=== PATIENT | female | born 1965 | race Caucasian/White ===

== ENCOUNTER 2024-10-27 08:50 | Emergency (ER) | payer MEDICARE, MEDICAID, SELFPAY ==
[2024-10-27 09:04] VITALS: BP 91/50; PULSE 67; RESP 20; TEMP 36.6; O2SAT 100
--- OUTSIDE RECORDS SUMMARY | 2024-10-27 09:05 | XMS_ITS | Clinical Summary ---
Author Organization [facility] Address [address] [place] [address] Phone Care Team Providers Care Plastic Molding Operator Name Role Phone Caryn Briseno APRN, INVERTER AND CLIPPER Unavailable [phone] Nery Burrell MD PhD Unavailable [phone] Roc Whitehead MD Unavailable Wagner Byrne MD Primary Care Provider Rafael Li MD Unavailable Ruben Rodriguez MD Unavailable Allergies Active Allergy Reactions Criticality Noted Date Comments Influenza Virus Vaccine Other (see Comments) PARALYZES ME Ipratropium [facility] Hallucinations High 08/05/19 24 COMBIVENT Pregabalin Swelling 05/15/2022 Medications aspirin EC 81 MG Tablet Delayed Response Take 1 Tablet by mouth daily. Active OXYGEN CONCENTRATOR 3 L/min by Nasal route as needed (shortness of breath). [facility] May use portable oxygen tanks when concentrator is not available. Active Vitamin D, Cholecalciferol, 25 MCG (1000 UT) Capsule Take 1 Capsule by mouth daily. Active acetaminophen (TYLENOL) 500 MG Tablet Take 2 Tablets by mouth every 6 hours as needed for Mild or more severe pain. Active albuterol (PROVENTIL, VENTOLIN) (2.5 MG/3ML) 0.083% Nebulizer Soln TAKE 3 ML (2.5 MG TOTAL) BY NEBULIZATION EVERY 6 (SIX) HOURS NEEDED FOR WHEEZING 360 mL 14 3 Active nitroGLYCERIN (NITROSTAT) 0.[address] 1 TABLET (0.4 MG TOTAL) UNDER THE TONGUE EVERY 5 (FIVE) MINUTES NEEDED FOR CHEST PAIN. IF CHEST PAIN IS NOT RELIEVED AFTER 2ND DOSE CALL 911 OR GO TO NEAREST EMERGENCY ROOM. 25 Tablet 3 3 Active Jardiance 10 MG Tablet TAKE 1 TABLET BY MOUTH DAILY. 90 Tablet 7 3 Active Eliquis 5 MG Tablet TAKE 1 TABLET BY MOUTH TWICE DAILY 180 Tablet 1 3 Active guaiFENesin (ROBITUSSIN) 100 MG/5ML Liquid Take 10 mL by mouth every 4 hours as needed for Cough or Congestion. 840 mL 3 Active spironolactone (ALDACTONE) 25 MG Tablet Take 0.5 Tablets by mouth daily. 90 Tablet 3 Active melatonin 3 MG Tablet Take 2 Tablets by mouth nightly as needed for Other (Sleep). 30 Tablet 3 Active Additional Information Patient not taking.Reported on 08/06/2024 ondansetron (ZOFRAN) 4 MG Tablet TAKE 1 TABLET (4 MG TOTAL) BY MOUTH EVERY 8 (EIGHT) HOURS NEEDED FOR NAUSEA OR VOMITING 20 Tablet 5 4 Active rOPINIRole (REQUIP) 0.5 MG Tablet TAKE 1 TABLET BY MOUTH AT BEDTIME FOR 30 DAYS 30 Tablet 9 4 Active Turmeric (QC TUMERIC COMPLEX PO) Take 1 Capsule by mouth daily. Active Ascorbic Acid (VITAMIN C PO) Take by mouth. Active traZODone (DESYREL) 100 MG TabletIndication s:Primary insomnia TAKE 1 TABLET BY MOUTH NIGHTLY. 90 Tablet 2 4 Active Additional Information Patient not taking.Reported on 08/06/2024 ipratropium-albu terol (Combivent Respimat) 20-100 MCG/ACT Aerosol SolutionIndicati ons:Other emphysema (HCC) take 2 Puffs by inhalation every 4 hours as needed for Wheezing or Shortness of Breath. 4 g 3 4 Active montelukast (SINGULAIR) 10 MG Tablet TAKE 1 TABLET BY MOUTH EVERY EVENING. 90 Tablet 2 4 Active ranolazine (RANEXA) 500 MG TABLET SR 12 HR TAKE 1 TABLET BY MOUTH TWICE DAILY 180 Tablet 1 4 Active pantoprazole (PROTONIX) 40 MG Tablet Delayed Response TAKE 1 TABLET BY MOUTH IN THE EVENING 90 Tablet 1 4 Active roflumilast (DALIRESP) 500 MCG Tablet TAKE 1 TABLET BY MOUTH EVERY DAY 90 Tablet 1 4 Active atorvastatin (LIPITOR) 40 MG Tablet TAKE ONE (1) TABLET BY MOUTH EVERY DAY 90 Tablet 1 4 Active lidocaine (LIDODERM) 5 % Patch APPLY 1 PATCH EXTERNALLY EVERY 12 HOURS, REMOVE FOR 12 HOURS. APPLY NEW PATCH IN 12 HOURS AND REPEAT. 60 Patch 4 Active fluticasone (FLONASE) 50 MCG/ACT Suspension USE 2 SPRAYS IN EACH NOSTRIL ONCE DAILY 16 mL 9 4 Active traMADol (ULTRAM) 50 MG TabletIndication s:Acute exacerbation of chronic low back pain Take 1 Tablet by mouth every 6 hours as needed for Moderate or more severe pain. 20 Tablet 4 Active Additional Information Patient not taking.Reported on 03/10/2024 sodium chloride 1 GM Tablet TAKE 1 TABLET BY MOUTH 2 TIMES DAILY. 180 Tablet 1 4 Active sacubitril-valsa rtan (Entresto) 24-26 MG Tablet Take 1 Tablet by mouth 2 times daily. 180 Tablet 1 4 Active PARoxetine (PAXIL) 40 MG Tablet TAKE 1 TABLET BY MOUTH DAILY. 90 Tablet 2 4 Active Trelegy Ellipta 100-62.5-25 MCG/ACT AEROSOL POWDER, BREATH ACTIVATED TAKE 1 PUFF BY INHALATION DAILY. 180 Each 1 4 Active oxyCODONE (ROXICODONE) 5 MG TabletIndication s:Back pain Take 1 Tablet by mouth every 4 hours as needed for Severe pain. 15 Tablet 4 Active azelastine (ASTELIN) 0.1 % Solution ADMINISTER 1 SPRAY INTO EACH NOSTRIL 2 (TWO) TIMES A DAY DIRECTED 30 mL 2 4 Active methocarbamol (ROBAXIN) 500 MG Tablet TAKE 1 TABLET BY MOUTH THREE TIMES A DAY 90 Tablet 4 Active Additional Information Patient not taking.Reported on 08/06/2024 albuterol (ProAir HFA) 108 (90 Base) MCG/ACT Aerosol Solution take 2 Puffs by inhalation every 4 hours as needed for Wheezing. 1 g 6 4 Active Additional Information Patient not taking.Reported on 08/06/2024 furosemide (LASIX) 40 MG Tablet TAKE 1 TABLET BY MOUTH DAILY. 90 Tablet 1 4 Active tiZANidine (ZANAFLEX) 4 MG Tablet Take 1 Tablet by mouth every 6 hours as needed for Muscle spasms. 30 Tablet 5 Active Additional Information Patient not taking.Reported on 08/06/2024 ketorolac (TORADOL) 10 MG Tablet Take 1 Tablet by mouth every 6 hours as needed for Moderate or more severe pain. 20 Tablet 5 Active albuterol (ProAir HFA) 108 (90 Base) MCG/ACT Aerosol SolutionIndicati ons:Simple chronic bronchitis (HCC) take 2 Puffs by inhalation every 4 hours as needed for Wheezing. 18 g 3 5 Active predniSONE (DELTASONE) 5 MG Tablet Take 1 Tablet by mouth daily. 30 Tablet 4 5 Active DULoxetine (Cymbalta) [address] Particles Take 60 mg by mouth daily. Active ALPRAZolam (Xanax) 0.5 MG Tablet Take 0.5 mg by mouth daily as needed. Active amiodarone (CORDARONE) 200 MG Tablet Take 1 Tablet by mouth 2 times daily. 60 Tablet 2 5 Active metoprolol Succinate (TOPROL-XL) 100 MG TABLET SR 24 HR Take (1) tab in am and (0.5) tab in pm 45 Tablet 3 5 Active Active Problems Problem Noted Date Diagnosed Date Bipolar depression 04/02/2024 Chronic hypoxemic respiratory failure 02/05/2024 Acute kidney injury 04/22/2023 Prolonged Q-T interval on ECG 04/22/2023 Leukocytosis 04/22/2023 Major depressive disorder, recurrent episode, mo derate 01/30/2023 Grief 01/30/2023 Tobacco abuse 01/23/2023 Acute chest pain 11/15/2022 Seizures 11/15/2022 VA (myocardial infarction) 11/15/2022 Depression 11/15/2022 Congestive heart failure (CHF) 11/15/2022 Bipolar 1 disorder 11/15/2022 Chronic atrial fibrillation 11/15/2022 Hyponatremia 06/05/2022 Hypochloremia 06/05/2022 Hypomagnesemia 04/01/2022 Thrombocytosis 04/01/2022 Paroxysmal atrial fibrillation 04/01/2022 Dilated cardiomyopathy 04/01/2022 Chronic back pain 04/01/2022 AICD discharge 02/27/2022 Acute on chronic systolic heart failure 02/28/20 Asthma, moderate persistent 02/09/2022 Coronary atherosclerosis 12/12/2021 Insomnia secondary to chronic pain 10/20/2021 Overview (02/09/2022): Last Assessment & Plan: Patient is unable to sleep, reports she cannot lie flat, or even sit for significant time due to miserable pain Causing insomnia; patient reports multiple stressors including medical implications for cardiac in spinal help; as well as planning for mother's Memorial Will start clonazepam 1 mg at bedtime to help with sleep initiation and reduce stress and anxiety Spinal stenosis of lumbar re gion with neurogenic claudication 04/11/2021 Overview (02/09/2022): Last Assessment & Plan: Not well controlled, continues to have significant pain and discomfort associated with low back pain Patient is following her surgery; scheduling for surgical interventions Patient follows with pain management for management of pain due to low back pain Currently Xtampza ER 13.5 mg b.i.d.; oxycodone 10 mg b.i.d. as needed for breakthrough pain Chronic bilateral low back pain with bilateral s ciatica 03/14/2021 Overview (02/09/2022): Last Assessment & Plan: Patient follows with pain management, planning for intervention; though minimally invasive intervention currently deferred due to other responsibilities Patient to continue on oxycodone 10 t.i.d., gabapentin Radiculopathy, lumbosacral region 03/14/2021 Anxiety 02/03/2020 Overview (02/09/2022): Last Assessment & Plan: Patient has multiple stressors at home, including caring for her mother; mother needs significant amounts of care and patient has no opportunity to have breaks in care Is not able to care for self Patient reports she only gets 1-2 hours per night before waking up again Discussed with patient ways to consolidate sleep as well as Ensure giving approximately 8-9 hours of sleep per night Encouraged patient to work with health social work professor as well as department of aging to get support from mother Continue Paxil 20 mg, propanolol 40 mg persistent since in management of generalized anxiety disorder Chest pain 02/03/2020 Overview (02/09/2022): Last Assessment & Plan: Chest pain more likely from anxiety but does have known cardiomyopathy with low EF and paroxysmal atrial fibrillation. Initial troponin and EKG with no acute changes. Will monitor overnight. Continue to trend troponin levels. ICD (implantable cardioverte r-defibrillator), biventricular, in situ 01/21/2019 Hyperlipidemia 10/10/2018 Hypertension 10/10/2018 Overview (02/09/2022): Last Assessment & Plan: Stable, blood pressure at target today Continue medications above list for heart failure Last Assessment & Plan: Stable, blood pressure at target today Continue medications above list for heart failure Neuropathy 10/10/2018 Osteoarthrosis 10/08/2018 Asthma 09/27/2018 Bipolar disorder 09/27/2018 Overview (02/09/2022): Last Assessment & Plan: Stable, Not well controlled, patient continues to have ups and Downs; multiple stressors including mother with possible diagnosis of dementia Encouraged patient continue with counseling; continue BuSpar 7.5 mg, Depakote 500 mg t.i.d., Paxil 20 mg daily Cardiomyopathy 09/27/2018 COPD (chronic obstructive pulmonary disease) Overview (02/09/2022): Last Assessment & Plan: Continues to use 2 L of oxygen by nasal cannula Continue Trelegy Ellipta, albuterol p.r.n. for exacerbation Coronary arteriosclerosis 09/27/2018 Resolved Problems Problem Noted Date Diagnosed Date Resolved Date Acute CHF (congestive heart failure) 08/03/2023 08/04/2023 Acute on chronic respiratory failure with hypoxia and hypercapnia 04/21/2023 06/19/2023 VA (myocardial infarction) 11/15/2022 0 02/05/2024 COPD with acute exacerbation 06/05/2022 06/19/2023 HCAP (healthcare-associated pneumonia) 05/15/2022 02/15/2023 Community acquired pneumonia 04/01/2022 02/15/2023 Atrial fibrillation with RVR 02/27/2022 03/01/2022 Pneumonia due to COVID-19 virus 01/26/2022 02/15/2023 Moderate tobacco use disorder 10/13/2020 02/05/2024 Overview (02/09/2022): Last Assessment & Plan: Not well controlled, continues to have tobacco use approximately 1 pack per day, patient is ready to quit Patient is working with self in mother to help quit; encouraged patient to continue working with her mother for long-term relief Tobacco dependence 01/20/2019 Atrial fibrillation 09/27/2018 02/05/20 Overview (02/09/2022): Last Assessment & Plan: Stable, well controlled; rate controlled No evidence of severe bleeding or bruising on Eliquis Continue propanolol and Eliquis 5 mg b.i.d. Encounters Date Type Department Care Team Description 10/10/2024 Refill [facility] [address] [place] [address] Enrique Smith MD Medication Refill 10/04/2024 5:27 AM CDT - 10/04/2024 6:34 AM CDT Emergency [facility] Emergency [address] [place] [address] Mayank Yi MD Contusion of dorsum of foot Discharge Disposition: Discharged to home or Selfcare 10/04/2024 Travel 08/19/2024 9:30 AM CDT - 08/19/2024 11:59 PM CDT Hospital Encounter [facility] Respiratory Therapy [address] [place] [address] Ruben Rodriguez MD Discharge Disposition: Discharged to home or Selfcare 08/19/2024 Telephone [facility] Cardiology [facility] [address] [place] [address] Ruben Rodriguez MD Information 08/19/2024 Travel 08/06/2024 9:00 AM CDT Office Visit [facility] Cardiology [facility] [address] [place] [address] Ruben Rodriguez MD VF (ventricular fibrillation) (HCC) (Primary Dx) Discharge Disposition: Discharged to home or Selfcare 08/06/2024 Travel 07/31/2024 Refill [facility] Pulmonology & Sleep Medicine [facility] [address] [place] [address] Roc Whitehead MD Medication Refill from Last 3 Months Immunizations Immunization Administration Dates Next Due TDAP Vaccine 10/08/2019 Family History Medical History Relation Name Comments No Known Problems Brother 1 Cancer Father PROSTATE Congestive Heart Failure Mother Heart Disease Mother Relation Name Status Comments Brother 1 Alive Brother 2 Father Mother Social History Tobacco Use Types Packs/Day Years Used Date Smoking Tobacco: Every Day Cigarettes 0.5 40 Smokeless Tobacco: Never Tobacco Cessation:Ready to Q uit: Not Asked; Counseling Given: Not Answered Alcohol Use Standard Drinks/Week Comments Not Currently 0 (1 standard drink = 0.6 oz pur e alcohol) [facility] Utilities Answer Date Recorded In the past 12 months has e electric, gas, oil, or water company threatened to shut off services in your home? Patient declined 08/03/2023 Social Connection and Isolation Panel Answer Date Recorded In a typical week, how many times do you talk on the phone with family, friends, or neighbors? Patient declined 08/03/2023 How often do you get togethe r with friends or relatives? Patient declined 08/03/2023 How often do you attend jain or scientology serv ices? Patient declined 08/03/2023 Do you belong to any clubs o r organizations such as jain groups, unions, fraternal or athletic groups, or school groups? Patient declined 08/03/2023 How often do you attend meet ings of the clubs or organizations you belong to? Patient declined 08/03/2023 Are you , , di vorced, , never , or living with a partner? Patient declined 08/03/2023 AUDIT-C Answer Date Recorded Q1: How often do you have a drink containing alc ohol? Patient declined 08/03/2023 Q2: How many drinks containi ng alcohol do you have on a typical day when you are drinking? Patient declined 08/03/2023 Q3: How often do you have si x or more drinks on one occasion? Patient declined 08/03/2023 Overall Financial Resource Strain (CARDIA) Answe r Date Recorded How hard is it for you to pa y for the very basics like food, housing, medical care, and heating? Patient declined 08/03/2023 PHQ-2 Answer Date Recorded Total Score - Questions 1-9 9 01/2024 [facility] - Occupational Stress Questionnaire Answer Date Recorded Do you feel stress - tense, restless, nervous, or anxious, or unable to sleep at night because your mind is troubled all the time - these days? Patient declined 08/03/2023 Exercise Vital Sign Answer Date Recorde d On average, how many days pe r week do you engage in moderate to strenuous exercise (like a brisk walk)? Patient declined On average, how many minutes do you engage in exercise at this level? Patient declined 08/03/2023 Hunger Vital Sign Answer Date Recorded Within the past 12 months, y ou worried that your food would run out before you got the money to buy more. Patient declined Within the past 12 months, t he food you bought just didn't last and you didn't have money to get more. Patient declined PRAPARE - Transportation Answer Date Re corded In the past 12 months, has l ack of transportation kept you from medical appointments or from getting medications? Patient declined 08/03/2023 In the past 12 months, has l ack of transportation kept you from meetings, work, or from getting things needed for daily living? Patient declined 08/03/2023 Housing Stability Vital Sign Answer Christophe e Recorded In the last 12 months, was t here a time when you were not able to pay the mortgage or rent on time? Patient declined 08/03/19 24 In the last 12 months, how many places have you lived? 1 08/03/2023 In the last 12 months, was t here a time when you did not have a steady place to sleep or slept in a jail (including now)? Patient declined 08/03/2023 Education Answer Date Recorded What is the highest level of school you have completed or the highest degree you have received? 9th grade 10/31/2022 Sexually Active Control Partners Comments Not Currently Comments No Sex and Gender Information Value Date Recorded Sex Assigned at Female 10/04/2024 5:46 AM CDT Legal Sex Female 3:19 PM CDT Gender Identity Female 10/04/2024 5:46 AM CDT Sexual Orientation Not on file Last Filed Vital Signs Vital Sign Reading Time Taken Comments Blood Pressure 93/76 10/04/2024 6:16 AM CDT Pulse 69 10/04/2024 6:16 AM CDT Temperature 36.8 C (98.2 F) 10/04/2024 5:30 AM CDT Respiratory Rate 19 10/04/2024 6:16 AM CDT Oxygen Saturation 100% 10/04/2024 6:16 AM CDT Inhaled Oxygen Concentration - - Weight 92.1 kg (203 lb) 10/04/2024 5:30 AM CDT Height 165.1 cm (5' 5) 10/04/2024 5:30 AM CDT Body Mass Index 33.78 10/04/2024 5:30 AM CDT Plan of Treatment Upcoming Encounters Date Type Department Care Team (Latest Contact Info) Description 10/29/2024 9:00 AM CDT Clinical Support [facility] [place] [address] [place] [address] Nurse, [facility] [place] 10/29/2024 9:30 AM CDT [facility] Visit [facility] [place] [address] [place] [address] Ruben Rodriguez MD [address] [facility] [address] [place] [address] 10/30/2024 1:00 PM CDT Appointment [facility] Services [address] [place] [address] Ruben Rodriguez MD [address] [address] Discharge Disposition: Discharged to home or Selfcare Health Maintenance Due Date Last Done Comments Hepatitis C Virus (HCV) Screening 1965 Mammogram 1964 Hepatitis B Immunization (1 of 3 - 19+ 3-dose series) 12/10/1983 Pneumococcal Immunization (50+ years) (1 of 2 - PCV) 12/10/1983 Pap Smear 1985 Cervical Cancer Screening (CCS) 1994 HPV/Cotest 1994 Cologuard 2009 Colonoscopy 2009 Colorectal Cancer Screening 2009 Immunochemical Fecal Occult Blood 2009 Zoster Immunization (1 of 2) 2014 Lung Cancer Screening 07/06/2023 07/06/2022 , 09/26/2015, 09/26/2015, Additional history exists SARS-COV-2 Immunization ( - season) 2024 Influenza Immunization (Season Ended) 2025 Td Immunization Every 10 Years (Adults With 1 Tdap) 10/07/2029 10/08/2019 Respiratory Syncytial Virus (RSV) Immunization (Adult) (1 - 1-dose 75+ series) 12/10/2039 DTaP/Tdap/Td Immunization Discontinued 10/08/2019 Human Papillomavirus (HPV) Immunization Aged Out No longer eligible based on patient's age to complete this topic Meningococcal Immunization (ACWY) Aged Out No longer eligible based on patient's age to complete this topic Rotavirus Immunization Aged Out No lo nger eligible based on patient's age to complete this topic Goals Goal Patient Goal Type Associated Problems Recent Progress Patient-Stated? Author I am tired of feeling guilty about my [grief.] Behavioral Health Improving(01/2024 2:42 PM APPAREL STOCK CHECKER) Yes Edda Vo, SCIENTIFIC SYSTEMS ANALYST Note: Goal/Objective: Decrease guilty thoughts about her care for her mother who is now . Anticipated Time Frame for Goal Completion: 6 months Goal Reviewed with: patient Readiness to change: Ready to change Department associated with goal: [facility] Steps to achieve goal: 1. will attend at least 6 counseling sessions either individual and/or group 1x/mo, engaging in each session by verbalizing and processing thoughts and feelings related to grief and loss. 2. will report reduced feelings of guilt and resentment. 3. will identify and implement at least two outlets for grief and or coping skills to aid in managing problematic responses to grief. Medical Devices Implanted Type Area Antenna Specialist Device Identifier Shelf Expiration Date Model / Serial / Lot Technis 1-Piece Iol With Simplicity Delivery System Implanted:Qty: 1 on 03/10/2024 by Romy Durbin MD PhD at [facility] Right: Eye 01/25/2026 [id number] / [id number] / [id number] Procedures Procedure Name Priority Date/Time Associated Diagnosis Comments XR FOOT 3 OR MORE VIEWS RIGHT STAT 10/04/2024 5:56 AM CDT ELECTROCARDIOGRAM, COMPLETE Today 08/06/2024 9:00 AM CDT VF (ventricular fibrillation) (HCC) MAGNESIUM (MG) Routine 08/06/2024 8:45 AM CDT VF (ventricular fibrillation) (HCC) BASIC METABOLIC PANEL W/ CALCIUM TOTAL Routine 08/06/2024 8:45 AM CDT Cardiomyopathy, unspecified type (HCC) Primary hypertension Acute on chronic systolic heart failure (HCC) CT CHEST W/O CONTRAST Routine 07/06/2022 3:13 PM APPAREL STOCK CHECKER Hyponatremia COPD (chronic obstructive pulmonary disease) (HCC) from Last 3 Months or Most Recently Relevant to Health Maintenance Results * XR FOOT 3 OR MORE VIEWS RIGHT (10/04/2024 5:56 AM CDT) Anatomical Region Laterality Modality LOWER EXTREMITY, foot Right Digital Ra diography 10/04/2024 6:06 AM CDT Impressions 10/04/2024 6:08 AM CDT IMPRESSION: No acute osseous abnormality. Narrative 10/04/2024 6:08 AM CDT EXAM DESCRIPTION: XR FOOT 3 OR MORE VIEWS RIGHT REASON FOR STUDY: Foot injury TECHNIQUE: Three radiographic views of the right foot . COMPARISON: None. FINDINGS: BONES: There is no cortical discontinuity or trabecular irregularity to suggest fracture. The bones are in normal alignment. SOFT TISSUES: There is diffuse soft tissue swelling over the dorsum of the foot, greatest over the distal metatarsals. THIS IS AN ELECTRONICALLY VERIFIED FINAL REPORT 10/04/2024 6:06 AM - Electronically signed by Yanet Garay M.D. SN: SN Report ID: [id number] Reading Location: [id number] Procedure Note Yanet Garay MD - 10/04/2024 EXAM DESCRIPTION: XR FOOT 3 OR MORE VIEWS RIGHT REASON FOR STUDY: Foot injury TECHNIQUE: Three radiographic views of the right foot . COMPARISON: None. FINDINGS: BONES: There is no cortical discontinuity or trabecular irregularity to suggest fracture. The bones are in normal alignment. SOFT TISSUES: There is diffuse soft tissue swelling over the dorsum of the foot, greatest over the distal metatarsals. THIS IS AN ELECTRONICALLY VERIFIED FINAL REPORT 10/04/2024 6:06 AM - Electronically signed by Yanet Garay M.D. SN: Report ID: [id number] Reading Location: [id number] IMPRESSION: No acute osseous abnormality. us Raj Nicholas MD IMG DIAGNOSTIC ORDERABLES Final Result * ELECTROCARDIOGRAM, COMPLETE (08/06/2024 9:00 AM CDT) Narrative Ruben Rodriguez MD - 08/06/2024 9:00 AM CDT Ruben Rodriguez MD 08/13/2024 10:20 PM [employer]. Ruben Rodriguez MD IMG ECG ORDERABLES Edited Result - Final * MAGNESIUM (MG) (08/06/2024 8:45 AM CDT) MAGNESIUM 1.7 1.6 - 2.6 mg/dL 08/06/2024 10:43 AM CDT [facility] Blood Venipuncture / Unknown 08/06/2024 8:45 AM CDT 08/06/2024 10:25 AM CDT Ruben Rodriguez MD CHEMISTRY ORDERABLES Final Resul t [facility] [address] [place] [address] * (ABNORMAL) BASIC METABOLIC PANEL W/ CALCIUM TOTAL (08/06/2024 8:45 AM CDT) SODIUM 132(L) 136 - 145 mmol/L 08/06/2024 10:14 AM CDT [facility] POTASSIUM 4.3 3.5 - 5.1 mmol/L 08/06/2024 10:14 AM CDT [facility] CHLORIDE 94(L) 98 - 107 mmol/L 08/06/2024 10:14 AM CDT [facility] CO2, VENOUS 31(H) 22 - 30 mmol/L 08/06/2024 10:14 AM CDT [facility] ANION GAP 11.3 <18.0 mmol/L 08/06/2024 10:14 AM CDT [facility] GLUCOSE 109(H) 70 - 99 mg/dL 08/06/2024 10:14 AM CDT [facility] BUN 9(L) 10 - 20 mg/dL 08/06/2024 10:14 AM CDT [facility] CREATININE, BLOOD 0.78 0.60 - 1.00 mg/dL 08/06/2024 10:14 AM CDT [facility] BUN/CREATININE RATIO 12 12 - 20 ratio 08/06/2024 10:14 AM CDT [facility] CALCIUM 8.9 8.7 - 10.5 mg/dL 08/06/2024 10:14 AM CDT [facility] IS THE PATIENT REQUIRED TO BE FASTING? No 08/06/2024 10:14 AM CDT [facility] GFR, ESTIMATED >60 >=60 08/06/2024 10:14 AM CDT [facility] Comment: Creatinine Clearance is the preferred criteria for selecting drug dose adjustments in renally impaired patients. The GFR is provided as additional pertinent clinical information. GFR is reported in mL/min/1.73 sq m. Calculation based on the Chronic Kidney Disease Epidemiology Collaboration (CKD- EPI) equation refit without adjustment for race. GFR, EST. >60 >=60 025 10:14 AM CDT [facility] GFR, EST. NONAFRICAN >60 >=60 08/06/2024 10:14 AM CDT [facility] Blood Venipuncture / Unknown 08/06/2024 8:45 AM CDT 08/06/2024 9:23 AM CDT us Caryn Briseno RETAIL KEY HOLDER, INVERTER AND CLIPPER CHEMISTRY ORDERABLES Final Result [facility] #[address] [place] [address] * CT CHEST W/O CONTRAST (07/06/2022 3:13 PM APPAREL STOCK CHECKER) Anatomical Region Laterality Modality Chest N/A Computed Tomogra phy 07/08/2022 10:4 1 PM APPAREL STOCK CHECKER Impressions 07/08/2022 10:43 PM APPAREL STOCK CHECKER IMPRESSION: 1. Redemonstration of mild upper lobe predominant emphysema with mild peripheral nonspecific fibrosis also more pronounced in the bilateral upper lobes. 2. Scattered mild nodular atelectasis or scarring in the bilateral lower lobes have significantly improved compared to prior study. 3. No suspicious pulmonary nodules, lung masses or pneumonia. 4. Interval resolution of moderate size pericardial effusion seen on prior study. Narrative 07/08/2022 10:43 PM APPAREL STOCK CHECKER EXAM DESCRIPTION: CT CHEST W/O CONTRAST REASON FOR STUDY: Hypo-osmolality and hyponatremia TECHNIQUE: CT scan of the chest performed without intravenous contrast using helical scanning technique. Reconstructed coronal and sagittal MPR images reviewed. All images stored on PACS. Automated exposure control was used as a dose optimization technique for this examination. COMPARISON: 04/01/2022 REFERENCE: Per ACR white paper recommendations, unless otherwise specified no follow-up imaging is recommended for incidental renal and adrenal lesions per consensus recommendations based on imaging criteria. Further lab evaluation could be pursued based on clinical findings. FINDINGS: The sensitivity for detection of solid visceral lesions is diminished without the use of intravenous contrast. LUNGS: Mild emphysema worst in the bilateral upper lobes with scattered mild peripheral fibrosis also more pronounced in the bilateral upper lobes, as well as mild scattered atelectasis/nodular scarring in the bilateral lower lobes and lingula. No suspicious nodules or pulmonary masses. No pneumonia. PLEURA: No effusion. No pneumothorax. MEDIASTINUM/ASHLEIGH: No identified masses or abnormal nodes. HEART: Heart size is normal with no pericardial effusion. Previous moderate pericardial effusion has resolved. CORONARY ARTERY CALCIFICATION: Mild atherosclerotic calcification in the left anterior descending and right coronary arteries. VASCULATURE: No thoracic aortic aneurysm. AXILLA: No adenopathy. CHEST WALL: No masses. No subcutaneous air. HARDWARE/LINES/TUBES: Left chest wall pacemaker/defibrillator with coronary sinus and atrial ventricular leads redemonstrated. UPPER ABDOMEN: No significant abnormality. MUSCULOSKELETAL: Multiple healed bilateral rib fractures and thoracotomy change of left lateral 10th rib redemonstrated. No acute fracture or suspicious osseous lesions. OTHER: No other significant abnormality. THIS IS AN ELECTRONICALLY VERIFIED FINAL REPORT 07/08/2022 10:41 PM - Electronically signed by Enrique Burrell M.D. ML: ML Report ID: [id number] Reading Location: [place] [address] Procedure Note Enrique Burrell MD - 07/08/2022 EXAM DESCRIPTION: CT CHEST W/O CONTRAST REASON FOR STUDY: Hypo-osmolality and hyponatremia TECHNIQUE: CT scan of the chest performed without intravenous contrast using helical scanning technique. Reconstructed coronal and sagittal MPR images reviewed. All images stored on PACS. Automated exposure control was used as a dose optimization technique for this examination. COMPARISON: 04/01/2022 REFERENCE: Per ACR white paper recommendations, unless otherwise specified no follow-up imaging is recommended for incidental renal and adrenal lesions per consensus recommendations based on imaging criteria. Further lab evaluation could be pursued based on clinical findings. FINDINGS: The sensitivity for detection of solid visceral lesions is diminished without the use of intravenous contrast. LUNGS: Mild emphysema worst in the bilateral upper lobes with scattered mild peripheral fibrosis also more pronounced in the bilateral upper lobes, as well as mild scattered atelectasis/nodular scarring in the bilateral lower lobes and lingula. No suspicious nodules or pulmonary masses. No pneumonia. PLEURA: No effusion. No pneumothorax. MEDIASTINUM/ASHLEIGH: No identified masses or abnormal nodes. HEART: Heart size is normal with no pericardial effusion. Previous moderate pericardial effusion has resolved. CORONARY ARTERY CALCIFICATION: Mild atherosclerotic calcification in the left anterior descending and right coronary arteries. VASCULATURE: No thoracic aortic aneurysm. AXILLA: No adenopathy. CHEST WALL: No masses. No subcutaneous air. HARDWARE/LINES/TUBES: Left chest wall pacemaker/defibrillator with coronary sinus and atrial ventricular leads redemonstrated. UPPER ABDOMEN: No significant abnormality. MUSCULOSKELETAL: Multiple healed bilateral rib fractures and thoracotomy change of left lateral 10th rib redemonstrated. No acute fracture or suspicious osseous lesions. OTHER: No other significant abnormality. THIS IS AN ELECTRONICALLY VERIFIED FINAL REPORT 07/08/2022 10:41 PM - Electronically signed by Enrique Burrell M.D. ML: ML Report ID: [id number] Reading Location: [id number] IMPRESSION: 1. Redemonstration of mild upper lobe predominant emphysema with mild peripheral nonspecific fibrosis also more pronounced in the bilateral upper lobes. 2. Scattered mild nodular atelectasis or scarring in the bilateral lower lobes have significantly improved compared to prior study. 3. No suspicious pulmonary nodules, lung masses or pneumonia. 4. Interval resolution of moderate size pericardial effusion seen on prior study. 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 PRE-ARREST: Use entire range of life support measures to stabilize the patient. * Full Code Date Activated Date Inactivated Comments 04/21/2023 5:31 PM 04/22/2023 4:32 PM CPR-Full Tr eatment: FULL ARREST: Attempt Resuscitation/CPR wit intubation and mechanical ventilation. PRE-ARREST: Use entire range of life support measures to stabilize the patient. * Full Code Date Activated Date Inactivated Comments 12/13/2022 9:03 AM 12/22/2022 9:31 AM * Full Code Date Activated Date Inactivated Comments 11/15/2022 12:00 PM 11/17/2022 5:31 PM CPR-Full Shannon tment: FULL ARREST: Attempt Resuscitation/CPR wit intubation and mechanical ventilation. PRE-ARREST: Use entire range of life support measures to stabilize the patient. Care Teams Plastic Molding Operator Relationship Specialty Start Date End Date Wagner Byrne MD [address] [place] [address] PCP - General Internal Medicine 11/25/23 Caryn Briseno, RETAIL KEY HOLDER, INVERTER AND CLIPPER #2 [facility], [facility] [address] [place] [address] Nurse Practitioner Cardiology 04/04/23 Nery Burrell MD PhD #1 [place] [address] Senior Hr Manager Interventional Cardiology 04/04/23 Roc Whitehead MD #2 [place] [address] Consulting Physician Pulmonary Disease 10/5/23 Rafael Li MD #2 [facility], [address] [address] Consulting Physician Clinical Cardiac Electrophysiology 02/19/24 Ruben Rodriguez MD 2 Jocelin [facility], [address] [address] Consulting Physician Cardiovascular Disease - Cardiology 08/06/24
--- OUTSIDE RECORDS SUMMARY | 2024-10-27 09:05 | XMS_ITS | Encounter Summary ---
Author Organization [facility] Address [address] [place] [address] Phone Care Team Providers Care Field Service Specialist Name Role Phone Enrique Simth MD Primary Care Provider [phone] Roshan Franco MD Unavailable Caryn Menezes SAUSAGE CANNER, SEAM CLOSER Unavailable + [phone] Nery Burrell MD PhD Unavailable [phone] Roc Whitehead MD Unavailable Wagner Byrne MD Primary Care Provider [phone] Rafael Li MD Unavailable Ruben Rodriguez MD Unavailable Reason for Visit * Reason Comments Medication Refill Encounter Details Date Type Department Care Team (Late st Contact Info) Description 10/10/2022 Refill [facility] - [facility] [address] [place] [id number] Enrique Smith MD [address] [address] Medication Refill Social History Tobacco Use Types Packs/Day Years Used Date Smoking Tobacco: Every Day Cigarettes 0.5 40 Smokeless Tobacco: Never Alcohol Use Standard Drinks/Week Comments Not Currently 0 (1 standard drink = 0.6 oz pur e alcohol) PHQ-2 Answer Date Recorded Total Score - Questions 1-9 0 01/13 Sexually Active Control Partners Comments Not Currently Comments No Sex and Gender Information Value Date Recorded Sex Assigned at Female 10/04/2024 5:46 AM CDT Legal Sex Female 3:19 PM CDT Gender Identity Female 10/04/2024 5:46 AM CDT Sexual Orientation Not on file documented as of this encounter Miscellaneous Notes * Telephone Encounter - Tanika Martin RN - 10/11/2022 12:05 PM CDT Medication failed the protocol, provider to review and approve the medication order if appropriate. Requested Prescriptions Pending Prescriptions Disp Refills ondansetron (ZOFRAN) 4 MG Tablet [Pharmacy Med Name: ONDANSETRON HYDROCHLORIDE 4MG TABLET] 20 Tablet 1 Sig: TAKE 1 TABLET (4 MG TOTAL) BY MOUTH EVERY 8 (EIGHT) HOURS NEEDED FOR NAUSEA OR VOMITING Not Delegated - 5-HT3 Antagonists Protocol Failed - 10/10/2022 3:44 PM Failed - This refill cannot be delegated Passed - Visit with relevant provider in past 12 months or upcoming 90 days Recent Visits Date Type Provider Dept 06/28/22 Office Visit Enrique Smith MD [facility] 06/20/22 Office Visit Luis Carlos Bull MD [facility] 05/31/22 Office Visit Enrique Smith MD [facility] 05/11/22 Office Visit Enrique Smith MD [facility] 04/11/22 Office Visit Bárbara Bergeron APRN, CNP [facility] 03/28/22 Office Visit Enrique Smith MD [facility] 02/09/22 Office Visit Bárbara Bergeron APRN, CNP [facility] Showing recent visits within past 365 days and meeting all other requirements Future Appointments Date Type Provider Dept 10/31/22 Appointment Enrique Smith MD [facility] Showing future appointments within next 90 days and meeting all other requirements predniSONE (DELTASONE) 5 MG Tablet [Pharmacy Med Name: PREDNISONE 5MG TABLET] 30 Tablet 0 Sig: TAKE 1 TABLET BY MOUTH DAILY. Not Delegated - Corticosteroids Protocol Failed - 10/10/2022 3:44 PM Failed - This refill cannot be delegated Passed - Visit with relevant provider in past 12 months or upcoming 90 days Recent Visits Date Type Provider Dept 06/28/22 Office Visit Enrique Smith MD [facility] 06/20/22 Office Visit Luis Carlos Bull [facility] 05/31/22 Office Visit Enrique Smith MD [facility] 05/11/22 Office Visit Enrique Smith MD [facility] 04/11/22 Office Visit Bárbara Bergeron APRN, JET [facility] 03/28/22 Office Visit Enrique Smith MD [facility] 02/09/22 Office Visit Bárbara Bergeron APRN, SEAM CLOSER [facility] Showing recent visits within past 365 days and meeting all other requirements Future Appointments Date Type Provider Dept 10/31/22 Appointment Enrique Smith MD [facility] Showing future appointments within next 90 days and meeting all other requirements documented in this encounter Plan of Treatment Upcoming Encounters Date Type Department Care Team (Latest Contact Info) Description 10/29/2024 9:00 AM CDT Clinical Support [facility] Cardiology [facility] #[address] [place] [address] Nurse, [place] [facility] [place] 10/29/2024 9:30 AM CDT Office Visit [facility] #2 [place] [address] Ruben Rodriguez MD [address] [address] 10/30/2024 1:00 PM CDT Appointment [facility] Cardiology Services [address] [place] [address] Ruben Rodriguez MD [address] [facility], [facility] [address] [place] [address] Discharge Disposition: Discharged to home or Selfcare documented as of this encounter Visit Diagnoses Not on filedocumented in this encounter Additional Health Concerns Infection Onset Date Last Indicated Resolved Time COVID - 19 01/23/2023 01/23/2023 02/02/2023 12:1 6 AM CDT COVID - 19 04/02/2023 04/02/2023 04/12/2023 12:1 6 AM REGULATORY SUBMISSIONS SPECIALIST COVID - 19 04/21/2023 04/21/2023 05/01/2023 12:1 6 AM REGULATORY SUBMISSIONS SPECIALIST Assessment Noted Time PHQ-9 Depression Total Score: 0 02/10/20 11:00 AM CDT documented as of this encounter Care Teams Field Service Specialist Relationship Specialty Start Date End Date Enrique Smith MD #[address] [facility] [address] [place] [address] PCP - General Family Medicine 03/28/22 11/24/23 Wagner Byrne MD [address] [place] [address] PCP - General Internal Medicine 11/25/23 Roshan Franco MD #[address] [facility] [address] [place] [address] Consulting Physician Cardiovascular Disease - Cardiology 12/06/22 04/20/24 Caryn Briseno APRN, SEAM CLOSER #2 [facility], [facility] [address] [place] [address] Nurse Practitioner Cardiology 04/04/23 Nery Burrell MD PhD #[address] [place] [address] Anodiser Interventional Cardiology 04/04/23 Roc Whitehead MD #[address] [place] [address] Consulting Physician Pulmonary Disease 02/15/23 Rafael Li MD [facility] [address] [address] Consulting Physician Clinical Cardiac Electrophysiology 02/19/24 Ruben Rodriguez MD 2 [facility] [address] [address] Consulting Physician Cardiovascular Disease - Cardiology 08/06/24 documented as of this encounter
--- OUTSIDE RECORDS SUMMARY | 2024-10-27 09:05 | XMS_ITS | Encounter Summary ---
Author Organization [facility] Address [address] [place] [address] Phone Care Team Providers Care Placing Judge Name Role Phone Enrique Smith MD Primary Care Provider [phone] Roshan Franco MD Unavailable Caryn Menezes SHIPPING SUPPORT, CURING OVEN ATTENDANT Unavailable + [phone] Nery Burrell MD PhD Unavailable [phone] Roc Whitehead MD Unavailable Wagner Byrne MD Primary Care Provider [phone] Rafael Li MD Unavailable Rbuen Rodriguez MD Unavailable Reason for Visit * Reason Comments Medication Refill Encounter Details Date Type Department Care Team (Late st Contact Info) Description 12/06/2022 Refill [facility] - Family Medicine [facility] [address] [place] [id number] Enrique Smith MD [address] [address] Medication Refill Social History Tobacco Use Types Packs/Day Years Used Date Smoking Tobacco: Every Day Cigarettes 0.5 40 Smokeless Tobacco: Never Alcohol Use Standard Drinks/Week Comments Never 0 (1 standard drink = 0.6 oz pur e alcohol) PHQ-2 Answer Date Recorded Total Score - Questions 1-9 0 01/13 Education Answer Date Recorded What is the [...] AM CDT Sexual Orientation Not on file COVID-19 Exposure Response Date Recorded In the last 10 days, have yo u been in contact with someone who was confirmed or suspected to have Coronavirus/COVID-19? No / Unsure 12/06/2022 2:03 PM CDT documented as of this encounter Miscellaneous Notes * Telephone Encounter - Eloisa Meza RN - 12/06/2022 4:16 PM CDT Medication failed the protocol, provider to review and approve the medication order if appropriate. Requested Prescriptions Pending Prescriptions Disp Refills predniSONE (DELTASONE) 5 MG Tablet [Pharmacy Med Name: PREDNISONE 5MG TABLET] 30 Tablet 0 Sig: TAKE 1 TABLET BY MOUTH DAILY. Not Delegated - Corticosteroids Protocol Failed - 12/06/2022 2:47 PM Failed - This refill cannot be delegated Passed - Visit with relevant provider in past 12 months or upcoming 90 days Recent Visits Date Type Provider Dept 12/05/22 Office Visit Danyel Akhtar APRN, J[facility] 10/31/22 Office Visit Enrique Smith MD [facility] 10/19/22 Office Visit Bárbara Bergeron APRN, JET [facility] 06/28/22 Office Visit Enrique Smith MD [facility] 06/20/22 Office Visit Luis Carlos Bull MD [facility] 05/31/22 Office Visit Enrique Smith MD [facility] 05/11/22 Office [facility] 04/11/22 Office Visit Bárbara Bergeron APRN, JET [facility] 03/28/22 Office Visit Enrique Smith MD [facility] 02/09/22 Office Visit Bárbara Bergeron APRN, JET [facility] Showing recent visits within past 365 days and meeting all other requirements Future Appointments Date Type Provider Dept 01/02/23 Appointment Enrique Smith MD [facility] Showing future appointments within next 90 days and meeting all other requirements documented in this encounter Plan of Treatment Upcoming Encounters Date Type Department Care Team (Latest Contact Info) Description 10/29/2024 9:00 AM CDT Clinical Support [facility] Cardiology [facility] #2 [place] [address] Nurse, [facility] [place] 10/29/2024 9:30 AM CDT Office Visit [facility] #2 [place] [address] Ruben Rodriguez MD [address] [address] 10/30/2024 1:00 PM CDT Appointment [facility] Cardiology Services [address] [place] [address] Ruben Rodriguez MD [address] [address] Discharge Disposition: Discharged to home or Selfcare documented as of this encounter Visit Diagnoses Not on filedocumented in this encounter Additional Health Concerns Infection Onset Date Last Indicated Resolved Time COVID - 19 01/23/2023 01/23/2023 02/02/2023 12:1 6 AM CDT COVID - 19 04/02/2023 04/02/2023 04/12/2023 12:1 6 AM COLOR BLENDER COVID - 19 04/21/2023 04/21/2023 05/01/2023 12:1 6 AM COLOR BLENDER Assessment Noted Time PHQ-9 Depression Total Score: 0 02/10/20 11:00 AM CDT documented as of this encounter Care Teams Placing Judge Relationship Specialty Start Date End Date Enrique Smith MD #[address] [address] PCP - General Family Medicine 03/28/22 11/24/23 Wagner Byrne MD [address] [place] [address] PCP - General Internal Medicine 11/25/23 Roshan Franco MD [address] [address] Consulting Physician Cardiovascular Disease - Cardiology 12/06/22 04/20/24 Caryn Briseno APRN, CURING OVEN ATTENDANT #2 [facility] [address] [address] Nurse Practitioner Cardiology 04/04/23 Nery Burrell MD PhD #1 [place] [address] Neuropsychology Director Interventional Cardiology 04/04/23 Roc Whitehead MD #2 [place] [address] Consulting Physician Pulmonary Disease 02/15/23 Rafael Li MD #[address] [address] Consulting Physician Clinical Cardiac Electrophysiology 02/19/24 Ruben Rodriguez MD 2 [facility], [address] [address] Consulting Physician Cardiovascular Disease - Cardiology 08/06/24 documented as of this encounter
--- OUTSIDE RECORDS SUMMARY | 2024-10-27 09:05 | XMS_ITS | Encounter Summary ---
Author Organization [facility] Address [address] [place] [address] Phone Care Team Providers Care Bail Bondsman Name Role Phone Enrique Smith MD Primary Care Provider [phone] Roshan Franco MD Unavailable Caryn Menezes SCREEN CUTTER AND TRIMMER, LAW SECRETARY Unavailable + [phone] Nery Burrell MD PhD Unavailable [phone] Roc Whitehead MD Unavailable Wagner Byrne MD Primary Care Provider [phone] Rafael Li MD Unavailable Ruben Rodriguez MD Unavailable Reason for Visit * Reason Onset Date Comments Appointment 11/09/2022 Patient calling to cancel her appointment for today 11/09/2022, she will call back to reschedule Encounter Details Date Type Department Care Team (Late st Contact Info) Description 11/09/2022 Telephone [facility] Central Call Center [address] [place] [address] Enrique Smith MD #[address] [address] Appointment (Patient calling to cancel her appointment for today 11/09/2022, she will call back to reschedule) Social History Tobacco Use Types Packs/Day Years [...] suspected to have Coronavirus/COVID-19? No / Unsure 10/31/2022 6:58 AM CDT documented as of this encounter Miscellaneous Notes * Telephone Encounter - Eduin Mohan - 11/09/2022 11:05 AM CDT Patient calling to cancel her appointment for today 11/09/2022, she does not want to get out in this heat today. She will call back to reschedule. Patient notified and verbalized understanding. Will route note to the motel front desk clerk for update. documented in this encounter Plan of Treatment Upcoming Encounters Date Type Department Care Team (Latest Contact Info) Description 10/29/2024 9:00 AM CDT Clinical Support [facility] Medical [facility] - Cardiology - [place] #[address] [place] [address] Nurse, Brain Cardiology [place] 10/29/2024 9:30 AM CDT Office Visit [facility] - Cardiology [facility] #2 [place] [address] Ruben Rodriguez MD [address] [address] 10/30/2024 1:00 PM CDT Appointment [facility] Cardiology Services [address] [place] [address] Ruben Rodriguez MD [address] [address] Discharge Disposition: Discharged to home or Selfcare documented as of this encounter Visit Diagnoses Not on filedocumented in this encounter Additional Health Concerns Infection Onset Date Last Indicated Resolved Time COVID - 19 01/23/2023 01/23/2023 02/02/2023 12:1 6 AM CDT COVID - 19 04/02/2023 04/02/2023 04/12/2023 12:1 6 AM BULK PLANT SUPERVISOR COVID - 19 04/21/2023 04/21/2023 05/01/2023 12:1 6 AM BULK PLANT SUPERVISOR Assessment Noted Time PHQ-9 Depression Total Score: 0 02/10/20 11:00 AM CDT documented as of this encounter Care Teams Bail Bondsman Relationship Specialty Start Date End Date Enrique Smith MD #[address] [address] PCP - General Family Medicine 03/28/22 11/24/23 Wagner Byrne MD [address] [place] [address] PCP - General Internal Medicine 11/25/23 Roshan Franco MD #[address] [address] Consulting Physician Cardiovascular Disease - Cardiology 12/06/22 04/20/24 Caryn Briseno, SCREEN CUTTER AND TRIMMER, LAW SECRETARY #2 [facility] [address] [place] [address] Nurse Practitioner Cardiology 04/04/23 Nery Burrell MD PhD #[address] [place] [address] Analysis Mgr Interventional Cardiology 04/04/23 Roc Whitehead MD #[address] [place] [phone] Consulting Physician Pulmonary Disease 02/15/23 Rafael Li MD [address] [address] Consulting Physician Clinical Cardiac Electrophysiology 02/19/24 Ruben Rodriguez MD [address] [address] Consulting Physician Cardiovascular Disease - Cardiology 08/06/24 documented as of this encounter
--- OUTSIDE RECORDS SUMMARY | 2024-10-27 09:05 | XMS_ITS | Encounter Summary ---
Author Organization [facility] Address [address] [place] [address] Phone Care Team Providers Care Mri Assistant Name Role Phone Enrique Smith MD Primary Care Provider [phone] Roshan Franco MD Unavailable Caryn Menezes READINESS PARAPROFESSIONAL, BASKETBALL COACH Unavailable +- [phone] Nery Burrell MD PhD Unavailable [phone] Roc Whitehead MD Unavailable Wagner Byrne MD Primary Care Provider [phone] Rafael Li MD Unavailable Ruben Rodriguez MD Unavailable Encounter Details Date Type Department Care Team (Late st Contact Info) Description 11/24/2022 Telephone [facility] Call [facility] [address] [place] [address] Enrique Smith MD #[address] [address] Social History Tobacco Use Types Packs/Day Years [...] suspected to have Coronavirus/COVID-19? No / Unsure 11/27/2022 8:45 AM CDT documented as of this encounter Plan of Treatment Upcoming Encounters Date Type Department Care Team (Latest Contact Info) Description 10/29/2024 9:00 AM CDT Clinical Support [facility] Cardiology [facility] #2 [place] [address] Nurse, [facility] 10/29/2024 9:30 AM CDT Office Visit [facility] Cardiology [facility] #[address] [place] [address] Ruben Rodriguez MD [address] [address] 10/30/2024 1:00 PM CDT [facility] 1 [place] [address] Ruben Rodriguez MD [address] [address] Discharge Disposition: Discharged to home or Selfcare documented as of this encounter Visit Diagnoses Not on filedocumented in this encounter Additional Health Concerns Infection Onset Date Last Indicated Resolved Time COVID - 19 01/23/2023 01/23/2023 02/02/2023 12:1 6 AM CDT COVID - 19 04/02/2023 04/02/2023 04/12/2023 12:1 6 AM YARN HANDLER COVID - 19 04/21/2023 04/21/2023 05/01/2023 12:1 6 AM YARN HANDLER Assessment Noted Time PHQ-9 Depression Total Score: 0 02/10/20 11:00 AM CDT documented as of this encounter Care Teams Mri Assistant Relationship Specialty Start Date End Date Enrique Smith MD #[address] [facility] [address] [place] [address] PCP - General Family Medicine 03/28/22 11/24/23 Wagner Byrne MD [address] [place] [address] PCP - General Internal Medicine 11/25/23 Roshan Franco MD [address] [address] Consulting Physician Cardiovascular Disease - Cardiology 12/06/22 04/20/24 Caryn Briseno APRN, BASKETBALL COACH #[address] [facility], [address] [address] Nurse Practitioner Cardiology 04/04/23 Nery Burrell MD PhD #[address] [place] [address] Learning Manager Interventional Cardiology 04/04/23 Roc Whitehead MD #2 [place] [address] Consulting Physician Pulmonary Disease 02/15/23 Rafael Li MD #[address] [facility], [address] [address] Consulting Physician Clinical Cardiac Electrophysiology 02/19/24 Ruben Rodriguez MD 2 [facility], [place] [address] Consulting Physician Cardiovascular Disease - Cardiology 08/06/24 documented as of this encounter
--- OUTSIDE RECORDS SUMMARY | 2024-10-27 09:05 | XMS_ITS | Encounter Summary ---
Author Organization [facility] Address [address] [place] [address] Phone Care Team Providers Care Cinder Pit Crane Operator Name Role Phone Enrique Smith MD Primary Care Provider [phone] Roshan Franco MD Unavailable Caryn Menezes AVIONICS REPAIR TECHNICIAN, CRATE TIER Unavailable + [phone] Nery Burrell MD PhD Unavailable [phone] Roc Whitehead MD Unavailable Wagner Byrne MD Primary Care Provider [phone] Rafael iL MD Unavailable Ruben Rodriguez MD Unavailable Reason for Visit * Reason Comments Medication Refill Encounter Details Date Type Department Care Team (Late st Contact Info) Description 10/12/2023 Refill [facility] - Family Medicine [facility] #[address] [place] [phone] Enrique Smith MD #[address] [address] Medication Refill Social History Tobacco Use Types Packs/Day Years Used Date Smoking Tobacco: Every Day Cigarettes 0.5 40 Smokeless Tobacco: Never Alcohol Use Standard Drinks/Week Comments Not Currently 0 (1 standard drink = 0.6 oz pur e alcohol) [facility] Utilities Answer Date Recorded In the past [...] declined 08/03/2023 How often do you attend restorationist or evangelical serv ices? Patient declined 08/03/2023 Do you belong to any clubs o r organizations such as restorationist groups, unions, fraternal or athletic groups, or [...] Date Recorded Total Score - Questions 1-9 01/12 [facility] of Occupat ional Health - Occupational Stress [...] place to sleep or slept in a chcf (including now)? Patient declined 08/03/2023 Education Answer [...] encounter Miscellaneous Notes * Telephone Encounter - Alexsandra Madsen RN - 10/12/2023 8:42 AM CDT Medication warning Per nursing clinical judgement, provider to review and approve the medication(s) order(s) if appropriate. Requested Prescriptions Pending Prescriptions Disp Refills Trelegy Ellipta 100-62.5-25 MCG/ACT AEROSOL POWDER, BREATH ACTIVATED [Pharmacy Med Name: TRELEGY ELLIPTA 100MCG AERO POW BR ACT] 180 Each 1 Sig: take 1 Puff by inhalation daily. Inhaled Combinations Protocol Passed - 10/12/2023 8:37 AM Passed - Visit with relevant provider in past 12 months or upcoming 90 days Recent Visits Date Type Provider Dept 08/16/23 Office Visit Enrique Smith MD [facility] 06/05/23 Office Visit Enrique Smith MD [facility] 05/02/23 Office Visit Enrique Smith MD [facility] 04/04/23 Office Visit Enrique Smith MD [facility] 01/23/23 Office Visit Luis Carlos Bull MD [facility] 01/16/23 Office Visit Danyel Akhtar AVIONICS REPAIR TECHNICIAN, CRATE TIER [facility] 01/02/23 Office Visit Enrique Smith MD [facility] 12/29/22 Office Visit Sulma Blevins APRN, CRATE TIER [facility] 12/05/22 Office Visit Danyel Akhtar APRN, CRATE TIER [facility] 10/31/22 Office [facility] Showing recent visits within past 365 days and meeting all other requirements Future Appointments No visits were found meeting these conditions. Showing future appointments within next 90 days and meeting all other requirements Passed - Active short-acting beta agonist prescription * Telephone Encounter - Alexsandra Madsen RN - 10/12/2023 8:42 AM CDT Images from the original note were not included. [id number]-[id number] Dispensed Days Supply Quantity Provider Pharmacy Trelegy Ellipta 100 mcg-62.5 mcg-25 mcg powder for inhalation 09/19/2023 30 60 Each Enrique Smith MD [id number] ... Trelegy Ellipta 100 mcg-62.5 mcg-25 mcg powder for inhalation 08/14/2023 30 60 Each Enrique Smith MD [id number] ... documented in this encounter Plan of Treatment Upcoming Encounters Date Type Department Care Team (Latest Contact Info) Description 10/29/2024 9:00 AM CDT Clinical Support [facility] Cardiology - [place] #[address] [place] [address] Nurse, [facility] [place] 10/29/2024 9:30 AM CDT Office Visit [facility] Cardiology - [place] #[address] [place] [address] Ruben Rodriguez MD 2 [facility] [address] [place] [address] 10/30/2024 1:00 PM CDT Appointment [facility] Cardiology Services 1 [facility] [place] [address] Ruben Rodriguez MD 2 [facility] [address] [address] Discharge Disposition: Discharged to home or Selfcare documented as of this encounter Goals Goal Patient Goal Type Associated Problems Recent Progress Patient-Stated? Author I am tired of feeling guilty about my [grief.] Behavioral Health Improving(01/2024 2:42 PM METER/RELAY TECHNICIAN) Yes Edda Vo, ACTIVE DIRECTORY SPECIALIST Note: Goal/Objective: Decrease guilty thoughts about her care for her mother who is now . Anticipated Time Frame for Goal Completion: 6 months Goal Reviewed with: patient Readiness to change: Ready to change Department associated with goal: [facility] Steps to achieve goal: [...] aid in managing problematic responses to grief. documented as of this encounter Visit Diagnoses Not on filedocumented in this encounter Additional Health Concerns Assessment Noted Time PHQ-9 Depression Total Score: 19 023 2:00 PM CDT documented as of this encounter Care Teams Cinder Pit Crane Operator Relationship Specialty Start Date End Date Enrique Smith MD #[address] [facility] [address] [place] [address] PCP - General Family Medicine 03/28/22 11/24/23 Wagner Byrne MD [address] [place] [address] PCP - General Internal Medicine 11/25/23 Roshan Franco MD #[address] [address] Consulting Physician Cardiovascular Disease - Cardiology 12/06/22 04/20/24 Caryn Briseno APRN, CRATE TIER #[address] [place] [address], [address] [address] Nurse Practitioner Cardiology 04/04/23 Nery Burrell MD PhD #[address] [place] [address] Esters And Emulsifiers Supervisor Interventional Cardiology 04/04/23 Roc Whitehead MD #[address] [place] [address] Consulting Physician Pulmonary Disease 02/15/23 Rafael Li MD #2 [facility], [address] [address] Consulting Physician Clinical Cardiac Electrophysiology 02/19/24 Ruben Rodriguez MD [address] [facility], [address] [address] Consulting Physician Cardiovascular Disease - Cardiology 08/06/24 documented as of this encounter
--- OUTSIDE RECORDS SUMMARY | 2024-10-27 09:05 | XMS_ITS | Encounter Summary ---
Author Organization [facility] Address [address] [place] [address] Phone Care Team Providers Care Company Driver Name Role Phone Enrique Smith MD Primary Care Provider [phone] Roshan Franco MD Unavailable Caryn Menezes CERTIFIED PHYSICIAN'S ASSISTANT, OUTSIDE FOOD SERVER Unavailable + [phone] Nery Burrell MD PhD Unavailable [phone] oRc Whitehead MD Unavailable Wagner Byrne MD Primary Care Provider [phone] Rafael Li MD Unavailable Ruben Rodriguez MD Unavailable Reason for Visit * Reason Comments Medication Refill Encounter Details Date Type Department Care Team (Late st Contact Info) Description 09/12/2023 Refill [facility] - Family Medicine [facility] #[address] [place] [address] Enrique Smith MD #[address] [address] Medication Refill Social History Tobacco Use Types Packs/Day Years Used Date Smoking Tobacco: Every Day Cigarettes 0.5 40 Smokeless Tobacco: Never Alcohol Use Standard Drinks/Week Comments Not Currently 0 (1 standard drink = 0.6 oz pur e alcohol) [facility] Utilities Answer Date Recorded In the [...] declined 08/03/2023 How often do you attend denominational or yazidism serv ices? Patient declined 08/03/2023 Do you belong to any clubs o r organizations such as denominational groups, unions, fraternal or athletic groups, or [...] Recorded Total Score - Questions 1-9 01/12 [facility] of Occupat ional Health - Occupational Stress [...] place to sleep or slept in a residential (including now)? Patient declined 08/03/2023 Education Answer [...] Telephone Encounter - Tanika Martin RN - 09/13/2023 8:42 AM CDT Quantity is a 10 days supply - NOT 14 as noted on SIG Medication failed the protocol, provider to review and approve the medication order if appropriate. Requested Prescriptions Pending Prescriptions Disp Refills cyclobenzaprine (FLEXERIL) 10 MG Tablet [Pharmacy Med Name: CYCLOBENZAPRINE HYDROCHLORIDE 10MG TABLET] 30 Tablet 0 Sig: Take 1 Tablet by mouth 3 times daily as needed for Muscle spasms for up to 14 days. Not Delegated - Muscle Relaxants Protocol Failed - 09/12/2023 2:38 PM Failed - This refill cannot be delegated Passed - Visit with relevant provider in past 12 months or upcoming 90 days Recent Visits Date Type Provider Dept 08/16/23 Office Visit Enrique Smith MD [facility] 06/05/23 Office Visit Enrique Smith MD [facility] 05/02/23 Office Visit Enrique Smith MD [facility] 04/04/23 Office Visit Enrique Smith MD [facility] 01/23/23 Office Visit [facility] [place] 01/16/23 Office Visit Danyel Akhtar APRN, OUTSIDE FOOD SERVER [facility] 01/02/23 Office Visit Enrique Smith MD [facility] 12/29/22 Office Visit Sulma Blevins APRN, OUTSIDE FOOD SERVER [facility] 12/05/22 Office Visit Danyel Akhtar APRN, OUTSIDE FOOD SERVER [facility] 10/31/22 [facility] visits within past 365 days and meeting all other requirements Future Appointments No visits were found meeting these conditions. Showing future appointments within next 90 days and meeting all other requirements documented in this encounter Plan of Treatment Upcoming Encounters Date Type Department Care Team (Latest Contact Info) Description 10/29/2024 9:00 AM CDT Clinical Support [facility] - Cardiology - [place] #2 [place] [address] Nurse, [place] [facility] [place] 10/29/2024 9:30 AM CDT Office Visit [facility] Cardiology [facility] #2 [place] [address] Ruben Rodriguez MD [address] [address] 10/30/2024 1:00 PM CDT Appointment [facility] Cardiology Services 1 [place] [address] Ruben Rodriguez MD [address] [address] Discharge Disposition: Discharged to home or Selfcare documented as of this encounter Goals Goal Patient Goal Type Associated Problems Recent Progress Patient-Stated? Author I am tired of feeling guilty about my [grief.] Behavioral Health Improving(01/2024 2:42 PM NITROGLYCERIN SUPERVISOR) Yes Edda Vo, EARLY CHILDHOOD COORDINATOR Note: Goal/Objective: Decrease guilty thoughts about her care for her mother who is now . Anticipated Time Frame for Goal Completion: 6 months Goal Reviewed with: patient Readiness to change: Ready to change Department associated with goal: [facility] Steps to achieve goal: [...] documented as of this encounter Care Teams Company Driver Relationship Specialty Start Date End Date Enrique Smith MD #[address] [address] PCP - General Family Medicine 03/28/22 11/24/23 Wagner Byrne MD [address] [place] [address] PCP - General Internal Medicine 11/25/23 Roshan Franco MD #[address] [place] [address] Consulting Physician Cardiovascular Disease - Cardiology 12/06/22 04/20/24 Caryn Briseno APRN, OUTSIDE FOOD SERVER #[address] [place], [address] [address] Nurse Practitioner Cardiology 04/04/23 Nery Burrell MD PhD #[address] [place] [address] Paste Thinner Interventional Cardiology 04/04/23 Roc Whitehead MD #[address] [place] [address] Consulting Physician Pulmonary Disease 02/15/23 Rafael Li MD #[address], [address] [address] Consulting Physician Clinical Cardiac Electrophysiology 02/19/24 Ruben Rodriguez MD [address] [address] Consulting Physician Cardiovascular Disease - Cardiology 08/06/24 documented as of this encounter
--- OUTSIDE RECORDS SUMMARY | 2024-10-27 09:05 | XMS_ITS | Encounter Summary ---
Author Organization [facility] Address [address] [place] [address] Phone Care Team Providers Care Scrum Master Name Role Phone Enrique Smith MD Primary Care Provider [phone] Roshan Franco MD Unavailable Caryn Menezes CONTROL OPERATOR, CIVIL ENGINEER'S AIDE Unavailable + [phone] Nery Burrell MD PhD Unavailable [phone] Roc Whitehead MD Unavailable Wagner Byrne MD Primary Care Provider [phone] Rafael Li MD Unavailable Ruben Rodriguez MD Unavailable Reason for Visit * Reason Comments Medication Refill Encounter Details Date Type Department Care Team (Late st Contact Info) Description 09/21/2023 Refill [facility] - [facility] Medicine [facility] [address] [place] [id number] Enrique Smith MD [address] [address] Medication Refill Social History Tobacco Use Types Packs/Day Years Used Date Smoking Tobacco: Every Day Cigarettes 0.5 40 Smokeless Tobacco: Never Alcohol Use Standard Drinks/Week Comments Not Currently 0 (1 standard drink = 0.6 oz pur e alcohol) [facility] Utilities Answer Date Recorded In the past [...] declined 08/03/2023 How often do you attend jehovah's witness or baptism serv ices? Patient declined 08/03/2023 Do you belong to any clubs o r organizations such as jehovah's witness groups, unions, fraternal or athletic groups, or [...] Recorded Total Score - Questions 1-9 01/12 [facility] - Occupational Stress [...] place to sleep or slept in a skilled nursing (including now)? Patient declined 08/03/2023 Education Answer [...] Telephone Encounter - Tanika Martin RN - 09/24/2023 7:47 AM CDT Medication failed the protocol, provider to review and approve the medication order if appropriate. Requested Prescriptions Pending Prescriptions Disp Refills cyclobenzaprine (FLEXERIL) 10 MG Tablet [Pharmacy Med Name: CYCLOBENZAPRINE HYDROCHLORIDE 10MG TABLET] 30 Tablet 0 Sig: TAKE 1 TABLET BY MOUTH 3 TIMES DAILY NEEDED FOR MUSCLE SPASMS FOR UP TO 14 DAYS. Not Delegated - Muscle Relaxants Protocol Failed - 09/21/2023 1:05 PM Failed - This refill cannot be delegated Passed - Visit with relevant provider in past 12 months or upcoming 90 days Recent Visits Date Type Provider Dept 08/16/23 Office Visit Enrique Smith MD [facility] 06/05/23 Office Visit Enrique Smith MD [facility] 05/02/23 Office Visit Enrique Smith MD [facility] 04/04/23 Office Visit Enrique Smith MD [facility] 01/23/23 Office Visit Luis Carlos Bull MD [facility] 01/16/23 Office Visit Danyel Akhtar APRN, J[facility] 01/02/23 Office Visit Enrique Smith MD [facility] 12/29/22 Office Visit Sulma Blevins APRN, CIVIL ENGINEER'S AIDE [facility] 12/05/22 Office Visit Danyel Akhtar APRN, JET [facility] 10/31/22 Office Visit Enrique Smith MD [facility] Showing recent visits within past 365 days and meeting all other requirements Future Appointments No visits were found meeting these conditions. Showing future appointments within next 90 days and meeting all other requirements * Telephone Encounter - Tanika Martin RN - 09/21/2023 3:03 PM CDT Images from the original note were not included. Cyclobenzaprine HCl Dispensed Days Supply Quantity Provider Pharmacy cyclobenzaprine 10 mg tablet 09/13/2023 10 30 Tablet Enrique Smith MD [id number] ... cyclobenzaprine 10 mg tablet 09/05/2023 10 30 Tablet Enrique Smith MD [id number] ... cyclobenzaprine 10 mg tablet 08/24/2023 10 30 Tablet Rowena Farley APRN, CIVIL ENGINEER'S AIDE [id number] ... Rx says 14 days documented in this encounter Plan of Treatment Upcoming Encounters Date Type Department Care Team (Latest Contact Info) Description 10/29/2024 9:00 AM CDT Clinical Support [facility] - [facility]iology - [place] [address] [place] [address] Nurse, [facility] [place] 10/29/2024 9:30 AM CDT Office Visit [facility] Cardiology - [place] [address] [place] [address] Ruben Rodriguez MD [address] [address] 10/30/2024 1:00 PM CDT Appointment [facility] Cardiology Services 1 [place] [address] Ruben Rodriguez MD [address] [address] Discharge Disposition: Discharged to home or Selfcare documented as of this encounter Goals Goal Patient Goal Type Associated Problems Recent Progress Patient-Stated? Author I am tired of feeling guilty about my [grief.] Behavioral Health Improving(01/2024 2:42 PM LINEN SUPERVISOR) Yes Edda Vo, PACKAGE DYEING MACHINE OPERATOR Note: Goal/Objective: Decrease guilty thoughts about her care for her mother who is now . Anticipated Time Frame for Goal Completion: 6 months Goal Reviewed with: patient Readiness to change: Ready to change Department associated with goal: [facility] Steps to achieve [...] documented as of this encounter Care Teams Scrum Master Relationship Specialty Start Date End Date Enrique Smith MD [address] [address] PCP - General Family Medicine 03/28/22 11/24/23 Wagner Byrne MD [address] [place] [address] PCP - General Internal Medicine 11/25/23 Roshan Franco MD #[address] [address] Consulting Physician Cardiovascular Disease - Cardiology 12/06/22 04/20/24 Caryn Briseno APRN, CIVIL ENGINEER'S AIDE #2 [facility] [address] [address] Nurse Practitioner Cardiology 04/04/23 Nery Burrell MD PhD #1 [place] [address] Scrape Gatherer Interventional Cardiology 04/04/23 Roc Whitehead MD #2 [place] [phone] Consulting Physician Pulmonary Disease 02/15/23 Rafael Li MD [address] [address] Consulting Physician Clinical Cardiac Electrophysiology 02/19/24 Ruben Rodriguez MD [address] [address] Consulting Physician Cardiovascular Disease - Cardiology 08/06/24 documented as of this encounter
--- OUTSIDE RECORDS SUMMARY | 2024-10-27 09:05 | XMS_ITS | Encounter Summary ---
Author Organization [facility] Address [address] [place] [address] Phone Care Team Providers Care Commercial Escrow Officer Name Role Phone Enrique Smith MD Primary Care Provider [phone] Roshan Franco MD Unavailable Caryn Menezes INFORMATION DELIVERY ANALYST, MIXING MACHINE TENDER Unavailable + [phone] Nery Burrell MD PhD Unavailable [phone] Roc Whitehead MD Unavailable Wagner Byrne MD Primary Care Provider [phone] Rafael Li MD Unavailable Ruben Rodriguez MD Unavailable Reason for Visit * Reason Comments Medication Refill Encounter Details Date Type Department Care Team (Late st Contact Info) Description 12/05/2022 Refill [facility] - [facility] [address] [place] [id number] Enrique Smith MD [address] [address] Medication Refill Social History Tobacco Use Types [...] Encounter - Eloisa Meza RN - 12/06/2022 11:34 AM CDT Amiodarone PDMP 11/08/22 30 day Jardiance PDMP 11/08/22 30 day Zofran PDMP 11/17/[address] Segovia 2 day supply Medication failed the protocol, provider to review and approve the medication order if appropriate. Requested Prescriptions Pending Prescriptions Disp Refills amiodarone (CORDARONE) 200 MG Tablet [Pharmacy Med Name: AMIODARONE HYDROCHLORIDE 200MG TABLET] 90 Tablet 7 Sig: TAKE ONE (1) TABLET BY MOUTH EVERY DAY Amiodarone Protocol Failed - 12/05/2022 7:48 AM Failed - This refill cannot be delegated Passed - Visit with relevant provider in past 12 months or upcoming 90 days Recent Visits Date Type Provider Dept 12/05/22 Office Visit Danyel Akhtar APRN, MIXING MACHINE TENDER [facility] 10/31/22 Office Visit Enrique Smith MD [facility] 10/19/22 Office Visit Bárbara Bergeron APRN, MIXING MACHINE TENDER [facility] 06/28/22 Office Visit Enrique Smith MD [facility] 06/20/22 Office Visit Luis Carlos Bull MD [facility] 05/31/22 Office Visit Enrique Smith MD [facility] 05/11/22 Office Visit Enrique Smith MD [facility] 04/11/22 Office Visit Bárbara Bergeron APRN, J[facility] 03/28/22 Office Visit Enrique Smith MD [facility] 02/09/22 Office Visit [facility] Showing recent visits within past 365 days and meeting all other requirements Future Appointments Date Type Provider Dept 01/02/23 Appointment Enrique Smith MD [facility] Showing future appointments within next 90 days and meeting all other requirements Passed - TSH and T4 or Free T4 on record in past 6 months TSH Date Value Ref Range Status 10/19/2022 0.520 0.270 - 4.200 mIU/L Final Passed - EKG or device check on record in past 12 months Recent Procedure Details EKG 12 LEAD Collected: 11/15/2022 10:31 AM (Final result) Impression: Atrial-sensed ventricular-paced rhythm with prolonged AV conduction Abnormal ECG When compared with ECG of 05-JUN-2022 14:23, Electronic ventricular pacemaker has replaced Wide QRS rhythm... Passed - Hepatic function panel on record in past 6 months T BILI Date Value Ref Range Status 12/05/2022 0.2 0.2 - 1.2 mg/dL Final ALKALINE PHOSPHATASE Date Value Ref Range Status 12/05/2022 77 35 - 105 U/L Final SGOT (AST) Date Value Ref Range Status 12/05/2022 18 <=32 U/L Final SGPT (ALT) Date Value Ref Range Status 12/05/2022 19 <=41 U/L Final TOTAL PROTEIN Date Value Ref Range Status 12/05/2022 8.0 6.0 - 8.3 g/dL Final ALBUMIN Date Value Ref Range Status 12/05/2022 4.5 3.5 - 5.2 g/dL Final Comment: The colormetric methods used for the determination of Albumin may lead to falsely elevated test results in patients suffering from renal failure or insufficiency due to interference with other proteins. Passed - Digoxin level on record in past 6 months if on digoxin DIGOXIN Date/Time Value Ref Range Status 12/05/2022 10:41 AM 0.8 0.8 - 2.0 ng/mL Final Passed - Chest X-ray in past 12 months XR CHEST SINGLE VIEW PORTABLE Result Date: 11/15/2022 Impression IMPRESSION: Mild patchy right basilar airspace opacities, which may be related to subsegmental atelectasis/scarring versus developing airspace disease. Cardiomegaly with mild prominence of pulmonary vasculature. Jardiance 10 MG Tablet [Pharmacy Med Name: JARDIANCE 10MG TABLET] 90 Tablet 7 Sig: TAKE 1 TABLET BY MOUTH DAILY. SGLT2 Inhibitors Protocol Failed - 12/05/2022 7:48 AM Failed - HgA1C on record in past 6 months HGB-A1C Date Value Ref Range Status 03/01/2022 6.6 (H) 4.0 - 6.0 % Final Passed - Visit with relevant provider in past 6 months or upcoming 90 days Recent Visits Date Type Provider Dept 12/05/22 Office Visit Danyel Akhtar APRN, MIXING MACHINE TENDER [facility] 10/31/22 Office Visit Enrique Smith MD [facility] 10/19/22 Office Visit Bárbara Bergeron APRN, MIXING MACHINE TENDER [facility] 06/28/22 Office Visit Enrique Smith MD [facility] 06/20/22 Office Visit Luis Carlos Bull MD [facility] Showing recent visits within past 182 days and meeting all other requirements Future Appointments Date Type Provider Dept 01/02/23 Appointment Enrique Smith MD [facility] Showing future appointments within next 90 days and meeting all other requirements Passed - GFR greater than or equal to 30 in past 6 months GFR, EST. NONAFRICAN Date Value Ref Range Status 12/05/2022 >60 >=60 Final ondansetron (ZOFRAN) 4 MG Tablet [Pharmacy Med Name: ONDANSETRON HYDROCHLORIDE 4MG TABLET] 20 Tablet Sig: TAKE 1 TABLET (4 MG TOTAL) BY MOUTH EVERY 8 (EIGHT) HOURS NEEDED FOR NAUSEA OR VOMITING Not Delegated - 5-HT3 Antagonists Protocol Failed - 12/05/2022 7:48 AM Failed - This refill cannot be delegated Failed - Active on medication list Passed - Visit with relevant provider in past 12 months or upcoming 90 days Recent Visits Date Type Provider Dept 12/05/22 Office Visit Danyel Akhtar APRN, [facility] 10/31/22 Office Visit Enrique Smith MD [facility] 10/19/22 Office Visit Bárbara Bergeron APRN, J[facility] 06/28/22 Office Visit Enrique Smith MD [facility] 06/20/22 Office Visit Luis Carlos Bull MD [facility] 05/31/22 Office Visit Enrique Smith MD [facility] 05/11/22 Office Visit Enrique Smith MD [facility] 04/11/22 Office Visit Bárbara Bergeron APRN, J[facility] 03/28/22 Office Visit Enrique Smith MD [facility] 02/09/22 Office Visit Bárbara Bergeron APRN, [facility] Showing recent visits within past 365 days and meeting all other requirements Future Appointments Date Type Provider Dept 01/02/23 Appointment Enrique Smith MD [facility] Showing future appointments within next 90 days and meeting all other requirements Refused Prescriptions Disp Refills clonazePAM (KlonoPIN) 0.5 MG Tablet [Pharmacy Med Name: CLONAZEPAM 0.5MG TABLET] 90 Tablet 2 Sig: TAKE ONE (1) TABLET BY MOUTH THREE (3) TIMES DAILY Not Delegated - Clonazepam Protocol Failed - 12/05/2022 7:48 AM Failed - This refill cannot be delegated Failed - Active on medication list Passed - Visit with relevant provider in past 12 months or upcoming 90 days Recent Visits Date Type Provider Dept 12/05/22 Office Visit Danyel Akhtar APRN, [facility] 10/31/22 Office Visit Enrique Smith MD [facility] 10/19/22 Office Visit Bárbara Bergeron APRN, J[facility] 06/28/22 Office Visit Enrique Smith MD [facility] 06/20/22 Office Visit Luis Carlos Bull MD [facility] 05/31/22 Office Visit Enrique Smith MD [facility] 05/11/22 Office Visit SmithEnrique MD [facility] 04/11/22 Office Visit Bárbara Bergeron APRN, [facility] 03/28/22 Office Visit Enrique Smith MD [facility] 02/09/22 Office Visit Bárbara Bergeron APRN, [facility] Showing recent visits within past 365 days and meeting all other requirements Future Appointments Date Type Provider Dept 01/02/23 Appointment Enrique Smith MD [facility] Showing future appointments within next 90 days and meeting all other requirements lisinopril (PRINIVIL, ZESTRIL) 20 MG Tablet [Pharmacy Med Name: LISINOPRIL 20MG TABLET] 90 Tablet 7 Sig: TAKE 1 TABLET BY MOUTH DAILY. DEBORA Inhibitors Protocol Passed - 12/05/2022 7:48 AM Passed - Serum potassium on record in past 12 months POTASSIUM Date Value Ref Range Status 12/05/2022 4.2 3.5 - 5.1 mmol/L Final Passed - Blood pressure on record in past 12 months Clinician-entered: BP Readings from Last 3 Encounters: 12/05/22 130/72 11/29/22 130/68 11/28/22 120/70 Patient-entered: No data recorded Passed - Visit with relevant provider in past 12 months or upcoming 90 days Recent Visits Date Type Provider Dept 12/05/22 Office Visit Danyel Akhtar APRN, CNP [facility] 10/31/22 Office Visit Enrique Smith MD [facility] 10/19/22 Office Visit Bárbara Bergeron APRN, CNP [facility] 06/28/22 Office Visit Enrique Smith MD [facility] 06/20/22 Office Visit Luis Carlos Bull MD [facility] 05/31/22 Office Visit Enrique Smtih MD [facility] 05/11/22 Office Visit Enrique Smiht MD [facility] 04/11/22 Office Visit Bárbara Bergeron APRN, [facility] 03/28/22 Office Visit Enrique Smith MD [facility] 02/09/22 Office Visit Bárbara Bergeron APRN, J[facility] Showing recent visits within past 365 days and meeting all other requirements Future Appointments Date Type Provider Dept 01/02/23 Appointment Enrique Smith MD [facility] Showing future appointments within next 90 days and meeting all other requirements Passed - GFR on record in past 12 months GFR, EST. NONAFRICAN Date Value Ref Range Status 12/05/2022 >60 >=60 Final spironolactone (ALDACTONE) 25 MG Tablet [Pharmacy Med Name: SPIRONOLACTONE 25MG TABLET] 90 Tablet 7 Sig: TAKE 1 TABLET BY MOUTH DAILY. Diuretics Protocol Passed - 12/05/2022 7:48 AM Passed - Serum potassium on record in past 12 months POTASSIUM Date Value Ref Range Status 12/05/2022 4.2 3.5 - 5.1 mmol/L Final Passed - Serum sodium on record in past 12 months SODIUM Date Value Ref Range Status 12/05/2022 131 (L) 136 - 144 mmol/L Final Passed - Blood pressure on record in past 12 months Clinician-entered: BP Readings from Last 3 Encounters: 12/05/22 130/72 11/29/22 130/68 11/28/22 120/70 Patient-entered: No data recorded Passed - Visit with relevant provider in past 12 months or upcoming 90 days Recent Visits Date Type Provider Dept 12/05/22 Office Visit Danyel Akhtar APRN, [facility] 10/31/22 Office Visit Enrique Smith MD [facility] 10/19/22 Office Visit Bárbara Bergeron APRN, JET [facility] 06/28/22 Office Visit Enrique Smith MD [facility] 06/20/22 Office Visit Luis Carlos Bull MD [facility] 05/31/22 Office Visit Enrique Smith MD [facility] 05/11/22 Office Visit Enrique Smith MD [facility] 04/11/22 Office Visit Bárbara Bergeron APRN, JET [facility] 03/28/22 Office Visit Enrique Smith MD [facility] 02/09/22 Office Visit Bárbara Bergeron APRN, MIXING MACHINE TENDER [facility] Showing recent visits within past 365 days and meeting all other requirements Future Appointments Date Type Provider Dept 01/02/23 Appointment Enrique Smith MD [facility] Showing future appointments within next 90 days and meeting all other requirements Passed - GFR on record in past 12 months GFR, EST. NONAFRICAN Date Value Ref Range Status 12/05/2022 >60 >=60 Final Trelegy Ellipta 100-62.5-25 MCG/ACT AEROSOL POWDER, BREATH ACTIVATED [Pharmacy Med Name: TRELEGY ELLIPTA 100MCG AERO POW BR ACT] 180 Each 3 Sig: INHALE 1 PUFF INTO LUNGS EVERY DAY Inhaled Combinations Protocol Passed - 12/05/2022 7:48 AM Passed - Visit with relevant provider in past 12 months or upcoming 90 days Recent Visits Date Type Provider Dept 12/05/22 Office Visit Danyel Akhtar APRN, J[facility] 10/31/22 Office Visit Enrique Smith MD [facility] 10/19/22 Office Visit Bárbara Bergeron APRN, JET [facility] 06/28/22 Office Visit Enrique Smith MD [facility] 06/20/22 Office Visit Luis Carlos Bull MD [facility] 05/31/22 Office Visit Enrique Smith MD [facility] 05/11/22 Office Visit Enrique Smith MD [facility] 04/11/22 Office Visit Bárbara Bergeron APRN, JET [facility] [place] 03/28/22 Office Visit Enrique Smith MD [facility] 02/09/22 Office Visit Bárbara Bergeron APRN, [facility] Showing recent visits within past 365 days and meeting all other requirements Future Appointments Date Type Provider Dept 01/02/23 Appointment Enrique Smith MD [facility] Showing future appointments within next 90 days and meeting all other requirements Passed - Active short-acting beta agonist prescription * Telephone Encounter - Eloisa Meza RN - 12/06/2022 11:33 AM CDT Images from the original note were not included. Refill request too soon. [facility] Dispensed Days Supply Quantity Provider Pharmacy TRELEGY 100 ELLIPTA INH 12/05/2022 30 60 Each Danyel Akhtar APRN, MIXING MACHINE TENDER [id number] ... Spironolactone Dispensed Days Supply Quantity Provider Pharmacy SPIRONOLACT 25MG TAB 12/05/2022 90 45 Tablet Jamison Segovia MD [id number] SPIRONOLACT 25MG TAB 12/05/2022 30 15 Tablet Jamison Segovia MD [id number] ... documented in this encounter Plan of Treatment Upcoming Encounters Date Type Department Care Team (Latest Contact Info) Description 10/29/2024 9:00 AM CDT Clinical Support [facility] Cardiology [facility] [address] [place] [address] Nurse, [facility] 10/29/2024 9:30 AM CDT Office Visit [facility] #2 [place] [address] Ruben Rodriguez MD [address] [address] 10/30/2024 1:00 PM CDT [facility]ointment [facility] 1 [place] [address] Ruben Rodriguez MD [address] [address] Discharge Disposition: Discharged to home or Selfcare documented as of this encounter Visit Diagnoses Not on filedocumented in this encounter Additional Health Concerns Infection Onset Date Last Indicated Resolved Time COVID - 19 01/23/2023 01/23/2023 02/02/2023 12:1 6 AM CDT COVID - 19 04/02/2023 04/02/2023 04/12/2023 12:1 6 AM INHALATION THERAPY TEACHER COVID - 19 04/21/2023 04/21/2023 05/01/2023 12:1 6 AM INHALATION THERAPY TEACHER Assessment Noted Time PHQ-9 Depression Total Score: 0 02/10/20 11:00 AM CDT documented as of this encounter Care Teams Commercial Escrow Officer Relationship Specialty Start Date End Date Enrique Smith MD [address] [address] PCP - General Family Medicine 03/28/22 11/24/23 Wagner Byrne MD [address] [place] [address] PCP - General Internal Medicine 11/25/23 Roshan Franco MD [address] [address] Consulting Physician Cardiovascular Disease - Cardiology 12/06/22 04/20/24 Caryn Briseno, INFORMATION DELIVERY ANALYST, MIXING MACHINE TENDER [address] [place], [address] [address] Nurse Practitioner Cardiology 04/04/23 Nery Burrell MD PhD [address] [place] [address] Traffic Engineering Director Interventional Cardiology 04/04/23 Roc Whitehead MD #[address] [place] [address] Consulting Physician Pulmonary Disease 02/15/23 Rafael Li MD #[address] [place], [facility] [address] [place] [address] Consulting Physician Clinical Cardiac Electrophysiology 02/19/24 Ruben Rodriguez MD [address], [address] [address] Consulting Physician Cardiovascular Disease - Cardiology 08/06/24 documented as of this encounter
--- OUTSIDE RECORDS SUMMARY | 2024-10-27 09:05 | XMS_ITS | Encounter Summary ---
Author Organization [facility] Address [address] [facility] [place] [address] Phone Care Team Providers Care Sporting Goods Sales Manager Name Role Phone Roshan Franco MD Unavailable Caryn Menezes APRN, BEACH EXPERT Unavailable +- [phone] Nery Burrell MD PhD Unavailable [phone] Roc Whitehead MD Unavailable Wagner Byrne MD Primary Care Provider [phone] Rafael Li MD Unavailable Ruben Rodriguez MD Unavailable Reason for Visit * Reason Comments Medication Refill Encounter Details Date Type Department Care Team (Late st Contact Info) Description 12/06/2023 Refill [facility] Medical Group - Family Medicine [facility] #2 [place] [phone] Enrique Smith MD #[address] [address] Medication Refill Social History Tobacco Use Types Packs/Day Years Used Date Smoking Tobacco: Every Day Cigarettes 0.5 40 Smokeless Tobacco: Never Alcohol Use Standard Drinks/Week Comments Not Currently 0 (1 standard drink = 0.6 oz pur e alcohol) [facility] Utilities Answer Date Recorded In the past [...] declined 08/03/2023 How often do you attend buddhist or advent serv ices? Patient declined 08/03/2023 Do you belong to any clubs o r organizations such as buddhist groups, unions, fraternal or athletic groups, or [...] Date Recorded Total Score - Questions 1-9 19 01/12 [facility] - Occupational Stress [...] place to sleep or slept in a senior living (including now)? Patient declined 08/03/2023 Education Answer [...] Telephone Encounter - Tanika Martin RN - 12/06/2023 10:[address] Byrne documented in this encounter Plan of Treatment Upcoming Encounters Date Type Department Care Team (Latest Contact Info) Description 10/29/2024 9:00 AM CDT Clinical Support [facility] - Cardiology - [place] #2 [place] [phone] Nurse, [facility] [place] 10/29/2024 9:30 AM CDT Office Visit [facility] Medical Group - Cardiology - [place] [address] [facility] [place] [address] Ruben Rodriguez MD [address] [address] 10/30/2024 1:00 PM CDT Appointment [facility] Cardiology Services [address] [place] [address] [address] [facility] [address] [place] [address] Discharge Disposition: Discharged to home or Selfcare documented as of this encounter Goals Goal Patient Goal Type Associated Problems Recent Progress Patient-Stated? Author I am tired of feeling guilty about my [grief.] Behavioral Health Improving(01/2024 2:42 PM AEROSOL SUPERVISOR) Yes Edda Vo, COMMISSIONED DEFENCE FORCE OFFICER Note: Goal/Objective: Decrease guilty thoughts about her care for her mother who is now . Anticipated Time Frame for Goal Completion: 6 months Goal Reviewed with: patient Readiness to change: Ready to change Department associated with goal: [facility] Steps to achieve [...] Assessment Noted Time PHQ-9 Depression Total Score: 023 2:00 PM CDT documented as of this encounter Care Teams Sporting Goods Sales Manager Relationship Specialty Start Date End Date Wagner Byrne MD [address] [place] [address] PCP - General Internal Medicine 11/25/23 Roshan Franco MD Consulting Physician Cardiovascular Disease - Cardiology 12/06/22 04/20/24 Caryn Briseno APRN, BEACH EXPERT #2 [facility], [address] [place] [address] Nurse Practitioner Cardiology 04/04/23 Nery Burrell MD PhD #1 [place] [address] Motorcycle Repairer Interventional Cardiology 04/04/23 Roc Whitehead MD #2 [place] [address] Consulting Physician Pulmonary Disease 02/15/23 Rafael Li MD #2 [facility] [address] [place] [address] Consulting Physician Clinical Cardiac Electrophysiology 02/19/24 Ruben Rodriguez MD 2 [facility], [address] [address] Consulting Physician Cardiovascular Disease - Cardiology 08/06/24 documented as of this encounter
--- OUTSIDE RECORDS SUMMARY | 2024-10-27 09:05 | XMS_ITS | Encounter Summary ---
Author Organization [facility] Address [address] [place] [address] Phone Care Team Providers Care Dermatology Teacher Name Role Phone Enrique Smith MD Primary Care Provider [phone] Roshan Franco MD Unavailable Caryn Menezes SLUNK SKINNER, GEOLOGICAL SPECIALIST Unavailable + [phone] Nery Burrell MD PhD Unavailable [phone] Roc Whitehead MD Unavailable Wagner Byrne MD Primary Care Provider [phone] Rafael Li MD Unavailable Ruben Rodriguez MD Unavailable Reason for Visit * Reason Comments Medication Refill Encounter Details Date Type Department Care Team (Late st Contact Info) Description 10/11/2023 Refill [facility] #[address] [place] [phone] Enrique Smith MD [address] [address] Medication Refill Social History Tobacco Use Types Packs/Day Years Used Date Smoking Tobacco: Every Day Cigarettes 0.5 40 Smokeless Tobacco: Never Alcohol Use Standard Drinks/Week Comments Not Currently 0 (1 standard drink = 0.6 oz pur e alcohol) [facility] Utilities Answer Date Recorded In the [...] declined 08/03/2023 How often do you attend oriental orthodox or uatsdin serv ices? Patient declined 08/03/2023 Do you belong to any clubs o r organizations such as oriental orthodox groups, unions, fraternal or athletic groups, or [...] place to sleep or slept in a mcc (including now)? Patient declined 08/03/2023 Education Answer [...] Telephone Encounter - Tanika Martin RN - 10/11/2023 11:51 AM CDT Medication failed the protocol, provider to review and approve the medication order if appropriate. Requested Prescriptions Pending Prescriptions Disp Refills cyclobenzaprine (FLEXERIL) 10 MG Tablet [Pharmacy Med Name: CYCLOBENZAPRINE HYDROCHLORIDE 10MG TABLET] 30 Tablet 0 Sig: TAKE 1 TABLET BY MOUTH 3 TIMES DAILY NEEDED FOR MUSCLE SPASMS FOR UP TO 14 DAYS. Not Delegated - Muscle Relaxants Protocol Failed - 10/11/2023 9:28 AM Failed - This refill cannot be [...] [place] 01/16/23 Office Visit Danyel Akhtar APRN, GEOLOGICAL SPECIALIST [facility] 01/02/23 Office Visit Enrique Smith MD [facility] 12/29/22 Office Visit Sulma Blevins APRN, GEOLOGICAL SPECIALIST [facility] [place] 12/05/22 Office Visit Danyel Akhtar APRN, GEOLOGICAL SPECIALIST [facility] 10/31/22 Office Visit Enrique Smith MD [facility] Showing recent visits within past 365 days and meeting all other requirements Future Appointments No visits were found meeting these conditions. Showing future appointments within next 90 days and meeting all other requirements PARoxetine (PAXIL) 40 MG Tablet [Pharmacy Med Name: PAROXETINE HCL 40MG TABLET] 90 Tablet 2 Sig: TAKE 1 TABLET BY MOUTH DAILY. SSRI (6 Month Refill Only) Protocol Failed - 10/11/2023 9:28 AM Failed - Has an encounter in the past 6 months with a depression, anxiety, adjustment disorder, OCD, or PTSD visit diagnosis Passed - Visit with relevant provider in past 6 months or upcoming 90 days Recent Visits Date Type Provider Dept 08/16/23 Office Visit Enrique Smith MD [facility] 06/05/23 Office Visit Enrique Smith MD [facility] 05/02/23 Office Visit Enrique Smith MD [facility] Showing recent visits within past 182 days and meeting all other requirements Future Appointments No visits were found meeting these conditions. Showing future appointments within next 90 days and meeting all other requirements Passed - Patient has established therapy with SSRI for at least 6 months documented in this encounter Plan of Treatment Upcoming Encounters Date Type Department Care Team (Latest Contact Info) Description 10/29/2024 9:00 AM CDT Clinical Support [facility] Medical [facility] - Cardiology - [place] #2 [place] [address] Nurse, Brain Cardiology [place] 10/29/2024 9:30 AM CDT Office Visit [facility] Cardiology - [place] #2 [place] [address] Ruben Rodriguez MD 2 [facility] [address] [place] [address] 10/30/2024 1:00 PM CDT Appointment [facility] Cardiology Services 1 [place] [address] Ruben Rodriguez MD 2 [facility] [address] [place] [address] Discharge Disposition: Discharged to home or Selfcare documented as of this encounter Goals Goal Patient Goal Type Associated Problems Recent Progress Patient-Stated? Author I am tired of feeling guilty about my [grief.] Behavioral Health Improving(01/2024 2:42 PM RUNSTITCHING MACHINE OPERATOR) Yes Edda Vo, METAL STORAGE WORKER Note: Goal/Objective: Decrease guilty thoughts about her care for her mother who is now . Anticipated Time Frame for Goal Completion: 6 months Goal Reviewed with: patient Readiness to change: Ready to change Department associated with goal: [facility] BEHAVIORAL HEALTH SERVICES Steps to [...] documented as of this encounter Care Teams Dermatology Teacher Relationship Specialty Start Date End Date Enrique Smith MD #[address] [facility] [facility] [address] [address] PCP - General Family Medicine 03/28/22 11/24/23 Wagner Byrne MD [address] [place] [address] PCP - General Internal Medicine 11/25/23 Roshan Franco MD #[address] [address] Consulting Physician Cardiovascular Disease - Cardiology 12/06/22 04/20/24 Caryn Briseno, SLUNK SKINNER, GEOLOGICAL SPECIALIST #[address] [facility], [address] [address] Nurse Practitioner Cardiology 04/04/23 Nery Burrell MD PhD #1 [place] [address] Flat Cutter Interventional Cardiology 04/04/23 Roc Whitehead MD #2 [place] [address] Consulting Physician Pulmonary Disease 02/15/23 Rafael Li MD #2 [facility], [address] [address] Consulting Physician Clinical Cardiac Electrophysiology 02/19/24 Ruben Rodriguez MD 2 [facility], [address] [address] Consulting Physician Cardiovascular Disease - Cardiology 08/06/24 documented as of this encounter
--- OUTSIDE RECORDS SUMMARY | 2024-10-27 09:05 | XMS_ITS | Encounter Summary ---
Author Organization [facility] Address [address] [place] [address] Phone Care Team Providers Care Insulation Packer Name Role Phone Enrique Smith MD Primary Care Provider [phone] Roshan Franco MD Unavailable Caryn Menezes HEAD OF DIGITAL, ETHYLBENZENE CONVERTER HELPER Unavailable + [phone] Nery Burrell MD PhD Unavailable [phone] Roc Whitehead MD Unavailable Wagner Byrne MD Primary Care Provider [phone] Rafael Li MD Unavailable Ruben Rodriguez MD Unavailable Reason for Visit * Reason Comments Medication Refill Encounter Details Date Type Department Care Team (Late st Contact Info) Description 10/26/2022 Refill [facility] - Family Medicine [facility] #[address] [place] [address] Enrique Smith MD #[address] [address] Medication Refill Social History Tobacco Use Types [...] suspected to have Coronavirus/COVID-19? No / Unsure 10/19/2022 10:19 AM CDT documented as of this encounter Miscellaneous Notes * Telephone Encounter - Tanika Martin RN - 10/26/2022 3:55 PM CDT Per nursing clinical judgement, provider to review and approve the medication(s) order(s) if appropriate. Requested Prescriptions Pending Prescriptions Disp Refills nitroGLYCERIN (NITROSTAT) 0.4 MG SL Tablet [Pharmacy Med Name: NITROGLYCERIN 0.4MG TAB SUBLINGUAL] 25 Tablet 3 Sig: PLACE 1 TABLET (0.4 MG TOTAL) UNDER THE TONGUE EVERY 5 (FIVE) MINUTES NEEDED FOR CHEST PAIN. IF CHEST PAIN IS NOT RELIEVED AFTER 2ND DOSE CALL 911 OR GO TO NEAREST EMERGENCY ROOM. Nitrates Protocol Passed - 10/26/2022 3:50 PM Passed - Visit with relevant provider in past year or upcoming 90 days Recent Visits Date Type Provider Dept 10/19/22 Office Visit Bárbara Bergeron APRN, ETHYLBENZENE CONVERTER HELPER [facility] 06/28/22 Office Visit Enrique Smith MD [facility] 06/20/22 Office Visit Luis Carlos Bull MD [facility] 05/31/22 Office Visit Enrique Smith MD [facility] 05/11/22 Office Visit Enrique Smith MD [facility] 04/11/22 Office Visit Bárbara Bergeron APRN, ETHYLBENZENE CONVERTER HELPER [facility] 03/28/22 Office Visit Enrique Smith MD [facility] 02/09/22 Office Visit Bárbara Bergeron APRN, [facility] Showing recent visits within past 365 days and meeting all other requirements Future Appointments Date Type Provider Dept 10/31/22 Appointment Bárbara Bergeron APRN, JET [facility] Showing future appointments within next 90 days and meeting all other requirements documented in this encounter Plan of Treatment Upcoming Encounters Date Type Department Care Team (Latest Contact Info) Description 10/29/2024 9:00 AM CDT Clinical Support [facility] Cardiology [facility] #2 [place] [address] Nurse, [place] [facility] [place] 10/29/2024 9:30 AM CDT Office Visit [facility] #2 [place] [address] Ruben Rodriguez MD [address] [address] 10/30/2024 1:00 PM CDT Appointment [facility] Cardiology Services 1 [place] [address] Ruben Rodriguez MD [address] [address] Discharge Disposition: Discharged to home or Selfcare documented as of this encounter Visit Diagnoses Not on filedocumented in this encounter Additional Health Concerns Infection Onset Date Last Indicated Resolved Time COVID - 19 01/23/2023 01/23/2023 02/02/2023 12:1 6 AM CDT COVID - 19 04/02/2023 04/02/2023 04/12/2023 12:1 6 AM TYPE SOLDERING MACHINE 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 COVID - 19 04/21/2023 04/21/2023 05/01/2023 12:1 6 AM TYPE SOLDERING MACHINE TENDER Assessment Noted Time PHQ-9 Depression Total Score: 0 02/10/20 11:00 AM CDT documented as of this encounter Care Teams Insulation Packer Relationship Specialty Start Date End Date Enrique Smith MD #[address] [address] [address] PCP - General Family Medicine 03/28/22 11/24/23 Wagner Byrne MD [address] [place] [address] PCP - General Internal Medicine 11/25/23 Roshan Franco MD #[address] [address] Consulting Physician Cardiovascular Disease - Cardiology 12/06/22 04/20/24 Caryn Briseno APRN, ETHYLBENZENE CONVERTER HELPER #[address] [facility], [address] [place] [address] [address] Nurse Practitioner Cardiology 04/04/23 Nery Burrell MD PhD #1 [place] [address] Soa Integration Developer Interventional Cardiology 04/04/23 Roc Whitehead MD #2 [place] [address] Consulting Physician Pulmonary Disease 02/15/23 Rafael Li MD #2 [facility], [address] [address] Consulting Physician Clinical Cardiac Electrophysiology 02/19/24 Ruben Rodriguez MD [address] [facility], [address] [address] Consulting Physician Cardiovascular Disease - Cardiology 08/06/24 documented as of this encounter
--- OUTSIDE RECORDS SUMMARY | 2024-10-27 09:05 | XMS_ITS | Encounter Summary ---
Author Organization [facility] Address [address] [place] [address] Phone Care Team Providers Care Oyster Planter Name Role Phone Enrique Smith MD Primary Care Provider Roshan Franco MD Unavailable Caryn Menezes APRN, LACQUER MAKER Unavailable [phone]- [phone] Nery Burrell MD PhD Unavailable [phone] Roc Whitehead MD Unavailable Wagner Byrne MD Primary Care Provider [phone] Rafael Li MD Unavailable Ruben Rodriguez MD Unavailable Reason for Visit * Reason Comments Medication Refill Encounter Details Date Type Department Care Team (Late st Contact Info) Description 10/26/2022 Refill [facility] - Family Medicine - [place] #2 [place] [address] Bárbara Bergeron APRN, LACQUER MAKER #[address] [address] Medication Refill Social History Tobacco Use Types [...] Telephone Encounter - Eloisa Meza RN - 10/26/2022 9:03 AM CDT PDMP 10/19/22 7 day supply Medication failed the protocol, provider to review and approve the medication order if appropriate. Requested Prescriptions Pending Prescriptions Disp Refills hydrOXYzine (ATARAX) 25 MG Tablet [Pharmacy Med Name: HYDROXYZINE HYDROCHLORIDE 25MG TABLET] 30 Tablet 0 Sig: TAKE 1 TABLET BY MOUTH EVERY 6 HOURS NEEDED FOR ANXIETY. Not Delegated - Off Protocol Failed - 10/26/2022 8:29 AM Failed - This refill cannot be delegated Passed - Visit with relevant provider in past 12 months or upcoming 90 days Recent Visits Date Type Provider Dept 10/19/22 Office Visit Bárbara Bergeron APRN, LACQUER MAKER [facility] 06/28/22 Office Visit Enrique Smith MD [facility] 06/20/22 Office Visit Luis Carlos Bull MD [facility] 05/31/22 Office Visit Enrique Smith MD [facility] 05/11/22 Office Visit Enrique Smith MD [facility] 04/11/22 Office Visit Bárbara Bergeron APRN, LACQUER MAKER [facility] 03/28/22 Office Visit Enrique Smith MD [facility] 02/09/22 Office Visit Bárbara Bergeron APRN, JET [facility] [place] Showing recent visits within past 365 days and meeting all other requirements Future Appointments Date Type Provider Dept 10/31/22 Appointment Bárbara Bergeron APRN, CNP [facility] Showing future appointments within next 90 days and meeting all other requirements documented in this encounter Plan of Treatment Upcoming Encounters Date Type Department Care Team (Latest Contact Info) Description 10/29/2024 9:00 AM CDT Clinical Support [facility] Cardiology [facility] #2 [place] [address] Nurse, [place] [facility] [place] 10/29/2024 9:30 AM CDT Office Visit [facility] #2 [place] [address] Ruben Rodriguez MD [address] [address] 10/30/2024 1:00 PM CDT Appointment [facility] Cardiology Services 1 [place] [address] Ruben Rodriguez MD [address] [address] Discharge Disposition: Discharged to home or Selfcare documented as of this encounter Visit Diagnoses Diagnosis Psychophysiological insomnia Persistent disorder of initiating or maintaining sleep documented in this encounter Additional Health Concerns Infection Onset Date Last Indicated Resolved Time COVID - 19 01/23/2023 01/23/2023 02/02/2023 12:1 6 AM CDT COVID - 19 04/02/2023 04/02/2023 04/12/2023 12:1 6 AM RUBBER ATTACHER COVID - 19 04/21/2023 04/21/2023 05/01/2023 12:1 6 AM RUBBER ATTACHER Assessment Noted Time PHQ-9 Depression Total Score: 0 02/10/20 11:00 AM CDT documented as of this encounter Care Teams Oyster Planter Relationship Specialty Start Date End Date Enrique Smith MD #[address] [facility] [address] [address] [place] [address] PCP - General Family Medicine 03/28/22 11/24/23 Wagner Byrne MD [address] [place] [address] PCP - General Internal Medicine 11/25/23 Roshan Franco MD #[address] [facility] [address] [place] [address] [address] Consulting Physician Cardiovascular Disease - Cardiology 12/06/22 04/20/24 Caryn Briseno APRN, LACQUER MAKER #2 [facility], [address] [address] Nurse Practitioner Cardiology 04/04/23 Nery Burrell MD PhD #[address] [place] [address] Logistics Manager Interventional Cardiology 04/04/23 Roc Whitehead MD #[address] [place] [address] Consulting Physician Pulmonary Disease 02/15/23 Rafael iL MD #2 [facility], [address] [address] Consulting Physician Clinical Cardiac Electrophysiology 02/19/24 Ruben Rodriguez MD [address] [facility], [address] [address] Consulting Physician Cardiovascular Disease - Cardiology 08/06/24 documented as of this encounter
--- OUTSIDE RECORDS SUMMARY | 2024-10-27 09:05 | XMS_ITS | Encounter Summary ---
Author Organization [facility] Address [address] [place] [address] Phone Care Team Providers Care Side Laster Tack Name Role Phone Enrique Smith MD Primary Care Provider [phone] Roshan Franco MD Unavailable Caryn Menezes TOWN JUSTICE, MOTION GRAPHICS ARTIST Unavailable + [phone] Nery Burrell MD PhD Unavailable [phone] Roc Whitehead MD Unavailable Wagner Byrne MD Primary Care Provider [phone] Rafael Li MD Unavailable Ruben Rodriguez MD Unavailable Reason for Visit * Reason Comments Medication Refill Encounter Details Date Type Department Care Team (Late st Contact Info) Description 09/19/2023 [facility]ill [facility] - Family Medicine [facility] [address] [place] [id number] Enrique Smith MD [address] [address] Medication Refill Social History Tobacco Use Types Packs/Day Years Used Date Smoking Tobacco: Every Day Cigarettes 0.5 40 Smokeless Tobacco: Never Alcohol Use Standard Drinks/Week Comments Not Currently 0 (1 standard drink = 0.6 oz pur e alcohol) [facility] Utilities Answer Date Recorded In the past [...] declined 08/03/2023 How often do you attend confucianism or druze serv ices? Patient declined 08/03/2023 Do you belong to any clubs o r organizations such as confucianism groups, unions, fraternal or athletic groups, or [...] Recorded Total Score - Questions 1-9 01/12 [facility] of Occupat ional Health - [...] place to sleep or slept in a fci (including now)? Patient declined 08/03/2023 Education Answer [...] Telephone Encounter - Tanika Martin RN - 09/20/2023 8:48 AM CDT Medication failed the protocol, provider to review and approve the medication order if appropriate. Requested Prescriptions Pending Prescriptions Disp Refills sodium chloride 1 GM Tablet [Pharmacy Med Name: SODIUM CHLORIDE 1GM TABLET] 180 Tablet 1 Sig: TAKE 1 TABLET BY MOUTH 2 TIMES DAILY. Not Delegated - Off Protocol Failed - 09/19/2023 3:53 PM Failed - This refill cannot be [...] 01/16/23 Office Visit Danyel Akhtar APRN, J[facility] [place] [place] [facility] 01/02/23 Office Visit Enrique Smith MD [facility] 12/29/22 Office Visit Sulma Blevins APRN, MOTION GRAPHICS ARTIST [facility] [place] [place] 12/05/22 Office Visit Danyel Akhtar APRN, MOTION GRAPHICS ARTIST [facility] [place] [place] [facility] 10/31/22 Office Visit Enrique Smith MD [facility] Showing recent visits within past 365 days and meeting all other requirements Future Appointments No visits were found meeting these conditions. Showing future appointments within next 90 days and meeting all other requirements sacubitril-valsartan (Entresto) 24-26 MG Tablet [Pharmacy Med Name: ENTRESTO 24- 26MG TABLET] 180 Tablet 1 Sig: Take 1 Tablet by mouth 2 times daily. ARB Protocol Passed - 09/19/2023 3:53 PM Passed - Serum potassium on record in past 12 months POTASSIUM Date Value Ref Range Status 08/04/2023 3.2 (L) 3.5 - 5.1 mmol/L Final Passed - BP on record in the past year Clinician-entered: BP Readings from Last 3 Encounters: 09/06/23 100/57 08/27/23 122/76 08/24/23 147/67 Patient-entered: No data recorded Passed - Visit with relevant provider in past year or upcoming 90 days Recent Visits Date Type Provider Dept 08/16/23 Office Visit Enrique Smith MD [facility] 06/05/23 Office Visit Enrique Smith MD [facility] 05/02/23 Office Visit Enrique Smith MD [facility] 04/04/23 Office Visit Enrique Smith MD [facility] 01/23/23 Office Visit Luis Carlos Bull MD [facility] 01/16/23 Office Visit Danyel Akhtar APRN, [facility] 01/02/23 [facility] 12/29/22 Office Visit Sulma Blevins APRN, MOTION GRAPHICS ARTIST [facility] 12/05/22 Office Visit Danyel Akhtar APRN, [facility] 10/31/22 Office Visit Enrique Smith MD [facility] Showing recent visits within past 365 days and meeting all other requirements Future Appointments No visits were found meeting these conditions. Showing future appointments within next 90 days and meeting all other requirements Passed - GFR on record in past 12 months GFR, EST. NONAFRICAN Date Value Ref Range Status 08/04/2023 60 >=60 Final documented in this encounter Plan of Treatment Upcoming Encounters Date Type Department Care Team (Latest Contact Info) Description 10/29/2024 9:00 AM CDT Clinical Support [facility] Cardiology [facility] [address] [place] [address] Nurse, [place] [facility] [place] 10/29/2024 9:30 AM CDT Office Visit [facility] Cardiology [facility] [address] [place] [address] Ruben Rodriguez MD [address] [address] 10/30/2024 1:00 PM CDT Appointment [facility] Cardiology Services 1 [place] [address] Ruben Rodriguez MD [address] [address] Discharge Disposition: Discharged to home or Selfcare documented as of this encounter Goals Goal Patient Goal Type Associated Problems Recent Progress Patient-Stated? Author I am tired of feeling guilty about my [grief.] Behavioral Health Improving(01/2024 2:42 PM SOCIAL MEDIA DESIGNER) Yes Edda Vo, KENNEL HELPER Note: Goal/Objective: Decrease guilty thoughts about her care for her mother who is now . Anticipated Time Frame for Goal Completion: 6 months Goal Reviewed with: patient Readiness to change: Ready to change Department associated with goal: [facility] Steps to [...] documented as of this encounter Care Teams Side Laster Tack Relationship Specialty Start Date End Date Enrique Smith MD #2 [facility] [address] [place] [address] PCP - General Family Medicine 03/28/22 11/24/23 Wagner Byrne MD [address] [place] [address] PCP - General Internal Medicine 11/25/23 Roshan Franco MD #2 [facility] [address] [place] [address] Consulting Physician Cardiovascular Disease - Cardiology 12/06/22 04/20/24 Caryn Briseno APRN, MOTION GRAPHICS ARTIST #2 [facility], [address] [place] [address] Nurse Practitioner Cardiology 04/04/23 Nery Burrell MD PhD [address] [place] [address] Payroll And Benefits Assistant Interventional Cardiology 04/04/23 Roc Whitehead MD #[address] [place] [address] Consulting Physician Pulmonary Disease 02/15/23 Rafael Li MD #[address] [address] Consulting Physician Clinical Cardiac Electrophysiology 02/19/24 Ruben Rodriguez MD [address] [address] Consulting Physician Cardiovascular Disease - Cardiology 08/06/24 documented as of this encounter
--- OUTSIDE RECORDS SUMMARY | 2024-10-27 09:06 | XMS_ITS | Encounter Summary ---
Author Organization [facility] Address [address] [place] [address] Phone Care Team Providers Care Research Home Economist Name Role Phone Enrique Smith MD Primary Care Provider [phone] Roshan Franco MD Unavailable Caryn Menezes MATH INSTRUCTOR, BATCH UNLOADER Unavailable + [phone] Nery Burrell MD PhD Unavailable [phone] Roc Whitehead MD Unavailable Wagner Byrne MD Primary Care Provider [phone] Rafael Li MD Unavailable Ruben Rodriguez MD Unavailable Reason for Visit * Reason Comments Medication Refill Encounter Details Date Type Department Care Team (Late st Contact Info) Description 02/05/2023 Refill [facility] - Family [facility] [address] [place] [id number] Enrique Smith MD [address] [address] Medication Refill Social History Tobacco Use Types Packs/Day Years Used Date Smoking Tobacco: Some Days Cigarettes 0.5 40 Smokeless Tobacco: Never Alcohol Use Standard Drinks/Week Comments Not Currently 0 (1 standard drink = 0.6 oz pur e alcohol) PHQ-2 Answer Date Recorded Total Score - Questions 1-9 19 01/12 Education Answer Date Recorded What is the [...] suspected to have Coronavirus/COVID-19? No / Unsure 01/23/2023 2:41 PM CDT documented as of this encounter Miscellaneous Notes * Telephone Encounter - Tanika Martin RN - 02/08/2023 7:33 AM CDT Why did you refuse her medications? * Telephone Encounter - Ant Le RN - 02/07/2023 5:14 PM CDT SITUATION: Medication refill BACKGROUND: Patient is calling to see if her medications can be refilled. She does not want to run out because she will end up in the ER. Upcoming appointments listed below 02/15/2023 1:15 PM Roc Whitehead [facility] - Pulmonology & Sleep Medicine - [place] [phone] 04/04/2023 2:15 PM Enrique Smith [facility] - Family Medicine - [place] [phone] ASSESSMENT: Patient is needing the prednisone, oxycodone and methocarbamol RECOMMENDATION: Please advise. Thank you. * Telephone Encounter - Tanika Martin RN - 02/06/2023 1:32 PM CDT PDMP 01/27/23 - 15 days Medication failed the protocol, provider to review and approve the medication order if appropriate. Requested Prescriptions Pending Prescriptions Disp Refills methocarbamol (ROBAXIN) 500 MG Tablet [Pharmacy Med Name: METHOCARBAMOL 500MG TABLET] 30 Tablet 0 Sig: TAKE 1 TABLET BY MOUTH 3 TIMES DAILY. Not Delegated - Muscle Relaxants Protocol Failed - 02/05/2023 3:31 PM Failed - This refill cannot be delegated Passed - Visit with relevant provider in past 12 months or upcoming 90 days Recent Visits Date Type Provider Dept 01/23/23 Office Visit Luis Carlos Bull MD [facility] 01/16/23 Office Visit Danyel Akhtar APRN, BATCH UNLOADER [facility] [place] 01/02/23 Office Visit Enrique Smith MD [facility] 12/29/22 Office Visit Sulma Blevins APRN, BATCH UNLOADER [facility] [place] 12/05/22 Office Visit Danyel Akhtar APRN, BATCH UNLOADER [facility] 10/31/22 Office Visit Enrique Smith MD [facility] 10/19/22 Office Visit Bárbara Bergeron APRN, BATCH UNLOADER [facility] 06/28/22 Office Visit Enrique Smith MD [facility] 06/20/22 Office Visit Luis Carlos Bull MD [facility] 05/31/22 Office Visit Enrique Smith MD [facility] Showing recent visits within past 365 days and meeting all other requirements Future Appointments Date Type Provider Dept 04/04/23 Appointment Enrique Smith MD [facility] Showing future appointments within next 90 days and meeting all other requirements predniSONE (DELTASONE) 5 MG Tablet [Pharmacy Med Name: PREDNISONE 5MG TABLET] 30 Tablet 0 Sig: TAKE 1 TABLET BY MOUTH DAILY. Not Delegated - Corticosteroids Protocol Failed - 02/05/2023 3:31 PM Failed - This refill cannot be delegated Passed - Visit with relevant provider in past 12 months or upcoming 90 days Recent Visits Date Type Provider Dept 01/23/23 Office Visit Luis Carlos Bull MD [facility] 01/16/23 Office Visit Danyel Akhtar, MATH INSTRUCTOR, [facility] 01/02/23 Office Visit Enrique Smith MD [facility] 12/29/22 Office Visit Sulma Blevins, MATH INSTRUCTOR, [facility] 12/05/22 Office Visit Danyel Akhtar MATH INSTRUCTOR, [facility] 10/31/22 Office Visit Enrique Smith MD [facility] 10/19/22 Office Visit Bárbara Bergeron MATH INSTRUCTOR, [facility] 06/28/22 Office Visit Enrique Smith MD [facility] 06/20/22 Office Visit [facility] 05/31/22 Office Visit En[facility] Showing recent visits within past 365 days and meeting all other requirements Future Appointments Date Type Provider Dept 04/04/23 Appointment Enrique [facility] MD [facility] Showing future appointments within next 90 days and meeting all other requirements oxyCODONE ER 9 MG Capsule Extended Release 12 hour Abuse-Deterrent 30 Each 0 Sig: Take 1 Tablet by mouth in the morning and at bedtime. There is no refill protocol information for this order documented in this encounter Plan of Treatment Upcoming Encounters Date Type Department Care Team (Latest Contact Info) Description 10/29/2024 9:00 AM CDT Clinical Support [facility] Cardiology - [place] #[address] [place] [address] Nurse, [facility] 10/29/2024 9:30 AM CDT Office Visit [facility] Cardiology [facility] [address] [place] [address] Ruben Rodriguez MD [address] [address] 10/30/2024 1:[address] [facility] Cardiology Services [address] [place] [address] Ruben Rodriguez MD [address] [facility] [address] [place] [address] Discharge Disposition: Discharged to home or Selfcare documented as of this encounter Goals Goal Patient Goal Type Associated Problems Recent Progress Patient-Stated? Author I am tired of feeling guilty about my [grief.] Behavioral Health Improving(01/2024 2:42 PM DIRECTOR STAFFING) Yes Edda Vo, FLATBED DRIVER Note: Goal/Objective: Decrease guilty thoughts about her care for her mother who is now . Anticipated Time Frame for Goal Completion: 6 months Goal Reviewed with: patient Readiness to change: Ready to change Department associated with goal: [facility] Steps to achieve goal: [...] as of this encounter Visit Diagnoses Diagnosis Radiculopathy, lumbosacral region Thoracic or lumbosacral neuritis or radiculitis, unspecified documented in this encounter Additional Health Concerns Infection Onset Date Last Indicated Resolved Time COVID - 19 04/02/2023 04/02/2023 04/12/2023 12:1 6 AM DIRECTOR STAFFING COVID - 19 04/21/2023 04/21/2023 05/01/2023 12:1 6 AM DIRECTOR STAFFING Assessment Noted Time PHQ-9 Depression Total Score: 023 2:00 PM CDT documented as of this encounter Care Teams Research Home Economist Relationship Specialty Start Date End Date Enrique Smith MD [address] [facility] [address] [place] [address] PCP - General Family Medicine 03/28/22 11/24/23 Wagner Byrne MD [address] [place] [address] PCP - General Internal Medicine 11/25/23 Roshan Franco MD [address] [place] [address] Consulting Physician Cardiovascular Disease - Cardiology 12/06/22 04/20/24 Caryn Briseno APRN, BATCH UNLOADER #[address] [facility] [facility], [address] [address] Nurse Practitioner Cardiology 04/04/23 Nery Burrell MD PhD [address] [place] [address] Dry Room Operator Interventional Cardiology 04/04/23 Roc Whitehead MD [address] [place] [address] Consulting Physician Pulmonary Disease 02/15/23 Rafael Li MD #[address] [address] Consulting Physician Clinical Cardiac Electrophysiology 02/19/24 Ruben Rodriguez MD [address] [address] Consulting Physician Cardiovascular Disease - Cardiology 08/06/24 documented as of this encounter
--- OUTSIDE RECORDS SUMMARY | 2024-10-27 09:06 | XMS_ITS | Encounter Summary ---
Author Organization [facility] Address [address] [facility] [place] [place] [address] Phone Care Team Providers Care Surgery Nurse Name Role Phone Roshan Franco MD Unavailable Caryn Menezes APRN, [employer] PRODUCT DEVELOPMENT MANAGER Unavailable [phone] Nery Burrell MD PhD Unavailable [phone] Roc Whitehead MD Unavailable Wagner Byrne MD Primary Care Provider [phone] Rafael Li MD Unavailable Ruben Rodriguez MD Unavailable Reason for Visit * Reason Comments Medication Refill Encounter Details Date Type Department Care Team (Late st Contact Info) Description 12/11/2023 Refill [facility] - Family Medicine [facility] #[address] [place] [phone] Enrique Smith MD #[address] [address] Medication Refill Social History Tobacco Use Types Packs/Day Years Used Date Smoking Tobacco: Every Day Cigarettes 0.5 40 Smokeless Tobacco: Never Alcohol Use Standard Drinks/Week Comments Not Currently 0 (1 standard drink = 0.6 oz pur e alcohol) [facility] Utilities Answer Date Recorded In [...] How often do you attend denominational or mosque serv ices? Patient declined 08/03/2023 Do you [...] Total Score - Questions 1-9 19 01/12 [facility] of Occupat ional Health - Occupational Stress [...] place to sleep or slept in a [place] health [place] facility (including now)? Patient declined 08/03/2023 Education Answer [...] Telephone Encounter - Tanika Martin RN - 12/11/2023 2:15 PM CDT PCP is Dr Byrne documented in this encounter Plan of Treatment Upcoming Encounters Date Type Department Care Team (Latest Contact Info) Description 10/29/2024 9:00 AM CDT Clinical Support [facility] - Cardiology - [facility] #2 [facility] [place] [phone] [facility] [place] 10/29/2024 9:30 AM CDT Office Visit [facility] - Cardiology - [place] [address] [place] [address] Ruben Rodriguez MD [address] [facility], [address] [address] 10/30/2024 1:00 PM CDT Appointment [facility] Cardiology Services [address] [place] [address] Ruben Rodriguez MD [address] [facility] [address] [place] [address] Discharge Disposition: Discharged to home or Selfcare documented as of this encounter Goals Goal Patient Goal Type Associated Problems Recent Progress Patient-Stated? Author I am tired of feeling guilty about my [grief.] Behavioral Health Improving(01/2024 2:42 PM EXCEPTIONAL CHILDREN'S TEACHER) Yes Edda Vo, HARPAL Note: Goal/Objective: Decrease guilty thoughts about her care for her mother who is now . Anticipated Time Frame for Goal Completion: 6 months Goal Reviewed with: patient Readiness to change: Ready to change Department associated with goal: [facility] Steps to achieve [...] documented as of this encounter Care Teams Surgery Nurse Relationship Specialty Start Date End Date Wagner Byrne MD [address] [place] [address] PCP - General Internal Medicine 11/25/23 Roshan Franco MD Consulting Physician Cardiovascular Disease - Cardiology 12/06/22 04/20/24 Caryn Briseno, CDL COMPANY DRIVER, [employer] PRODUCT DEVELOPMENT MANAGER #[address] [facility] [facility], [address] [place] [address] Nurse Practitioner Cardiology 04/04/23 Nery Burrell MD PhD #1 [place] [address] Auto Bumper Straightener Interventional Cardiology 04/04/23 Roc Whitehead MD #2 [place] [address] Consulting Physician Pulmonary Disease 02/15/23 Rafael Li MD [facility] [facility] [address] [place] [address] Consulting Physician Clinical Cardiac Electrophysiology 02/19/24 Ruben Rodriguez MD 2 [facility], [facility] [address] [place] [address] Consulting Physician Cardiovascular Disease - Cardiology 08/06/24 documented as of this encounter
--- OUTSIDE RECORDS SUMMARY | 2024-10-27 09:06 | XMS_ITS | Encounter Summary ---
Author Organization [facility] Address [address] [place] [address] Phone Care Team Providers Care Meat Cutting Teacher Name Role Phone Enrique Smith MD Primary Care Provider [phone] Roshan Franco MD Unavailable Caryn Menezes FIRE TRUCK DRIVER, INSTRUCTION DEAN Unavailable + [phone] Nery Burrell MD PhD Unavailable [phone] Roc Whitehead MD Unavailable Wagner Byrne MD Primary Care Provider [phone] Rafael Li MD Unavailable Ruben Rodriguez MD Unavailable Reason for Visit * Reason Comments Medication Refill Encounter Details Date Type Department Care Team (Late st Contact Info) Description 10/30/2023 [facility]ill [facility] [address] [place] [phone] Enrique Smith MD [address] [address] Medication Refill Social History Tobacco Use Types Packs/Day Years Used Date Smoking Tobacco: Every Day Cigarettes 0.5 40 Smokeless Tobacco: Never Alcohol Use Standard Drinks/Week Comments Not Currently 0 (1 standard drink = 0.6 oz pur e alcohol) [facility] Utilities Answer Date Recorded In the [...] declined 08/03/2023 How often do you attend anglican or jew serv ices? Patient declined 08/03/2023 Do you belong to any clubs o r organizations such as anglican groups, unions, fraternal or athletic groups, or [...] Recorded Total Score - Questions 1-9 01/12 [facility] - Occupational [...] to sleep or slept in a senior care (including now)? Patient declined 08/03/2023 Education Answer [...] Telephone Encounter - Tanika Martin RN - 10/30/2023 10:44 AM CDT Medication failed the protocol, provider to review and approve the medication order if appropriate. Requested Prescriptions Pending Prescriptions Disp Refills methocarbamol (ROBAXIN) 500 MG Tablet [Pharmacy Med Name: METHOCARBAMOL 500 MG TABLET] 90 Tablet 0 Sig: TAKE 1 TABLET BY MOUTH THREE TIMES A DAY Not Delegated - Muscle Relaxants Protocol Failed - 10/30/2023 8:57 AM Failed - This refill cannot be delegated Passed - Visit with relevant provider in past 12 months or upcoming 90 days Recent Visits Date Type Provider Dept 08/16/23 Office Visit [facility] 06/05/23 [facility] 05/02/23 Office Visit Enrique Smith MD [facility] 04/04/23 Office Visit Enrique Smith MD [facility] 01/23/23 Office Visit Luis Carlos Bull MD [facility] 01/16/23 Office Visit Danyel Akhtar FIRE TRUCK DRIVER, INSTRUCTION DEAN [facility] 01/02/23 Office Visit Enrique Smith MD [facility] 12/29/22 Office Visit Sulma Blevins FIRE TRUCK DRIVER, INSTRUCTION DEAN [facility] 12/05/22 Office Visit Danyel Akhtar APRN, INSTRUCTION DEAN [facility] 10/31/22 Office Visit Enrique Smith MD [facility] Showing recent visits within past 365 days and meeting all other requirements Future Appointments No visits were found meeting these conditions. Showing future appointments within next 90 days and meeting all other requirements documented in this encounter Plan of Treatment Upcoming Encounters Date Type Department Care Team (Latest Contact Info) Description 10/29/2024 9:00 AM CDT Clinical Support [facility] Cardiology [facility] [address] [place] [address] Nurse, [facility] [place] 10/29/2024 9:30 AM CDT Office Visit [facility] [address] [place] [address] Ruben Rodriguez MD [address] [address] 10/30/2024 1:00 PM CDT Appointment [facility] Cardiology Services 1 [place] [address] Ruben Rodriguez MD [address] [address] Discharge Disposition: Discharged to home or Selfcare documented as of this encounter Goals Goal Patient Goal Type Associated Problems Recent Progress Patient-Stated? Author I am tired of feeling guilty about my [grief.] Behavioral Health Improving(01/2024 2:42 PM ASSISTANT FEDERAL PUBLIC DEFENDER) Yes Edda Vo, HYPERBARIC NURSE Note: Goal/Objective: Decrease guilty thoughts about her care for her mother who is now . Anticipated Time Frame for Goal Completion: 6 months Goal Reviewed with: patient Readiness to change: Ready to change Department associated with goal: [facility] Steps to achieve [...] documented as of this encounter Care Teams Meat Cutting Teacher Relationship Specialty Start Date End Date Enrique Smith MD #[address] [address] PCP - General Family Medicine 03/28/22 11/24/23 Wagner Byrne MD [address] [place] [address] PCP - General Internal Medicine 11/25/23 Roshan Franco MD #[address] [address] Consulting Physician Cardiovascular Disease - Cardiology 12/06/22 04/20/24 Caryn Briseno APRN, INSTRUCTION DEAN [address] [facility], [facility] [address] [place] [address] Nurse Practitioner Cardiology 04/04/23 Nery Burrell MD PhD #1 [place] [address] Research Editor Interventional Cardiology 04/04/23 Roc Whitehead MD #[address] [place] [phone] Consulting Physician Pulmonary Disease 02/15/23 Rafael Li MD #2 [facility] [address] [place] [address] Consulting Physician Clinical Cardiac Electrophysiology 02/19/24 Ruben Rodriguez MD [address] [facility] [address] [place] [address] Consulting Physician Cardiovascular Disease - Cardiology 08/06/24 documented as of this encounter
--- OUTSIDE RECORDS SUMMARY | 2024-10-27 09:06 | XMS_ITS | Encounter Summary ---
Author Organization [facility] Address [address] [place] [address] Phone Care Team Providers Care Business Strategist Name Role Phone Caryn Briseno APRN, BIOMEDICAL TECHNICIAN Unavailable + [phone] Nery Burrell MD PhD Unavailable [phone] Roc Whitehead MD Unavailable Wagner Byrne MD Primary Care Provider [phone] Rafael Li MD Unavailable Ruben Rodriguez MD Unavailable Reason for Visit * Reason Comments Medication Refill Encounter Details Date Type Department Care Team (Late st Contact Info) Description 05/26/2024 Refill [facility] - Family Medicine [facility] [place] [address] [place] [address] Enrique Smith MD #[address] [address] Medication Refill Social History Tobacco Use Types Packs/Day Years Used Date Smoking Tobacco: Every Day Cigarettes 0.5 40 Smokeless Tobacco: Never Alcohol Use Standard Drinks/Week Comments Not Currently 0 (1 standard drink = 0.6 oz pur e alcohol) [facility] Utilities Answer Date Recorded In the past 12 months has e [employer], gas, oil, or water [employer] threatened to shut off services in your home? Patient declined 08/03/2023 Social Connection and Isolation Panel Answer Date Recorded In a typical week, how many times do you talk on the phone with family, friends, or neighbors? Patient declined 08/03/2023 How often do you get togethe r with friends or relatives? Patient declined 08/03/2023 How often do you attend temple or church serv ices? Patient declined 08/03/2023 Do you belong to any clubs o r organizations such as temple groups, unions, fraternal or athletic groups, or [...] Total Score - Questions 1-9 9 01/2024 [facility] of Occupat ional [...] place to sleep or slept in a retirement (including now)? Patient declined 08/03/2023 Education Answer [...] Telephone Encounter - Tanika Martin RN - 05/26/2024 11:12 AM CST PCP: Wagner Byrne MD L POURER HELPER documented in this encounter Plan of Treatment Upcoming Encounters Date Type Department Care Team (Latest Contact Info) Description 10/29/2024 9:00 AM CDT Clinical Support [facility] - Cardiology - Brain #2 [place] [address] Nurse, [facility] [place] 10/29/2024 9:30 AM CDT [facility] - [place] #[address] [place] [address] Ruben Rodriguez MD [address], [address] [address] 10/30/2024 1:00 PM CDT Appointment [facility] Cardiology Services [address] [place] [address] Ruben Rodriguez MD 2 [facility], [address] [address] Discharge Disposition: Discharged to home or Selfcare documented as of this encounter Goals Goal Patient Goal Type Associated Problems Recent Progress Patient-Stated? Author I am tired of feeling guilty about my [grief.] Behavioral Health Improving(01/2024 2:42 PM STEEL POURER HELPER) Yes Edda Vo, DIRECTOR PAID MEDIA Note: Goal/Objective: Decrease guilty thoughts about her care for her mother who is now . Anticipated Time Frame for Goal Completion: 6 months Goal Reviewed with: patient Readiness to change: Ready to change Department associated with goal: [facility] Steps to achieve [...] Assessment Noted Time PHQ-9 Depression Total Score: 9 04/21/20 24 2:00 PM STEEL POURER HELPER documented as of this encounter Care Teams Business Strategist Relationship Specialty Start Date End Date Wagner Byrne MD [address] [place] [address] PCP - General Internal Medicine 11/25/23 Caryn Briseno APRN, BIOMEDICAL TECHNICIAN #2 [facility] [address] [place], [place] [phone] Nurse Practitioner Cardiology 04/04/23 Nery Burrell MD PhD #1 [place] [address] Branch Library Clerk Interventional Cardiology 04/04/23 Roc Whitehead MD #2 [place] [phone] Consulting Physician Pulmonary Disease 02/15/23 Rafael Li MD #2 [facility], [address] [address] Consulting Physician Clinical Cardiac Electrophysiology 02/19/24 Ruben Rodriguez MD 2 [facility], [address] [address] Consulting Physician Cardiovascular Disease - Cardiology 08/06/24 documented as of this encounter
--- OUTSIDE RECORDS SUMMARY | 2024-10-27 09:06 | XMS_ITS | Encounter Summary ---
Author Organization [facility] Address [address] [place] [address] Care Team Providers Care Production Assembly Operator Name Role Phone Isreal Gonzalez MD Unavailable [phone] Wagner Byrne MD Primary Care Provider [phone] Carlyn GrayW Unavailable Reason for Visit * Reason Onset Date Comments Duplicate Call 07/18/2024 Encounter Details Date Type Department Care Team (Late st Contact Info) Description 07/18/2024 Nurse Triage [facility] [address] [address] Elvia Gar RN Social History Tobacco Use Types Packs/Day Years Used Date Smoking Tobacco: Every Day Cigarettes Smokeless Tobacco: Never Comments:ABOUT 10/15 CIGARET [place]LA Alcohol Use Standard Drinks/Week Comments Not Currently 0 (1 standard drink = 0.6 oz pur e alcohol) [facility] Utilities Answer Date Recorded In the past 12 months has th [employer] electric, gas, oil, or water company threatened to shut off services in your home? No 06/27/2024 Social Connection and Isolation Panel [NHANES] A nswer Date Recorded In a typical week, how many times do you talk on the phone with family, friends, or neighbors? Three times a week 06/27/2024 How often do you get togethe r with friends or relatives? Once a week 06/27/2024 How often do you attend [facility] or church services? Never 06/27/2024 Do you belong to any clubs o r organizations such as yarsani groups, unions, fraternal or athletic groups, or school groups? No 06/27/2024 How often do you attend meet ings of the clubs or organizations you belong to? Never 06/27/2024 Are you , , di vorced, , never , or living with a partner? 06/27/2024 AUDIT-C Answer Date Recorded Q1: How often do you have a drink containing alc ohol? Never 05/25/2021 Average Number of Drinks Not on file 022 Q3: How often do you have si x or more drinks on one occasion? Never 05/25/2021 Overall Financial Resource Strain (CARDIA) Answe r Date Recorded How hard is it for you to pa y for the very basics like food, housing, medical care, and heating? Hard 06/27/2024 PHQ-2 Answer Date Recorded PHQ-2 Total Score (If total score is 3 or more points, staff should administer the PHQ-9) 2 03/27/2024 Hunger Vital Sign Answer Date Recorded Within the past 12 months, y ou worried that your food would run out before you got the money to buy more. Never true 06/27/19 25 Within the past 12 months, t he food you bought just didn't last and you didn't have money to get more. Never true 06/27/2024 PHQ-9 Answer Date Recorded PHQ-9 Total Score 6 03/13/2024 Housing Stability Vital Sign Answer Christophe e Recorded In the last 12 months, was t here a time when you were not able to pay the mortgage or rent on time? No 06/27/2024 In the past 12 months, how m any times have you moved where you were living? 0 06/27/2024 At any time in the past 12 m [facility], were you homeless or living in a long term (including now)? No 06/27/2024 Comments No Sex and Gender Information Value Date Recorded Sex Assigned at Not on file Legal Sex Female 7:04 AM POLITICAL SCIENCE FACULTY MEMBER Gender Identity Not on file Sexual Orientation Not on file documented as of this encounter Miscellaneous Notes * Telephone Encounter - Geri Mark MA - 07/18/2024 4:48 PM CST DIAZ Byrne TICAL SCIENCE FACULTY MEMBER * Telephone Encounter - Elvia Gar RN - 07/18/2024 3:29 PM CST I spoke with patient who states she call 911 and is going to the ER. Reason for Disposition Patient already left for the hospital/clinic Protocols used: No Contact or Duplicate Contact [id number] TICAL SCIENCE FACULTY MEMBER * Telephone Encounter - Elvia Gar RN - 07/18/2024 3:21 PM CST Regarding: panic attacks, anxiety, difficulty dealing with the loss of parents ----- Message from Vandana Oliva sent at 07/18/2024 3:19 PM POLITICAL SCIENCE FACULTY MEMBER ----- Symptom Based Call Chief Complaint(s): panic attacks, anxiety, difficulty dealing with the loss of parents Duration: 2-3 weeks What type of symptom(s) is the patient experiencing? Red Flag. Is the patient concerned they are experiencing a medical emergency requiring an ambulance? No Additional Comments: Patient called to see if Dr. Byrne can see her sooner than next Sunday. There are no sooner appts with him and she is only comfortable with seeing him for this. She states she hasdealt with anxiety and panic attacks in the past, but the symptoms are worsening and becoming more frequent. She states her father in March, and she was so upset she wasn't able to enter the [facility] home. She states she has tried Klonopin in the past, but does not like it due to side effects. She reports her brother gave her Xanax to try and it helped a lot. She is wondering if Dr. Byrne would be agreeable to prescribing short-term low-dose Xanax to get her through this difficult time. Does message need to be routed? Yes-Action Needed TICAL SCIENCE FACULTY MEMBER documented in this encounter Plan of Treatment Not on file documented as of this encounter Goals Goal Patient Goal Type Associated Problems Recent Progress Patient-Stated? Author ACO SW Goal - Patient can identify and utilize mental health community resources ACO Care Management No Carlyn Gray, HARPAL Note: Problem: Mental Health Resources needed Interventions: - Assess for mental health resource needs. - Assess readiness for change. - Provide patient with MH Resource options. - Provide information regarding insurance coverage of specific resources and levels of care. - Follow-up to assess barriers to establishing connection with resources, if applicable. documented as of this encounter Visit Diagnoses Not on filedocumented in this encounter Additional Health Concerns Infection Onset Date Last Indicated Resolved Time COVID: Suspected 07/30/2024 07/30/2024 07/30/2024 9:52 AM CDT documented as of this encounter Care Teams Production Assembly Operator Relationship Specialty Start Date End Date Wagner Byrne MD [address] [place] [address] PCP - General Family Medicine 10/17/23 Isreal Gonzalez MD [address] [address] Referring Physician Internal Medicine 02/04/20 Carlyn Gray, HARPAL [address] [place] [address] [place] [address] Kindergarten Teacher Assistant 06/25/24 07/23/24 documented as of this encounter
--- OUTSIDE RECORDS SUMMARY | 2024-10-27 09:06 | XMS_ITS | Encounter Summary ---
Author Organization [facility] Address [address] [place] [address] Phone Care Team Providers Care Revolving Inventory Clerk Name Role Phone Caryn Briseno APRN, METALLURGICAL LAB TECHNICIAN Unavailable + [phone] Nery Burrell MD PhD Unavailable [phone] Roc Whitehead MD Unavailable Wagner Byrne MD Primary Care Provider [phone] Rafael Li MD Unavailable Ruben Rodriguez MD Unavailable Reason for Visit * Reason Comments Medication Refill Encounter Details Date Type Department Care Team (Late st Contact Info) Description 05/02/2024 Refill [facility] - Family Medicine [facility] [place] [address] [place] [address] Enrique Smith MD #[address] [address] Medication Refill Social History Tobacco Use Types Packs/Day Years Used Date Smoking Tobacco: Every Day Cigarettes 0.5 40 Smokeless Tobacco: Never Alcohol Use Standard Drinks/Week Comments Not Currently 0 (1 standard drink = 0.6 oz pur e alcohol) [facility] Utilities Answer Date Recorded In the past 12 months has e [employer], gas, oil, or water [employer] threatened to shut off services in your home? Patient declined 08/03/2023 Social Connection and Isolation Panel Answer Date Recorded In a typical week, how many times do you talk on the phone with family, friends, or neighbors? Patient declined 08/03/2023 How often do you get togethe r with friends or relatives? Patient declined 08/03/2023 How often do you attend mandaen or christianity serv ices? Patient declined 08/03/2023 Do you belong to any clubs o r organizations such as mandaen groups, unions, fraternal or athletic groups, or [...] Total Score - Questions 1-9 9 01/2024 [facility] of Occupat ional Health - Occupational [...] place to sleep or slept in a alf (including now)? Patient declined 08/03/2023 Education Answer [...] Telephone Encounter - Tanika Martin RN - 05/02/2024 1:38 PM CST PCP: Wagner Byrne MD H BUILDER documented in this encounter Plan of Treatment Upcoming Encounters Date Type Department Care Team (Latest Contact Info) Description 10/29/2024 9:00 AM CDT Clinical Support [facility] - Cardiology - Brain #2 [place] [address] Nurse, [facility] [place] 10/29/2024 9:30 AM CDT [facility]iology - [place] #[address] [place] [address] Ruben Rodriguez MD [address] [facility], [address] [address] 10/30/2024 1:00 PM CDT Appointment [facility] Cardiology Services [address] [place] [address] Ruben Rodriguez MD 2 [facility], [address] [address] Discharge Disposition: Discharged to home or Selfcare documented as of this encounter Goals Goal Patient Goal Type Associated Problems Recent Progress Patient-Stated? Author I am tired of feeling guilty about my [grief.] Behavioral Health Improving(01/2024 2:42 PM COACH BUILDER) Yes Edda Vo, SKID STRAPPER Note: Goal/Objective: Decrease guilty thoughts about her care for her mother who is now . Anticipated Time Frame for Goal Completion: 6 months Goal Reviewed with: patient Readiness to change: Ready to change Department associated with goal: [facility] Steps to [...] Total Score: 9 04/21/20 24 2:00 PM COACH BUILDER documented as of this encounter Care Teams Revolving Inventory Clerk Relationship Specialty Start Date End Date Wagner Byrne MD [address] [place] [address] PCP - General Internal Medicine 11/25/23 Caryn Briseno APRN, METALLURGICAL LAB TECHNICIAN #2 [facility] [address] [place], [place] [phone] Nurse Practitioner Cardiology 04/04/23 Nery Burrell MD PhD #1 [place] [address] Chain Puller Interventional Cardiology 04/04/23 Roc Whitehead MD #2 [place] [phone] Consulting Physician Pulmonary Disease 02/15/23 Rafael Li MD #2 [facility], [address] [address] Consulting Physician Clinical Cardiac Electrophysiology 02/19/24 Ruben Rodriguez MD 2 [facility], [address] [address] Consulting Physician Cardiovascular Disease - Cardiology 08/06/24 documented as of this encounter
--- OUTSIDE RECORDS SUMMARY | 2024-10-27 09:06 | XMS_ITS | Encounter Summary ---
Author Organization [facility] Address [address] [place] [address] Phone Care Team Providers Care Contracting Engineer Name Role Phone Enrique Smith MD Primary Care Provider [phone] Roshan Franco MD Unavailable Caryn Menezes HOUSING INSPECTORS, DATABASE ADMINISTRATION MANAGER Unavailable + [phone] Nery Burrell MD PhD Unavailable [phone] Roc Whitehead MD Unavailable Wagner Byrne MD Primary Care Provider [phone] Rafale Li MD Unavailable Ruben Rodriguez MD Unavailable Reason for Visit * Reason Comments Medication Refill Encounter Details Date Type Department Care Team (Late st Contact Info) Description 01/09/2023 [facility]ill [facility] #[address] [place] [phone] Enrique Smith MD #[address] [address] Medication Refill Social History Tobacco Use Types [...] suspected to have Coronavirus/COVID-19? No / Unsure 01/11/2023 3:34 PM CDT documented as of this encounter Miscellaneous Notes * Telephone Encounter - Bridget Cadet RN - 01/09/2023 4:58 PM CDT Medication failed the protocol, provider to review and approve the medication order if appropriate. Requested Prescriptions Pending Prescriptions Disp Refills predniSONE (DELTASONE) 5 MG Tablet [Pharmacy Med Name: PREDNISONE 5MG TABLET] 30 Tablet 0 Sig: TAKE 1 TABLET BY MOUTH DAILY. Not Delegated - Corticosteroids Protocol Failed - 01/09/2023 1:15 PM Failed - This refill cannot be delegated Passed - Visit with relevant provider in past 12 months or upcoming 90 days Recent Visits Date Type Provider Dept 01/02/23 Office Visit Enrique Smith MD [facility] 12/29/22 Office Visit Sulma Blevins APRN, [facility] 12/05/22 Office Visit Danyel Akhtar APRN, [facility] 10/31/22 Office Visit Enrique Smith MD [facility] 10/19/22 Office Visit Bárbara Bergeron APRN, [facility] 06/28/22 Office Visit Enrique Smith MD [facility] 06/20/22 Office Visit Luis Carlos Bull MD [facility] 05/31/22 Office Visit Enrique Smith MD [facility] 05/11/22 Office Visit Enrique Smith MD [facility] 04/11/22 Office Visit Bárbara Bergeron APRN, DATABASE ADMINISTRATION MANAGER [facility] Showing recent visits within past 365 days and meeting all other requirements Future Appointments Date Type Provider Dept 04/04/23 Appointment Enrique Smith MD [facility] Showing future appointments within next 90 days and meeting all other requirements documented in this encounter Plan of Treatment Upcoming Encounters Date Type Department Care Team (Latest Contact Info) Description 10/29/2024 9:00 AM CDT Clinical Support [facility] Cardiology [facility] #2 [place] [address] Nurse, [place] [facility] [place] 10/29/2024 9:30 AM CDT Office Visit [facility] #2 [place] [address] Ruben Rodriguez MD [address] [address] 10/30/2024 1:00 PM CDT Appointment [facility] Cardiology Services 1 [place] [address] Ruben Rodriguez MD [address] [address] Discharge Disposition: Discharged to home or Selfcare documented as of this encounter Visit Diagnoses Not on filedocumented in this encounter Additional Health Concerns Infection Onset Date Last Indicated Resolved Time COVID - 19 01/23/2023 01/23/2023 02/02/2023 12:1 6 AM CDT COVID - 19 04/02/2023 04/02/2023 04/12/2023 12:1 6 AM CHAIN MAKER COVID - 19 04/21/2023 04/21/2023 05/01/2023 12:1 6 AM CHAIN MAKER Assessment Noted Time PHQ-9 Depression Total Score: 0 02/10/20 11:00 AM CDT documented as of this encounter Care Teams Contracting Engineer Relationship Specialty Start Date End Date Enrique Smith MD #[address] [address] PCP - General Family Medicine 03/28/22 11/24/23 Wagner Byrne MD [address] [place] [address] PCP - General Internal Medicine 11/25/23 Roshan Franco MD [address] [address] Consulting Physician Cardiovascular Disease - Cardiology 12/06/22 04/20/24 Caryn Briseno APRN, DATABASE ADMINISTRATION MANAGER #2 [facility], [address] [address] Nurse Practitioner Cardiology 04/04/23 Nery Burrell MD PhD #1 [place] [address] Track Repair Worker Interventional Cardiology 04/04/23 Roc Whitehead MD #2 [place] [address] Consulting Physician Pulmonary Disease 02/15/23 Rafael Li MD #[address] [address] Consulting Physician Clinical Cardiac Electrophysiology 02/19/24 Ruben Rodriguez MD 2 [facility], [address] [address] Consulting Physician Cardiovascular Disease - Cardiology 08/06/24 documented as of this encounter
--- OUTSIDE RECORDS SUMMARY | 2024-10-27 09:06 | XMS_ITS | Encounter Summary ---
Author Organization [facility] Address [address] [place] [address] Phone Care Team Providers Care Cryptographic Technician Name Role Phone Caryn Briseno APRN, BAG BUNDLER Unavailable + [phone] Nery Burrell MD PhD Unavailable [phone] Roc Whitehead MD Unavailable Wagner Byrne MD Primary Care Provider [phone] Rafael Li MD Unavailable Ruben Rodriguez MD Unavailable Reason for Visit * Reason Comments Medication Refill Encounter Details Date Type Department Care Team (Late st Contact Info) Description 05/30/2024 Refill [facility] - Family Medicine [facility] #2 [place] [address] Enrique Smith MD #[address] [address] Medication Refill Social History Tobacco Use Types Packs/Day Years Used Date Smoking Tobacco: Every Day Cigarettes 0.5 40 Smokeless Tobacco: Never Alcohol Use Standard Drinks/Week Comments Not Currently 0 (1 standard drink = 0.6 oz pur e alcohol) [facility] Utilities Answer Date Recorded In the past 12 months has e [employer], gas, oil, or water [employer] threatened to shut off services in your home? Patient declined 08/03/2023 Social Connection and Isolation Panel Answer Date Recorded In a typical week, how many times do you talk on the phone with family, friends, or neighbors? Patient declined 08/03/2023 How often do you get togethe r with friends or relatives? Patient declined 08/03/2023 How often do you attend roman catholic or temple serv ices? Patient declined 08/03/2023 Do you belong to any clubs o r organizations such as roman catholic groups, unions, fraternal or athletic groups, or [...] Total Score - Questions 1-9 9 01/2024 [facility] - Occupational [...] place to sleep or slept in a care home (including now)? Patient declined 08/03/2023 Education Answer [...] Telephone Encounter - Tanika Martin RN - 05/30/2024 2:37 PM CST PCP: Wagner Byrne MD T FURNACE KEEPER documented in this encounter Plan of Treatment Upcoming Encounters Date Type Department Care Team (Latest Contact Info) Description 10/29/2024 9:00 AM CDT Clinical Support [facility] Medical Group - Cardiology - Brain #2 [place] [address] Nurse, [place] [facility] [place] 10/29/2024 9:30 AM CDT Office Visit [facility] - [place] #[address] [place] [address] Ruben Rodriguez MD [address], [address] [address] 10/30/2024 1:00 PM CDT Appointment [facility] Cardiology Services [address] [place] [address] Ruben Rodriguez MD 2 [facility], [address] [address] Discharge Disposition: Discharged to home or Selfcare documented as of this encounter Goals Goal Patient Goal Type Associated Problems Recent Progress Patient-Stated? Author I am tired of feeling guilty about my [grief.] Behavioral Health Improving(01/2024 2:42 PM BLAST FURNACE KEEPER) Yes Edda Vo, INSULATION WORKER FURNACE INSTALLER Note: Goal/Objective: Decrease guilty thoughts about her care for her mother who is now . Anticipated Time Frame for Goal Completion: 6 months Goal Reviewed with: patient Readiness to change: Ready to change Department associated with goal: [facility] Steps to achieve [...] Total Score: 9 04/21/20 24 2:00 PM BLAST FURNACE KEEPER documented as of this encounter Care Teams Cryptographic Technician Relationship Specialty Start Date End Date Wagner Byrne MD [address] [place] [address] PCP - General Internal Medicine 11/25/23 Caryn Briseno APRN, BAG BUNDLER #2 [facility], [facility] [address] [place], [place] [phone] Nurse Practitioner Cardiology 04/04/23 Nery Burrell MD PhD #1 [place] [address] Supervisor Prop Making Interventional Cardiology 04/04/23 Roc Whitehead MD #2 [place] [phone] Consulting Physician Pulmonary Disease 02/15/23 Rafael Li MD #2 [facility], [address] [address] Consulting Physician Clinical Cardiac Electrophysiology 02/19/24 Ruben Rodriguez MD 2 [facility], [address] [address] Consulting Physician Cardiovascular Disease - Cardiology 08/06/24 documented as of this encounter
--- OUTSIDE RECORDS SUMMARY | 2024-10-27 09:06 | XMS_ITS | Encounter Summary ---
Author Organization [facility] Address [address] [place] [address] Phone Care Team Providers Care Fisheries Biologist Name Role Phone Caryn Briseno APRN, INDUSTRIAL RELATIONS DIRECTOR Unavailable + [phone] Nery Burrell MD PhD Unavailable [phone] Roc Whitehead MD Unavailable Wagner Byrne MD Primary Care Provider [phone] Rafael Li MD Unavailable Ruben Rodriguez MD Unavailable Reason for Visit * Reason Comments Medication Refill Encounter Details Date Type Department Care Team (Late st Contact Info) Description 05/24/2024 [facility]ill [facility] Med Surg [address] [place] [phone] Enrique Smith MD #[address] [address] Medication Refill Social History Tobacco Use Types Packs/Day Years Used Date Smoking Tobacco: Every Day Cigarettes 0.5 40 Smokeless Tobacco: Never Alcohol Use Standard Drinks/Week Comments Not Currently 0 (1 standard drink = 0.6 oz pur e alcohol) [facility] Utilities Answer Date Recorded In the past 12 months has e [employer], gas, oil, or water [employer] threatened to shut off services in your home? Patient declined 08/03/2023 Social Connection and Isolation Panel Answer Date Recorded In a typical week, how many times do you talk on the phone with family, friends, or neighbors? Patient declined 08/03/2023 How often do you get togethe r with friends or relatives? Patient declined 08/03/2023 How often do you attend jew or moravian serv ices? Patient declined 08/03/2023 Do you belong to any clubs o r organizations such as jew groups, unions, fraternal or athletic groups, or [...] place to sleep or slept in a half-way (including now)? Patient declined 08/03/2023 Education Answer [...] Encounter - Tanika Martin RN - 05/26/2024 8:12 AM CST PCP: Wagner Byrne MD GEMENT INFORMATION SYSTEMS DIRECTOR documented in this encounter Plan of Treatment Upcoming Encounters Date Type Department Care Team (Latest Contact Info) Description 10/29/2024 9:00 AM CDT Clinical Support [facility] - Cardiology - Brain #2 [place] [address] Nurse, Brain Cardiology [place] 10/29/2024 9:30 AM CDT Office Visit [facility] - Cardiology - [place] #[address] [place] [address] Ruben Rodriguez MD [address], [address] [address] 10/30/2024 1:00 PM CDT Appointment [facility] Cardiology Services [address] [place] [address] Ruben Rodriguez MD [address], [address] [address] Discharge Disposition: Discharged to home or Selfcare documented as of this encounter Goals Goal Patient Goal Type Associated Problems Recent Progress Patient-Stated? Author I am tired of feeling guilty about my [grief.] Behavioral Health Improving(01/2024 2:42 PM MANAGEMENT INFORMATION SYSTEMS DIRECTOR) Yes Edda Vo, SUPERVISOR PURIFICATION Note: Goal/Objective: Decrease guilty thoughts about her [...] Total Score: 9 04/21/20 24 2:00 PM MANAGEMENT INFORMATION SYSTEMS DIRECTOR documented as of this encounter Care Teams Fisheries Biologist Relationship Specialty Start Date End Date Wagner Byrne MD [address] [place] [address] PCP - General Internal Medicine 7/14/24 Caryn Briseno APRN, INDUSTRIAL RELATIONS DIRECTOR #2 [facility], [facility] [address] [place] [address] Nurse Practitioner Cardiology 04/04/23 Nery Burrell MD PhD #1 [place] [address] Coroner'S Juror Interventional Cardiology 04/04/23 Roc Whitehead MD #2 [place] [address] Consulting Physician Pulmonary Disease 02/15/23 Rafael Li MD #2 [facility], [address] [address] Consulting Physician Clinical Cardiac Electrophysiology 02/19/24 Ruben Rodriguez MD 2 [facility], [address] [address] Consulting Physician Cardiovascular Disease - Cardiology 08/06/24 documented as of this encounter
--- OUTSIDE RECORDS SUMMARY | 2024-10-27 09:06 | XMS_ITS | Encounter Summary ---
Author Organization [facility] Address [address] [place] [address] Phone Care Team Providers Care Embossing Press Operator Molded Goods Name Role Phone Caryn Briseno APRN, DUCT LAYER Unavailable + [phone] Nery Burrell MD PhD Unavailable [phone] Roc Whitehead MD Unavailable Wagner Byrne MD Primary Care Provider [phone] Rafael Li MD Unavailable Ruben Rodriguez MD Unavailable Reason for Visit * Reason Comments Medication Refill Encounter Details Date Type Department Care Team (Late st Contact Info) Description 06/16/2024 Refill [facility] - Family Medicine [facility] #2 [place] [address] Enrique Smith MD #[address] [address] Medication Refill Social History Tobacco Use Types Packs/Day Years Used Date Smoking Tobacco: Every Day Cigarettes 0.5 40 Smokeless Tobacco: Never Alcohol Use Standard Drinks/Week Comments Not Currently 0 (1 standard drink = 0.6 oz pur e alcohol) [facility] Utilities Answer Date Recorded In the past 12 months has e [employer], gas, oil, or water [employer] threatened to shut off services in your home? Patient declined 08/03/2023 Social Connection and Isolation Panel Answer Date Recorded In a typical week, how many times do you talk on the phone with family, friends, or neighbors? Patient declined 08/03/2023 How often do you get togethe r with friends or relatives? Patient declined 08/03/2023 How often do you attend caodaism or mormon serv ices? Patient declined 08/03/2023 Do you belong to any clubs o r organizations such as caodaism groups, unions, fraternal or athletic groups, or [...] Total Score - Questions 1-9 9 01/2024 [facility] - Occupational [...] place to sleep or slept in a [facility]p (including now)? Patient declined 08/03/2023 Education Answer [...] Telephone Encounter - Tanika Martin RN - 06/17/2024 8:42 AM CST PCP: Wagner Byrne MD ATRIC DENTIST documented in this encounter Plan of Treatment Upcoming Encounters Date Type Department Care Team (Latest Contact Info) Description 10/29/2024 9:00 AM CDT Clinical Support [facility] - Cardiology - Brain #2 [place] [address] Nurse, Brain Cardiology [place] 10/29/2024 9:30 AM CDT Office Visit [facility] - Cardiology - [place] #2 [place] [address] Ruben Rodriguez MD [address], [address] [address] 10/30/2024 1:00 PM CDT Appointment [facility] Cardiology Services [address] [place] [address] Ruben Rodriguez MD 2 [facility], [address] [address] Discharge Disposition: Discharged to home or Selfcare documented as of this encounter Goals Goal Patient Goal Type Associated Problems Recent Progress Patient-Stated? Author I am tired of feeling guilty about my [grief.] Behavioral Health Improving(01/2024 2:42 PM PEDIATRIC DENTIST) Yes Edda Vo, COSTUME SHOP MANAGER Note: Goal/Objective: Decrease guilty thoughts about her care for her mother who is now . Anticipated Time Frame for Goal Completion: 6 months Goal Reviewed with: patient Readiness to change: Ready to change Department associated with goal: [facility] Steps to achieve [...] Total Score: 9 04/21/20 24 2:00 PM PEDIATRIC DENTIST documented as of this encounter Care Teams Embossing Press Operator Molded Goods Relationship Specialty Start Date End Date Wagner Byrne MD [address] [place] [address] PCP - General Internal Medicine 11/25/23 aCryn Briseno APRN, DUCT LAYER #2 [facility], [facility] [address] [place], [place] [phone] Nurse Practitioner Cardiology 04/04/23 Nery Burrell MD PhD #1 [place] [address] Boilermaker Loftsman Interventional Cardiology 04/04/23 Roc Whitehead MD #2 [place] [address] Consulting Physician Pulmonary Disease 02/15/23 Rafael Li MD #2 [facility], [address] [address] Consulting Physician Clinical Cardiac Electrophysiology 02/19/24 Ruben Rodriguez MD 2 [facility], [address] [address] Consulting Physician Cardiovascular Disease - Cardiology 08/06/24 documented as of this encounter
--- OUTSIDE RECORDS SUMMARY | 2024-10-27 09:06 | XMS_ITS | Encounter Summary ---
Author Organization [facility] Address [address] [place] [address] Phone Care Team Providers Care Shooter'S Helper Name Role Phone Enrique Smith MD Primary Care Provider [phone] Roshan Franco MD Unavailable Caryn Menezes EMERGENCY DEPARTMENT PHYSICIAN, FAMILY RESOURCE SPECIALIST Unavailable + [phone] Nery Burrell MD PhD Unavailable [phone] Roc Whitehead MD Unavailable Wagner Byrne MD Primary Care Provider [phone] Rafael Li MD Unavailable Ruben Rodriguez MD Unavailable Reason for Visit * Reason Comments Medication Refill Encounter Details Date Type Department Care Team (Late st Contact Info) Description 01/01/2023 Refill [facility] - [facility] [address] [place] [id number] Enrique Smith MD [address] [address] Medication Refill Social History Tobacco Use Types [...] suspected to have Coronavirus/COVID-19? No / Unsure 01/02/2023 9:17 AM CDT documented as of this encounter Miscellaneous Notes * Telephone Encounter - Tanika Martin RN - 01/02/2023 8:23 AM CDT Medication failed the protocol, provider to review and approve the medication order if appropriate. Requested Prescriptions Pending Prescriptions Disp Refills gabapentin (NEURONTIN) 100 MG Capsule [Pharmacy Med Name: GABAPENTIN 100MG CAPSULE] 270 Capsule 1 Sig: TAKE 1 CAPSULE BY MOUTH THREE (3) TIMES DAILY Not Delegated - Anticonvulsants Excluding Benzodiazepines Protocol Failed - 01/01/2023 1:27 PM Failed - This refill cannot be delegated Passed - Visit with relevant provider in past 12 months or upcoming 90 days Recent Visits Date Type Provider Dept 12/29/22 Office Visit Sulma Blevins APRN, FAMILY RESOURCE SPECIALIST [facility] 12/05/22 Office Visit Danyel Akhtar APRN, J[facility] 10/31/22 Office Visit Enrique Smith MD [facility] 10/19/22 Office Visit Bárbara Bergeron APRN, FAMILY RESOURCE SPECIALIST [facility] 06/28/22 Office Visit Enrique Smith MD [facility] 06/20/22 Office Visit Luis Carlos Bull MD [facility] 05/31/22 Office Visit Smith, MD [facility] 05/11/22 Office Visit Enrique Smith MD [facility] 04/11/22 Office Visit Bárbara Bergeron APRN, [facility] 03/28/22 Office Visit Enrique Smith MD [facility] Showing recent visits within past 365 days and meeting all other requirements Today's Visits Date Type Provider Dept 01/02/23 Appointment Enrique Smith MD [facility] Showing today's visits and meeting all other requirements Future Appointments No visits were found meeting these conditions. Showing future appointments within next 90 days and meeting all other requirements atorvastatin (LIPITOR) 40 MG Tablet [Pharmacy Med Name: ATORVASTATIN CALCIUM 40MG TABLET] 90 Tablet1 Sig: TAKE ONE (1) TABLET BY MOUTH EVERY DAY Hmg CoA Reductase Inhibitors Protocol Passed - 01/01/2023 1:27 PM Passed - Visit with relevant provider in past 12 months or upcoming 90 days Recent Visits Date Type Provider Dept 12/29/22 Office Visit Sulma Blevins APRN, FAMILY RESOURCE SPECIALIST [facility] 12/05/22 Office Visit Danyel Akhtar APRN, [facility] 10/31/22 Office Visit Enrique Smith MD [facility] 10/19/22 Office Visit Bárbara Bergeron APRN, [facility] 06/28/22 Office Visit Enrique Smith MD [facility] 06/20/22 Office Visit Luis Carlos Bull MD [facility] 05/31/22 Office Visit Enrique Smith MD [facility] 05/11/22 Office Visit Enrique Smith MD [facility] 04/11/22 Office Visit Bárbara Bergeron APRN, FAMILY RESOURCE SPECIALIST [facility] 03/28/22 Office Visit Enrique Smith MD [facility] Showing recent visits within past 365 days and meeting all other requirements Today's Visits Date Type Provider Dept 01/02/23 Appointment Enrique Smith MD [facility] Showing today's visits and meeting all other requirements Future Appointments No visits were found meeting these conditions. Showing future appointments within next 90 days and meeting all other requirements Passed - Lipid panel in past 12 months LDL Date Value Ref Range Status 10/19/2022 28 5 - 130 mg/dL Final HDL CHOLESTEROL Date Value Ref Range Status 10/19/2022 71.3 >40 mg/dL Final CHOLESTEROL Date Value Ref Range Status 10/19/2022 123 <=200 mg/dL Final TRIGLYCERIDES Date Value Ref Range Status 10/19/2022 118 <150 mg/dL Final VLDL Date Value Ref Range Status 10/19/2022 24 5 - 55 mg/dL Final CHOL/HDL RATIO Date Value Ref Range Status 10/19/2022 1.7 0.0 - 4.4 Final NON-HDL CHOLESTEROL Date Value Ref Range Status 10/19/2022 51.7 <130 mg/dL Final Passed - CMP in past 12 months SODIUM Date Value Ref Range Status 12/05/2022 131 (L) 136 - 144 mmol/L Final POTASSIUM Date Value Ref Range Status 12/05/2022 4.2 3.5 - 5.1 mmol/L Final CHLORIDE Date Value Ref Range Status 12/05/2022 94 (L) 100 - 110 mmol/L Final CO2, VENOUS Date Value Ref Range Status 12/05/2022 23 22 - 32 mmol/L Final ANION GAP Date Value Ref Range Status 12/05/2022 18.2 8.0 - 20.0 mmol/L Final GLUCOSE Date Value Ref Range Status 12/05/2022 98 70 - 99 mg/dL Final BUN Date Value Ref Range Status 12/05/2022 11 6 - 20 mg/dL Final CREATININE, BLOOD Date Value Ref Range Status 12/05/2022 0.92 0.60 - 1.10 mg/dL Final BUN/CREATININE RATIO Date Value Ref Range Status 12/05/2022 12 12 - 20 ratio Final TOTAL PROTEIN Date Value Ref Range Status 12/05/2022 8.0 6.0 - 8.3 g/dL Final ALBUMIN Date Value Ref Range Status 12/05/2022 4.5 3.5 - 5.2 g/dL Final Comment: The colormetric methods used for the determination of Albumin may lead to falsely elevated test results in patients suffering from renal failure or insufficiency due to interference with other proteins. A/G RATIO Date Value Ref Range Status 12/05/2022 1.3 1.0 - 2.0 Final CALCIUM Date Value Ref Range Status 12/05/2022 10.0 8.7 - 10.5 mg/dL Final T BILI Date Value Ref Range Status 12/05/2022 0.2 0.2 - 1.2 mg/dL Final SGOT (AST) Date Value Ref Range Status 12/05/2022 18 <=32 U/L Final SGPT (ALT) Date Value Ref Range Status 12/05/2022 19 <=41 U/L Final ALKALINE PHOSPHATASE Date Value Ref Range Status 12/05/2022 77 35 - 105 U/L Final GFR, EST. NONAFRICAN Date Value Ref Range Status 12/05/2022 >60 >=60 Final GFR, EST. Date Value Ref Range Status 12/05/2022 >60 >=60 Final GFR, ESTIMATED Date Value Ref Range Status 12/05/2022 >60 >=60 Final Comment: Creatinine Clearance is the preferred criteria for selecting drug dose adjustments in renally impaired patients. The GFR is provided as additional pertinent clinical information. GFR is reported in mL/min/1.73 sq m. Calculation based on the Chronic Kidney Disease Epidemiology Collaboration (CKD- EPI) equation refitwithout adjustment for race. IS THE PATIENT REQUIRED TO BE FASTING? Date Value Ref Range Status 12/05/2022 No Final pantoprazole (PROTONIX) 40 MG Tablet Delayed Response [Pharmacy Med Name: PANTOPRAZOLE SODIUM 40MG TABLET DR] 90 Tablet 1 Sig: TAKE 1 TABLET BY MOUTH IN THE EVENING Proton Pump Inhibitors Protocol Passed - 01/01/2023 1:27 PM Passed - Visit with relevant provider in past 12 months or upcoming 90 days Recent Visits Date Type Provider Dept 12/29/22 Office Visit Sulma Blevins APRN, FAMILY RESOURCE SPECIALIST [facility] 12/05/22 Office Visit Danyel Akhtar APRN, JET [facility] 10/31/22 Office Visit Enrique Smith MD [facility] 10/19/22 Office Visit Bárbara Bergeron APRN, CNP [facility] 06/28/22 Office Visit Enrique Smith MD [facility] 06/20/22 Office Visit Luis Carlos Bull MD [facility] 05/31/22 Office Visit Enrique Smith MD [facility] 05/11/22 Office Visit Enrique Smith MD [facility] 04/11/22 Office Visit Bárbara Bergeron APRN, JET [facility] 03/28/22 Office Visit Enrique Smith MD [facility] Showing recent visits within past 365 days and meeting all other requirements Today's Visits Date Type Provider Dept 01/02/23 Appointment Enrique Smith MD [facility] Showing today's visits and meeting all other requirements Future Appointments No visits were found meeting these conditions. Showing future appointments within next 90 days and meeting all other requirements Daliresp 500 MCG Tablet [Pharmacy Med Name: DALIRESP 500MCG TABLET] 90 Tablet 1 Sig: TAKE 1 TABLET BY MOUTH EVERY DAY There is no refill protocol information for this order azelastine (ASTELIN) 0.1 % Solution [Pharmacy Med Name: AZELASTINE HYDROCHLORIDE 0.1% SOLUTION] 30 mL 1 Sig: ADMINISTER 1 SPRAY INTO EACH NOSTRIL 2 (TWO) TIMES A DAY DIRECTED Nasal Preparations - Other Protocol Passed - 01/01/2023 1:27 PM Passed - Visit with authorizing provider in past 12 months or upcoming 90 days Recent Visits Date Type Provider Dept 12/29/22 Office Visit Sulma Blevins APRN, FAMILY RESOURCE SPECIALIST [facility] 12/05/22 Office Visit Danyel Akhtar APRN, JET [facility] 10/31/22 Office Visit Enrique Smith MD [facility] 10/19/22 Office Visit Bárbara Bergeron APRN, FAMILY RESOURCE SPECIALIST [facility] 06/28/22 Office Visit Enrique Smith MD [facility] 06/20/22 Office Visit Luis Carlos Bull MD [facility] 05/31/22 Office Visit Enrique Smith MD [facility] 05/11/22 Office Visit Enrique Smith MD [facility] 04/11/22 Office Visit Bárbara Bergeron APRN, FAMILY RESOURCE SPECIALIST [facility] 03/28/22 Office Visit Enrique Smith MD [facility] Showing recent visits within past 365 days and meeting all other requirements Today's Visits Date Type Provider Dept 01/02/23 Appointment Enrique Smith MD [facility] Showing today's visits and meeting all other requirements Future Appointments No visits were found meeting these conditions. Showing future appointments within next 90 days and meeting all other requirements Eliquis 5 MG Tablet [Pharmacy Med Name: ELIQUIS 5MG TABLET] 180 Tablet 1 Sig: TAKE 1 TABLET BY MOUTH TWICE DAILY Not Delegated - DOACs Protocol Failed - 01/01/2023 1:27 PM Failed - This refill cannot be delegated Passed - CBC on record in the past year WBC Date Value Ref Range Status 12/05/2022 17.01 (H) 4.00 - 12.00 10(3)/mcL Final WBC ESTERASE Date Value Ref Range Status 10/19/2022 25 /ul (A) Negative Final RBC Date Value Ref Range Status 12/05/2022 4.69 3.80 - 5.30 10(6)/mcL Final RBC MORPHOLOGY CONSISTENT WITH INDICES Date Value Ref Range Status 06/07/2022 Yes Final HEMATOCRIT (HCT) Date Value Ref Range Status 12/05/2022 40.9 36.0 - 47.0 % Final HEMOGLOBIN (HGB) Date Value Ref Range Status 12/05/2022 13.0 12.0 - 15.8 g/dL Final MCV Date Value Ref Range Status 12/05/2022 87.2 82.0 - 96.0 fL Final MCH Date Value Ref Range Status 12/05/2022 27.7 26.0 - 34.0 pg Final MCHC Date Value Ref Range Status 12/05/2022 31.8 31.0 - 36.0 g/dL Final Passed - Visit with relevant provider in past 12 months or upcoming 90 days Recent Visits Date Type Provider Dept 12/29/22 Office Visit Sulma Blevins APRN, FAMILY RESOURCE SPECIALIST [facility] [place] 12/05/22 Office Visit Danyel Akhtar APRN, JET [facility] 10/31/22 Office Visit Enrique Smith MD [facility] 10/19/22 Office Visit Bárbara Bergeron APRN, FAMILY RESOURCE SPECIALIST [facility] 06/28/22 Office Visit Enrique Smith MD [facility] 06/20/22 Office Visit Luis Carlos Bull MD [facility] 05/31/22 Office Visit Enrique Smith MD [facility] 05/11/22 Office Visit Enrique Smith MD [facility] 04/11/22 Office Visit Bárbara Bergeron APRN, FAMILY RESOURCE SPECIALIST [facility] 03/28/22 Office Visit Enrique Smith MD [facility] Showing recent visits within past 365 days and meeting all other requirements Today's Visits Date Type Provider Dept 01/02/23 Appointment Enrique Smith MD [facility] Showing today's visits and meeting all other requirements Future Appointments No visits were found meeting these conditions. Showing future appointments within next 90 days and meeting all other requirements Passed - CMP on record in the past year SODIUM Date Value Ref Range Status 12/05/2022 131 (L) 136 - 144 mmol/L Final POTASSIUM Date Value Ref Range Status 12/05/2022 4.2 3.5 - 5.1 mmol/L Final CHLORIDE Date Value Ref Range Status 12/05/2022 94 (L) 100 - 110 mmol/L Final CO2, VENOUS Date Value Ref Range Status 12/05/2022 23 22 - 32 mmol/L Final ANION GAP Date Value Ref Range Status 12/05/2022 18.2 8.0 - 20.0 mmol/L Final GLUCOSE Date Value Ref Range Status 12/05/2022 98 70 - 99 mg/dL Final BUN Date Value Ref Range Status 12/05/2022 11 6 - 20 mg/dL Final CREATININE, BLOOD Date Value Ref Range Status 12/05/2022 0.92 0.60 - 1.10 mg/dL Final BUN/CREATININE RATIO Date Value Ref Range Status 12/05/2022 12 12 - 20 ratio Final TOTAL PROTEIN Date Value Ref Range Status 12/05/2022 8.0 6.0 - 8.3 g/dL Final ALBUMIN Date Value Ref Range Status 12/05/2022 4.5 3.5 - 5.2 g/dL Final Comment: The colormetric methods used for the determination of Albumin may lead to falsely elevated test results in patients suffering from renal failure or insufficiency due to interference with other proteins. A/G RATIO Date Value Ref Range Status 12/05/2022 1.3 1.0 - 2.0 Final CALCIUM Date Value Ref Range Status 12/05/2022 10.0 8.7 - 10.5 mg/dL Final T BILI Date Value Ref Range Status 12/05/2022 0.2 0.2 - 1.2 mg/dL Final SGOT (AST) Date Value Ref Range Status 12/05/2022 18 <=32 U/L Final SGPT (ALT) Date Value Ref Range Status 12/05/2022 19 <=41 U/L Final ALKALINE PHOSPHATASE Date Value Ref Range Status 12/05/2022 77 35 - 105 U/L Final GFR, EST. NONAFRICAN Date Value Ref Range Status 12/05/2022 >60 >=60 Final GFR, EST. Date Value Ref Range Status 12/05/2022 >60 >=60 Final GFR, ESTIMATED Date Value Ref Range Status 12/05/2022 >60 >=60 Final Comment: Creatinine Clearance is the preferred criteria for selecting drug dose adjustments in renally impaired patients. The GFR is provided as additional pertinent clinical information. GFR is reported in mL/min/1.73 sq m. Calculation based on the Chronic Kidney Disease Epidemiology Collaboration (CKD- EPI) equation refitwithout adjustment for race. IS THE PATIENT REQUIRED TO BE FASTING? Date Value Ref Range Status 12/05/2022 No Final Passed - Creatinine and GFR on record in the past year CREATININE, BLOOD Date Value Ref Range Status 12/05/2022 0.92 0.60 - 1.10 mg/dL Final GFR, ESTIMATED Date Value Ref Range Status 12/05/2022 >60 >=60 Final Comment: Creatinine Clearance is the preferred criteria for selecting drug dose adjustments in renally impaired patients. The GFR is provided as additional pertinent clinical information. GFR is reported in mL/min/1.73 sq m. Calculation based on the Chronic Kidney Disease Epidemiology Collaboration (CKD- EPI) equation refitwithout adjustment for race. GFR, EST. NONAFRICAN Date Value Ref Range Status 12/05/2022 >60 >=60 Final furosemide (LASIX) 40 MG Tablet [Pharmacy Med Name: FUROSEMIDE 40MG TABLET] 45 Tablet 1 Sig: TAKE 1/2 TABLET BY MOUTH EVERY DAY Diuretics Protocol Passed - 01/01/2023 1:27 PM Passed - Serum potassium on record [...] Clinician-entered: BP Readings from Last 3 Encounters: 12/29/22 116/68 12/27/22 142/88 12/22/22 (!) 132/93 Patient-entered: No data recorded Passed - Visit with relevant provider in past 12 months or upcoming 90 days Recent Visits Date Type Provider Dept 12/29/22 Office Visit Sulma Blevins APRN, FAMILY RESOURCE SPECIALIST [facility] 12/05/22 Office Visit Danyel Akhtar APRN, FAMILY RESOURCE SPECIALIST [facility] [place] 10/31/22 Office Visit Enrique Smith MD [facility] 10/19/22 Office Visit Bárbara Bergeron APRN, FAMILY RESOURCE SPECIALIST [facility] [place] 06/28/22 Office Visit Enrique Smith MD [facility] 06/20/22 Office Visit Luis Carlos Bull MD [facility] 05/31/22 Office Visit Enrique Smith MD [facility] 05/11/22 Office Visit Enrique Smith MD [facility] 04/11/22 Office Visit Bárbara Bergeron APRN, [facility] 03/28/22 Office Visit Enrique Smith MD [facility] Showing recent visits within past 365 days and meeting all other requirements Today's Visits Date Type Provider Dept 01/02/23 Appointment Enrique Smith MD [facility] Showing today's visits and meeting all other requirements Future Appointments No visits were found meeting these conditions. Showing future appointments within next 90 days and meeting all other requirements Passed - GFR on record in past 12 months GFR, EST. NONAFRICAN Date Value Ref Range Status 12/05/2022 >60 >=60 Final potassium chloride SA (KLORCON M) 20 MEQ Tablet Controlled Release [Pharmacy Med Name: POTASSIUM CHLORIDE ER 20MEQ ER TABLET ER] 90 Tablet 1 Sig: TAKE 1 TABLET BY MOUTH EVERY DAY Potassium Supplement Protocol Failed - 01/01/2023 1:27 PM Failed - Active on medication list Passed - Normal serum potassium in past 12 months POTASSIUM Date Value Ref Range Status 12/05/2022 4.2 3.5 - 5.1 mmol/L Final Passed - Visit with relevant provider in past 12 months or upcoming 90 days Recent Visits Date Type Provider Dept 12/29/22 Office Visit Sulma Blevins APRN, JET [facility] [place] 12/05/22 Office Visit Danyel Akhtar APRN, J[facility] 10/31/22 Office Visit Enrique Smith MD [facility] 10/19/22 Office Visit Bárbara Bergeron APRN, JET [facility] 06/28/22 Office Visit Enrique Smith MD [facility] 06/20/22 Office Visit Luis Carlos Bull MD [facility] 05/31/22 Office Visit Enrique Smith MD [facility] 05/11/22 Office Visit Enrique Smith MD [facility] 04/11/22 Office Visit Bárbara Bergeron APRN, JET [facility] 03/28/22 Office Visit Enrique Smith MD [facility] Showing recent visits within past 365 days and meeting all other requirements Today's Visits Date Type Provider Dept 01/02/23 Appointment Enrique Smith MD [facility] Showing today's visits and meeting all other requirements Future Appointments No visits were found meeting these conditions. Showing future appointments within next 90 days and meeting all other requirements ranolazine (RANEXA) 500 MG TABLET SR 12 HR [Pharmacy Med Name: RANOLAZINE ER 500MG ER TABLET ER 12HR] 180 Tablet 1 Sig: TAKE 1 TABLET BY MOUTH TWICE DAILY There is no refill protocol information for this order Refused Prescriptions Disp Refills montelukast (SINGULAIR) 10 MG Tablet [Pharmacy Med Name: MONTELUKAST SODIUM 10MG TABLET] 90 Tablet 11 Sig: TAKE 1 TABLET BY MOUTH AT BEDTIME Leukotriene Inhibitors Protocol Passed - 01/01/2023 1:27 PM Passed - Visit with relevant provider in past 12 months or upcoming 90 days Recent Visits Date Type Provider Dept 12/29/22 Office Visit Sulma Blevins APRN, JET [facility] [place] 12/05/22 Office Visit Danyel Akhtar APRN, JET [facility] 10/31/22 Office Visit Enrique Smith MD [facility] 10/19/22 Office Visit Bárbara Bergeron APRN, JET [facility] 06/28/22 Office Visit Enrique Smith MD [facility] 06/20/22 Office Visit Luis Carlos Bull MD [facility] 05/31/22 Office Visit Enrique Smith MD [facility] 05/11/22 Office Visit Enrique Simth MD [facility] 04/11/22 Office Visit Bárbara Bergeron APRN, FAMILY RESOURCE SPECIALIST [facility] 03[facility] Show[facility] recent visits within past 365 days and meeting all other requirements Today's Visits Date Type Provider Dept 01/02/23 Appointment Enrique Smith MD [facility] Showing today's visits and meeting all other requirements Future Appointments No visits were found meeting these conditions. Showing future appointments within next 90 days and meeting all other requirements documented in this encounter Plan of Treatment Upcoming Encounters Date Type Department Care Team (Latest Contact Info) Description 10/29/2024 9:00 AM CDT Clinical Support [facility] [address] [place] [address] Nurse, [place] [facility] 10/29/2024 9:30 AM CDT Office Visit [facility] [address] [place] [address] Ruben Rodriguez MD [address] [address] 10/30/2024 1:00 PM CDT Appointment [facility] [address] [place] [address] Ruben Rodriguez MD [address] [address] Discharge Disposition: Discharged to home or Selfcare documented as of this encounter Visit Diagnoses Diagnosis Spinal stenosis of lumbar region with neurogenic claudication Spinal stenosis, lumbar region, with neurogenic claudication documented in this encounter Additional Health Concerns Infection Onset Date Last Indicated Resolved Time COVID - 19 01/23/2023 01/23/2023 02/02/2023 12:1 6 AM CDT COVID - 19 04/02/2023 04/02/2023 04/12/2023 12:1 6 AM BREWING TECHNICIAN COVID - 19 04/21/2023 04/21/2023 05/01/2023 12:1 6 AM BREWING TECHNICIAN Assessment Noted Time PHQ-9 Depression Total Score: 0 02/10/20 11:00 AM CDT documented as of this encounter Care Teams Shooter'S Helper Relationship Specialty Start Date End Date Enrique Smith [facility] [address] [place] [address] PCP - General Family Medicine 03/28/22 11/24/23 Wagner Byrne MD [address] [place] [id number] PCP - General Internal Medicine 11/25/23 Roshan Franco MD #2 [facility] [address] [place] [address] Consulting Physician Cardiovascular Disease - Cardiology 12/06/22 04/20/24 Caryn Briseno APRN, FAMILY RESOURCE SPECIALIST #2 [facility] [address] [place] [address] Nurse Practitioner Cardiology 04/04/23 Nery Burrell MD PhD #1 [place] [address] Educational Therapy Teacher Interventional Cardiology 04/04/23 Roc Whitehead MD #[address] [place] [id number] Consulting Physician Pulmonary Disease 02/15/23 Rafael Li MD #[address] [facility] [address] [place] [address] Consulting Physician Clinical Cardiac Electrophysiology 02/19/24 Ruben Rodriguez MD [address] [facility] [address] [place] [address] Consulting Physician Cardiovascular Disease - Cardiology 08/06/24 documented as of this encounter
--- OUTSIDE RECORDS SUMMARY | 2024-10-27 09:06 | XMS_ITS | Encounter Summary ---
Author Organization [facility] Address [address] [facility] [place] [address] Phone Care Team Providers Care Mechanical Drawing Teacher Name Role Phone Roshan Franco MD Unavailable Caryn Menezes APRN, GAS MAIN FITTER HELPER Unavailable [phone]- [phone] Nery Burrell MD PhD Unavailable [phone] Roc Whitehead MD Unavailable Wagner Byrne MD Primary Care Provider [phone] Rafael Li MD Unavailable Ruben Rodriguez MD Unavailable Reason for Visit * Reason Comments Medication Refill Encounter Details Date Type Department Care Team (Late st Contact Info) Description 12/17/2023 Refill [facility] - Family Medicine [facility] [address] [place] [id number] Enrique Smith MD #[address] [address] Medication Refill Social History Tobacco Use Types Packs/Day Years Used Date Smoking Tobacco: Every Day Cigarettes 0.5 40 Smokeless Tobacco: Never Alcohol Use Standard Drinks/Week Comments Not Currently 0 (1 standard drink = 0.6 oz pur e alcohol) [facility] Utilities Answer Date Recorded In the past [...] declined 08/03/2023 How often do you attend advent or cheondoism serv ices? Patient declined 08/03/2023 Do you belong to any clubs o r organizations such as advent groups, unions, fraternal or athletic groups, or [...] Total Score - Questions 1-9 19 01/12 [facility] of Occupat ional Health - Occupational Stress [...] Telephone Encounter - Tanika Martin RN - 12/17/2023 2:58 PM CDT PCP is Dr Byrne documented in this encounter Plan of Treatment Upcoming Encounters Date Type Department Care Team (Latest Contact Info) Description 10/29/2024 9:00 AM CDT Clinical Support [facility] - Cardiology - Brain #[address] [place] [phone] [facility] [place] 10/29/2024 9:30 AM CDT Office Visit [facility] - Cardiology - [place] [address] [place] [address] Ruben Rodriguez MD [address] [facility], [address] [address] 10/30/2024 1:00 PM CDT Appointment [facility] Cardiology Services [address] [place] [address] Ruben Rodriguez [facility] [address] [facility] [address] [place] [address] Discharge Disposition: Discharged to home or Selfcare documented as of this encounter Goals Goal Patient Goal Type Associated Problems Recent Progress Patient-Stated? Author I am tired of feeling guilty about my [grief.] Behavioral Health Improving(01/2024 2:42 PM CIRCULAR TANK COOPER) Yes Edda Vo, HARPAL Note: Goal/Objective: Decrease guilty thoughts about her care for her mother who is now . Anticipated Time Frame for Goal Completion: 6 months Goal Reviewed with: patient Readiness to change: Ready to change Department associated with goal: [facility] Steps to achieve [...] documented as of this encounter Care Teams Mechanical Drawing Teacher Relationship Specialty Start Date End Date Wagner Byrne MD [address] [place] [address] PCP - General Internal Medicine 11/25/23 Roshan Franco MD Consulting Physician Cardiovascular Disease - Cardiology 12/06/22 04/20/24 Caryn Briseno, SPRAY DRIER, GAS MAIN FITTER HELPER #2 [facility], [address] [place] [address] Nurse Practitioner Cardiology 04/04/23 Nery Burrell MD PhD #1 [place] [address] Grab Setter Interventional Cardiology 04/04/23 Roc Whitehead MD #2 [facility] [address] Consulting Physician Pulmonary Disease 02/15/23 Rafael Li MD #2 [facility], [facility] [address] [place] [address] Consulting Physician Clinical Cardiac Electrophysiology 02/19/24 Ruben Rodriguez MD 2 [facility] [address] [place] [address] Consulting Physician Cardiovascular Disease - Cardiology 08/06/24 documented as of this encounter
--- OUTSIDE RECORDS SUMMARY | 2024-10-27 09:06 | XMS_ITS | Encounter Summary ---
Author Organization [facility] Address [address] [place] [address] Phone Care Team Providers Care Forecast Analyst Name Role Phone Enrique Smith MD Primary Care Provider [phone] Roshan Franco MD Unavailable Caryn Menezes GLOBAL CMO, IMMIGRATION LAW SPECIALIST Unavailable + [phone] Nery Burrell MD PhD Unavailable [phone] Roc Whitehead MD Unavailable Wagner Byrne MD Primary Care Provider [phone] Rafael Li MD Unavailable Ruben Rodriguez MD Unavailable Reason for Visit * Reason Comments Medication Refill Encounter Details Date Type Department Care Team (Late st Contact Info) Description 02/06/2023 Refill [facility] - Family Medicine [facility] [place] [address] [place] [id number] Enrique Smith MD [address] [address] Medication Refill Social History Tobacco Use Types [...] Encounter - Tanika Martin RN - 02/06/2023 2:38 PM CDT Pt confirmed she is taking this BID as noted on medication list - SIG updated. Medication failed the protocol, provider to review and approve the medication order if appropriate. Requested Prescriptions Pending Prescriptions Disp Refills sodium chloride 1 GM Tablet [Pharmacy Med Name: SODIUM CHLORIDE 1GM TABLET] 180 Tablet 1 Sig: Take 1 Tablet by mouth 2 times daily. Not Delegated - Off Protocol Failed - 02/06/2023 2:25 PM Failed - This refill cannot be delegated Passed - Visit with relevant provider in past 12 months or upcoming 90 days Recent Visits Date Type Provider Dept 01/23/23 Office Visit [facility] 01/16/23 Office Visit Danyel Akhtar [facility] 01/02/23 Office Visit Enrique Smith MD [facility] 12/29/22 Office Visit Sulma Blevins [facility]N, [facility] 12/05/22 Office Visit Danyel Akhtar APRN, [facility] 10/31/22 Office Visit Enrique Smith [facility] 10/19/22 Office Visit Bárbara Bergeron APRN, CNP [facility] 06/28/22 Office Visit [facility] Office Visit Luis Carlos Bull MD [facility] 05/31/22 Office Visit Enrique [facility] MD [facility] Showing recent visits within past 365 days and meeting all other requirements Future Appointments Date Type Provider Dept 04/04/23 Appointment Enrique Smith MD [facility] Showing future appointments within next 90 days and meeting all other requirements documented in this encounter Plan of Treatment Upcoming Encounters Date Type Department Care Team (Latest Contact Info) Description 10/29/2024 9:00 AM CDT Clinical Support [facility] Cardiology [facility] [place] [address] [place] [address] Nurse, [facility] [place] 10/29/2024 9:30 AM CDT Office Visit [facility] #2 [place] [address] Ruben Rodriguez MD [address] [address] 10/30/2024 1:[address] [facility] Cardiology Services [address] [place] [address] Ruben Rodriguez MD [address] [address] Discharge Disposition: Discharged to home or Selfcare documented as of this encounter Goals Goal Patient Goal Type Associated Problems Recent Progress Patient-Stated? Author I am tired of feeling guilty about my [grief.] Behavioral Health Improving(01/2024 2:42 PM THEOLOGY TEACHER) Yes Edda Vo, EXCEL SPECIALIST Note: Goal/Objective: Decrease guilty thoughts about her care for her mother who is now . Anticipated Time Frame for Goal Completion: 6 months Goal Reviewed with: patient Readiness to change: Ready to change Department associated with goal: [facility] Steps to [...] Date Last Indicated Resolved Time COVID - 04/02/2023 04/02/2023 04/12/2023 12:1 6 AM THEOLOGY TEACHER COVID - 19 04/21/2023 04/21/2023 05/01/2023 12:1 6 AM THEOLOGY TEACHER Assessment Noted Time PHQ-9 Depression Total Score: 023 2:00 PM CDT documented as of this encounter Care Teams Forecast Analyst Relationship Specialty Start Date End Date Enrique Smith MD #2 [facility] [address] [place] [address] PCP - General Family Medicine 03/28/22 11/24/23 Wagner Byrne MD [address] [place] [address] PCP - General Internal Medicine 11/25/23 Roshan Franco MD #2 [facility] [address] [place] [address] Consulting Physician Cardiovascular Disease - Cardiology 12/06/22 04/20/24 Caryn Briseno APRN, IMMIGRATION LAW SPECIALIST #2 [facility], [address] [place] [address] Nurse Practitioner Cardiology 04/04/23 Nery Burrell MD PhD #[address] [place] [address] Signwriter Interventional Cardiology 04/04/23 Roc Whitehead MD #[address] [place] [address] Consulting Physician Pulmonary Disease 02/15/23 Rafael Li MD #[address] [address] Consulting Physician Clinical Cardiac Electrophysiology 02/19/24 Ruben Rodriguez MD [address] [address] Consulting Physician Cardiovascular Disease - Cardiology 08/06/24 documented as of this encounter
--- OUTSIDE RECORDS SUMMARY | 2024-10-27 09:06 | XMS_ITS | Clinical Summary ---
Author Organization [facility] [employer] Address [address] [place] [address] Care Team Providers Care Button Bradder Name Role Phone Unavailable Primary Care Provider Unavailabl e Source Comments [facility],non-owned Affiliates and Associated Physician Practices is amultiple site organization consisting of ambulatory clinics and hospital sitesin [place], [place], [place] and [place]. This disclosure is being madepursuant to the Care Everywhere program and may not contain all information available regarding this patient. Last updated 18.[facility] [employer] Allergies Active Allergy Reactions Criticality Noted Date Comments Flu Virus Vaccine Numbness 09/09/2024 Medications * Be aware that medications may not be up to date on this document. Alwaysverify current medications with the patient. Eliquis 5 MG tablet Take 1 (one) tablet by mouth 2 times daily Active aspirin EC (Ecotrin) 81 MG tablet Take 1 (one) tablet by mouth once Active Jardiance 10 MG tablet Take 1 (one) tablet by mouth once daily 4 02/05/20 25 Active acetaminophen (Tylenol) 500 MG tablet Take 2 (two) tablets by mouth every 6 hours as needed Active ALPRAZolam (Xanax) 0.5 MG tablet Take 1 (one) tablet by mouth at bedtime 5 Active amiodarone (Cordarone) 200 MG tablet Take 1 (one) tablet by mouth 2 times daily 4 Active Ascorbic Acid (Cyto C) POWD Take by mouth Ac tive atorvastatin (Lipitor) 40 MG tablet Take 1 (one) tablet by mouth once daily 4 Active azelastine (Astelin) 0.1 % nasal spray Mehoopany 1 (one) spray into the nose 2 times daily 4 Active Cholecalciferol 125 MCG (5000 UT) 1,000 Units once daily Active divalproex DR (Depakote) 500 MG tablet Take 1 tablet (500 mg total) by mouth 2 (two) times a day for 7 days, THEN 1 tablet (500 mg total) 3 (three) times a day. 5 11/09/19 25 Active fluticasone propionate (Flonase) 50 MCG/ACT nasal spray Mehoopany 2 (two) sprays into each nostril once daily 4 Active Trelegy Ellipta 100-62.5-25 MCG/ACT Inhale 1 (one) puff by mouth once daily 4 Active furosemide (Lasix) 40 MG tablet Take 1 (one) tablet by mouth once daily 4 Active metoprolol succinate XL 24hr (Toprol XL) 100 MG tablet Take (1) tab in am and (0.5) tab in pm 5 Active montelukast (Singulair) 10 MG tablet Take 1 (one) tablet by mouth every evening 4 Active OLANZapine (ZyPREXA) 5 MG tablet Take 1 (one) tablet by mouth at bedtime 5 Active ondansetron (Zofran) 8 MG tablet Take 1 (one) tablet by mouth every 8 hours as needed 5 11/02/19 25 Active oxyCODONE, immediate release, (Roxicodone) 10 MG tablet 1 (one) tablet Active pantoprazole EC (Protonix) 40 MG tablet Take 1 (one) tablet by mouth 4 Active predniSONE (Deltasone) 10 MG tablet Take 0.5 (one-half) tablet by mouth once daily 5 Active roflumilast (Daliresp) 500 MCG tablet Take 1 (one) tablet by mouth once daily 4 Active rOPINIRole (Requip) 0.5 MG tablet TAKE 1 TABLET BY MOUTH AT BEDTIME FOR 30 DAYS 4 Active Entresto 24-26 MG tablet Take 1 (one) tablet by mouth 2 times daily 4 Active sodium chloride 1 GM tablet Take 1 (one) tablet by mouth 2 times daily 4 Active spironolactone (Aldactone) 25 MG tablet Take 0.5 (one-half) tablet by mouth once daily 3 Active tiZANidine (Zanaflex) 4 MG tablet Take 1 (one) tablet by mouth every 6 hours as needed 5 Active topiramate (Topamax) 50 MG tablet Take 1 (one) tablet by mouth 2 times daily 5 Active zolpidem (Ambien) 5 MG tablet zolpidem 5 mg tablet 5 Active Turmeric 500 MG Acti ve potassium chloride ER (Klor-Con M) 20 MEQ tablet Take 1 (one) tablet by mouth once daily Active naproxen (Naprosyn) 500 MG tablet Take 1 (one) tablet by mouth 2 times daily 5 10/08/19 25 Active Problems Problem Noted Date Diagnosed Date Cardiomyopathy, unspecified type 09/09/2024 Cardiomyopathy 08/07/2024 Atherosclerosis of pilot point coronary artery 2024 Atrial fibrillation 08/07/2024 Encounters Date Type Department Care Team Description 09/17/2024 Telephone [facility] - Card[facility] [address] [place] [address] Oriana Dalton, RN Defibrillator Follow-up 09/09/2024 10:10 AM CDT - 09/09/2024 11:35 AM CDT Surgery [facility] - Cardiac Criminal Intelligence Specialist [address] [place] [address] Bernardo Ramsay MD Left Heart Cath 09/09/2024 7:58 AM CDT - 09/09/2024 3:17 PM CDT Hospital Encounter [facility] [address] [place] [address] Bernardo Ramsay MD Cardiac Catheterization Discharge Disposition: Home or Self Care 09/09/2024 Travel 08/07/2024 Orders Only [facility] - [facility], [place] [address] [place] [address] Dat Burgess RN Cardiomyopathy, unspecified type ; Atherosclerosis of pilot point coronary artery, unspecified whether angina present, unspecified whether pilot point or transplanted heart; Atrial fibrillation, unspecified type from Last 3 Months Social History Tobacco Use Types Packs/Day Years Used Date Smoking Tobacco: Every Day Cigarettes Smokeless Tobacco: Never Tobacco Cessation:Ready to Q uit: Not Asked; Counseling Given: Not Answered Alcohol Use Standard Drinks/Week Comments Never 0 (1 standard drink = 0.6 oz pur e alcohol) AUDIT-C Answer Date Recorded Q1: How often do you have a drink containing alcohol? Never 09/09/2024 Q2: How many drinks containi ng alcohol do you have on a typical day when you are drinking? Patient does not drink Q3: How often do you have si x or more drinks on one occasion? Never 09/09/2024 Comments No Sex and Gender Information Value Date Recorded Sex Assigned at Not on file Legal Sex Female 5:40 PM ORGANIC EXTRACTIONS TECHNICIAN Gender Identity Not on file Sexual Orientation Not on file Last Filed Vital Signs Vital Sign Reading Time Taken Comments Blood Pressure 104/66 09/09/2024 3:00 PM CDT Pulse 60 09/09/2024 3:00 PM CDT Temperature 36.6 C (97.8 F) 09/09/2024 12:37 PM CDT Respiratory Rate 15 09/09/2024 3:00 PM CDT Oxygen Saturation 96% 09/09/2024 3:00 PM CDT Inhaled Oxygen Concentration - - Weight 88.5 kg (195 lb) 09/09/2024 9:02 AM CDT Height 167.6 cm (5' 6) 09/09/2024 9:02 AM CDT Body Mass Index 31.47 09/09/2024 9:02 AM CDT Plan of Treatment Upcoming Encounters Date Type Department Care Team (Late st Contact Info) Description 10/30/2024 1:00 AM CDT Clinical Support [facility] - Cardiology [address] [facility], [facility] [address] [place] [address] 01/29/2025 1:00 AM CDT Clinical Support [facility] - Card[facility] [address] [facility], [facility] [address] [place] [address] 04/30/2025 1:00 AM ORGANIC EXTRACTIONS TECHNICIAN Clinical Support [facility] - Cardiology [address] [facility], [facility] [address] [place] [address] 07/30/2025 1:00 AM CDT Clinical Support [facility] - Cardiology [address] [facility], [address] [address] Health Maintenance Due Date Last Done Comments COLOGUARD (AGES 45-75) - COL ON CA SCREENING 1965 COLON MONITORING 1965 COLONOSCOPY - COLON CA SCREENING 1964 CT COLONOGRAPHY - COLON CA SCREENING 1965 Colorectal Cancer Screening 1965 FIT - COLON CA SCREENING 1964 FLEX SIG - COLON CA SCREENING 1965 MAMMOGRAM 1965 HIV SCREENING 12/10/1979 HEPATITIS C SCREENING 12/05/1982 DTAP/TDAP/TD VACCINES (1 - Tdap) 12/10/1983 HEPATITIS B VACCINE (1 of 3 - 19+ 3-dose series) 12/10/1983 PNEUMOCOCCAL VACCINE 50+ (1 of 2 - PCV) 12/10/1983 PAP SMEAR 1985 ZOSTER VACCINE (1 of 2) 2014 COVID-19 VACCINE (1 - 2023-2 5 season) 2024 DEPRESSION SCREENING 05/14/2024 MEDICARE AWV CALENDAR YEAR 2024 HIB VACCINE Aged Out No longer eligi ble based on patient's age to complete this topic HPV VACCINE Aged Out No longer eligi ble based on patient's age to complete this topic MENINGOCOCCAL (Group B) VACC INE SHARED DECISION-MAKING Aged Out No longer eligibl e based on patient's age to complete this topic MENINGOCOCCAL GROUPS A/C/Y/W VACCINE Aged Out No longer eligible b ased on patient's age to complete this topic Procedures Procedure Name Priority Date/Time Associated Diagnosis Comments CARDIAC PROCEDURE ORDER 09/18/2024 CCL LEFT HEART CATH Routine 09/09/2024 1 2:01 PM CDT Cardiomyopathy, unspecified type (HCC) Atherosclerosis of pilot [place] coronary artery, unspecified whether angina present, unspecified whether pilot point or transplanted heart Atrial fibrillation, unspecified type (HCC) BASIC METABOLIC PANEL (CALCIUM TOTAL) STAT 09/09/2024 8:55 AM CDT Cardiomyopathy, unspecified type (HCC) CBC W/O DIFFERENTIAL STAT 09/09/2024 8:55 AM CDT Cardiomyopathy, unspecified type (HCC) CARDIAC PROCEDURE ORDER 08/06/2024 from Last 3 Months Results * CARDIAC PROCEDURE ORDER (09/18/2024) Only the most recent of2 resultswithin the time period is included. Narrative 09/18/2024 Ordered by an unspecified provider. us Scanned Document CARDIAC SERVICES ORDERABLES Fin al Result * CCL LEFT HEART CATH (09/09/2024 12:01 PM CDT) Anatomical Region Laterality Modality X-Ray Angiograph y Narrative 09/09/2024 12:18 PM CDT Images from the original result were not included. - Angiographically normal coronary arteries -Nonischemic cardiomyopathy [facility] CARDIAC CATHETERIZATION PROCEDURE NOTE PATIENT:Zehra Ospina : 1965 DATE OF SERVICE: 09/09/24 Operators: Bernardo Ramsay MD Indication: - Non-ischemic cardiomyopathy and ICD shock Procedures: - Coronary angiography - Left heart cath - Moderate sedation I performed moderate sedation using at Versed 2 mg and fentanyl 50 mcg. I supervised and directed our R.N. who assisted in monitoring patient's level of consciousness and physiological status throughout the procedure. I performed the procedure with the fellow under direct supervision. Procedural overview: After obtaining informed consent and positioning the patient on the catheterization table, a timeout was performed to confirm the patient s name, date of , and procedure. Sedation was initiated and the patient was prepped and draped using standard sterile technique. Lidocaine was used for local anesthesia over the access site, after which the vessel was accessed and a sheath was placed using the modified Seldinger technique. Access was uncomplicated. Coronary angiography was performed using Audie catheter(s). Left heart catheterization was performed using Audie catheter. At the conclusion of the procedure, hemostasis was achieved using a radial compression device after removal of all catheters, wires, and sheaths. Findings: - LHC: Normal LVEDP - Coronary angiogram: *Left main: No angiographic evidence of disease *LAD: No angiographic evidence of disease *Left circumflex: No angiographic evidence of disease *RCA: Dominant vessel with no angiographic evidence of disease Impression: - Angiographically normal coronary arteries -Nonischemic cardiomyopathy Access site/size(s) and vascular closure method: - Right radial artery, 6 Liberian sheath, TR band Periprocedural Events: None Estimated blood loss: Minimal Recommendations: -Routine post cath care - Continue medical therapy - Follow up - Risk factor optimization Discharge: Same-day discharge, pending clinical course Bernardo Ramsay MD, [facility], [facility] Interventional and Structural Cardiology [facility] Head Of Marketinglineman service or work dispatcher [facility] Email: [email or web address] Office phone: [phone] [facility]) Office: [phone] Procedure Details Estimated Blood Loss: 5 mL Coronary Findings Diagnostic Dominance: Right Left Main: The vessel is angiographically normal. Left Anterior Descending: The vessel is angiographically normal. Left Circumflex: The vessel is angiographically normal. First Obtuse Marginal Branch: The vessel is angiographically normal. Right Coronary Artery: The vessel is angiographically normal. Intervention No interventions have been documented. Ruben Rodriguez MD CV CARDIAC CATH MCKINLEY aguirre Result * (ABNORMAL) CBC W/O DIFFERENTIAL (09/09/2024 8:55 AM CDT) [facility] WBC 16.0(H) 4.0 - 10.7 x10E9/L 09/09/2024 9:17 AM CDT [facility] RBC Count 3.67(L) 3.90 - 5.20 x10E12/L 09/09/2024 9:17 AM [facility] Hemoglobin 7.9(L) 11.9 - 15.8 g/dL 09/09/2024 9:17 AM [facility] Hematocrit 25.5(L) 34.8 - 46.1 % 09/09/2024 9:17 AM [facility] MCV 69.5(L) 80.0 - 98.0 fL 09/09/2024 9:17 AM [facility] MCH 21.5(L) 26.7 - 33.6 pg 09/09/2024 9:17 AM [facility] MCHC 31.0(L) 31.7 - 36.3 g/dL 09/09/2024 9:17 AM [facility] RDW-CV 19.6(H) 11.3 - 14.8 % 09/09/2024 9:17 AM [facility] Platelet Count 274 150 - 420 x10E9/L 09/09/2024 9:17 AM [facility] MPV 9.3 7.8 - 11.4 fL 09/09/2024 9:17 AM [facility] Blood BLOOD SPECIMEN / Unknown Venipuncture / Unknown 09/09/2024 8:55 AM CDT 09/09/2024 8:58 AM CDT [facility] - HEMATOLOGY ORDERABLES Fin al Result Performing Organization Address City/State/[facility] Co de Phone Number [facility] [address] [place] [address], [facility] [place] [phone] * (ABNORMAL) BASIC METABOLIC PANEL (CALCIUM TOTAL) (09/09/2024 8:55 AM CDT) BUN 9 7 - 26 mg/dL 09/09/2024 9:26 AM [facility] Creatinine 0.66 0.56 - 0.96 mg/dL 09/09/2024 9:26 AM [facility] Sodium 126(L) 136 - 145 mmol/L 09/09/2024 9:26 AM [facility] Potassium 4.0 3.5 - 4.5 mmol/L 09/09/2024 9:26 AM [facility] Chloride 94(L) 98 - 107 mmol/L 09/09/2024 9:26 AM [facility] CO2 23 22 - 29 mmol/L 09/09/2024 9:26 AM [facility] Glucose 104(H) 70 - 99 mg/dL 09/09/2024 9:26 AM [facility] Calcium 8.2(L) 8.4 - 10.2 mg/dL 09/09/2024 9:26 AM [facility] Anion Gap 9 6 - 16 09/09/2024 9:26 AM [facility] BUN/Creatinine Ratio 14 7 - 23 09/09/2024 9:26 AM [facility] Osmolality Calculated 261(L) 275 - 295 mOsm/kg 09/09/2024 9:26 AM [facility] eGFR by CKD-EPI >90 >=90 mL/min/1.7 3 m2 09/09/2024 9:26 AM [facility] Blood BLOOD SPECIMEN / Unknown Venipuncture / Unknown 09/09/2024 8:55 AM CDT 09/09/2024 8:58 AM [facility] Oriana [facility] - CHEMISTRY ORDERABLES Kari aguirre Result Performing Organization Address [facility]/State/ZIP Co de Phone Number [facility] [address] [place] [address], [facility] [place] [phone] from Last 3 Months Insurance [employer] MEDICARE ADV HMO & PPO [employer] MEDICARE ADV HMO & PPO Advance Directives * Full Code (Latest Code Status on File) Date Activated Date Inactivated Comments 09/09/2024 12:26 PM 09/09/2024 4:24 PM
--- OUTSIDE RECORDS SUMMARY | 2024-10-27 09:07 | XMS_ITS | Encounter Summary ---
Author Organization [facility] Address [address] [place] [address] Phone Care Team Providers Care Transportation Attendant Name Role Phone Roshan Franco MD Unavailable Caryn Meneezs APRN, CHANNEL EXECUTIVE Unavailable + [phone] Nery Burrell MD PhD Unavailable [phone] Roc Whitehead MD Unavailable Wagner Byrne MD Primary Care Provider [phone] Rafael Li MD Unavailable Ruben Rodriguez MD Unavailable Reason for Visit * Reason Comments Medication Refill Encounter Details Date Type Department Care Team (Late st Contact Info) Description 01/25/2024 Refill [facility] - Pulmonology & Sleep Medicine [facility] [address] [place] [address] Roc Whitehead MD [address] [place] [address] Medication Refill Social History Tobacco Use Types Packs/Day Years Used Date Smoking Tobacco: Every Day Cigarettes 0.5 40 Smokeless Tobacco: Never Alcohol Use Standard Drinks/Week Comments Not Currently 0 (1 standard drink = 0.6 oz pur e alcohol) [facility] Utilities Answer Date Recorded In the [...] declined 08/03/2023 How often do you attend restorationism or catholic serv ices? Patient declined 08/03/2023 Do you belong to any clubs o r organizations such as restorationism groups, unions, fraternal or athletic groups, or [...] Total Score - Questions 1-9 19 01/12 [facility] of Occupat ional Health - Occupational [...] encounter Miscellaneous Notes * Telephone Encounter - Lashae Cruz RN - 01/25/2024 10:15 AM CDT Refill not appropriate. Medication was discontinued documented in this encounter Plan of Treatment Upcoming Encounters Date Type Department Care Team (Latest Contact Info) Description 10/29/2024 9:00 AM CDT Clinical Support [facility] - Cardiology - [place] [address] [place] [address] Nurse, Brain Cardiology [place] 10/29/2024 9:30 AM CDT Office Visit [facility] - Cardiology - Brain [address] [place] [address] Ruben Rodriguez MD [facility], [address] [address] 10/30/2024 1:00 PM CDT Appointment [facility] Cardiology Services [address] [facility] [place] [address] Ruben Rodriguez MD [address] [address] Discharge Disposition: Discharged to home or Selfcare documented as of this encounter Goals Goal Patient Goal Type Associated Problems Recent Progress Patient-Stated? Author I am tired of feeling guilty about my [grief.] Behavioral Health Improving(01/2024 2:42 PM DRAWER IN) Yes Edda Vo, ARMORING MACHINE OPERATOR Note: Goal/Objective: Decrease guilty thoughts about her care for her mother who is now . Anticipated Time Frame for Goal Completion: 6 months Goal Reviewed with: patient Readiness to change: Ready to change Department associated with goal: [facility] Steps to achieve goal: [...] documented as of this encounter Care Teams Transportation Attendant Relationship Specialty Start Date End Date Wagner Byrne MD [address] [place] [address] PCP - General Internal Medicine 11/25/23 Roshan Franco MD Consulting Physician Cardiovascular Disease - Cardiology 12/06/22 04/20/24 Caryn Briseno APRN, CHANNEL EXECUTIVE #2 [facility], [facility] [address] [place] [address] Nurse Practitioner Cardiology 04/04/23 Nery Burrell MD PhD [address] [place] [address] Railroad Construction Director Interventional Cardiology 04/04/23 Roc Whitehead MD [address] [place] [address] Consulting Physician Pulmonary Disease 02/15/23 Rafael Li MD #2 [facility], [address] [address] Consulting Physician Clinical Cardiac Electrophysiology 02/19/24 Ruben Rodriguez MD 2 [facility], [address] [address] Consulting Physician Cardiovascular Disease - Cardiology 08/06/24 documented as of this encounter
--- OUTSIDE RECORDS SUMMARY | 2024-10-27 09:07 | XMS_ITS | Encounter Summary ---
Author Organization [facility] Address [address] [facility] [place] [address] Phone Care Team Providers Care Deputy Chief Sheriff Name Role Phone Roshan Franco MD Unavailable Caryn Menezes APRN, SENIOR MARKETING ENGINEER Unavailable [phone]- [phone] Nery Burrell MD PhD Unavailable [phone] Roc Whitehead MD Unavailable Wagner Byrne MD Primary Care Provider [phone] Rafael Li MD Unavailable Ruben Rodriguez MD Unavailable Reason for Visit * Reason Comments Medication Refill Encounter Details Date Type Department Care Team (Late st Contact Info) Description 02/28/2024 Refill [facility] - Cardiology [facility] [address] [place] [address] Enrique Smith MD [address] [address] Medication Refill Social History Tobacco Use Types Packs/Day Years Used Date Smoking Tobacco: Every Day Cigarettes 0.5 40 Smokeless Tobacco: Never Alcohol Use Standard Drinks/Week Comments Not Currently 0 (1 standard drink = 0.6 oz pur e alcohol) [facility] Utilities Answer Date Recorded In the past [...] declined 08/03/2023 How often do you attend yazidism or methodist serv ices? Patient declined 08/03/2023 Do you belong to any clubs o r organizations such as yazidism groups, unions, fraternal or athletic groups, or [...] Total Score - Questions 1-9 19 01/12 [facility] of Occupat ional Health - Occupational [...] Telephone Encounter - Tanika Martin RN - 02/29/2024 9:13 AM CDT PCP: Wagner Byrne MD documented in this encounter Plan of Treatment Upcoming Encounters Date Type Department Care Team (Latest Contact Info) Description 10/29/2024 9:00 AM CDT Clinical Support [facility] - Cardiology - Brain [address] [place] [address] Nurse, Brain Cardiology [place] 10/29/2024 9:30 AM CDT Office Visit [facility] - Cardiology - [place] [address] [place] [address] Ruben Rodriguez MD 2 [facility], [address] [address] 10/30/2024 1:00 PM CDT Appointment [facility] Cardiology Services [address] [place] [address] Ruben Rodriguez MD [address] [address] Discharge Disposition: Discharged to home or Selfcare documented as of this encounter Goals Goal Patient Goal Type Associated Problems Recent Progress Patient-Stated? Author I am tired of feeling guilty about my [grief.] Behavioral Health Improving(01/2024 2:42 PM BACK HAND) Yes Edda Vo, CLAIMS SUPPORT SPECIALIST Note: Goal/Objective: Decrease guilty thoughts about her care for her mother who is now . Anticipated Time Frame for Goal Completion: 6 months Goal Reviewed with: patient Readiness to change: Ready to change Department associated with goal: [facility] Steps to achieve goal: [...] documented as of this encounter Care Teams Deputy Chief Sheriff Relationship Specialty Start Date End Date Wagner Byrne MD [address] [place] [address] PCP - General Internal Medicine 11/25/23 Roshan Franco MD Consulting Physician Cardiovascular Disease - Cardiology 12/06/22 04/20/24 Caryn Briseno APRN, SENIOR MARKETING ENGINEER #2 [facility], [address] [place] [address] Nurse Practitioner Cardiology 04/04/23 Nery Burrell MD PhD [address]1 [place] [address] Career Development Engineer Interventional Cardiology 04/04/23 Roc Whitehead MD [address] [place] [address] Consulting Physician Pulmonary Disease 02/15/23 Rafael Li MD #2 [facility], [address] [address] Consulting Physician Clinical Cardiac Electrophysiology 02/19/24 Ruben Rodriguez MD 2 [facility], [address] [address] Consulting Physician Cardiovascular Disease - Cardiology 08/06/24 documented as of this encounter
--- OUTSIDE RECORDS SUMMARY | 2024-10-27 09:07 | XMS_ITS | Encounter Summary ---
Author Organization [facility] Address [address] [place] [address] Phone Care Team Providers Care Still Cleaner Tube Name Role Phone Enrique Smith MD Primary Care Provider Roshan Franco MD Unavailable Caryn Menezes RECEIPT AND REPORT CLERK, PIPE WRAPPING MACHINE OPERATOR Unavailable + [phone] Nery Burrell MD PhD Unavailable [phone] Roc Whitehead MD Unavailable Wagner Byrne MD Primary Care Provider [phone] Rafael Li MD Unavailable Ruben Rodriguez MD Unavailable Reason for Visit * Reason Comments Medication Refill Encounter Details Date Type Department Care Team (Late st Contact Info) Description 04/06/2023 Refill [facility] #[address] [place] [id number] Enrique Smith MD #[address] [address] Medication Refill Social History Tobacco Use Types Packs/Day Years Used Date Smoking Tobacco: Some Days Cigarettes 0.5 40 Smokeless Tobacco: Never Alcohol Use Standard Drinks/Week Comments Not Currently 0 (1 standard drink = 0.6 oz pur e alcohol) PHQ-2 Answer Date Recorded Total Score - Questions 1-9 01/12 Education Answer Date Recorded What is [...] encounter Miscellaneous Notes * Telephone Encounter - Roxanna Vogt RN - 04/06/2023 1:26 PM MANAGER BANKING PDMP 03/08 for 30 days. Fill date adjusted. Medication failed the protocol, provider to review and approve the medication order if appropriate. Requested Prescriptions Pending Prescriptions Disp Refills methocarbamol (ROBAXIN) 500 MG Tablet [Pharmacy Med Name: METHOCARBAMOL 500 MG TABLET] 90 Tablet 0 Sig: Take 1 Tablet by mouth 3 times daily. Not Delegated - Muscle Relaxants Protocol Failed - 04/06/2023 10:38 AM Failed - This refill cannot be delegated Passed - Visit with relevant provider in past 12 months or upcoming 90 days Recent Visits Date Type Provider Dept 04/04/23 Office Visit Enrique Smith MD [facility] 01/23/23 Office Visit Luis Carlos Bull MD [facility] 01/16/23 Office Visit Danyel Akhtar APRN, [facility] 01/02/23 Office Visit Enrique Smith MD [facility] 12/29/22 Office Visit Sulma Blevins APRN, JET [facility] 12/05/22 Office Visit Danyel Akhtar APRN, JET [facility] 10/31/22 Office Visit Enrique Smith MD [facility] 10/19/22 Office Visit Bárbara Bergeron APRN, PIPE WRAPPING MACHINE OPERATOR [facility] 06/28/22 Office Visit Enrique Smith MD [facility] 06/20/22 Office Visit Luis Carlos Bull MD [facility] Showing recent visits within past 365 days and meeting all other requirements Future Appointments No visits were found meeting these conditions. Showing future appointments within next 90 days and meeting all other requirements GER BANKING documented in this encounter Plan of Treatment Upcoming Encounters Date Type Department Care Team (Latest Contact Info) Description 10/29/2024 9:00 AM CDT Clinical Support [facility] Cardiology [facility] #2 [place] [address] Nurse, [place] [facility] MD 10/29/2024 9:30 AM CDT Office Visit [facility] #2 [place] [address] Ruben Rodriguez MD [address] [address] 10/30/2024 1:00 PM CDT Appointment [facility] 1 [place] [address] Ruben Rodriguez MD [address] [address] Discharge Disposition: Discharged to home or Selfcare documented as of this encounter Goals Goal Patient Goal Type Associated Problems Recent Progress Patient-Stated? Author I am tired of feeling guilty about my [grief.] Behavioral Health Improving(01/2024 2:42 PM MANAGER BANKING) Yes Edda Vo, NUTRITION TECHNICIAN Note: Goal/Objective: Decrease guilty thoughts about her care for her mother who is now . Anticipated Time Frame for Goal Completion: 6 months Goal Reviewed with: patient Readiness to change: Ready to change Department associated with goal: [facility] Steps to [...] 19 04/02/2023 04/02/2023 04/12/2023 12:1 6 AM MANAGER BANKING COVID - 19 04/21/2023 04/21/2023 05/01/2023 12:1 6 AM MANAGER BANKING Assessment Noted Time PHQ-9 Depression Total Score: 023 2:00 PM CDT documented as of this encounter Care Teams Still Cleaner Tube Relationship Specialty Start Date End Date Enrique Smith MD [facility] [address] [place] [address] PCP - General Family Medicine 03/28/22 11/24/23 Wagner Byrne MD [address] [place] [address] PCP - General Internal Medicine 11/25/23 Roshan Franco MD [facility]2 [facility] [address] [place] [address] Consulting Physician Cardiovascular Disease - Cardiology 12/06/22 04/20/24 Caryn Briseno, RECEIPT AND REPORT CLERK, PIPE WRAPPING MACHINE OPERATOR #2 [facility] [address] [facility], [address] [place] [address] Nurse Practitioner Cardiology 04/04/23 Nery Burrell MD PhD #1 [place] [address] Block Tester Interventional Cardiology 04/04/23 Roc Whitehead MD #2 [place] [address] Consulting Physician Pulmonary Disease 02/15/23 Rafael Li MD #[address] [address] Consulting Physician Clinical Cardiac Electrophysiology 02/19/24 Ruben Rodriguez MD [address] [address] Consulting Physician Cardiovascular Disease - Cardiology 08/06/24 documented as of this encounter
--- OUTSIDE RECORDS SUMMARY | 2024-10-27 09:07 | XMS_ITS | Encounter Summary ---
Author Organization [facility] Address [address] [facility] [place] [place] [address] Phone Care Team Providers Care Supervisor Cutting And Sewing Room Name Role Phone Roshan Franco MD Unavailable Caryn Menezes APRN, PHLEBOTOMY SPECIALIST Unavailable [phone] Nery Burrell MD PhD Unavailable [phone] Roc Whitehead MD Unavailable Wagner Byrne MD Primary Care Provider [phone] Rafael Li MD Unavailable Ruben Rodriguez MD Unavailable Reason for Visit * Reason Comments Medication Refill Encounter Details Date Type Department Care Team (Late st Contact Info) Description 01/25/2024 Refill [facility] - Family Medicine [facility] #2 [place] [id number] Enrique Smith MD #[address] [address] Medication Refill Social History Tobacco Use Types Packs/Day Years Used Date Smoking Tobacco: Every Day Cigarettes 0.5 40 Smokeless Tobacco: Never Alcohol Use Standard Drinks/Week Comments Not Currently 0 (1 standard drink = 0.6 oz pur e alcohol) [facility] Utilities Answer Date Recorded In [...] declined 08/03/2023 How often do you attend muslim or congregational serv ices? Patient declined 08/03/2023 Do you belong to any clubs o r organizations such as muslim groups, unions, fraternal or athletic groups, or [...] Total Score - Questions 1-9 19 01/12 [facility] of Occupat ional Health - Occupational Stress [...] Telephone Encounter - Tanika Martin RN - 01/25/2024 12:[address] Byrne documented in this encounter Plan of Treatment Upcoming Encounters Date Type Department Care Team (Latest Contact Info) Description 10/29/2024 9:00 AM CDT Clinical Support [facility] - Cardiology - Brain #2 [place] [phone] Nurse, [place] Cardiology [place] 10/29/2024 9:30 AM CDT Office Visit [facility] Medical Group - Cardiology - [place] [address] [facility] [place] [address] Ruben Rodriguez MD [address] [address] 10/30/2024 1:00 PM CDT Appointment [facility] Cardiology Services [address] [place] [address] [address] [facility] [address] [facility] [address] [place] [address] Discharge Disposition: Discharged to home or Selfcare documented as of this encounter Goals Goal Patient Goal Type Associated Problems Recent Progress Patient-Stated? Author I am tired of feeling guilty about my [grief.] Behavioral Health Improving(01/2024 2:42 PM ENTERPRISE SYSTEMS ADMINISTRATOR) Yes Edda Vo, NARROW FABRIC CALENDERER Note: Goal/Objective: Decrease guilty thoughts about her care for her mother who is now . Anticipated Time Frame for Goal Completion: 6 months Goal Reviewed with: patient Readiness to change: Ready to change Department associated with goal: [facility] BE[facility] Steps to achieve [...] documented as of this encounter Care Teams Supervisor Cutting And Sewing Room Relationship Specialty Start Date End Date Wagner Byrne MD [address] [place] [address] PCP - General Internal Medicine 11/25/23 Roshan Franco MD Consulting Physician Cardiovascular Disease - Cardiology 12/06/22 04/20/24 Caryn Briseno APRN, PHLEBOTOMY SPECIALIST #2 [facility], [address] [place] [address] Nurse Practitioner Cardiology 04/04/23 Nery Burrell MD PhD #1 [place] [address] Digital Technician Interventional Cardiology 04/04/23 Roc Whitehead MD #2 [place] [address] Consulting Physician Pulmonary Disease 02/15/23 Rafael Li MD #2 [facility], [facility] [address] [place] [address] Consulting Physician Clinical Cardiac Electrophysiology 02/19/24 Ruben Rodriguez MD 2 [facility], [address] [address] Consulting Physician Cardiovascular Disease - Cardiology 08/06/24 documented as of this encounter
--- OUTSIDE RECORDS SUMMARY | 2024-10-27 09:07 | XMS_ITS | Encounter Summary ---
Author Organization [facility] Address [address] [place] [address] Care Team Providers Care Cardiopulmonary Physical Therapist Name Role Phone Isreal Gonzalez MD Unavailable Wagner Byrne MD Primary Care Provider [phone] Reason for Visit * Reason Onset Date Comments Medical Question/Miscellaneous 10/09/2024 Encounter Details Date Type Department Care Team (Late st Contact Info) Description 10/09/2024 Telephone Family Physicians [facility] [address] [facility] [place] [address] Wagner Byrne MD [address] [place] [address] Medical Question/Miscellaneous Social History Tobacco Use Types Packs/Day Years Used Date Smoking Tobacco: Every Day Cigarettes Smokeless Tobacco: Never Comments:ABOUT 10/15 CIGARET [place] Alcohol Use Standard Drinks/Week Comments Not Currently 0 (1 standard drink = 0.6 oz pur e alcohol) [facility] Utilities Answer Date Recorded In the past 12 months has [employer], gas, oil, or water company threatened to [...] week 06/27/2024 How often do you attend chur ch or oriental orthodox services? Never 06/27/2024 Do you belong to any clubs o r organizations such as synagogue groups, unions, fraternal or athletic groups, or [...] any time in the past 12 m [facility], were you homeless or living in a alf (including now)? No 06/27/2024 Comments No Sex and Gender Information Value Date Recorded Sex Assigned at Not on file Legal Sex Female 7:04 AM TRANSACTION COORDINATOR Gender Identity Not on file Sexual Orientation Not on file documented as of this encounter Miscellaneous Notes * Telephone Encounter - Lori Jordan - 10/09/2024 12:53 PM CDT No recent A1c on file for patient from our office. Tried to reach out to pharmacy, I waited on holdfor a long time, no one picked up. If they return the call, please pass on the message. * Telephone Encounter - Myrna Long - 10/09/2024 11:54 AM CDT Medical Question/Miscellaneous Caller???s Concern: Dina with [facility] calling would like to know if pt has had any A1c testing and if so would like results to further educate pt on. Please return call to advise. Does message need to be routed? Yes-Action Needed documented in this encounter Plan of Treatment Not on file documented as of this encounter Goals Goal Patient Goal Type Associated Problems Recent Progress Patient-Stated? Author ACO SW Goal - Patient can identify and utilize mental health community resources ACO Care Management No Carlyn Gray, PROGRAM THERAPIST Note: Problem: Mental Health Resources needed Interventions: [...] Diagnoses Not on filedocumented in this encounter Care Teams Cardiopulmonary Physical Therapist Relationship Specialty Start Date End Date Wagner Byrne MD [address] [place] [address] PCP - General Family Medicine 10/17/23 Isreal Gonzalez MD [address] [address] Referring Physician Internal Medicine 02/04/20 documented as of this encounter
--- OUTSIDE RECORDS SUMMARY | 2024-10-27 09:07 | XMS_ITS | Encounter Summary ---
Author Organization [facility] Address [address] [place] [address] Phone Care Team Providers Care Flash Drier Operator Name Role Phone Caryn Briseno APRN, SAFETY SCIENTIST Unavailable + [phone] Nery Burrell MD PhD Unavailable [phone] Roc Whitehead MD Unavailable Wagner Byrne MD Primary Care Provider [phone] Rafael Li MD Unavailable Ruben Rodriguez MD Unavailable Reason for Visit * Reason Comments Medication Refill Encounter Details Date Type Department Care Team (Late st Contact Info) Description 04/21/2024 Refill [facility] - Family Medicine [facility] #2 [place] [address] Enrique Smith MD #[address] [address] Medication Refill Social History Tobacco Use Types Packs/Day Years Used Date Smoking Tobacco: Every Day Cigarettes 0.5 40 Smokeless Tobacco: Never Alcohol Use Standard Drinks/Week Comments Not Currently 0 (1 standard drink = 0.6 oz pur e alcohol) [facility] Utilities Answer Date Recorded In the past 12 months has e [employer], gas, oil, or water [employer] threatened to shut off services in your home? Patient declined 08/03/2023 Social Connection and Isolation Panel Answer Date Recorded In a typical week, how many times do you talk on the phone with family, friends, or neighbors? Patient declined 08/03/2023 How often do you get togethe r with friends or relatives? Patient declined 08/03/2023 How often do you attend sikh or mu-ism serv ices? Patient declined 08/03/2023 Do you belong to any clubs o r organizations such as sikh groups, unions, fraternal or athletic groups, or [...] Total Score - Questions 1-9 9 01/2024 [facility] of Occupat ional Health - Occupational [...] on file documented as of this encounter Functional Status * Question Answer Date of Assessment Author Little interest or pleasure in doing things Not at all 04/21/2024 2:00 PM Edda Arce LC SW Feeling down, depressed, or hopeless Several days 04/21/2024 2:00 PM Edda Arce LC SW * Over the past 2 weeks, how often have you been bothered by any of the following problems? Question Answer Date of Assessment Author Patient Health Questionnaire -2 Score 1 04/21/2024 2:00 PM Edda Arce LC SW documented as of this encounter Miscellaneous Notes * Telephone Encounter - Tanika Martin RN - 04/22/2024 8:44 AM CST PCP: Wagner Byrne MD ARCH/PROGRAM DIRECTOR documented in this encounter Plan of Treatment Upcoming Encounters Date Type Department Care Team (Latest Contact Info) Description 10/29/2024 9:00 AM CDT Clinical Support [facility] Cardiology [facility] #2 [place] [address] Nurse, [place] Card[facility] [place] 10/29/2024 9:30 AM CDT Office Visit [facility] #2 [place] [address] Ruben Rodriguez MD [address] [address] 10/30/2024 1:00 PM CDT Appointment [facility] Cardiology Services 1 [place] [address] Ruben Rodriguez MD 2 [facility] [address] [place] [address] Discharge Disposition: Discharged to home or Selfcare documented as of this encounter Goals Goal Patient Goal Type Associated Problems Recent Progress Patient-Stated? Author I am tired of feeling guilty about my [grief.] Behavioral Health Improving(01/2024 2:42 PM RESEARCH/PROGRAM DIRECTOR) Yes Edda Vo, PHYSICAL DIRECTOR Note: Goal/Objective: Decrease guilty thoughts about her care for her mother who is now . Anticipated Time Frame for Goal Completion: 6 months Goal Reviewed with: patient Readiness to change: Ready to change Department associated with goal: [facility] BEHAVIORAL HE[facility] SERVICES Steps to [...] Total Score: 9 04/21/20 24 2:00 PM RESEARCH/PROGRAM DIRECTOR documented as of this encounter Care Teams Flash Drier Operator Relationship Specialty Start Date End Date Wagner Byrne MD [address] [place] [address] PCP - General Internal Medicine 11/25/23 Caryn Briseno, GARDEN LABOURER, SAFETY SCIENTIST #2 [facility] [place] [address] [place] [address] Nurse Practitioner Cardiology 04/04/23 Nery Burrell MD PhD #1 [place] [address] Drop Pit Worker Interventional Cardiology 04/04/23 Roc Whitehead MD #2 [place] [address] Consulting Physician Pulmonary Disease 02/15/23 Rafael Li MD #2 [facility] [facility], [address] [address] Consulting Physician Clinical Cardiac Electrophysiology 02/19/24 Ruben Rodriguez MD 2 [facility] [address] [place] [address] Consulting Physician Cardiovascular Disease - Cardiology 08/06/24 documented as of this encounter
--- OUTSIDE RECORDS SUMMARY | 2024-10-27 09:07 | XMS_ITS | Encounter Summary ---
Author Organization [facility] Address [address] [place] [address] Phone Care Team Providers Care Rental Sales Associate Name Role Phone Enrique Smith MD Primary Care Provider [phone] Roshan Franco MD Unavailable Caryn Menezes SUPERVISOR FABRICATION, SAP GATHERER Unavailable + [phone] Nery Burrell MD PhD Unavailable [phone] Roc Whitehead MD Unavailable Wagner Byrne MD Primary Care Provider [phone] Rafael Li MD Unavailable Ruben Rodriguez MD Unavailable Reason for Visit * Reason Comments Medication Refill Encounter Details Date Type Department Care Team (Late st Contact Info) Description 04/11/2023 Refill [facility] Group - Pulmonology & Sleep Medicine [facility] #2 [place] [address] Roc Whitehead MD #2 [place] [address] Medication Refill Social History Tobacco [...] Telephone Encounter - Lashae Cruz RN - 04/11/2023 3:43 PM CST Medication failed the protocol, provider to review and approve the medication order if appropriate. Requested Prescriptions Pending Prescriptions Disp Refills predniSONE (DELTASONE) 10 MG Tablet [Pharmacy Med Name: PREDNISONE 10MG TABLET] 10 Tablet 0 Sig: TAKE 1 TABLET BY MOUTH DAILY FOR 10 DAYS. Not Delegated - Corticosteroids Protocol Failed - 04/11/2023 3:40 PM Failed - This refill cannot be delegated Passed - Visit with relevant provider in past 12 months or upcoming 90 days Recent Visits Date Type Provider Dept 04/04/23 Office Visit Enrique Smith MD [facility] 02/15/23 Office Visit Roc Whitehead MD [facility] Pul & Sleep [facility] 01/23/23 Office Visit Luis Carlos Bull MD [facility] 01/16/23 Office Visit Danyel Akhtar APRN, JET [facility] Brain 01/02/23 Office Visit Enrique Smith MD [facility] 12/29/22 Office Visit Sulma Blevins APRN, JET [facility] [place] 12/05/22 Office Visit Danyel Akhtar APRN, JET [facility] 10/31/22 Office Visit Enrique Smith MD [facility] 10/19/22 Office Visit Bárbara Bergeron APRN, SAP GATHERER [facility] 06/28/22 Office Visit Enrique Smith MD [facility] Showing recent visits within past 365 days and meeting all other requirements Future Appointments Date Type Provider Dept 05/22/23 Appointment Roc Whitehead MD [facility] Pulm & Sleep [facility] Showing future appointments within next 90 days and meeting all other requirements ORKING ADMINISTRATOR documented in this encounter Plan of Treatment Upcoming Encounters Date Type Department Care Team (Latest Contact Info) Description 10/29/2024 9:00 AM CDT Clinical Support [facility] Cardiology [facility] #2 [place] [address] Nurse, [place] [facility] [place] 10/29/2024 9:30 AM CDT Office Visit [facility] #2 [place] [address] Ruben Rodriguez MD [address] [address] 10/30/2024 1:00 PM CDT Appointment [facility] Cardiology Services 1 [place] [address] Ruben Rodriguez MD [address] [address] Discharge Disposition: Discharged to home or Selfcare documented as of this encounter Goals Goal Patient Goal Type Associated Problems Recent Progress Patient-Stated? Author I am tired of feeling guilty about my [grief.] Behavioral Health Improving(01/2024 2:42 PM NETWORKING ADMINISTRATOR) Yes Edda Vo, PROBE OPERATOR Note: Goal/Objective: Decrease guilty thoughts about her care for her mother who is now . Anticipated Time Frame for Goal Completion: 6 months Goal Reviewed with: patient Readiness to change: Ready to change Department associated with goal: [facility] BE[facility] Steps to [...] 19 04/02/2023 04/02/2023 04/12/2023 12:1 6 AM NETWORKING ADMINISTRATOR COVID - 19 04/21/2023 04/21/2023 05/01/2023 12:1 6 AM NETWORKING ADMINISTRATOR Assessment Noted Time PHQ-9 Depression Total Score: 023 2:00 PM CDT documented as of this encounter Care Teams Rental Sales Associate Relationship Specialty Start Date End Date Enrique Smith MD #2 [facility] [address] [place] [address] PCP - General Family Medicine 03/28/22 11/24/23 Wagner Byrne MD [address] [place] [address] PCP - General Internal Medicine 11/25/23 Roshan Franco MD #2 [facility] [address] [place] [address] Consulting Physician Cardiovascular Disease - Cardiology 12/06/22 04/20/24 Caryn Briseno, SUPERVISOR FABRICATION, SAP GATHERER #2 [facility] [address] [place] [address] Nurse Practitioner Cardiology 04/04/23 Nery Burrell MD PhD #1 [place] [address] Surgical Attendant Interventional Cardiology 04/04/23 Roc Whitehead MD #2 [place] [address] Consulting Physician Pulmonary Disease 02/15/23 Rafael Li MD #[address] [address] Consulting Physician Clinical Cardiac Electrophysiology 02/19/24 Ruben Rodriguez MD [address] [address] [address] Consulting Physician Cardiovascular Disease - Cardiology 08/06/24 documented as of this encounter
--- OUTSIDE RECORDS SUMMARY | 2024-10-27 09:07 | XMS_ITS | Encounter Summary ---
Author Organization [facility] Address [address] [place] [address] Care Team Providers Care Hand Fabric Cutter Name Role Phone Isreal Gonzalez MD Unavailable [phone] Wagner Byrne MD Primary Care Provider [phone] Reason for Visit * Reason Onset Date Comments Appointment Request 09/29/2024 Encounter Details Date Type Department Care Team (Late st Contact Info) Description 09/29/2024 Telephone Family Physicians [facility] [address] [place] [address] Wagner Byrne MD [address] [place] [address] Appointment Request Social History Tobacco Use Types Packs/Day Years Used Date Smoking Tobacco: Every Day Cigarettes Smokeless Tobacco: Never Comments:ABOUT 10 CIGARET CHELA Alcohol Use Standard Drinks/Week Comments Not Currently 0 (1 standard drink = 0.6 oz pur e alcohol) [facility] Utilities Answer Date Recorded In the past 12 months has Webs, gas, oil, or water company threatened to [...] often do you attend chur ch or restorationist services? Never 06/27/2024 Do you belong to [...] any time in the past 12 m [facility], were you homeless or living in a fdc (including now)? No 06/27/2024 Comments No Sex and Gender Information Value Date Recorded Sex Assigned at Not on file Legal Sex Female 7:04 AM CLINICAL NUTRITION MANAGER Gender Identity Not on file Sexual Orientation Not on file documented as of this encounter Miscellaneous Notes * Telephone Encounter - Lori Jordan - 09/29/2024 9:56 AM CDT Called and scheduled with patient... 4 week follow up * Telephone Encounter - MarjanLeticia ramirez - 09/29/2024 9:28 AM CDT Appointment Request What visit type does the patient need? Visit Type: Established Patient What is the reason for the visit? Follow up on medications What is the reason we were unable to schedule the appointment? Current appointment availability didnot meet patient's need. If applicable, were all members of the patient's PCP care team offered (e.g., nurse practioner(s), physician instruction assistant principal(s)) ? Yes Additional Comments: patient cancelled her 09/30 appointment and wanted to reschedule patient only wants to see Dr Byrne. The next one was February and I didn't schedule as it was too farout for patient . Does message need to be routed? Yes-Action Needed documented in this encounter Plan of Treatment Not on file documented as of this encounter Goals Goal Patient Goal Type Associated Problems Recent Progress Patient-Stated? Author ACO SW Goal - Patient can identify and utilize mental health community resources ACO Care Management Carlyn Levy, SENIOR COST ESTIMATOR Note: Problem: Mental Health Resources needed Interventions: [...] on filedocumented in this encounter Care Teams Hand Fabric Cutter Relationship Specialty Start Date End Date [place] [address] PCP - General Family Medicine 10/17/23 Isreal Gonzalez MD [address] [address] Referring Physician Internal Medicine 02/04/20 documented as of this encounter
--- OUTSIDE RECORDS SUMMARY | 2024-10-27 09:07 | XMS_ITS | Encounter Summary ---
Author Organization [facility] Address [address] [facility] [place] [address] Phone Care Team Providers Care Blogs Manager Name Role Phone Roshan Franco MD Unavailable Caryn Menezes APRN, DERRICK HAND Unavailable [phone] Nery Burrell MD PhD Unavailable [phone] Roc Whitehead MD Unavailable Wagner Byrne MD Primary Care Provider Rafael Li MD Unavailable Ruben Rodriguez MD Unavailable Reason for Visit * Reason Comments Medication Refill Encounter Details Date Type Department Care Team (Late st Contact Info) Description 04/19/2024 [facility]ill [facility] - Family Medicine [facility] [address] [place] [id number] Enrique Smith MD #[address] [address] Medication Refill Social History Tobacco Use Types Packs/Day Years Used Date Smoking Tobacco: Every Day Cigarettes 0.5 40 Smokeless Tobacco: Never Alcohol Use Standard Drinks/Week Comments Not Currently 0 (1 standard drink = 0.6 oz pur e alcohol) [facility] Utilities Answer Date Recorded In [...] declined 08/03/2023 How often do you attend taoism or yarsanism serv ices? Patient declined 08/03/2023 Do you belong to any clubs o r organizations such as taoism groups, unions, fraternal or athletic groups, or [...] Total Score - Questions 1-9 9 01/2024 [facility] - [...] place to sleep or slept in a assisted (including now)? Patient declined 08/03/2023 Education Answer [...] Telephone Encounter - Tanika Martin RN - 04/21/2024 9:34 AM CST PCP: Wagner Byrne MD CAL REVIEW SPECIALIST documented in this encounter Plan of Treatment Upcoming Encounters Date Type Department Care Team (Latest Contact Info) Description 10/29/2024 9:00 AM CDT Clinical Support [facility] Cardiology [facility] [address] [place] [address] Nurse, [facility] [place] 10/29/2024 9:30 AM CDT Office Visit [facility] [place] [address] [place] [address] Ruben Rodriguez MD [address] [address] 10/30/2024 1:00 PM CDT Appointment [facility]iology Services [address] [place] [address] Ruben Rodriguez MD [address] [address] Discharge Disposition: Discharged to home or Selfcare documented as of this encounter Goals Goal Patient Goal Type Associated Problems Recent Progress Patient-Stated? Author I am tired of feeling guilty about my [grief.] Behavioral Health Improving(01/2024 2:42 PM MEDICAL REVIEW SPECIALIST) Yes Edda Vo, MARBLE INSTALLER SUPERVISOR Note: Goal/Objective: Decrease guilty thoughts about her care for her mother who is now . Anticipated Time Frame for Goal Completion: 6 months Goal Reviewed with: patient Readiness to change: Ready to change Department associated with goal: [facility] Steps to achieve goal: [...] Assessment Noted Time PHQ-9 Depression Total Score: 15 024 2:00 PM MEDICAL REVIEW SPECIALIST documented as of this encounter Care Teams Blogs Manager Relationship Specialty Start Date End Date Wagner Byrne MD [address] [place] [address] PCP - General Internal Medicine 11/25/23 Roshan Franco MD Consulting Physician Cardiovascular Disease - Cardiology 12/06/22 04/20/24 Caryn Briseno APRN, DERRICK HAND #2 [facility], [facility] [address] [place] [address] Nurse Practitioner Cardiology 04/04/23 Nery Burrell MD PhD #1 [place] [address] Mach[employer]ist [employer]otive Interventional Cardiology 04/04/23 Roc Whitehead MD #[address] [place] [address] Consulting Physician Pulmonary Disease 02/15/23 Rafael Li MD #2 [facility], [facility] [address] [place] [address] Consulting Physician Clinical Cardiac Electrophysiology 02/19/24 Ruben Rodriguez MD 2 [facility], [facility] [address] [place] [address] Consulting Physician Cardiovascular Disease - Cardiology 08/06/24 documented as of this encounter
--- OUTSIDE RECORDS SUMMARY | 2024-10-27 09:07 | XMS_ITS | Encounter Summary ---
Author Organization [facility] Address [address] [facility] [place] [address] Phone Care Team Providers Care Master Yacht Name Role Phone Roshan Franco MD Unavailable Caryn Menezes APRN, WHISKEY REGAUGER Unavailable [phone] Nery Burrell MD PhD Unavailable [phone] Roc Whitehead MD Unavailable Wagner Byrne MD Primary Care Provider [phone] Rafael Li MD Unavailable Ruben Rodriguez MD Unavailable Reason for Visit * Reason Comments Medication Refill Encounter Details Date Type Department Care Team (Late st Contact Info) Description 12/25/2023 Refill [facility] - Family Medicine [facility] #[address] [place] [id number] Enrique Smith MD #[address] [address] Medication Refill Social History Tobacco Use Types Packs/Day Years Used Date Smoking Tobacco: Every Day Cigarettes 0.5 40 Smokeless Tobacco: Never Alcohol Use Standard Drinks/Week Comments Not Currently 0 (1 standard drink = 0.6 oz pur e alcohol) [facility] Utilities Answer Date Recorded In [...] declined 08/03/2023 How often do you attend quaker or roman catholic serv ices? Patient declined 08/03/2023 Do you belong to any clubs o r organizations such as quaker groups, unions, fraternal or athletic groups, or [...] Total Score - Questions 1-9 19 01/12 [facility] Occupat ional [facility] - [...] place to sleep or slept in a custodial (including now)? Patient declined 08/03/2023 Education Answer [...] Telephone Encounter - Tanika Martin RN - 12/26/2023 9:06 AM CDT PCP is Wagner Byrne MD documented in this encounter Plan of Treatment Upcoming Encounters Date Type Department Care Team (Latest Contact Info) Description 10/29/2024 9:00 AM CDT Clinical Support [facility] - [facility] - [place] [facility] [place] [address] Nurse, [facility] [place] 10/29/2024 9:30 AM CDT Office Visit [facility] - Cardiology - [place] [address] [place] [address] Ruben Rodriguez MD 2 [facility], [address] [address] 10/30/2024 1:00 PM CDT Appointment [facility] Cardiology Services [address] [place] [address] Ruben Rodriguez MD [address] [address] Discharge Disposition: Discharged to home or Selfcare documented as of this encounter Goals Goal Patient Goal Type Associated Problems Recent Progress Patient-Stated? Author I am tired of feeling guilty about my [grief.] Behavioral Health Improving(01/2024 2:42 PM FINISHER PLATE) Yes Edda Vo, VISUAL DISPLAY ASSOCIATE Note: Goal/Objective: Decrease guilty thoughts about her care for her mother who is now . Anticipated Time Frame for Goal Completion: 6 months Goal Reviewed with: patient Readiness to change: Ready to change Department associated with goal: [facility] Steps to [...] documented as of this encounter Care Teams Master Yacht Relationship Specialty Start Date End Date Wagner Byrne MD [address] [place] [address] PCP - General Internal Medicine 11/25/23 Roshan Franco MD Consulting Physician Cardiovascular Disease - Cardiology 12/06/22 04/20/24 Caryn Briseno APRN, WHISKEY REGAUGER #2 [facility], [address] [place] [address] Nurse Practitioner Cardiology 04/04/23 Nery Burrell MD PhD #[address] [place] [address] Pleater Interventional Cardiology 04/04/23 Roc Whitehead MD #[address] [place] [address] Consulting Physician Pulmonary Disease 02/15/23 Rafael Li MD #2 [facility], [facility] [address] [place] [address] Consulting Physician Clinical Cardiac Electrophysiology 02/19/24 Ruben Rodriguez MD 2 [facility], [facility] [address] [place] [address] Consulting Physician Cardiovascular Disease - Cardiology 08/06/24 documented as of this encounter
--- OUTSIDE RECORDS SUMMARY | 2024-10-27 09:07 | XMS_ITS | CONTINUITY OF CARE DOCUMENT ---
Author Name indira jacobson Address Unknown Organization [facility] Address [address] [place] [address] Phone [phone] Care Team Providers Care Consulting Practice Manager Name Role Phone Vale ACEVEDO, Olvin Unavailable [phone] Olvin Collazo MD Unavailable [phone] CHRISTOS CORTEZ MD Unavailable [phone] PROBLEMS Condition Status Date Provider Notes Cardiology examination completed 2 - Olvin Collazo MD Cerebral atherosclerosis active Olvin conner MD no cva Insomnia active Olvin Collazo MD PERICARDIAL EFFUSION; active Olvin Collazo MD covid 19;2020 active Olvin Collazo MD Thrombocytosis active Olvin Collazo MD neg iron b12 and foalte Bipolar disorder active Olvin Collazo MD Screening active Olvin Collazo MD FAMILY HISTORY OF HEART DISEASE active Olvin Collazo MD both parensx an d soin VENTRICULAR FIBRILLATION; active Olvin hoff MD S/P Gen change BIV/AICD Hurd 01/09/22 ( NOT MRI SAFE/old Hurd & [employer] Leads) active Olvin Collazo MD for cardiac arrexst per pt Tobacco dependence, continuous active Olvin Collazo MD Hyperlipidemia completed - Olvin Collazo MD Atrial fib paroxysmal active Olvin Collazo MD COPD active Olvin morales md Hypertension benign essential active Carlyn Ventimiglia HOSPITALITY ASSOCIATE Cardiomyopathy active Olvin Collazo MD lowe st 25 n onichemi per cath in 14 n eg iron ENCOUNTERS Date Type Provider Location Encounter Diag nosis - In-person encounter Office Visit Olvin Collazo MD [facility] Cardiology examinationCardiomyopathyCOPDAtrial fib paroxysmalHyperlipidemiaTobacco dependence, continuousS/P Gen change BIV/AICD Hurd 01/09/22 ( NOT MRI SAFE/old Hurd & [employer]tr[employer] Leads)VENTRICULAR FIBRILLATION;FAMILY HISTORY OF HEART DISEASEScreeningBipolar disorderThrombocytosiscovid ;ERICARDIAL EFFUSION;Cerebral atherosclerosisInsomnia - In-person encounter Office Visit Olvin Collazo MD [place] [facility] CardiomyopathyHypertension benign essentialCOPDAtrial fib paroxysmalTobacco dependence, continuous VITAL SIGNS Date Observation Value Provider blood pressure, diastolic 75 mm[Hg] Li nkLog blood pressure, systolic 134 mm[Hg] [facility] blood pressure, diastolic 75 mm[Hg] Ky jason [place] blood pressure, systolic 134 mm[Hg] Kyl ia [place] pulse rate 79 /min Gaudenciolia [place] oxygen saturation, oximetry 91 % [facility] [place] respiratory rate E&M 12 /min Rosario lopez blood pressure, cuff size regular Ky jason [place] height E&M 66 [in_i] Kylia Isma blood pressure, diastolic 90 mm[Hg] Li nkLogic blood pressure, systolic 156 mm[Hg] Ashanti kLogic blood pressure, cuff size regular Ke rri Gruenenfelder blood pressure, diastolic 90 mm[Hg] Ke rri Gruenenfelder blood pressure, systolic 156 mm[Hg] Ker ri Grueneeld oxygen saturation, oximetry 97 % Trish Walteramylorriarpita respiratory rate E&M 12 /min Trish Morales prachibellaarpita pulse rate 74 /min Trish Calle barer height E&M 66 [in_i] Trish Calle lder ALLERGIES Allergy Name Onset Date Reaction Criticality Status ABILIFY Low Criticality active FLU SHOT High Criticality active HISTORY OF MEDICATION USE Medication Status Instructions Dates Provider Indications Com ments Cymbalta 60 mg capsule,delayed release(DR/EC) active Olvin Collazo MD Entresto 24-26 mg tablet active Olvin Collazo MD oxycodone 10 mg tablet active Olvin Collazo MD ranolazine 500 mg tablet extended release 12 hr active Olvin Collazo MD sodium chloride 1,000 mg tablet,soluble active TAKE 1 TABLET BY MOUTH EVERY DAY Olvin Collazo MD aripiprazole 5 mg tablet active Olvin Collazo MD alprazolam 0.5 mg tablet active Olvin Collazo MD paroxetine HCl 40 mg tablet completed - Olvin Collazo MD zolpidem 5 mg tablet active Olvin Collazo MD Trelegy Ellipta 100-62.5-25 mcg blister with device active Carlyn Ventimiglia HOSPITALITY ASSOCIATE Xtampza ER 9 mg cap,sprinkl,ER12h r(DONT CRUSH) completed - Olvin Collazo MD Jardiance 10 mg tablet active Carlyn Ventimiglia HOSPITALITY ASSOCIATE Daliresp 500 mcg tablet active Carlyn Ventimiglia HOSPITALITY ASSOCIATE Eliquis 5 mg tablet active Carlyn Ventimiglia HOSPITALITY ASSOCIATE roflumilast 500 mcg tablet completed - Olvin Collazo MD ranolazine 500 mg tablet extended release 12 hr completed - Olvin Collazo MD pantoprazole 40 mg tablet,delayed release (DR/EC) active Carlyn Ventimiglia HOSPITALITY ASSOCIATE spironolactone 25 mg tablet active /2 Olvin Collazo MD metoprolol succinate 100 mg tablet extended release 24 hr active Carlyn Ventimiglia HOSPITALITY ASSOCIATE amiodarone 200 mg tablet active Carlyn Ventimiglia HOSPITALITY ASSOCIATE albuterol sulfate 2.5 mg/3 mL (0.083 %) solution for nebulization active Carlyn Ventimiglia HOSPITALITY ASSOCIATE furosemide 40 mg tablet active Carlyn Ventimiglia HOSPITALITY ASSOCIATE fluticasone propionate 50 mcg/actuation spray,suspension active Carlyn Ventimiglia HOSPITALITY ASSOCIATE lisinopril 40 mg tablet completed - Olvin Collazo MD paroxetine HCl 40 mg tablet completed - Olvin Collazo MD azelastine 137 mcg (0.1 %) aerosol,spray active Carlyn Ventimiglia HOSPITALITY ASSOCIATE albuterol sulfate 90 mcg/actuation HFA aerosol inhaler active Carlyn Ventimiglia HOSPITALITY ASSOCIATE gabapentin 100 mg capsule completed - Olvin Collazo MD digoxin 125 mcg (0.125 mg) tablet completed - Olvin Collazo MD montelukast 10 mg tablet active Carlyn Ventimiglia HOSPITALITY ASSOCIATE ropinirole 0.5 mg tablet completed - Olvni Collazo MD atorvastatin 40 mg tablet active Carlyn Ventimiglia HOSPITALITY ASSOCIATE divalproex 500 mg tablet,delayed release (DR/EC) completed - Olvin Platt unspecified unspecified completed Take 1 tablet by mouth twice a day - Carlyn Ventimiglia HOSPITALITY ASSOCIATE SOCIAL HISTORY Date Observation Value Provider smoking/tobacco cess ation, patient education and counseling yes Olvin Collazo MD drug use, illicit, d rug of choice marijuana Olvin Collazo MD drug use yes Olvin Rousseau alcohol use no Olvin Rousseau number of years as a smoker 50 a Olvin Collazo MD smoking history, tot al pack/day 1/2 ppd Olvin Collazo MD cigarette use yes Olvin Collazo MD smoking status Current every day smoker H chloé Collazo MD drug use, illicit, d rug of choice marijuana Carlyn Ventimiglia HOSPITALITY ASSOCIATE drug use yes Carlyn Ventimig jason HOSPITALITY ASSOCIATE alcohol use no Carlyn gomez [facility] number of years as a smoker 50 a Trish Harkins smoking history, tot al pack/day 1/2 ppd Trish Harkins cigarette use yes Trish palm smoking status Current every day smoker K erri Shahana INSURANCE PROVIDERS Payer name Policy type / Coverage type Young red alliance party ID [employer] GOLD PLUS O HMO [id number] ADVANCE DIRECTIVES Name Date DISCUSSED - NO DECISION MADE TREATMENT PLAN Date Name Performer [id number],C,cessation enc ouraged Carlyndharmesh Matthew [facility] [id number],C, H er updated medication list for this problem includes: Trelegy Ellipta 100-62.5-25 Mcg Blister With Device ([id number]) Daliresp 500 Mcg Tablet (Roflumilast) Roflumilast 500 Mcg Tablet (Roflumilast) Albuterol Sulfate 2.5 Mg/3 Ml (0.083 %) Solution For Nebulization (Albuterol sulfate) Albuterol Sulfate 90 Mcg/actuation Hfa Aerosol Inhaler (Albuterol sulfate) Montelukast 10 Mg Tablet (Montelukast) Beaver Vipul [facility] [id number],C,B P 150/90 today not at goal. Will monitor at home and re-evaluate at next visit. If elevated consider med adjustment. Would consider Entresto in setting of CMP H er updated medication list for this problem includes: Spironolactone 25 Mg Tablet (Spironolactone) Metoprolol Succinate 100 Mg Tablet Extended Release 24 Hr (Metoprolol succinate) Furosemide 40 Mg Tablet (Furosemide) Lisinopril 40 Mg Tablet (Lisinopril) Carlyn Matthew [facility] [id number],C,F rom available outside chart review appears to be NICMP. EF of 25% per last noted echo last 01/2022. We will obtain records from her previous paramedic rn. Meds pulled from outside pharmacy have asked patient to bring all meds to next appt so we can verify and adjust as needed. BIVICD in place will transfer H er updated medication list for this problem includes: Ranolazine 500 Mg Tablet Extended Release 12 Hr (Ranolazine) Spironolactone 25 Mg Tablet (Spironolactone) Metoprolol Succinate 100 Mg Tablet Extended Release 24 Hr (Metoprolol succinate) Amiodarone 200 Mg Tablet (Amiodarone) Furosemide 40 Mg Tablet (Furosemide) Lisinopril 40 Mg Tablet (Lisinopril) Digoxin 125 Mcg (0.125 Mg) Tablet (Digoxin) Carlyn HYMANP Cardiology Olvin Collazo MD Cardiology Olvin Collazo MD Cardiology:respvled Olvin childers MD Cardiology Olvin Collazo MD Cardiology Olvin Collazo MD Cardiology Olvin Collazo MD Cardiology:2023 highpro Mariah Collazo MD Cardiology:neg egr a n dd and dhep panel neg crp and chol n eg ct pe neg cta neck Olvin Collazo MD Cardiology:was shocked by aicd, pt baims on abilty Olvin Collazo MD Cardiology Olvin Collazo MD Cardiology:cessation encouraged Carlyn Matthew [facility] Cardiology: H er updated medication list for this problem includes: Trelegy Ellipta 100-62.5-25 Mcg Blister With Device ([id number]) Daliresp 500 Mcg Tablet (Roflumilast) Roflumilast 500 Mcg Tablet (Roflumilast) Albuterol Sulfate 2.5 Mg/3 Ml (0.083 %) Solution For Nebulization (Albuterol sulfate) Albuterol Sulfate 90 Mcg/actuation Hfa Aerosol Inhaler (Albuterol sulfate) Montelukast 10 Mg Tablet (Montelukast) Carlyn Matthew [facility] Cardiology:BP 150/90 today not at goal. Will monitor at home and re-evaluate at next visit. If elevated consider med adjustment. Would consider Entresto in setting of CMP H er updated medication list for this problem includes: Spironolactone 25 Mg Tablet (Spironolactone) Metoprolol Succinate 100 Mg Tablet Extended Release 24 Hr (Metoprolol succinate) Furosemide 40 Mg Tablet (Furosemide) Lisinopril 40 Mg Tablet (Lisinopril) Carlyn Matthew [facility] Cardiology:From [facility] outside chart review appears to be NICMP. EF of 25% per last noted echo last 01/2022. We will obtain records from her previous paramedic rn. Meds pulled from outside pharmacy have asked patient to bring all meds to next appt so we can verify and adjust as needed. BIVICD in place will transfer H er updated medication list for this problem includes: Ranolazine 500 Mg Tablet Extended Release 12 Hr (Ranolazine) Spironolactone 25 Mg Tablet (Spironolactone) Metoprolol Succinate 100 Mg Tablet Extended Release 24 Hr (Metoprolol succinate) Amiodarone 200 Mg Tablet (Amiodarone) Furosemide 40 Mg Tablet (Furosemide) Lisinopril 40 Mg Tablet (Lisinopril) Digoxin 125 Mcg (0.125 Mg) Tablet (Digoxin) Carlyn Matthew [facility] Date Name Complete Echo RPM (remote patient monitoring) myocardial blood darron w (PET) Stress Cardiac PET-C T Lipoprotein (a) PROBNP, N TERMINAL CT, Coronary Calcium Score CBC (INCLUDES DIFF/P LT) CXR- PA/Lat TSH, 3RD GENERATION HEMOGLOBIN A1c Microalb/Creatinine Urine, Random COMPREHENSIVE METABO LIC PANEL, W/EGFR LIPID PANEL Complete Echo VITAMIN B12 Vitamin D, 25-Hydrox y IRON AND TOTAL IRON BINDING CAPACITY FERRITIN CBC (INCLUDES DIFF/P LT) HEMOGLOBIN A1c Microalb/Creatinine Urine, Random CRP, high sensitivit y COMPREHENSIVE METABO LIC PANEL, W/EGFR LIPID PANEL Lipoprotein (a) TSH, free T4, total T3 HISTORY OF PROCEDURES Procedure Date Procedure Name Provider Procedure Notes S tatus Complex e/m visit ad d on Olvin Collazo MD [07/21/2024 - kymberly] APPROVED completed TIESHA Collazo MD [07/21/2024 - kymberly] APPROVED completed TIESHA Collazo MD complete d
--- OUTSIDE RECORDS SUMMARY | 2024-10-27 09:07 | XMS_ITS | Encounter Summary ---
Author Organization [facility] Address [address] [place] [address] Phone Care Team Providers Care District Sales Manager Name Role Phone Enrique Smith MD Primary Care Provider [phone] Roshan Franco MD Unavailable Caryn Menezes DROPPER TANK STORAGE, OIL AND GAS FIELD TECHNICIAN Unavailable +- [phone] Nery Burrell MD PhD Unavailable [phone] Roc Whitehead MD Unavailable Wagner Byrne MD Primary Care Provider [phone] Rafael Li MD Unavailable Ruben Rodriguez MD Unavailable Encounter Details Date Type Department Care Team (Late st Contact Info) Description 04/04/2022 Home Health Resumpti on of Care Planning [facility] [address] [place] [address] Social History Tobacco Use Types Packs/Day Years Used Date Smoking Tobacco: Every Day Cigarettes Smokeless Tobacco: Never Alcohol Use Standard Drinks/Week Comments Not Currently 0 (1 standard drink = 0.6 oz pur e alcohol) PHQ-2 Answer Date Recorded Total Score - Questions 1-9 0 01/13 Comments No Sex and Gender Information Value [...] suspected to have Coronavirus/COVID-19? No / Unsure 04/07/2022 9:25 AM CUSTODIAN BLOOD BANK documented as of this encounter Plan of Treatment Upcoming Encounters Date Type Department Care Team (Latest Contact Info) Description 10/29/2024 9:00 AM CDT Clinical Support [facility] Cardiology [facility] #[address] [place] [address] Nurse, [place] [facility] [place] 10/29/2024 9:30 AM CDT Office Visit [facility] #2 [place] [address] Ruben Rodrgiuez MD [address] [address] 10/30/2024 1:00 PM CDT [facility]ointment [facility] 1 [place] [address] Ruben Rodriguez MD [address] [address] Discharge Disposition: Discharged to home or Selfcare documented as of this encounter Visit Diagnoses Not on filedocumented in this encounter Additional Health Concerns Infection Onset Date Last Indicated Resolved Time Respiratory Rule Out - RPA 05/15/2022 05/15/2022 0 05/16/2022 3:14 PM CUSTODIAN BLOOD BANK COVID - 19 06/05/2022 06/05/2022 06/06/2022 8:01 AM CUSTODIAN BLOOD BANK Respiratory Rule Out - RPA 06/05/2022 06/06/2022 0 06/07/2022 2:53 PM CUSTODIAN BLOOD BANK COVID - 19 01/23/2023 01/23/2023 02/02/2023 12:1 6 AM CDT COVID - 19 04/02/2023 04/02/2023 04/12/2023 12:1 6 AM CUSTODIAN BLOOD BANK COVID - 19 04/21/2023 04/21/2023 05/01/2023 12:1 6 AM CUSTODIAN BLOOD BANK Assessment Noted Time PHQ-9 Depression Total Score: 0 02/10/20 11:00 AM CDT documented as of this encounter Care Teams District Sales Manager Relationship Specialty Start Date End Date Enrique Smith MD [address] [facility] [address] [place] [address] PCP - General Family Medicine 03/28/22 11/24/23 Wagner Byrne MD [address] [place] [address] PCP - General Internal Medicine 11/25/23 Roshan Franco MD #[address] [address] Consulting Physician Cardiovascular Disease - Cardiology 12/06/22 04/20/24 Caryn Briseno APRN, OIL AND GAS FIELD TECHNICIAN #2 [facility] [address] [place] [address] Nurse Practitioner Cardiology 04/04/23 Nery Burrell MD PhD #1 [place] [address] Power System Dispatcher Interventional Cardiology 04/04/23 Rco Whitehead MD #2 [place] [address] Consulting Physician Pulmonary Disease 02/15/23 Rafael Li MD #2 [facility] [address] [place] [address] Consulting Physician Clinical Cardiac Electrophysiology 02/19/24 Ruben Rodriguez MD 2 [facility] [place] [place] [address] Consulting Physician Cardiovascular Disease - Cardiology 08/06/24 documented as of this encounter
--- OUTSIDE RECORDS SUMMARY | 2024-10-27 09:07 | XMS_ITS | Encounter Summary ---
Author Organization [facility] Address [address] [facility] [place] [address] Phone Care Team Providers Care Trader Fixed Income Name Role Phone Roshan Franco MD Unavailable Caryn Menezes APRN, FRUIT FARMER Unavailable [phone]- [phone] Nery Burrell MD PhD Unavailable [phone] Roc Whitehead MD Unavailable Wagner Byrne MD Primary Care Provider [phone] Rafael Li MD Unavailable Ruben Rodriguez MD Unavailable Reason for Visit * Reason Comments Medication Refill Encounter Details Date Type Department Care Team (Late st Contact Info) Description 03/24/2024 Refill [facility] - Family Medicine [facility] #2 [place] [phone] Enrique Smith MD #[address] [address] Medication Refill Social History Tobacco Use Types Packs/Day Years Used Date Smoking Tobacco: Every Day Cigarettes 0.5 40 Smokeless Tobacco: Never Alcohol Use Standard Drinks/Week Comments Not Currently 0 (1 standard drink = 0.6 oz pur e alcohol) [facility] Utilities Answer Date Recorded In the [...] often do you attend jehovah's witness or shinto serv ices? Patient declined 08/03/2023 Do you [...] Total Score - Questions 1-9 19 01/12 [facility] - [...] Telephone Encounter - Tanika Martin RN - 03/24/2024 3:42 PM CST PCP: Wagner Byrne MD R DELIVERY SPECIALIST documented in this encounter Plan of Treatment Upcoming Encounters Date Type Department Care Team (Latest Contact Info) Description 10/29/2024 9:00 AM CDT Clinical Support [facility] - Cardiology - Brain #2 [place] [phone] Nurse, [facility] [place] 10/29/2024 9:30 AM CDT Office Visit [facility] - Cardiology - Brain #[address] [place] [address] Ruben Rodriguez MD [address] [facility], [address] [address] 10/30/2024 1:00 PM CDT Appointment [facility] Cardiology Services [address] [place] [address] Ruben Rodriguez MD [address] [address] Discharge Disposition: Discharged to home or Selfcare documented as of this encounter Goals Goal Patient Goal Type Associated Problems Recent Progress Patient-Stated? Author I am tired of feeling guilty about my [grief.] Behavioral Health Improving(01/2024 2:42 PM LABOR DELIVERY SPECIALIST) Yes Edda Vo, HUMAN FACTORS SCIENTIST Note: Goal/Objective: Decrease guilty thoughts about her care for her mother who is now . Anticipated Time Frame for Goal Completion: 6 months Goal Reviewed with: patient Readiness to change: Ready to change Department associated with goal: [facility] Steps [...] documented as of this encounter Care Teams Trader Fixed Income Relationship Specialty Start Date End Date Wagner Byrne MD [address] [place] [address] PCP - General Internal Medicine 11/25/23 Roshan Franco MD Consulting Physician Cardiovascular Disease - Cardiology 12/06/22 04/20/24 Caryn Briseno APRN, FRUIT FARMER #2 [facility], [address] [place] [address] Nurse Practitioner Cardiology 04/04/23 Nery Burrell MD PhD #1 [place] [address] Part Time Flexible Clerk Interventional Cardiology 04/04/23 Roc Whitehead MD #2 [place] [address] Consulting Physician Pulmonary Disease 02/15/23 Rafael Li MD #2 [facility], [address] [address] Consulting Physician Clinical Cardiac Electrophysiology 02/19/24 Ruben Rodriguez MD 2 [facility], [address] [address] Consulting Physician Cardiovascular Disease - Cardiology 08/06/24 documented as of this encounter
--- OUTSIDE RECORDS SUMMARY | 2024-10-27 09:07 | XMS_ITS | Encounter Summary ---
Author Organization [facility] Address [address] [place] [address] Phone Care Team Providers Care Superintendent Stevedoring Name Role Phone Enrique Smith MD Primary Care Provider [phone] Roshan Franco MD Unavailable Caryn Menezes TOBACCO BALER, JOURNEYMAN POWERHOUSE OPERATOR Unavailable + [phone] Nery Burrell MD PhD Unavailable [phone] Roc Whitehead MD Unavailable Wagner Byrne MD Primary Care Provider [phone] Rafael Li MD Unavailable Ruben Rodriguez MD Unavailable Reason for Visit * Reason Comments Medication Refill Encounter Details Date Type Department Care Team (Late st Contact Info) Description 03/28/2022 Refill [facility] #[address] [place] [phone] Enrique Smith MD #[address] [address] Medication Refill Social History Tobacco Use Types [...] suspected to have Coronavirus/COVID-19? No / Unsure 03/31/2022 12:59 PM BEHAVIORAL ASSISTANT documented as of this encounter Miscellaneous Notes * Telephone Encounter - Tanika Martin RN - 03/29/2022 8:10 AM CST NPT 03/28/22 - PDMP 02/27/22 - 14 days - last Rx by Dr Byrne (previous PCP) Medication failed the protocol, provider to review and approve the medication order if appropriate. Requested Prescriptions Pending Prescriptions Disp Refills clonazePAM (KlonoPIN) 1 MG Tablet [Pharmacy Med Name: CLONAZEPAM 1MG TABLET] 14 Tablet 0 Sig: TAKE 1 TABLET (1 MG TOTAL) BY MOUTH NIGHTLY Not Delegated - Clonazepam Protocol Failed - 03/28/2022 4:29 PM Failed - This refill cannot be delegated Failed - Active on medication list Passed - Visit with relevant provider in past 12 months or upcoming 90 days Recent Visits Date Type Provider Dept 03/28/22 Office Visit Enrique Smith MD [facility] Brain 02/09/22 Office Visit Bárbara Bergeron APRN, J[facility] Showing recent visits within past 365 days and meeting all other requirements Future Appointments No visits were found meeting these conditions. Showing future appointments within next 90 days and meeting all other requirements VIORAL ASSISTANT documented in this encounter Plan of Treatment Upcoming Encounters Date Type Department Care Team (Latest Contact Info) Description 10/29/2024 9:00 AM CDT Clinical Support [facility] - [facility] - Brain #2 [place] [address] Nurse, Brain Cardiology [place] 10/29/2024 9:30 AM CDT Office Visit [facility] - Brain #2 [place] [address] Ruben Rodriguez MD [address] [address] 10/30/2024 1:00 PM CDT Appointment [facility] Cardiology Services 1 [place] [address] Ruben Rodriguez MD [address] [address] Discharge Disposition: Discharged to home or Selfcare documented as of this encounter Visit Diagnoses Not on filedocumented in this encounter Additional Health Concerns Infection Onset Date Last Indicated Resolved Time COVID - 19 03/31/2022 03/31/2022 04/03/2022 8:08 AM BEHAVIORAL ASSISTANT Respiratory Rule Out - RPA 05/15/2022 05/15/2022 0 05/16/2022 3:14 PM BEHAVIORAL ASSISTANT COVID - 19 06/05/2022 06/05/2022 06/06/2022 8:01 AM BEHAVIORAL ASSISTANT Respiratory Rule Out - RPA 06/05/2022 06/06/2022 0 06/07/2022 2:53 PM BEHAVIORAL ASSISTANT COVID - 19 01/23/2023 01/23/2023 02/02/2023 12:1 6 AM CDT COVID - 19 04/02/2023 04/02/2023 04/12/2023 12:1 6 AM BEHAVIORAL ASSISTANT COVID - 19 04/21/2023 04/21/2023 05/01/2023 12:1 6 AM BEHAVIORAL ASSISTANT Assessment Noted Time PHQ-9 Depression Total Score: 0 02/10/20 11:00 AM CDT documented as of this encounter Care Teams Superintendent Stevedoring Relationship Specialty Start Date End Date Ernique Smith MD #2 [facility] [address] [place] [address] PCP - General Family Medicine 03/28/22 11/24/23 Wagner Byrne MD [address] [place] [address] PCP - General Internal Medicine 11/25/23 Roshan Franco MD #[address] [address] Consulting Physician Cardiovascular Disease - Cardiology 12/06/22 04/20/24 Caryn Briseno APRN, JOURNEYMAN POWERHOUSE OPERATOR #2 [facility], [address] [address] Nurse Practitioner Cardiology 04/04/23 Nery Burrell MD PhD #1 [place] [address] Learning Technologist Interventional Cardiology 04/04/23 Roc Whitehead MD #[address] [place] [address] Consulting Physician Pulmonary Disease 02/15/23 Rafael Li MD #[address] [address] Consulting Physician Clinical Cardiac Electrophysiology 02/19/24 Ruben Rodriguez MD [address] [facility], [address] [address] Consulting Physician Cardiovascular Disease - Cardiology 08/06/24 documented as of this encounter
--- OUTSIDE RECORDS SUMMARY | 2024-10-27 09:07 | XMS_ITS | Encounter Summary ---
Author Organization [facility] Address [address] [place] [address] Phone Care Team Providers Care Housing Court Judge Name Role Phone Enrique Smith MD Primary Care Provider [phone] Roshan Franco MD Unavailable Caryn Menezes CLIENT SERVICES ASSOCIATE, WINTER SPORTS MANAGER Unavailable + [phone] Nery Burrell MD PhD Unavailable [phone] Roc Whitehead MD Unavailable Wagner Byrne MD Primary Care Provider [phone] Rafael Li MD Unavailable Ruben Rodriguez MD Unavailable Reason for Visit * Reason Comments Medication Refill Encounter Details Date Type Department Care Team (Late st Contact Info) Description 05/22/2022 Refill [facility] #[address] [place] [address] Enrique Smith MD #[address] [address] Medication Refill Social History Tobacco Use Types [...] suspected to have Coronavirus/COVID-19? No / Unsure 05/15/2022 7:36 PM SERVICENOW ADMINISTRATOR DEVELOPER documented as of this encounter Miscellaneous Notes * Telephone Encounter - Tanika Martin RN - 05/22/2022 4:26 PM CST PRN medication requires review from provider Per nursing clinical judgement, provider to review and approve the medication(s) order(s) if appropriate. Requested Prescriptions Pending Prescriptions Disp Refills fluticasone (FLONASE) 50 MCG/ACT Suspension [Pharmacy Med Name: FLUTICASONE PROPIONATE 50MCG SUSPENSION] 16 mL 2 Sig: USE 2 SPRAYS IN EACH NOSTRIL ONCE DAILY Nasal Steroids Protocol Passed - 05/22/2022 11:00 AM Passed - Visit with relevant provider in past 12 months or upcoming 90 days Recent Visits Date Type Provider Dept 05/11/22 Office Visit Enrique Smith MD [facility] 04/11/22 Office Visit Bárbara Bergeron APRN, CNP [facility] 03/28/22 Office Visit Enrique Smith MD [facility] 02/09/22 Office Visit Bárbara Bergeron APRN, CNP [facility] Showing recent visits within past 365 days and meeting all other requirements Future Appointments Date Type Provider Dept 05/31/22 Appointment Enrique Smith MD [facility] 06/14/22 Appointment Enrique Smith MD [facility] Showing future appointments within next 90 days and meeting all other requirements rOPINIRole (REQUIP) 0.5 MG Tablet [Pharmacy Med Name: ROPINIROLE HCL 0.5MG TABLET] 30 Tablet 2 Sig: TAKE 1 TABLET BY MOUTH AT BEDTIME FOR 30 DAYS Antiparkinson Dopaminergics and COMT Protocol Passed - 05/22/2022 11:00 AM Passed - Visit with relevant provider in the past 9 months or upcoming 90 days Recent Visits Date Type Provider Dept 05/11/22 Office Visit Enrique Smith MD [facility] 04/11/22 Office Visit Bárbara Bergeron APRN, CNP [facility] 03/28/22 Office Visit Enrique Smith MD [facility] 02/09/22 Office Visit Bárbara Bergeron APRN, [facility] Showing recent visits within past 270 days and meeting all other requirements Future Appointments Date Type Provider Dept 05/31/22 Appointment Enrique Smith MD [facility] 06/14/22 Appointment Enrique Smith MD [facility] Showing future appointments within next 90 days and meeting all other requirements Passed - Blood pressure on record in past 12 months Clinician-entered: BP Readings from Last 3 Encounters: 05/18/22 150/86 05/11/22 120/72 04/24/22 130/80 Patient-entered: No data recorded Ventolin HFA 108 (90 Base) MCG/ACT Aerosol Solution [Pharmacy Med Name: VENTOLIN HFA AEROSOL SOLN] 18 g 2 Sig: INHALE 2 PUFFS INTO LUNGS EVERY 4 HOURS NEEDED FOR 30 DAYS. Short Acting Inhaled Beta-Agonists Protocol Passed - 05/22/2022 11:00 AM Passed - Visit with relevant provider in past 12 months or upcoming 90 days Recent Visits Date Type Provider Dept 05/11/22 Office Visit Enrique Smith MD [facility] 04/11/22 Office Visit Bárbara Bergeron APRN, CNP [facility] 03/28/22 Office Visit Enrique Smith MD [facility] 02/09/22 Office Visit Bárbara Bergeron APRN, [facility] Showing recent visits within past 365 days and meeting all other requirements Future Appointments Date Type Provider Dept 05/31/22 Appointment Enrique Smith MD [facility] 06/14/22 Appointment Enrique Smith MD [facility] Showing future appointments within next 90 days and meeting all other requirements albuterol (PROVENTIL, VENTOLIN) (2.5 MG/3ML) 0.083% Nebulizer Soln [Pharmacy Med Name: ALBUTEROL SULFATE 0.083% NEBULIZED SOLN] 360 mL 1 Sig: TAKE 3 ML (2.5 MG TOTAL) BY NEBULIZATION EVERY 6 (SIX) HOURS NEEDED FOR WHEEZING Short Acting Inhaled Beta-Agonists Protocol Passed - 05/22/2022 11:00 AM Passed - Visit with relevant provider in past 12 months or upcoming 90 days Recent Visits Date Type Provider Dept 05/11/22 Office Visit Enrique Smith MD [facility] Brain 04/11/22 Office Visit Bárbara Bergeron APRN, JET [facility] 03/28/22 Office Visit Enrique Smith MD [facility] 02/09/22 Office Visit áBrbara Bergeron APRN, WINTER SPORTS MANAGER [facility] Brain Showing recent visits within past 365 days and meeting all other requirements Future Appointments Date Type Provider Dept 05/31/22 Appointment Enrique Smith MD [facility] Brain 06/14/22 Appointment Enrique Smith MD [facility] Brain Showing future appointments within next 90 days and meeting all other requirements ICENOW ADMINISTRATOR DEVELOPER documented in this encounter Plan of Treatment Upcoming Encounters Date Type Department Care Team (Latest Contact Info) Description 10/29/2024 9:00 AM CDT Clinical Support [facility] - Cardiology - [place] #2 [place] [address] Nurse, [place] [facility] [place] 10/29/2024 9:30 AM CDT Office Visit [facility] Cardiology [facility] #2 [place] [address] Ruben Rodriguez MD [address] [address] 10/30/2024 1:[address] [facility]iology Services 1 [facility] [place] [address] Ruben Rodriguez MD 2 [facility] [address] [place] [address] Discharge Disposition: Discharged to home or Selfcare documented as of this encounter Visit Diagnoses Not on filedocumented in this encounter Additional Health Concerns Infection Onset Date Last Indicated Resolved Time COVID - 19 06/05/2022 06/05/2022 06/06/2022 8:01 AM SERVICENOW ADMINISTRATOR DEVELOPER Respiratory Rule Out - RPA 06/05/2022 06/06/2022 0 06/07/2022 2:53 PM SERVICENOW ADMINISTRATOR DEVELOPER COVID - 19 01/23/2023 01/23/2023 02/02/2023 12:1 6 AM CDT COVID - 19 04/02/2023 04/02/2023 04/12/2023 12:1 6 AM SERVICENOW ADMINISTRATOR DEVELOPER COVID - 19 04/21/2023 04/21/2023 05/01/2023 12:1 6 AM SERVICENOW ADMINISTRATOR DEVELOPER Assessment Noted Time PHQ-9 Depression Total Score: 0 02/10/20 11:00 AM CDT documented as of this encounter Care Teams Housing Court Judge Relationship Specialty Start Date End Date Enrique Smith MD #[address] [address] PCP - General Family Medicine 03/28/22 11/24/23 Wagner Byrne MD [address] [place] [address] PCP - General Internal Medicine 11/25/23 Roshan Franco MD [address] [address] Consulting Physician Cardiovascular Disease - Cardiology 12/06/22 04/20/24 Caryn Briseno APRN, WINTER SPORTS MANAGER #2 [facility] [place] [address] [place] [address] Nurse Practitioner Cardiology 04/04/23 Nery Burrell MD PhD #[address] [place] [address] Retirement Officer Interventional Cardiology 04/04/23 Roc Whitehead MD #2 [place] [address] Consulting Physician Pulmonary Disease 02/15/23 Rafael Li MD #[address] [address] Consulting Physician Clinical Cardiac Electrophysiology 02/19/24 Ruben Rodriguez MD [address] [address] Consulting Physician Cardiovascular Disease - Cardiology 08/06/24 documented as of this encounter
--- OUTSIDE RECORDS SUMMARY | 2024-10-27 09:07 | XMS_ITS | Clinical Summary ---
Author Organization [facility] Address [address] [place] [address] Care Team Providers Care Valve Inserter Name Role Phone Isreal Gonzalez MD Unavailable [phone] Wagner Byrne MD Primary Care Provider [phone] Allergies Active Allergy Reactions Criticality Noted Date Comments Aripiprazole Unknown Low 07/21/2024 Benztropine Unknown 12/21/2015 Divalproex Hallucinations Medium 10/01/2024 Doxycycline Vomiting Low 09/24/2020 Flu Vaccine 2010 (36 Mos+)(Pf) Dizziness High 09/12/2022 Fluconazole Unknown 09/24/2020 Haemophilus Influenzae Type B Other (See comments) Low 07/18/2017 Pt states i get paralysis from the flu shot Influenza Virus Vaccines Other (See comments) Medium 01/28/2022 Flu shot, caused arm paralysis, couldn't use arm for a year Ipratropium [place] Hallucinations High 08/05/2023 COMBIVENT Other Other (See comments) Low 09/18/2015 Flu shot, caused arm paralysis, couldn't use arm for a year Pregabalin Swelling Medium 05/15/2022 Venlafaxine Hallucinations Medium 10/01/2024 Medications aspirin 81 mg enteric coated tablet Take 1 tablet (81 mg total) by mouth daily Active furosemide (LASIX) 20 mg tablet Take 2 tablets (40 mg total) by mouth daily Active guaiFENesin ER (MUCINEX) 600 mg 12 hr tablet every 12 hours Ac tive cholecalciferol (VITAMIN D-3) 5,000 unit tablet 0.2 tablets (1,000 Units total) daily Active rOPINIRole (REQUIP) 0.5 mg tablet TAKE 1 TABLET BY MOUTH AT BEDTIME FOR 30 DAYS 30 tablet 14 Active naloxone (NARCAN) 4 mg/actuation spray,non-aeroso l Administer 1 spray into affected nostril(s) as needed for opioid reversal or respiratory depression Call 911. Administer a single spray in one nostril. Repeat every 3 minutes as needed if no or minimal response. 2 each Active metoprolol XL (TOPROL-XL) 100 mg 24 hr tablet Take 1 tablet (100 mg total) by mouth daily 30 tablet Active acetaminophen (TYLENOL) 500 mg tablet Take 1 tablet (500 mg total) by mouth every 6 (six) hours as needed for pain Active ranolazine ER (RANEXA) 500 mg 12 hr tablet Take 1 tablet (500 mg total) by mouth 2 (two) times a day Active ascorbic acid, vitamin C, 550 mg/1.1 gram (scoop) powder Take by mouth A ctive lidocaine (LIDODERM) 5 % Active nitroglycerin (NITROSTAT) 0.4 mg SL tabletIndication s:Chronic coronary microvascular dysfunction Place 1 tablet (0.4 mg total) under the tongue every 5 (five) minutes as needed for chest pain 24 tablet 3 Active apixaban (Eliquis) 5 mg tablet Take 1 tablet (5 mg total) by mouth 2 (two) times a day 180 tablet 14 Active amiodarone (PACERONE) 200 mg tablet Take 1 tablet (200 mg total) by mouth daily 90 tablet 3 Active azelastine (ASTELIN) 137 mcg (0.1 %) nasal spray Administer 1 spray into each nostril 2 (two) times a day Use in each nostril as directed 30 mL 14 Active albuterol 2.5 mg /3 mL (0.083 %) nebulizer solution USE 1 VIAL IN NEBULIZER 3 TIMES DAILY 90 mL 11 Active albuterol HFA (PROVENTIL HFA,VENTOLIN HFA,PROAIR HFA) 90 mcg/actuation inhaler INHALE 2 PUFFS INTO LUNGS EVERY 6 (SIX) HOURS NEEDED FOR WHEEZING 8.5 each Active Jardiance 10 mg tablet Take 1 tablet (10 mg total) by mouth daily 90 tablet 3 024 2024 Active diclofenac sodium (VOLTAREN) 1 % gelIndications:P ain Apply 4 g topically 4 (four) times a day 200 g 3 Active atorvastatin (LIPITOR) 40 mg tablet Take 1 tablet (40 mg total) by mouth daily 90 tablet 3 Active albuterol 2.5 mg /3 mL (0.083 %) nebulizer solution Take 3 mL (2.5 mg total) by nebulization every 6 (six) hours as needed for wheezing 75 mL 3 024 2024 Active spironolactone (ALDACTONE) 25 mg tablet TAKE 0.5 TABLETS BY MOUTH DAILY. 90 tablet 9 Active Entresto 24-26 mg tablet Take 1 tablet by mouth 2 (two) times a day 180 tablet 3 Active roflumilast (DALIRESP) 500 mcg tablet TAKE 1 TABLET (500 MCG TOTAL) BY MOUTH DAILY 30 tablet 3 Active fluticasone-umec lidin-vilanter (Trelegy Ellipta) 100-62.5-25 mcg inhaler Inhale 1 puff daily 180 each Active sodium chloride 1 gram tablet Take 1 tablet (1 g total) by mouth daily 180 tablet 4 Active azelastine (ASTELIN) 137 mcg (0.1 %) nasal spray Administer 1 spray into each nostril 2 (two) times a day Use in each nostril as directed 30 mL Active montelukast (SINGULAIR) 10 mg tablet Take 1 tablet (10 mg total) by mouth daily 90 tablet 3 025 2025 Active cyclobenzaprine (FLEXERIL) 10 mg tablet Take 1 tablet (10 mg total) by mouth 3 (three) times a day as needed for muscle spasms 90 tablet 3 Active predniSONE (DELTASONE) 10 mg tablet Take 0.5 tablets (5 mg) by mouth daily Active ondansetron (ZOFRAN) 8 mg tablet Take 1 tablet (8 mg total) by mouth every 8 (eight) hours as needed for nausea or vomiting 60 tablet 025 2024 Active ALPRAZolam (XANAX) 0.5 mg tablet TAKE 1 TABLET(0.5 MG) BY MOUTH EVERY NIGHT NEEDED FOR ANXIETY 30 tablet Active zolpidem (AMBIEN) 5 mg tablet TAKE 1 TABLET(5 MG) BY MOUTH EVERY NIGHT 30 tablet 2 Active prazosin (MINIPRESS) 2 mg capsule TAKE 1 CAPSULE BY MOUTH AT BEDTIME 100 capsule 1 Active turmeric root extract 500 mg tablet Take by mouth daily Active topiramate (TOPAMAX) 50 mg tablet TAKE 1 TABLET(50 MG) BY MOUTH TWICE DAILY 180 tablet Active fluticasone propionate (FLONASE) 50 mcg/actuation nasal spray USE 2 SPRAYS IN EACH NOSTRIL EVERY DAY 32 g Active naproxen (NAPROSYN) 500 mg tablet TAKE 1 TABLET(500 MG) BY MOUTH TWICE DAILY WITH MEALS 60 tablet [address] (PROTONIX) 40 mg EC tablet Take 1 tablet (40 mg total) by mouth daily 90 tablet 3 025 2025 Active ALPRAZolam (XANAX) 0.5 mg tablet Take 1 tablet (0.5 mg total) by mouth nightly as needed for anxiety 30 tablet 025 2024 Active oxyCODONE (ROXICODONE) 10 mg tabletIndication s:Pain Take 1 tablet (10 mg total) by mouth 3 (three) times a day as needed for pain 90 tablet 025 2024 Active fluticasone propionate (FLONASE) 50 mcg/actuation nasal spray USE 2 SPRAYS IN EACH NOSTRIL ONCE DAILY 16 g 14 021 2024 Discontinued methocarbamoL (ROBAXIN) 500 mg tablet Take 1 tablet (500 mg total) by mouth 3 (three) times a day 2024 Discontinued(D uplicate order) pantoprazole DR (PROTONIX) 40 mg EC tablet Take 1 tablet (40 mg total) by mouth daily 024 2024 Discontinued(R eorder) hydrOXYzine (ATARAX) 25 mg tabletIndication s:Bipolar affective disorder, currently depressed, moderate (HCC) Take 1 tablet (25 mg total) by mouth 2 (two) times a day as needed for itching 90 tablet 4 024 2024 Discontinued(D uplicate order) OLANZapine (ZyPREXA) 5 mg tablet Take 1 tablet (5 mg total) by mouth nightly 60 tablet 025 2024 Discontinued(D uplicate order) topiramate (TOPAMAX) 50 mg tablet Take 1 tablet (50 mg total) by mouth 2 (two) times a day 120 tablet 025 2024 Discontinued naproxen (NAPROSYN) 500 mg tablet Take 1 tablet (500 mg total) by mouth 2 (two) times a day with meals 60 tablet 1 [address] (DEPAKOTE) 500 mg EC tablet Take 1 tablet (500 mg total) by mouth 2 (two) times a day for 7 days, THEN 1 tablet (500 mg total) 3 (three) times a day. 194 tablet 025 2024 Discontinued(D uplicate order) venlafaxine XR (EFFEXOR-XR) 150 mg 24 hr capsule Take 1 capsule (150 mg total) by mouth daily Take with food. 90 capsule 4 025 2024 Discontinued(D uplicate order) oxyCODONE (ROXICODONE) 10 mg tabletIndication s:Pain Take 1 tablet (10 mg total) by mouth 3 (three) times a day as needed for pain 90 tablet 025 2024 Discontinued(R eorder) ALPRAZolam (XANAX) 0.5 mg tablet Take 1 tablet (0.5 mg total) by mouth nightly as needed for anxiety 30 tablet 025 2024 Discontinued Active Problems Problem Noted Date Diagnosed Date Essential tremor 08/07/2024 Assessment & Plan (08/07/2024 3:13 PM CDT): Not well controlled; has been having worsening symptoms, difficulty with holding utensils Unable to perform any activities Allergic reaction to gabapentin in the past Will start topiramate to help with management of tremors Encounter for Medicare annual wellness exam 05/2023 Assessment & Plan (04/13/2024 4:00 PM DIRECTOR STUDENT UNION): - Declines cologuard or colonoscopy, mammogram - Declines all vaccines due to previous vaccine injury - Current smoker- 0.5 PPD, started at age 7 yrs- 3 PPD at most- declines lung cancer screener Class 1 obesity due to exces s calories with serious comorbidity and body mass index (BMI) of 33.0 to 33.9 in adult 04/13/2024 Assessment & Plan (04/13/2024 4:38 PM DIRECTOR STUDENT UNION): - heart healthy, low-fat/high-fiber diet Chronic pain in right shoulder 04/13/2024 Assessment & Plan (04/13/2024 4:46 PM DIRECTOR STUDENT UNION): - Pt reports symptoms started as potential vaccine injury - declines PT d/t transportation difficulties - discussed referral to Plastics for evaluation of nerve injury vs orthopedics; pt would like to see ortho for now Chronic hypoxemic respiratory failure 02/05/2024 Hyperlipidemia 09/12/2022 Benign essential hypertension 09/12/2022 Assessment & Plan (10/17/2024 5:40 PM CDT): Stable, well controlled, blood pressure at goal; no chest pain pressure orthostatics ; spironolactone 12.5 mg daily Assessment & Plan (04/13/2024 4:40 PM DIRECTOR STUDENT UNION): - chronic, stable at goal of < 140/90 - Continue medications as above Hyponatremia 01/27/2022 Pneumonia due to COVID-19 virus 01/26/2022 CAD (coronary artery disease) 12/12/2021 Assessment & Plan (04/13/2024 4:34 PM DIRECTOR STUDENT UNION): - stable, no acute concerns - Continue medications as above, ASA 81 mg daily, atorvastatin 40 mg daily, Ranexa 500 mg b.i.d., nitro p.r.n. - Continue close follow-up cardiology Assessment & Plan (10/23/2023 2:17 PM CDT): Stable, well controlled, no chest pain, some improvement in cardiac function Continue ASA 81 mg daily, atorvastatin 40 mg daily, metoprolol 100 mg daily, Ranexa 500 mg b.i.d., spironolactone 12.5 mg daily Insomnia secondary to chronic pain 10/20/2021 Assessment & Plan (10/20/2021 3:50 PM CDT): Patient is unable to sleep, reports she cannot lie flat, or even sit for significant time due to miserable pain Causing insomnia; patient reports multiple stressors including medical implications for cardiac in spinal help; as well as planning for mother's [facility] Will start clonazepam 1 mg at bedtime to help with sleep initiation and reduce stress and anxiety Chronic nausea 05/26/2021 Assessment & Plan (05/26/2021 2:07 PM DIRECTOR STUDENT UNION): Patient reports episodes of nausea; unclear if due to acid reflux, mechanical obstruction score elevated levels of anxiety Continue ondansetron p.r.n. for severe episodes of nausea Spinal stenosis of lumbar re gion with neurogenic claudication 04/11/2021 Assessment & Plan (10/17/2024 5:40 PM CDT): Continues to have stiffness with movement, worse on side of neck Prior injury Continue oxycodone 10 mg t.i.d. p.r.n. for severe pain Assessment & Plan (10/23/2023 2:17 PM CDT): Not well controlled; continues to have significant pain, difficulty with walking Referral to pain management; continue oxycodone 10 mg p.r.n. Assessment & Plan (10/20/2021 3:49 PM CDT): Not well controlled, continues to have significant pain and discomfort associated with low back pain Patient is following her surgery; scheduling for surgical interventions Patient follows with pain management for management of pain due to low back pain Currently Xtampza ER 13.5 mg b.i.d.; oxycodone 10 mg b.i.d. as needed for breakthrough pain Spondylosis of lumbar region without myelopathy or radiculopathy 04/11/2021 Assessment & Plan (10/23/2023 2:17 PM CDT): See management as above Myalgia 04/11/2021 Physical deconditioning 04/11/2021 Chronic bilateral low back pain with bilateral s ciatica 03/14/2021 Assessment & Plan (08/07/2024 3:13 PM CDT): Continues to have chronic pain, limited in some activities Relief with medications Continue oxycodone 10 mg t.i.d. Assessment & Plan (04/29/2021 4:04 PM DIRECTOR STUDENT UNION): Patient follows with pain management, planning for intervention; though minimally invasive intervention currently deferred due to other responsibilities Patient to continue on oxycodone 10 t.i.d., gabapentin Radiculopathy, lumbosacral region 03/14/2021 Assessment & Plan (04/13/2024 4:14 PM DIRECTOR STUDENT UNION): - Chronic, poorly controlled - Start duloxetine 60 mg daily - Continues on 0 2 on 10 mg t.i.d. - Referral to pain management for evaluation of treatment options Assessment & Plan (10/23/2023 2:16 PM CDT): Not well controlled, continues to have significant pain, not a candidate for surgery due to current cardiac health Patient reports no significant relief with Xtampza ER; continues to have pain that radiates down both legs No neuropathy and pain Significant spasms and back; some relief with using motorized wheelchair; no significant quality of life Continue oxycodone 10 mg t.i.d.; refer to pain management for evaluation of treatment options, methocarbamol 500 mg t.i.d. Moderate tobacco use disorder 10/13/2020 Assessment & Plan (09/02/2024 3:25 PM CDT): Not well controlled; continues to smoke about 10 cigarettes per day; encouraged patient and caregiver to work on strategies to help continue to work on reducing and stopping smoking Assessment & Plan (04/13/2024 4:02 PM DIRECTOR STUDENT UNION): - Current smoker averaging 0.5 PPD, started at age 7 yrs- usage of 3 PPD in the past at heavies usage - declines assistance with smoking cessation, discussed risks - Continue to evaluate readiness to quit - declines lung cancer screener Assessment & Plan (01/26/2021 3:53 PM CDT): Not well controlled, continues to have tobacco use approximately 1 pack per day, patient is ready to quit Patient is working with self in mother to help quit; encouraged patient to continue working with her mother for long-term relief Leukocytosis 02/04/2020 Chest pain 02/03/2020 Assessment & Plan (02/03/2020 6:35 PM CDT): Chest pain more likely from anxiety but does have known cardiomyopathy with low EF and paroxysmal atrial fibrillation. Initial troponin and EKG with no acute changes. Will monitor overnight. Continue to trend troponin levels. Anxiety 02/03/2020 Assessment & Plan (09/02/2024 3:25 PM CDT): Stable, controlled; constant anxiety; especially chronic medical conditions, psychiatric and recent hospital father Encouraged patient to follow-up with counts side to assessment Continue prazosin 2 mg nightly Assessment & Plan (08/07/2024 3:12 PM CDT): Not well controlled, acutely worsened; patient reports father recently ; causing significant tremors Will continue Xanax 0.5 mg p.r.n. to assist with acute anxiety; continue duloxetine 60 mg daily; start Zyprexa Assessment & Plan (04/13/2024 4:08 PM DIRECTOR STUDENT UNION): - Chronic, poorly controlled - Start paroxetine and switch to duloxetine 60 mg daily (chronic pain) - Referral to Psychiatry - Notify office if concerns with mood behavior Assessment & Plan (05/26/2021 2:06 PM DIRECTOR STUDENT UNION): Patient has multiple stressors at home, including [...] per night Encouraged patient to work with social studies department chair as well as department of aging to get support from mother Continue Paxil 20 mg, propanolol 40 mg persistent since in management of generalized anxiety disorder Assessment & Plan (02/03/2020 6:36 PM CDT): Patient reports known bipolar disorder and schizophrenia. Has had increased stress recently. Stop taking her psychiatric medicines 2 weeks ago. Does have stressors aside from current pandemic. Will allow alprazolam as needed while here. Will not restart psychiatric medications at the present time. Will need to follow-up with psychiatry as an outpatient. 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 Assessment & Plan (09/02/2024 3:24 PM CDT): Not well controlled; patient reports significant depression; per caregiver patient also has been decreased motivation to even get out of bed Patient reports prior relief with previous medications Will transition from duloxetine to venlafaxine 150 mg daily; start Depakote 500 mg b.i.d., increase to t.i.d. dose Assessment & Plan (08/07/2024 3:12 PM CDT): Not well controlled; has severe anxiety attacks, some worsening depression, start Zyprexa 5 mg daily, duloxetine 60 mg daily, Assessment & Plan (04/13/2024 4:12 PM DIRECTOR STUDENT UNION): - Chronic, poorly controlled - Start paroxetine and switch to duloxetine 60 mg daily (chronic pain) - she stopped taking latuda d/t adverse effects, not currently on mood stabilizer- discussed symptoms of sharlene/report concerns with mood/behavior - Requests referral to new psychiatrist Assessment & Plan (10/23/2023 2:15 PM CDT): Follows with psychiatry; had acute worsening of anxiety and depression after mother Continues to have significant stressors related to her nerves Continue lurasidone 60 mg daily, paroxetine 40 mg daily Assessment & Plan (04/29/2021 4:03 PM DIRECTOR STUDENT UNION): Stable, Not well controlled, patient continues to have ups and Downs; multiple stressors including mother with possible diagnosis of dementia Encouraged patient continue with counseling; continue BuSpar 7.5 mg, Depakote 500 mg t.i.d., Paxil 20 mg daily Assessment & Plan (01/26/2021 3:52 PM CDT): Stable, well controlled Patient continues to follow with therapist for discussing symptoms Continue on paroxetine 10 mg and Depakote 250 mg Assessment & Plan (11/05/2020 12:58 PM CDT): Currently in depressed mood; having difficulty with mother -will have talk to counselor today for acute interventions -continue to follow with psychiatry to manage medications Assessment & Plan (02/03/2020 6:38 PM CDT): Reports was having side effects from medications and also lost her psychiatrist as he moved his practice [place]. Has not been on medication and will not plan on restarting tonight. Will monitor. Alprazolam as needed for now. Atrial fibrillation Assessment & Plan (10/17/2024 5:40 PM CDT): Stable, rate controlled; continue Eliquis 5 mg b.i.d., Entresto, metoprolol 100 mg daily Assessment & Plan (08/07/2024 3:12 PM CDT): Stable, well controlled, rate controlled Continue metoprolol 100 mg daily, Eliquis 5 mg b.i.d. Assessment & Plan (04/13/2024 4:32 PM DIRECTOR STUDENT UNION): - Chronic, rate controlled, irregular rhythm - Continue amiodarone 200 mg daily, Eliquis 5 mg b.i.d. - Routine TSH monitoring, yearly chest x-ray to assess for amiodarone toxicity - Cardiology has referred to EP for further eval Assessment & Plan (10/23/2023 2:18 PM CDT): Rate controlled, irregular rhythm Continue amiodarone 200 mg daily, Eliquis 5 mg b.i.d. Assessment & Plan (05/26/2021 2:08 PM DIRECTOR STUDENT UNION): Stable, well controlled; rate controlled No evidence of severe bleeding or bruising on Eliquis Continue propanolol and Eliquis 5 mg b.i.d. Assessment & Plan (04/29/2021 4:01 PM DIRECTOR STUDENT UNION): Stable, well controlled; rate controlled though patient reports significant fatigue Follows with Cardiology Continue digoxin 125 mcg, Eliquis 5 mg, propranolol 40 mg b.i.d. Assessment & Plan (01/26/2021 3:51 PM CDT): Stable, rate controlled On Eliquis 5 mg daily Assessment & Plan (11/05/2020 12:56 PM CDT): Stable, rate controlled; no bleeding or bruising on Apixaban -continue with anticoagulation Assessment & Plan (02/03/2020 6:38 PM CDT): Known paroxysmal atrial fibrillation. Did recently have a telemedicine visit with her cashiers supervisor. Presently stable. Per recent cardiology note, patient on Eliquis at home and will continue. Continue ASA, atorvastatin and digoxin. CHF (congestive heart failure) Assessment & Plan (04/13/2024 4:31 PM DIRECTOR STUDENT UNION): - Chronic, symptoms overall stable - TTE (08/04/2023): LVEF 25-30%, severe LV dysfunction, global hypokinesis, grade 2 diastolic dysfunction (decreased from prior) - Continue Entresto 24-26 mg b.i.d., metoprolol XL 100 mg daily, Lasix 40 mg daily, Jardiance 10 mg daily, spironolactone 25 mg daily - Follow-up with cardiology scheduled in 06/2024, consider sooner appt if worsening symptoms - Monitor weight daily, fluid status Assessment & Plan (05/26/2021 2:08 PM DIRECTOR STUDENT UNION): Stable, well controlled; no Evidence of exacerbation or fluid overload Continue atorvastatin 40 mg, digoxin 125 mcg, Eliquis 5 mg b.i.d., furosemide 20 mg daily Assessment & Plan (04/29/2021 4:02 PM DIRECTOR STUDENT UNION): Stable well controlled, no evidence of peripheral edema or pulmonary edema No orthopnea Follows with Cardiology Continue propranolol 40 mg b.i.d., lisinopril 40 mg daily, furosemide 20 mg daily for edema, continue ASA 81 mg and isosorbide mononitrate for angina Assessment & Plan (01/26/2021 3:51 PM CDT): Stable, no evidence of volume overload; no peripheral edema, no fluid in the lungs orthopnea Continue to monitor Continue atorvastatin 40 mg, ASA 81 mg, digoxin 125 mcg, furosemide 20 mg, lisinopril 40 mg, propranolol 40 mg Assessment & Plan (11/05/2020 12:54 PM CDT): Stable, well controlled, no evidence of volume overload; -Continue Propranolol 40 mg, Lisinopril 30 mg, Lasix 20 mg daily -Digoxin for symptom control Assessment & Plan (02/03/2020 6:39 PM CDT): Has pacemaker. Known EF of 20-25% in 2016. Stable at present time with no exacerbation. Will continue cardiac medications and monitor. Hypertension Assessment & Plan (01/26/2021 3:52 PM CDT): Stable, blood pressure at target today Continue medications above list for heart failure Assessment & Plan (11/05/2020 12:55 PM CDT): Stable, well controlled at target today -continue medications as noted for HF Assessment & Plan (02/03/2020 6:39 PM CDT): Blood pressure presently stable. Will continue home medications and monitor. COPD (chronic obstructive pulmonary disease) Assessment & Plan (10/17/2024 5:39 PM CDT): Stable, well controlled, patient continues to use some oxygen; continue albuterol PRN; Trelegy Ellipta 1 puff daily; w roflumilast 500 mcg day Assessment & Plan (09/02/2024 3:25 PM CDT): Stable, continues on 3-4 L oxygen as needed Encouraged patient to continue with daily breathing treatments not missed doses Continue Trelegy Ellipta 1 puff daily, roflumilast 500 mg daily Assessment & Plan (04/13/2024 4:37 PM DIRECTOR STUDENT UNION): - Chronic, symptoms stable - most PFTs showed severe airway obstruction, severe decrease in diffusion capacity, minimal decrease in total lung capacity - Continue supplemental O2 p.r.n., 3 L/min nightly - Continue Trelegy, albuterol p.r.n. - Discussed smoking cessation - Follow-up with pulmonology Assessment & Plan (10/23/2023 2:18 PM CDT): Stable, well controlled, breathing has been good for patient's; continues to use oxygen as needed, 3 L at night Continue Trelegy Ellipta daily Assessment & Plan (05/26/2021 2:09 PM DIRECTOR STUDENT UNION): Continues to use 2 L of oxygen by nasal cannula Continue Trelegy Ellipta, albuterol p.r.n. for exacerbation Assessment & Plan (04/29/2021 4:04 PM DIRECTOR STUDENT UNION): Stable, well controlled; continue Trelegy q.d., been told in p.r.n.,daliresp 500 mcg daily Assessment & Plan (01/26/2021 3:53 PM CDT): Stable well controlled, continues to use oxygen at night but has no daytime need for oxygen Continue Daliresp 500 mcg, Trelegy Ellipta, once daily; Proventil in as needed Assessment & Plan (11/05/2020 12:59 PM CDT): Stable, well controlled on current medications -continue Trelegy Ellipta, Albuterol PRN for exacerbation -Prednisone and rolflumilast for treatment of advanced COPD Assessment & Plan (02/03/2020 6:39 PM CDT): Associated with chronic respiratory failure on 2 L. Remains on her home 2 L at this time. Will continue inhalers and monitor. Resolved Problems Problem Noted Date Diagnosed Date Resolved Date Anxiety and depression 04/13/202404/13 Assessment & Plan (04/13/2024 4:07 PM DIRECTOR STUDENT UNION): - Chronic, poorly controlled - Start paroxetine and switch to duloxetine 60 mg daily (chronic pain) - Referral to Psychiatry - Notify office if concerns with mood behavior Encounters Date Type Department Care Team Description 10/14/2024 [facility]phone [facility] [address] [place] [address] Shira Garnett Chart Review ([employer] med adherence) 10/10/2024 Nurse Triage [facility] [address] [address] Wagner Byrne MD 10/09/2024 Telephone [facility] [place] [phone] Wagner Byrne MD Medical Question/Miscellaneou s 10/01/2024 9:45 AM CDT Office Visit [facility] [address] [address] Wagner Byrne MD Bipolar affective disorder, currently depressed, moderate (HCC) (Primary Dx); Other emphysema (HCC); Benign essential hypertension; Spinal stenosis of lumbar region with neurogenic claudication; Longstanding persistent atrial fibrillation (HCC) 09/29/2024 Telephone [facility] [address] [address] Wagner Byrne MD Appointment Request 09/02/2024 9:00 AM CDT Office Visit [facility] [address] [address] Wagner Byrne MD Bipolar affective disorder, currently depressed, moderate (HCC) (Primary Dx); Other emphysema (HCC); Moderate tobacco use disorder; Anxiety 08/21/2024 Telephone [facility] [address] [address] Wagner Byrne MD 08/07/2024 ACO Outreach [facility] Accountable Care Organization [address] [place] [address] Carlyn Gray LCSW 07/30/2024 9:15 AM CDT Office Visit [facility] at [address] [place] [phone] Emily Frye, BUSINESS SUPERVISOR Suspected COVID-19 virus infection (Primary Dx); Acute non-recurrent pansinusitis; Dyspnea, unspecified type 07/29/2024 Telephone [facility] [address] [place] [address] Wagner Byrne MD Symptom Based Call from Last 3 Months Immunizations Immunization Administration Dates Next Due Influenza, Unspecified 03/02/2023(Deferr ed: Patient Refused),11/30/2021(Deferred: Patient Refused),10/20/2021(Deferred: Patient Refused),02/11/2021(Deferred: Patient Refused),05/14/2020(Deferred: Patient Refused),05/14/2020(Deferred: Patient Refused),02/12/2020(Deferred: Patient Refused),05/14/2019(Deferred: Patient Refused) Tdap 10/08/2019 Surgical History Surgery Date Site/Laterality Comments COLON SURGERY Right hemicolectomy INSERT / REPLACE / REMOVE PACEMAKER 05/14/2013 - 05/13/2014 insert pacemaker Medical History Medical History Date Comments Bipolar disorder (HCC) Hypertension COPD (chronic obstructive pulmonary disease) (HC C) CHF (congestive heart failure) (HCC) Hemothorax MS (myocardial infarction) (HCC) Atrial fibrillation (HCC) History of COPD Pacemaker PONV (postoperative nausea and vomiting) Motion sickness Family History Medical History Relation Name Comments Cancer Brother COPD Maternal Grandmother COPD Mother Heart attack Mother Heart disease Mother COPD Mother's Sister Cancer Paternal Grandmother Relation Name Status Comments Brother Alive Father Alive Maternal Grandmother Mother Alive Mother's Sister Paternal Grandmother Son Alive Social History Tobacco Use Types Packs/Day Years Used Date Smoking Tobacco: Every Day Cigarettes Smokeless Tobacco: Never Tobacco Cessation:Ready to Q uit: Yes; Counseling Given: Yes Comments:ABOUT 10/15 CIGARETTES Alcohol Use Standard Drinks/Week Comments Not Currently 0 (1 standard drink = 0.6 oz pur e alcohol) [facility] Utilities Answer Date Recorded In the past 12 months has [employer], gas, oil, or water [employer] threatened to shut off services in your [...] often do you attend chur ch or roman catholic services? Never 06/27/2024 Do you belong to any clubs o r organizations such as druze groups, unions, fraternal or athletic groups, or [...] any time in the past 12 m [facility], were you homeless or living in a care home (including now)? No 06/27/2024 Comments No Sex and Gender Information Value Date Recorded Sex Assigned at Not on file Legal Sex Female 7:04 AM DIRECTOR STUDENT UNION Gender Identity Not on file Sexual Orientation Not on file Obstetrics History Last Filed Vital Signs Vital Sign Reading Time Taken Comments Blood Pressure 90/40 10/01/2024 9:43 AM CDT Pulse 62 10/01/2024 9:43 AM CDT Temperature 36.4 C (97.5 F) 10/01/2024 9:43 AM CDT Respiratory Rate 20 10/01/2024 9:43 AM CDT Oxygen Saturation 87% 10/01/2024 9:43 AM CDT Inhaled Oxygen Concentration - - Weight 92.1 kg (203 lb) 10/01/2024 9:43 AM CDT Height 167.6 cm (5' 6) 10/01/2024 9:43 AM CDT Body Mass Index 32.77 10/01/2024 9:43 AM CDT Plan of Treatment Health Maintenance Due Date Last Done Comments Breast Cancer Screening-Mammogram 1965 Cervical Cancer Screening 1965 Colon Cancer Screening-Colonoscopy 1965 Depression Screening 03/27/2025 03/27/2024, 03/13/2024, 03/13/2024, Additional history exists Regular Well Visit/Exam 18-64 03/27/2025 03/27/2024 Pneumococcal vaccine <65 (1 of 2 - PCV) 04/08/2025 Postponed from 12/10/1983 (Patient declined, but will receive in the future) Zoster Vaccine (1 of 2) 04/22/2025 Post poned from 2014 (Patient declined, but will receive in the future) DTaP/Tdap/Td Vaccine (2 - Td or Tdap) 10/07/2029 10/08/2019 Colon Cancer Screening-FIT Discontinued 09/25/2015 Hepatitis C Screening Completed 09/28/2015 Hepatitis B Screening Completed 12/11/2023 Influenza Vaccine Discontinued Goals Goal Patient Goal Type Associated Problems Recent Progress Patient-Stated? Author ACO SW Goal - Patient can identify and utilize mental health community resources ACO Care Management Carlyn Levy, EFFERVESCENT SALTS COMPOUNDER Note: Problem: Mental Health Resources needed Interventions: - Assess for mental health resource needs. - Assess readiness for change. - Provide patient with MH Resource options. - Provide information regarding insurance coverage of specific resources and levels of care. - Follow-up to assess barriers to establishing connection with resources, if applicable. Medical Devices Implanted Type Area Ornamental Metal Erector Apprentice Device Identifier Shelf Expiration Date Model / Serial / Lot Pacemaker Pacemaker Left: Chest Procedures Procedure Name Priority Date/Time Associated Diagnosis Comments POC INFLUENZA A/B, COVID-19 ANTIGEN Routine 07/30/2024 9:51 AM CDT Suspected COVID-19 virus infection HEPATITIS PANEL, ACUTE Routine 09/28/2015 10:51 AM CDT OCCULT BLOOD, FECAL (FIT) Routine 09/25/2015 9:20 PM CDT from Last 3 Months or Most Recently Relevant to Health Maintenance Results * POC Influenza A/B, COVID-19 antigen (07/30/2024 9:51 AM CDT) Pathologist [facility] Influenza A Ag, POC Negative Negative [facility] Influenza B Ag, POC Negative Negative [facility] COVID-19 Ag POC Presumptive Negative Presumptive Negative, Invalid [facility] Nasal 07/30/2024 9:51 AM CDT Emily Frye NP POINT OF CARE TEST ORDERAB LES Final Result [facility] [address] [place] [address], [facility] * Hepatitis panel, acute (09/28/2015 10:51 AM CDT) Pathologist [facility] HepBsAg NONREACT NONREACTIVE Comment: Siemens CentaurXP using MAYNOR (chemiluminescent immunoassay) technology. NONREACTIVE: IgM antibodies to Hepatitis B Surface antigen not detected. REACTIVE: IgM antibodies to Hepatitis B Surface antigen detected. Reactive results will be confirmed by neutralization testing. HBsAb qn 15.49 mIU/mL Comment: Siemens CentaurXP using MAYNOR (chemiluminescent immunoassay) technology. 9.99 IU/L or less.....NONREACTIVE: IgM antibodies to Hepatitis B Surface antibody are not detected. 10.00 IU/L or greater..REACTIVE: IgM antibodies to Hepatitis B Surface antibody are detected. Hep B core IgM NONREACT NONREACTIVE 6 12:24 PM CDT [facility] HISTORICAL RESULTS Comment: Siemens CentaurXP using MAYNOR (chemiluminescent immunoassay) technology. NONREACTIVE: IgM antibodies to Hepatitis B Core antigen not detected. EQUIVOCAL: IgM antibodies to Hepatitis B Core antigen may or may not be present. Obtain a new specimen and retest. REACTIVE: IgM antibodies to Hepatitis B Core antigen detected. Hep A IgM NONREACT NONREACTIVE Comment: Siemens CentaurXP using MAYNOR (chemiluminescent immunoassay) technology. NONREACTIVE: IgM antibodies to Hepatitis A not detected. This does not exclude possibility of exposure to Hepatitis A or early acute infection. EQUIVOCAL:IgM antibodies to Hepatitis A may or may not be present. Suggest recollection and retest. REACTIVE: Antibodies to Hepatitis A detected. Hep C Ab NONREACT NONREACTIVE Comment: Siemens CentaurXP using MAYNOR (chemiluminescent immunoassay) technology. NONREACTIVE: Antibodies to Hepatitis C not detected. This does not exclude early acute Hepatitis C infection, possibility of exposure to Hepatitis C, antibodies below detection limit, or to lack of antibody reactivity to the antigen used in this assay. EQUIVOCAL: Antibodies to Hepatitis C may or may not be present. Sample to be confirmed by real-time PCR method. REACTIVE: Antibodies to Hepatitis C detected. 09/28/2015 10:5 1 AM CDT 09/28/2015 10:56 AM CDT Allen Blankenship MD LAB MICROBIOLOGY - GENERAL OR DERABLES Final Result [facility] HISTORICAL RESULTS * Occult blood, fecal non neoplasm screening (09/25/2015 9:20 PM CDT) Stool Occult Blood NEGATIVE NEGATIVE 09/25/2015 9:20 PM CDT 09/25/2015 9:41 PM CDT Narrative [facility] HISTORICAL RESULTS - 09/25/2015 10:06 PM CDT Collected By NL Jennifer Parrish MD LAB BODY FLUIDS AND STOOLS OR DERABLES Final Result [facility] HISTORICAL RESULTS from Last 3 Months or Most Recently Relevant to Health Maintenance Insurance MEDICARE [facility] MEDICARE AETNA [facility] [employer] MEDICARE HMO ID[place] Advance Directives For more information, please contact: [phone] Documents on File Type Date Recorded Patient Nephrology Social Worker Expl anation Power of Bag Machine Tender 01/26/2021 5:19 PM ADVANCE DIRECTIVE 09/22/2015 12:00 AM DNR * Comfort Care Only - DO NOT Resuscitate (Latest Code Status on File) Date Activated Date Inactivated Comments 01/27/2022 12:50 AM 01/30/2022 6:05 PM * Full Code Date Activated Date Inactivated Comments 01/26/2022 8:21 AM 01/27/2022 12:50 AM * Full Code Date Activated Date Inactivated Comments 02/03/2020 8:00 PM 02/04/2020 6:19 PM * LIMITED - No CPR Date Activated Date Inactivated Comments 02/03/2020 7:05 PM 02/03/2020 8:00 PM Question Answer Comments Provide aggressive medical m anagement before a full cardiopulmonary arrest occurs. Use antibiotics, IV Fluids, and medical treatment unless specifically selected below: No intubationNo non-invasive ventilationNo cardioversionNo vasopressors Care Teams Valve Inserter Relationship Specialty Start Date End Date Wagner Byrne MD [address] [place] [address] PCP - General Family Medicine 10/17/23 Isreal Gonzalez MD [address] [facility] [address] [place] [address] Referring Physician Internal Medicine 02/04/20
--- OUTSIDE RECORDS SUMMARY | 2024-10-27 09:07 | XMS_ITS | Encounter Summary ---
Author Organization [facility] Facility Care Team Providers Care Duty Manager Name Role Phone Rocky Harvey MD Primary Care Provider Whit Horn NP Primary Care Provider [phone] Isreal Gonzalez MD Unavailable [phone] Wagner Byrne MD Primary Care Provider [phone] Enrique Smith MD Primary Care Provider [phone] Wagner Byrne MD Primary Care Provider [phone] Carlyn Gray [facility] Unavailable [phone] Encounter Details Date Type Department Care Team (Latest Contact Info) Description 10/04/2015 Orders Only [facility] CLINCONV Provider, MD Navya [address] [place] [address] Social History Tobacco Use Types Packs/Day Years Used Date Smoking Tobacco: Never Assessed Comments Unknown Sex and Gender Information Value Date Recorded Sex Assigned at Not on file Legal Sex Female 7:04 AM PUBLIC SPEAKING INSTRUCTOR Gender Identity Not on file Sexual Orientation Not on file documented as of this encounter Plan of Treatment Not on file documented as of this encounter Procedures Procedure Name Priority Date/Time Associated Diagnosis Comments CARDIOLOGY REPORT 10/04/2015 12: 00 AM CDT CARDIOLOGY REPORT 10/04/2015 12: 00 AM CDT documented in this encounter Results * CARDIOLOGY REPORT (10/04/2015 12:00 AM CDT) Anatomical Region Laterality Modality Other Narrative 10/04/2015 12:00 AM CDT Ordered by an unspecified provider. us Historical Provider [facility] CARDIAC SERVICES PROCE DURES Final Result * CARDIOLOGY REPORT (10/04/2015 12:00 AM CDT) Anatomical Region Laterality Modality Other Narrative 10/04/2015 12:00 AM CDT Ordered by an unspecified provider. 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 Specimen: STOOL Site: 10/01/2015 10/01/2015 12/29/2020 5:00 AM CDT COVID: Suspected 02/23/2021 02/23/2021 02/23/2021 7:01 PM CDT COVID: Suspected 01/26/2022 01/26/2022 01/26/2022 5:49 AM CDT COVID19 Comment:Patient has no documented SpO2 consistently < 94%, is not immunocompromised and does not require supplemental oxygen above her home baseline. Based on a S&S onset date of 01/25/22 plus no need for supplemental oxygen this patient is first eligible for COVID: Recovered evaluation on 02/05/22. If the SpO2 consistently drops below 94% and supplemental oxygen is initiated the COVID: Recovered evaluation date changes to 02/10/22. THOM Avina 01/26/2022 01/26/2022 02/07/2022 3:05 AM C DT COVID: Recovered Comment:Added based on recent COVID infection. 02/07/2022 03/03/2022 06/07/2022 3:[address] COVID: Suspected 07/30/2024 07/30/2024 07/30/2024 9:52 AM CDT documented as of this encounter Care Teams Duty Manager Relationship Specialty Start Date End Date Rocky Harvey MD PCP - General 04/24/18 01/23/19 Whit Macias NP PCP - General 01/24/19 09/22/20 Wagner Byrne MD [address] [place] [address] PCP - General Family Medicine 09/23/20 04/27/22 Enrique Smith MD [address] [address] PCP - General Family Medicine 04/28/22 10/16/23 Wagner Byrne MD [address] [place] [address] PCP - General Family Medicine 10/17/23 Isreal Gonzalez MD [address] [address] Referring Physician Internal Medicine 02/04/20 Carlyn Gray, [address] [place] [address] Stenotype Machine Operator 06/25/24 07/23/24 documented as of this encounter
--- OUTSIDE RECORDS SUMMARY | 2024-10-27 09:07 | XMS_ITS | Encounter Summary ---
Author Organization [facility] Address [address] [facility] [place] [address] Phone Care Team Providers Care Adapted Physical Education Aide Name Role Phone Roshan Franco MD Unavailable Caryn Menezes APRN, STUDENT AFFAIRS DEAN Unavailable [phone] Nery Burrell MD PhD Unavailable [phone] Roc Whitehead MD Unavailable Wagner Byrne MD Primary Care Provider [phone] Rafael Li MD Unavailable Ruben Rodriguez MD Unavailable Reason for Visit * Reason Comments Medication Refill Encounter Details Date Type Department Care Team (Late st Contact Info) Description 02/05/2024 Refill [facility] Medical Group - Family Medicine [facility] [address] [place] [address] Enrique Smith MD #[address] [address] Medication Refill Social History Tobacco Use Types [...] declined 08/03/2023 How often do you attend episcopalian or baptism serv ices? Patient declined 08/03/2023 Do you belong to any clubs o r organizations such as episcopalian groups, unions, fraternal or athletic groups, or [...] Total Score - Questions 1-9 19 01/12 [facility] - Occupational [...] Telephone Encounter - Tanika Martin RN - 02/05/2024 10:23 AM CDT PCP is Dr Byrne documented in this encounter Plan of Treatment Upcoming Encounters Date Type Department Care Team (Latest Contact Info) Description 10/29/2024 9:00 AM CDT Clinical Support [facility] - [facility]iology - [place] #[address] [facility] [place] [phone] NurseBrain Cardiology [place] 10/29/2024 9:30 AM CDT Office Visit [facility] Medical Group - Cardiology - [place] [address] [place] [address] Ruben Rodriguez MD [address] [facility], [address] [address] 10/30/2024 1:00 PM CDT Appointment [facility] Cardiology Services [address] [place] [address] Ruben Rodriguez [facility] [address] [place] [address] Discharge Disposition: Discharged to home or Selfcare documented as of this encounter Goals Goal Patient Goal Type Associated Problems Recent Progress Patient-Stated? Author I am tired of feeling guilty about my [grief.] Behavioral Health Improving(01/2024 2:42 PM TELEHEALTH CASE MANAGER) Yes Edda Vo, RESEARCH FELLOW Note: Goal/Objective: Decrease guilty thoughts about her care for her mother who is now . Anticipated Time Frame for Goal Completion: 6 months Goal Reviewed with: patient Readiness to change: Ready to change Department associated with goal: [facility] BEHAVIORAL HE[facility] SERVICES Steps to [...] documented as of this encounter Care Teams Adapted Physical Education Aide Relationship Specialty Start Date End Date Wagner Byrne MD [address] [place] [address] PCP - General Internal Medicine 11/25/23 Roshan Franco MD Consulting Physician Cardiovascular Disease - Cardiology 12/06/22 04/20/24 Caryn Briseno, LINING CLOSER, STUDENT AFFAIRS DEAN #2 [facility], [address] [place] [address] Nurse Practitioner Cardiology 04/04/23 Nery Burrell MD PhD #1 [place] [address] Infection Prevention Specialist Interventional Cardiology 04/04/23 Roc Whitehead MD #2 [facility] [address] Consulting Physician Pulmonary Disease 02/15/23 Rafael Li MD [facility]2 [facility], [facility] [address] [place] [address] Consulting Physician Clinical Cardiac Electrophysiology 02/19/24 Ruben Rodriguez MD 2 [facility], [facility] [address] [place] [address] Consulting Physician Cardiovascular Disease - Cardiology 08/06/24 documented as of this encounter
--- OUTSIDE RECORDS SUMMARY | 2024-10-27 09:07 | XMS_ITS | Encounter Summary ---
Author Organization [facility] Address [address] [facility] [place] [address] Phone Care Team Providers Care Pipeliner Name Role Phone Roshan Franco MD Unavailable Caryn Menezes APRN, FLUOROSCOPE OPERATOR Unavailable [phone]- [phone] Nrey Burrell MD PhD Unavailable [phone] Roc Whitehead MD Unavailable Wagner Byrne MD Primary Care Provider [phone] Rafael Li MD Unavailable Ruben Rodriguez MD Unavailable Reason for Visit * Reason Comments Medication Refill Encounter Details Date Type Department Care Team (Late st Contact Info) Description 03/18/2024 Refill [facility] - Family Medicine [facility] [address] [place] [phone] Enrique Smith MD #[address] [address] Medication Refill Social History Tobacco Use Types Packs/Day Years Used Date Smoking Tobacco: Every Day Cigarettes 0.5 40 Smokeless Tobacco: Never Alcohol Use Standard Drinks/Week Comments Not Currently 0 (1 standard drink = 0.6 oz pur e alcohol) [facility] Utilities Answer Date Recorded In the [...] often do you attend jehovah's witness or jainism serv ices? Patient declined 08/03/2023 Do you [...] Total Score - Questions 1-9 19 01/12 [facility] - Occupational [...] Description 10/29/2024 9:00 AM CDT Clinical Support [facility] - Cardiology - [place] [address] [place] [address] Nurse, [facility] [place] 10/29/2024 9:30 AM CDT Office Visit [facility] - Cardiology - [place] [address] [place] [address] Ruebn Rodriguez MD [address] [facility] [address] [place] [address] 10/30/2024 1:00 PM CDT Appointment [facility] Cardiology Services [address] [place] [address] Ruben Rodriguez MD [address], [address] [address] Discharge Disposition: Discharged to home or Selfcare documented as of this encounter Goals Goal Patient Goal Type Associated Problems Recent Progress Patient-Stated? Author I am tired of feeling guilty about my [grief.] Behavioral Health Improving(01/2024 2:42 PM ANIMAL BEHAVIORIST) Yes Edda Vo, COTTON GRADER Note: Goal/Objective: Decrease guilty thoughts about her care for her mother who is now . Anticipated Time Frame for Goal Completion: 6 months Goal Reviewed with: patient Readiness to change: Ready to change Department associated with goal: [facility]AV[facility] HE[facility] SERVICES Steps to achieve [...] documented as of this encounter Care Teams Pipeliner Relationship Specialty Start Date End Date Wagner Byrne MD [address] [place] [address] PCP - General Internal Medicine 11/25/23 Roshan Franco MD Consulting Physician Cardiovascular Disease - Cardiology 12/06/22 04/20/24 Caryn Briseno, INSPECTOR WIRE ROPE, FLUOROSCOPE OPERATOR [address] [place], [address] [address] Nurse Practitioner Cardiology 04/04/23 Nery Burrell MD PhD [address] [place] [address] Chief Mechanical Engineer Interventional Cardiology 04/04/23 Roc Whitehead MD [address] [place] [address] Consulting Physician Pulmonary Disease 02/15/23 Rafael Li MD #[address] [facility], [address] [address] Consulting Physician Clinical Cardiac Electrophysiology 02/19/24 Ruben Rodriguez MD [address] [facility], [address] [address] Consulting Physician Cardiovascular Disease - Cardiology 08/06/24 documented as of this encounter
--- OUTSIDE RECORDS SUMMARY | 2024-10-27 09:07 | XMS_ITS | Encounter Summary ---
Author Organization [facility] Address [address] [place] [address] Care Team Providers Care Correctional Maintenance Technician Name Role Phone Isreal Gonzalez MD Unavailable Wagner Byrne MD Primary Care Provider [phone] Reason for Visit * Reason Onset Date Comments Sinus Problem 10/10/2024 Encounter Details Date Type Department Care Team (Late st Contact Info) Description 10/10/2024 Nurse Triage Family Phys[facility] [address] [facility] [place] [address] Wagner Byrne MD [address] [place] [address] Social History Tobacco Use Types Packs/Day Years Used Date Smoking Tobacco: Every Day Cigarettes Smokeless Tobacco: Never Comments:ABOUT 10 CIGARET CHELA Alcohol Use Standard Drinks/Week Comments Not Currently 0 (1 standard drink = 0.6 oz pur e alcohol) [facility] Utilities Answer Date Recorded In the past 12 months has [employer] electric, gas, oil, or water company threatened [...] week 06/27/2024 How often do you attend [facility] or orthodox services? Never 06/27/2024 Do you belong to any clubs o r organizations such as evangelical groups, unions, fraternal or athletic groups, or [...] any time in the past 12 m [facility], were you homeless or living in a senior care (including now)? No 06/27/2024 Comments No Sex and Gender Information Value Date Recorded Sex Assigned at Not on file Legal Sex Female 7:04 AM BODY MAKER Gender Identity Not on file Sexual Orientation Not on file documented as of this encounter Miscellaneous Notes * Telephone Encounter - Ash Mota - 10/16/2024 2:36 PM CDT Call Back Caller???s Concern: returning missed call from office. HAND PACKER relayed note from Dr Byrne. Pt said she will reach out to her oxygen company and verbalized understanding. Does message need to be routed? No * Telephone Encounter - Yadi Virgen MA - 10/16/2024 2:24 PM CDT Called pt and got no answer, unable to leave VM as box is full, please relay Dr. Cowan message if pt calls back, Thanks * Telephone Encounter - Yadi Virgen MA - 10/16/2024 9:31 AM CDT Is this something you are going to order so she can get it from the supply company? Thanks * Telephone Encounter - Yadi Virgen MA - 10/14/2024 3:29 PM CDT Pt states her Concentrator does not have a spot to add water, pt states her nose is really dry, do you recommend using flonase and a humidifier in the room since its not part of her oxygen? Thanks * Telephone Encounter - Cheo August - 10/14/2024 2:45 PM CDT Call Back Caller???s Concern: pt called and asked if she she should have water in her O2 tank please call andfollow up with the patient// please call Does message need to be routed? Yes-Action Needed * Telephone Encounter - Geri Mark MA - 10/14/2024 9:05 AM CDT Followed up with patient and she stated that her nose is dried out and states that she has been using drops that were prescribed by Dr Byrne. She stated that she is also going to buy saline solution as well today. Pt denies any sinus pain, pressure, ear congestion or green mucus . Pt will give us a call if there are any changes. FYI * Telephone Encounter - Geri Mark MA - 10/10/2024 3:30 PM CDT Would you be willing to send in rx for pt given wheelchair bound or do you recommend that pt be seen in the [facility] over the weekend for her symptoms? * Telephone Encounter - Tianna Menard RN - 10/10/2024 3:17 PM CDT Reason for Conversation Sinus Problem Pt reports sinus pain and pressure with green mucus, right ear congestion, eyes are puffy for a month and getting worse. Pt has scabs on the inside of her nose She denies dyspnea, chest pain, known fever. She is on home oxygen and is wheelchair bound. She is taking mucinex with no relief Disposition per guideline: Care advice/education/call back instruction given: pt is requesting medication for sinus , dry lips, nasal scabs be sent to [facility] on file. Please advise pt Call back # [phone] (mobile) Encounter routed to PCP Disposition Go to Office Now Reason for Disposition Redness or swelling on the cheek, forehead, or around the eye No Initial Assessment on file. No Additional Information on file. Protocols Used Sinus Pain or [id number] * Telephone Encounter - Tianna Menard RN - 10/10/2024 3:01 PM CDT Regarding: scabs in nose, mucus is yellow/green ----- Message from August sent at 10/10/2024 3:01 PM CDT ----- Symptom Based Call Chief Complaint(s): scabs in nose, mucus is yellow/green, ear ache right side. Duration: about 1 month What type of symptom(s) is the patient experiencing? Non-Emergent. Is this a new or reoccurring symptom(s)? new What have you tried to help your symptom(s)? Heating pad, water. sinus medication Why was appointment not scheduled? Patient seeking care without an appointment; appointment was offered by [facility]. Additional Comments: states she has never had scabs in nose before, not sure what she can do to make her nose not have this problem. She would like to see what her options are to help her with this. Also scare she may get an ear infection because she is starting to get an ear ache as well. Pt was just seen at the dr office and did not mention to the dr about these symptoms. She would prefer not to have to go be seen any where. Does message need to be routed? Yes-Action Needed documented in this encounter Plan of Treatment Not on file documented as of this encounter Goals Goal Patient Goal Type Associated Problems Recent Progress Patient-Stated? Author ACO SW Goal - Patient can identify and utilize mental health community resources ACO Care Management Carlyn Levy, WATER HAULER Note: Problem: Mental Health Resources needed Interventions: [...] on filedocumented in this encounter Care Teams Correctional Maintenance Technician Relationship Specialty Start Date End Date Wagner Byrne MD [address] [place] [address] PCP - General Family Medicine 10/17/23 Isreal Gonzalez MD [address] [address] Referring Physician Internal Medicine 02/04/20 documented as of this encounter
--- OUTSIDE RECORDS SUMMARY | 2024-10-27 09:07 | XMS_ITS | Encounter Summary ---
Author Organization [facility] Address [address] [place] [address] Phone Care Team Providers Care Chemistry Quality Control Technician Name Role Phone Enrique Smith MD Primary Care Provider [phone] Roshan Franco MD Unavailable Caryn Menezes PLOW MECHANIC, BENEFITS ADVISOR Unavailable + [phone] Nery Burrell MD PhD Unavailable [phone] Roc Whitehead MD Unavailable Wagner Byrne MD Primary Care Provider [phone] Rafael Li MD Unavailable Ruben Rodriguez MD Unavailable Reason for Visit * Reason Comments Medication Refill Encounter Details Date Type Department Care Team (Late st Contact Info) Description 03/28/2022 Refill [facility] - Family Medicine [facility] [address] [place] [id number] Enrique Smith MD [address] [address] Medication Refill Social History Tobacco Use Types [...] Coronavirus/COVID-19? No / Unsure 03/31/2022 12:59 PM CHIP WASHER documented as of this encounter Miscellaneous Notes * Telephone Encounter - Bárbara Bergeron APRN, CNP - 03/28/2022 12:57 PM CHIP WASHER Patient established with you today. I am not sure if you wanted to continue this. WASHER * Telephone Encounter - Shantell Carrera RN - 03/28/2022 12:19 PM CHIP WASHER Medication failed the protocol, provider to review and approve the medication order if appropriate. Requested Prescriptions Pending Prescriptions Disp Refills divalproex (DEPAKOTE) 500 MG Tablet Delayed Response [Pharmacy Med Name: DIVALPROEX SODIUM DR 500MGDR TABLET DR] 90 Tablet 2 Sig: TAKE 1 TABLET (500 MG TOTAL) BY MOUTH 3 (THREE) TIMES A DAY Not Delegated - Anticonvulsants Excluding Benzodiazepines Protocol Failed - 03/28/2022 12:17 PM Failed - This refill cannot be delegated Passed - Visit with relevant provider in past 12 months or upcoming 90 days Recent Visits Date Type Provider Dept 02/09/22 Office Visit Bárbara Bergeron APRN, CNP [facility] Showing recent visits within past 365 days and meeting all other requirements Today's Visits Date Type Provider Dept 03/28/22 Office Visit Enrique Smith MD [facility] Showing today's visits and meeting all other requirements Future Appointments No visits were found meeting these conditions. Showing future appointments within next 90 days and meeting all other requirements PARoxetine (PAXIL) 20 MG Tablet [Pharmacy Med Name: PAROXETINE HYDROCHLORIDE 20MG TABLET] 90 Tablet2 Sig: TAKE 1 TABLET (20 MG TOTAL) BY MOUTH EVERY MORNING SSRI (6 Month Refill Only) Protocol Failed - 03/28/2022 12:17 PM Failed - Patient has established therapy with SSRI for at least 6 months Failed - Has an encounter in the past 6 months with a depression, anxiety, adjustment disorder, OCD, or PTSD visit diagnosis Passed - Visit with relevant provider in past 6 months or upcoming 90 days Recent Visits Date Type Provider Dept 02/09/22 Office Visit Bárbara Bergeron APRN, BENEFITS ADVISOR [facility] Showing recent visits within past 182 days and meeting all other requirements Today's Visits Date Type Provider Dept 03/28/22 Office Visit Enrique Smith MD [facility] Showing today's visits and meeting all other requirements Future Appointments No visits were found meeting these conditions. Showing future appointments within next 90 days and meeting all other requirements WASHER documented in this encounter Plan of Treatment Upcoming Encounters Date Type Department Care Team (Latest Contact Info) Description 10/29/2024 9:00 AM CDT Clinical Support [facility] Cardiology [facility] [address] [place] [address] Nurse, [facility] [place] 10/29/2024 9:30 AM CDT Office Visit [facility] Cardiology [facility] [address] [place] [address] Ruben Rodriguez MD [address] [address] 10/30/2024 1:00 PM CDT Appointment [facility] Cardiology Services [address] [place] [address] Ruben Rodriguez MD [address] [address] Discharge Disposition: Discharged to home or Selfcare documented as of this encounter Visit Diagnoses Not on filedocumented in this encounter Additional Health Concerns Infection Onset Date Last Indicated Resolved Time COVID - 19 03/31/2022 03/31/2022 04/03/2022 8:08 AM CHIP WASHER Respiratory Rule Out - RPA 05/15/2022 05/15/2022 0 05/16/2022 3:14 PM CHIP WASHER COVID - 19 06/05/2022 06/05/2022 06/06/2022 8:01 AM CHIP WASHER Respiratory Rule Out - RPA 06/05/2022 06/06/2022 0 06/07/2022 2:53 PM CHIP WASHER COVID - 19 01/23/2023 01/23/2023 02/02/2023 12:1 6 AM CDT COVID - 19 04/02/2023 04/02/2023 04/12/2023 12:1 6 AM CHIP WASHER COVID - 19 04/21/2023 04/21/2023 05/01/2023 12:1 6 AM CHIP WASHER Assessment Noted Time PHQ-9 Depression Total Score: 0 02/10/20 11:00 AM CDT documented as of this encounter Care Teams Chemistry Quality Control Technician Relationship Specialty Start Date End Date Enrique Smith MD #2 [facility] [address] [place] [address] PCP - General Family Medicine 03/28/22 11/24/23 Wagner Byrne MD [address] [place] [address] PCP - General Internal Medicine 11/25/23 Roshan Franco MD #2 [facility] [address] [place] [address] Consulting Physician Cardiovascular Disease - Cardiology 12/06/22 04/20/24 Caryn Briseno, PLOW MECHANIC, BENEFITS ADVISOR #2 [facility] [address] [place] [address] Nurse Practitioner Cardiology 04/04/23 Nery Burrell MD PhD [address] [place] [address] Administration Dean Interventional Cardiology 04/04/23 Roc Whitehead MD [address] [place] [phone] Consulting Physician Pulmonary Disease 02/15/23 Rafael Li MD [address] [address] Consulting Physician Clinical Cardiac Electrophysiology 02/19/24 Ruben Rodriguez MD 2 [facility] [address] [address] Consulting Physician Cardiovascular Disease - Cardiology 08/06/24 documented as of this encounter
--- OUTSIDE RECORDS SUMMARY | 2024-10-27 09:07 | XMS_ITS | Encounter Summary ---
Author Organization [facility] Address [address] [facility] [address] Phone Care Team Providers Care Rug Layer Name Role Phone Roshan Franco MD Unavailable Caryn Menezes APRN, COIL WRAPPER Unavailable [phone] Nery Burrell MD PhD Unavailable [phone] Roc Whitehead MD Unavailable Wagner Byrne MD Primary Care Provider [phone] Rafael Li MD Unavailable Ruben Rodriguez MD Unavailable Reason for Visit * Reason Comments Medication Refill Encounter Details Date Type Department Care Team (Late st Contact Info) Description 01/21/2024 Refill [facility] - Family Medicine [facility] [address] [place] [phone] Enrique Smith MD #[address] [address] Medication Refill Social History Tobacco Use Types Packs/Day Years Used Date Smoking Tobacco: Every Day Cigarettes 0.5 40 Smokeless Tobacco: Never Alcohol Use Standard Drinks/Week Comments Not Currently 0 (1 standard drink = 0.6 oz pur e alcohol) [facility] Utilities Answer Date Recorded In [...] declined 08/03/2023 How often do you attend baptist or catholic serv ices? Patient declined 08/03/2023 Do you belong to any clubs o r organizations such as baptist groups, unions, fraternal or athletic groups, or [...] Total Score - Questions 1-9 19 01/12 [facility] [...] Description 10/29/2024 9:00 AM CDT Clinical Support [facility] Medical [facility] - Cardiology - [place] [address] [place] [address] Nurse, [facility] [place] 10/29/2024 9:30 AM CDT Office Visit [facility] Medical [facility] - Cardiology - [place] [address] [place] [address] Ruben Rodriguez MD [address] [facility] [address] [place] [address] 10/30/2024 1:00 PM CDT Appointment [facility] Cardiology Services [address] [place] [address] Ruben Rodriguez MD [address] [facility], [address] [address] Discharge Disposition: Discharged to home or Selfcare documented as of this encounter Goals Goal Patient Goal Type Associated Problems Recent Progress Patient-Stated? Author I am tired of feeling guilty about my [grief.] Behavioral Health Improving(01/2024 2:42 PM FOOD AND NUTRITION PROFESSOR) Yes Edda Vo, [employer] SALES REPRESENTATIVE Note: Goal/Objective: Decrease guilty thoughts about her care for her mother who is now . Anticipated Time Frame for Goal Completion: 6 months Goal Reviewed with: patient Readiness to change: Ready to change Department associated with goal: [facility] Steps to achieve [...] documented as of this encounter Care Teams Rug Layer Relationship Specialty Start Date End Date Wagner Byrne MD [address] [place] [address] PCP - General Internal Medicine 11/25/23 Roshan Franco MD Consulting Physician Cardiovascular Disease - Cardiology 12/06/22 04/20/24 Caryn Briseno, BLEACHING SUPERVISOR, COIL WRAPPER [address] [place], [address] [address] Nurse Practitioner Cardiology 04/04/23 Nery Burrell MD PhD [address] [place] [address] Weigh Machine Operator Interventional Cardiology 04/04/23 Roc Whitehead MD [address] [place] [address] Consulting Physician Pulmonary Disease 02/15/23 Rafael Li MD #[address] [facility], [address] [address] Consulting Physician Clinical Cardiac Electrophysiology 02/19/24 Ruben Rodriguez MD [address] [facility], [address] [address] Consulting Physician Cardiovascular Disease - Cardiology 08/06/24 documented as of this encounter
--- OUTSIDE RECORDS SUMMARY | 2024-10-27 09:07 | XMS_ITS | Referral Summary ---
Author Organization [facility] [place] Address [address] [place] [address] Care Team Providers Care Hatchery Laborer Name Role Phone Isreal Gonzalez MD Unavailable [phone] Wagner Byrne MD Primary Care Provider [phone] Encounters Date Type Department Care Team Description 10/14/2024 Telephone [facility] [address] [address] Shira Garnett Chart Review ([employer] med adherence) 10/10/2024 Nurse Triage [facility] [address] [address] Wagner Byrne MD 10/09/2024 Telephone [facility] [address] [address] Wagner Byrne MD Medical Question/Miscellaneou s 10/01/2024 9:45 AM CDT Office Visit [facility] [address] [address] Wagner Byrne MD Bipolar affective disorder, currently depressed, moderate (HCC) (Primary Dx); Other emphysema (HCC); Benign essential hypertension; Spinal stenosis of lumbar region with neurogenic claudication; Longstanding persistent atrial fibrillation (HCC) 09/29/2024 Telephone [facility] [address] [address] Wagner Byrne MD Appointment Request 09/02/2024 9:00 AM CDT Office Visit [facility] [address] [address] Wagner Byrne MD Bipolar affective disorder, currently depressed, moderate (HCC) (Primary Dx); Other emphysema (HCC); Moderate tobacco use disorder; Anxiety 08/21/2024 Telephone [facility] [address] [address] Wagner Byrne MD 08/07/2024 ACO Outreach [facility] Accountable Care Organization [address] [place] [address] Carlyn Gray, [facility] 07/30/2024 9:15 AM CDT Office Visit [facility] Medical Group [facility] Care at [address] [place] [address] Emily Frye, TONJA Suspected COVID-19 virus infection (Primary Dx); Acute non-recurrent pansinusitis; Dyspnea, unspecified type 07/29/2024 Telephone [facility] [address] [address] Wagner Byrne MD Symptom Based Call from Last 3 Months Allergies Active Allergy Reactions Criticality Noted Date [...] couldn't use arm for a year Ipratropium Bigelow Hallucinations High 08/05/2023 COMBIVENT Other Other (See [...] each nostril as directed 30 mL 14 024 Active albuterol 2.5 mg /3 mL (0.083 %) nebulizer solution USE 1 VIAL IN NEBULIZER 3 TIMES DAILY 90 mL 11 024 Active albuterol HFA (PROVENTIL HFA,VENTOLIN HFA,PROAIR HFA) 90 mcg/actuation inhaler INHALE 2 PUFFS INTO LUNGS EVERY 6 (SIX) HOURS NEEDED FOR WHEEZING 8.5 each 024 Active Jardiance 10 mg tablet Take 1 tablet (10 mg total) by mouth daily 90 tablet 3 024 2024 Active diclofenac sodium (VOLTAREN) 1 % gelIndications:P ain Apply 4 g topically 4 (four) times a day 200 g 3 024 Active atorvastatin (LIPITOR) 40 mg tablet Take 1 tablet (40 mg total) by mouth daily 90 tablet 3 024 Active albuterol 2.5 mg /3 mL (0.083 %) nebulizer solution Take 3 mL (2.5 mg total) by nebulization every 6 (six) hours as needed for wheezing 75 mL 3 024 2024 Active spironolactone (ALDACTONE) 25 mg tablet TAKE 0.5 TABLETS BY MOUTH DAILY. 90 tablet 9 025 Active Entresto 24-26 mg tablet Take 1 tablet by mouth 2 (two) times a day 180 tablet 3 025 Active roflumilast (DALIRESP) 500 mcg tablet TAKE 1 TABLET (500 MCG TOTAL) BY MOUTH DAILY 30 tablet 3 025 Active fluticasone-umec lidin-vilanter (Trelegy Ellipta) 100-62.5-25 mcg inhaler Inhale 1 puff daily 180 each 025 Active sodium chloride 1 gram tablet Take 1 tablet (1 g total) by mouth daily 180 tablet 4 025 Active azelastine (ASTELIN) 137 mcg (0.1 %) nasal spray Administer 1 spray into each nostril 2 (two) times a day Use in each nostril as directed 30 mL 11 Active montelukast (SINGULAIR) 10 mg tablet Take [...] 05/2023 Assessment & Plan (04/13/2024 4:00 PM HEEL SANDER RUBBER): - Declines cologuard or colonoscopy, mammogram - Declines all vaccines due to previous vaccine injury - Current smoker- 0.5 PPD, started at age 7 yrs- 3 PPD at most- declines lung cancer screener Class 1 obesity due to exces s calories with serious comorbidity and body mass index (BMI) of 33.0 to 33.9 in adult 04/13/2024 Assessment & Plan (04/13/2024 4:38 PM HEEL SANDER RUBBER): - heart healthy, low-fat/high-fiber diet Chronic pain in right shoulder 04/13/2024 Assessment & Plan (04/13/2024 4:46 PM HEEL SANDER RUBBER): - Pt reports symptoms started as potential [...] daily Assessment & Plan (04/13/2024 4:40 PM HEEL SANDER RUBBER): - chronic, stable at goal of < 140/90 - Continue medications as above Hyponatremia 01/27/2022 Pneumonia due to COVID-19 virus 01/26/2022 CAD (coronary artery disease) 12/12/2021 Assessment & Plan (04/13/2024 4:34 PM HEEL SANDER RUBBER): - stable, no acute concerns - Continue [...] 05/26/2021 Assessment & Plan (05/26/2021 2:07 PM HEEL SANDER RUBBER): Patient reports episodes of nausea; unclear if [...] t.i.d. Assessment & Plan (04/29/2021 4:04 PM HEEL SANDER RUBBER): Patient follows with pain management, planning for intervention; though minimally invasive intervention currently deferred due to other responsibilities Patient to continue on oxycodone 10 t.i.d., gabapentin Radiculopathy, lumbosacral region 03/14/2021 Assessment & Plan (04/13/2024 4:14 PM HEEL SANDER RUBBER): - Chronic, poorly controlled - Start duloxetine [...] smoking Assessment & Plan (04/13/2024 4:02 PM HEEL SANDER RUBBER): - Current smoker averaging 0.5 PPD, started [...] Zyprexa Assessment & Plan (04/13/2024 4:08 PM HEEL SANDER RUBBER): - Chronic, poorly controlled - Start paroxetine and switch to duloxetine 60 mg daily (chronic pain) - Referral to Psychiatry - Notify office if concerns with mood behavior Assessment & Plan (05/26/2021 2:06 PM HEEL SANDER RUBBER): Patient has multiple stressors at home, including [...] per night Encouraged patient to 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 Has not been on medication and will [...] b.i.d. Assessment & Plan (04/13/2024 4:32 PM HEEL SANDER RUBBER): - Chronic, rate controlled, irregular rhythm - Continue amiodarone 200 mg daily, Eliquis 5 mg b.i.d. - Routine TSH monitoring, yearly chest x-ray to assess for amiodarone toxicity - Cardiology has referred to EP for further eval Assessment & Plan (10/23/2023 2:18 PM CDT): Rate controlled, irregular rhythm Continue amiodarone 200 mg daily, Eliquis 5 mg b.i.d. Assessment & Plan (05/26/2021 2:08 PM HEEL SANDER RUBBER): Stable, well controlled; rate controlled No evidence of severe bleeding or bruising on Eliquis Continue propanolol and Eliquis 5 mg b.i.d. Assessment & Plan (04/29/2021 4:01 PM HEEL SANDER RUBBER): Stable, well controlled; rate controlled though patient [...] recently have a telemedicine visit with her fur comber. Presently stable. Per recent cardiology note, patient on Eliquis at home and will continue. Continue ASA, atorvastatin and digoxin. CHF (congestive heart failure) Assessment & Plan (04/13/2024 4:31 PM HEEL SANDER RUBBER): - Chronic, symptoms overall stable - TTE [...] status Assessment & Plan (05/26/2021 2:08 PM HEEL SANDER RUBBER): Stable, well controlled; no Evidence of exacerbation or fluid overload Continue atorvastatin 40 mg, digoxin 125 mcg, Eliquis 5 mg b.i.d., furosemide 20 mg daily Assessment & Plan (04/29/2021 4:02 PM HEEL SANDER RUBBER): Stable well controlled, no evidence of peripheral [...] daily Assessment & Plan (04/13/2024 4:37 PM HEEL SANDER RUBBER): - Chronic, symptoms stable - most PFTs [...] daily Assessment & Plan (05/26/2021 2:09 PM HEEL SANDER RUBBER): Continues to use 2 L of oxygen by nasal cannula Continue Trelegy Ellipta, albuterol p.r.n. for exacerbation Assessment & Plan (04/29/2021 4:04 PM HEEL SANDER RUBBER): Stable, well controlled; continue Trelegy q.d., been [...] 04/13/202404/13 Assessment & Plan (04/13/2024 4:07 PM HEEL SANDER RUBBER): - Chronic, poorly controlled - Start paroxetine and switch to duloxetine 60 mg daily (chronic pain) - Referral to Psychiatry - Notify office if concerns with mood behavior Immunizations Immunization Administration Dates Next Due Influenza, Unspecified 03/02/2023(Deferr ed: Patient Refused),11/30/2021(Deferred: Patient Refused),10/20/2021(Deferred: Patient Refused),02/11/2021(Deferred: Patient Refused),05/14/2020(Deferred: Patient Refused),05/14/2020(Deferred: Patient Refused),02/12/2020(Deferred: Patient Refused),05/14/2019(Deferred: Patient Refused) Tdap 10/08/2019 Social History Tobacco Use Types Packs/Day Years Used Date Smoking Tobacco: Every Day Cigarettes Smokeless Tobacco: Never Tobacco Cessation:Ready to Q uit: Yes; Counseling Given: Yes Comments:ABOUT 10/15 CIGARETTES Alcohol Use Standard Drinks/Week Comments Not Currently 0 (1 standard drink = 0.6 oz pur e alcohol) [employer] Answer Date Recorded In the past 12 months has [employer], [employer], oil, or water [email or web address] threatened to shut off services in your [...] often do you attend chur ch or anabaptist services? Never 06/27/2024 Do you belong to [...] any time in the [facility] were you homeless or living in a [place] facility (including now)? No 06/27/2024 Comments No Sex and Gender Information Value Date Recorded Sex Assigned at Not on file Legal Sex Female 7:04 AM HEEL SANDER RUBBER Gender Identity Not on file Sexual Orientation [...] 10/01/2024 9:43 AM CDT Plan of Treatment Not on file Goals Goal Patient Goal Type Associated Problems Recent Progress Patient-Stated? Author ACO SW Goal - Patient can identify and utilize mental health community resources ACO Care Management Carlyn Levy, CIRCUITRY NEGATIVE INSPECTOR Note: Problem: Mental Health Resources needed Interventions: - Assess for mental health resource needs. - Assess readiness for change. - Provide patient with MH Resource options. - Provide information regarding insurance coverage of specific resources and levels of care. - Follow-up to assess barriers to establishing connection with resources, if applicable. Medical Devices Implanted Type Area Dumpman Device Identifier Shelf Expiration Date Model / [...] A/B, COVID-19 antigen (07/30/2024 9:51 AM CDT) [facility] Influenza A Ag, POC Negative Negative [facility] Influenza B Ag, POC Negative Negative [facility] COVID-19 Ag POC Presumptive Negative Presumptive Negative, Invalid [facility] Nasal 07/30/2024 9:51 AM CDT us Emily Frye NP POINT OF CARE TEST ORDERAB LES Final Result [facility] [address] [place] [address], [facility] * Hepatitis panel, acute (09/28/2015 10:51 AM CDT) Pathologist [facility] HepBsAg NONREACT NONREACTIVE Comment: Siemens Zebra ImagingaurXP using MAYNOR (chemiluminescent immunoassay) technology. NONREACTIVE: IgM [...] core IgM NONREACT NONREACTIVE 6 12:24 PM [facility] HISTORICAL RESULTS Comment: Siemens CentaurXP using MAYNOR [...] 1 AM CDT 09/28/2015 10:56 AM CDT us Allen Blankenship MD LAB MICROBIOLOGY - GENERAL OR DERABLES Final Result [facility] HISTORICAL RESULTS * Occult blood, fecal non neoplasm screening (09/25/2015 9:20 PM CDT) Stool Occult Blood NEGATIVE NEGATIVE 09/25/2015 9:20 PM CDT 09/25/2015 9:41 PM CDT Narrative [facility] HISTORICAL RESULTS - 09/25/2015 10:06 PM CDT Collected By NL Jennifer Parrish MD LAB BODY FLUIDS AND STOOLS OR DERABLES Final Result [facility] HISTORICAL RESULTS from Last 3 Months or Most Recently Relevant to Health Maintenance Insurance MEDICARE [facility]ARE [facility]IC[facility] HMO IDPA Advance Directives For more information, please contact: [phone] Documents on File Type Date Recorded Patient Tight Cooper Expl anation Power of Certified Medication Technician 01/26/2021 5:19 PM ADVANCE DIRECTIVE 09/22/2015 12:00 [...] intubationNo non-invasive ventilationNo cardioversionNo vasopressors Care Teams Hatchery Laborer Relationship Specialty Start Date End Date Wagner Byrne MD [address] [place] [address] PCP - General Family Medicine 10/17/23 Isreal Gonzalez MD 3 [facility] [address] [place] [address] Referring Physician Internal Medicine 02/04/20
--- OUTSIDE RECORDS SUMMARY | 2024-10-27 09:07 | XMS_ITS | Encounter Summary ---
Author Organization [facility] Address [address] [place] [address] Phone Care Team Providers Care Supervisor Airplane Flight Attendant Name Role Phone Enrique Smith MD Primary Care Provider [phone] Roshan Franco MD Unavailable Caryn Menezes ASSEMBLER TESTER, BOILERMAKER Unavailable + [phone] Nery Burrell MD PhD Unavailable [phone] Roc Whitehead MD Unavailable Wagner Byrne MD Primary Care Provider [phone] Rafael Li MD Unavailable Ruben Rodriguez MD Unavailable Reason for Visit * Reason Comments Medication Refill Encounter Details Date Type Department Care Team (Late st Contact Info) Description 03/20/2023 Refill [facility] - Family Medicine [facility] [address] [place] [id number] Enrique Smith MD [address] [address] Medication Refill Social History Tobacco Use Types [...] suspected to have Coronavirus/COVID-19? No / Unsure 02/19/2023 4:14 PM CDT documented as of this encounter Miscellaneous Notes * Telephone Encounter - Tanika Martin RN - 03/20/2023 3:00 PM CST Medication failed the protocol, provider to review and approve the medication order if appropriate. Requested Prescriptions Pending Prescriptions Disp Refills traZODone (DESYREL) 50 MG Tablet [Pharmacy Med Name: TRAZODONE HYDROCHLORIDE 50MG TABLET] 90 Tablet0 Sig: Take 1 Tablet by mouth nightly. Serotonin Modulators (6 Month Refill Only) Protocol Failed - 03/20/2023 12:27 PM Failed - Has an encounter in the past 6 months with a depression or anxiety visit diagnosis Failed - Patient has established therapy with Serotonin Modulators for at least 6 months Passed - Visit with relevant provider in past 6 months or upcoming 90 days Recent Visits Date Type Provider Dept 01/23/23 Office Visit Luis Carlos Bull MD [facility] 01/16/23 Office Visit Danyel Akhtar APRN, JET [facility] 01/02/23 Office Visit Enrique Smith MD [facility] 12/29/22 Office Visit Sulma Blevins APRN, JET [facility] 12/05/22 Office Visit Danyel Akhtar APRN, BOILERMAKER [facility] 10/31/22 Office Visit Enrique Smith MD [facility] 10/19/22 Office Visit Bárbara Bergeron APRN, BOILERMAKER [facility] Showing recent visits within past 182 days and meeting all other requirements Future Appointments Date Type Provider Dept 04/04/23 Appointment Enrique Smith MD [facility] Showing future appointments within next 90 days and meeting all other requirements Passed - No PRN Use for Trazodone MS EXAMINER documented in this encounter Plan of Treatment Upcoming Encounters Date Type Department Care Team (Latest Contact Info) Description 10/29/2024 9:00 AM CDT Clinical Support [facility] Cardiology [facility] [address] [place] [address] Nurse, [facility] 10/29/2024 9:30 AM CDT Office Visit [facility] [address] [place] [address] Ruben Rodriguez MD [address] [address] 10/30/2024 1:00 PM CDT Appointment [facility] Cardiology Services 1 [place] [address] Ruben Rodriguez MD [address] [address] Discharge Disposition: Discharged to home or Selfcare documented as of this encounter Goals Goal Patient Goal Type Associated Problems Recent Progress Patient-Stated? Author I am tired of feeling guilty about my [grief.] Behavioral Health Improving(01/2024 2:42 PM CLAIMS EXAMINER) Yes Edda Vo, MANAGER PROJECT Note: Goal/Objective: Decrease guilty thoughts about her care for her mother who is now . Anticipated Time Frame for Goal Completion: 6 months Goal Reviewed with: patient Readiness to change: Ready to change Department associated with goal: [facility] Steps to [...] - 04/02/2023 04/02/2023 04/12/2023 12:1 6 AM CLAIMS EXAMINER COVID - 19 04/21/2023 04/21/2023 05/01/2023 12:1 6 AM CLAIMS EXAMINER Assessment Noted Time PHQ-9 Depression Total Score: 023 2:00 PM CDT documented as of this encounter Care Teams Supervisor Airplane Flight Attendant Relationship Specialty Start Date End Date Enrique Smith MD #[address] [address] PCP - General Family Medicine 03/28/22 11/24/23 Wagner Byrne MD [address] [place] [address] PCP - General Internal Medicine 11/25/23 Roshan Franco MD #[address] [address] Consulting Physician Cardiovascular Disease - Cardiology 12/06/22 04/20/24 Caryn Briseno APRN, BOILERMAKER #2 [facility] [address] [place] [address] Nurse Practitioner Cardiology 04/04/23 Nery Burrell MD PhD #[address] [place] [address] Student Admissions Clerk Interventional Cardiology 04/04/23 Roc Whitehead MD #[address] [place] [address] Consulting Physician Pulmonary Disease 02/15/23 Rafael Li MD [address] [address] Consulting Physician Clinical Cardiac Electrophysiology 02/19/24 Ruben Rodriguez MD 2 [address] [address] Consulting Physician Cardiovascular Disease - Cardiology 08/06/24 documented as of this encounter
--- OUTSIDE RECORDS SUMMARY | 2024-10-27 09:08 | XMS_ITS | Encounter Summary ---
Author Organization [facility] Facility Care Team Providers Care Catalog Specialist Name Role Phone Rocky Harvey MD Primary Care Provider Whit Horn NP Primary Care Provider [phone] Isreal Gonzalez MD Unavailable [phone] Wagner Byrne MD Primary Care Provider [phone] Enrique Smith MD Primary Care Provider [phone] Wagner Byrne MD Primary Care Provider [phone] Carlyn Gray [facility] Unavailable [phone] Encounter Details Date Type Department Care Team (Latest Contact Info) Description 12/15/2016 Orders Only [facility]IN[facility]V Provider, MD Navya [address] [place] [address] Social History Tobacco Use Types Packs/Day Years Used Date Smoking Tobacco: Former Comments Unknown Sex and Gender Information Value Date Recorded Sex Assigned at Not on file Legal Sex Female 7:04 AM BIODIESEL DIVISION MANAGER Gender Identity Not on file Sexual Orientation Not on file documented as of this encounter Plan of Treatment Not on file documented as of this encounter Procedures Procedure Name Priority Date/Time Associated Diagnosis Comments SCAN - LABS 12/15/2016 12:00 AM CDT documented in this encounter Results * SCAN - LABS (12/15/2016 12:00 AM CDT) Narrative 12/15/2016 12:00 AM CDT Ordered by an unspecified provider. us Historical Provider Final Res ult documented in this encounter Visit Diagnoses Not [...] documented as of this encounter Care Teams Catalog Specialist Relationship Specialty Start Date End Date Rocky Harvey MD PCP - General 04/24/18 01/23/19 Whit Macias NP PCP - General 01/24/19 09/22/20 Wagner Byrne MD [address] [place] [address] PCP - General Family Medicine 09/23/20 04/27/22 Enrique Smith MD 2 [facility] [address] [place] [address] PCP - General Family Medicine 04/28/22 10/16/23 Wagner Byrne MD [address] [place] [address] PCP - General Family Medicine 10/17/23 Isreal Gonzalez MD 3 [facility] [address] [place] [address] Referring Physician Internal Medicine 02/04/20 Carlyn Gray, [address] [place] [address] Leadership Coach 06/25/24 07/23/24 documented as of this encounter
--- OUTSIDE RECORDS SUMMARY | 2024-10-27 09:08 | XMS_ITS | Encounter Summary ---
Author Organization [facility] Care Team Providers Care Network Associate Name Role Phone Rocky Harvey MD Primary Care Provider Whit Horn NP Primary Care Provider [phone]- [phone] Isreal Gonzalez MD Unavailable [phone] Wagner Byrne MD Primary Care Provider [phone] Enrique Smith MD Primary Care Provider [phone] Wagner Byrne MD Primary Care Provider [phone] Carlyn Gray [facility] Unavailable [phone] Encounter Details Date Type Department Care Team (Latest Contact Info) Description 05/04/2017 Orders Only [facility] CLINCONV Provider, MD Navya [address] [place] [address] Social History Tobacco Use Types Packs/Day Years Used Date Smoking Tobacco: Former Comments Unknown Sex and Gender Information Value Date Recorded Sex Assigned at Not on file Legal Sex Female 7:04 AM CYBER SECURITY ANALYST Gender Identity Not on file Sexual Orientation Not on file documented as of this encounter Plan of Treatment Not on file documented as of this encounter Procedures Procedure Name Priority Date/Time Associated Diagnosis Comments SCAN - LABS 05/04/2017 12:00 AM CYBER SECURITY ANALYST documented in this encounter Results * SCAN - LABS (05/04/2017 12:00 AM CYBER SECURITY ANALYST) Narrative 05/04/2017 12:00 AM CYBER SECURITY ANALYST Ordered by an unspecified provider. us Historical [...] documented as of this encounter Care Teams Network Associate Relationship Specialty Start Date End Date Rocky Harvey MD PCP - General 04/24/18 01/23/19 Whit Macias NP PCP - General 01/24/19 09/22/20 Wagner Byrne MD [address] [place] [address] PCP - General Family Medicine 09/23/20 04/27/22 Enrique Smith MD 2 [facility] [address] [place] [address] PCP - General Family Medicine 04/28/22 10/16/23 Wagner Byrne MD [address] [place] [address] PCP - General Family Medicine 10/17/23 Isreal Gonzalez MD 3 [facility] [address] [place] [address] Referring Physician Internal Medicine 02/04/20 Carlyn Gray, [address] [place] [id number] Replenishment Merchandising Associate 06/25/24 07/23/24 documented as of this encounter
--- OUTSIDE RECORDS SUMMARY | 2024-10-27 09:08 | XMS_ITS | Encounter Summary ---
Author Organization [facility] Facility Care Team Providers Care Audience Development Manager Name Role Phone Rocky Harvey MD Primary Care Provider Whit Horn NP Primary Care Provider +- [phone] Isreal Gonzalez MD Unavailable [phone] Wagner Byrne MD Primary Care Provider + [phone] Enrique Smith MD Primary Care Provider [phone] Wagner Byrne MD Primary Care Provider [phone] Carlyn Gray [facility] Unavailable [phone] Encounter Details Date Type Department Care Team (Latest Contact Info) Description 09/20/2015 Orders Only [facility] CLINCONV Provider, MD Navya [address] [place] [address] Social History Tobacco Use Types Packs/Day Years Used Date Smoking Tobacco: Never Assessed Comments Unknown Sex and Gender Information Value Date Recorded Sex Assigned at Not on file Legal Sex Female 7:04 AM SET UP MECHANIC CROWN ASSEMBLY MACHINE Gender Identity Not on file Sexual Orientation Not on file documented as of this encounter Plan of Treatment Not on file documented as of this encounter Procedures Procedure Name Priority Date/Time Associated Diagnosis Comments SCAN - LABS 09/20/2015 12:00 AM CDT documented in this encounter Results * SCAN - LABS (09/20/2015 12:00 AM CDT) Narrative 09/20/2015 12:00 AM CDT Ordered by an unspecified [...] documented as of this encounter Care Teams Audience Development Manager Relationship Specialty Start Date End Date Rocky Harvey MD PCP - General 04/24/18 01/23/19 Whit Macias NP PCP - General 01/24/19 09/22/20 Wagner Byrne MD [address] [place] [address] PCP - General Family Medicine 09/23/20 04/27/22 Enrique Smith MD 2 [facility] [address] [place] [address] PCP - General Family Medicine 04/28/22 10/16/23 Wagner Byrne MD [address] [place] [address] PCP - General Family Medicine 10/17/23 Isreal Gonzalez MD 3 [facility] [address] [place] [address] Referring Physician Internal Medicine 02/04/20 Carlyn Gray, [address] [place] [address] Labor Relations Analyst 06/25/24 07/23/24 documented as of this encounter
--- OUTSIDE RECORDS SUMMARY | 2024-10-27 09:08 | XMS_ITS | Encounter Summary ---
Author Organization [facility] Address [address] [place] [address] Phone Care Team Providers Care Pre Fabricator Name Role Phone Enrique Smith MD Primary Care Provider [phone] Roshan Franco MD Unavailable Caryn Menezes TIRE WORKER, LEAD CASHIER Unavailable + [phone] Nery Burrell MD PhD Unavailable [phone] Roc Whitehead MD Unavailable Wagner Byrne MD Primary Care Provider [phone] Rafael Li MD Unavailable Ruben Rodriguez MD Unavailable Reason for Visit * Reason Comments Medication Refill Encounter Details Date Type Department Care Team (Late st Contact Info) Description 07/10/2023 Refill [facility] [address] [place] [id number] Enrique Smith MD [address] [address] Medication Refill Social History Tobacco Use Types Packs/Day Years Used Date Smoking Tobacco: Former Cigarettes 0.5 40 Smokeless Tobacco: Never Alcohol Use Standard Drinks/Week Comments Not Currently 0 (1 standard drink = 0.6 oz pur e alcohol) [facility] Utilities Answer Date Recorded In the past 12 months has th e electric, gas, oil, or water company threatened to shut off services in your home? Yes 06/05/2023 Social Connection and Isolation Panel Answer Date Recorded In a typical week, how many times do you talk on the phone with family, friends, or neighbors? More than three times a week 06/05/2023 How often do you get togethe r with friends or relatives? Once a week 06/05/2023 Attends Church Services Not on file 06/05 Active Member of Clubs or Organizations Not on f ile 06/05/2023 Attends Club or Organization Meetings Not on stefany e 06/05/2023 Marital Status Not on file 06/05/2023 AUDIT-C Answer Date Recorded Q1: How often do you have a drink containing alcohol? Never 06/05/2023 Q2: How many drinks containi ng alcohol do you have on a typical day when you are drinking? Patient does not drink Q3: How often do you have si x or more drinks on one occasion? Never 06/05/2023 Overall Financial Resource Strain (CARDIA) Answe r Date Recorded How hard is it for you to pa y for the very basics like food, housing, medical care, and heating? Somewhat hard 06/05/2023 PHQ-2 Answer Date Recorded Total Score - Questions 1-9 19 01/12 [facility] - Occupational Stress Questionnaire Answer Date Recorded Do you feel stress - tense, restless, nervous, or anxious, or unable to sleep at night because your mind is troubled all the time - these days? Rather much 06/05/2023 Exercise Vital Sign Answer Date Recorde d On average, how many days pe r week do you engage in moderate to strenuous exercise (like a brisk walk)? 3 days Minutes of Exercise per Session Not on file 06/05/2023 Hunger Vital Sign Answer Date Recorded Within the past 12 months, y ou worried that your food would run out before you got the money to buy more. Often true Within the past 12 months, t he food you bought just didn't last and you didn't have money to get more. Sometimes true PRAPARE - Transportation Answer Date Re corded In the past 12 months, has l ack of transportation kept you from medical appointments or from getting medications? Yes 05/15 In the past 12 months, has l ack of transportation kept you from meetings, work, or from getting things needed for daily living? Yes 06/05/2023 Housing Stability Vital Sign Answer Christophe e Recorded In the last 12 months, was t here a time when you were not able to pay the mortgage or rent on time? No 06/05/2023 Number of Places Lived in the Last Year Not on f ile 06/05/2023 In the last 12 months, was t here a time when you did not have a steady place to sleep or slept in a mcfp (including now)? No 06/05/2023 Education Answer Date Recorded What is the [...] Telephone Encounter - Tanika Martin RN - 07/10/2023 3:50 PM CST Medication(s) [facility] Medication Refill Standing Order for Pediatricand Adult Patients. Requested Prescriptions Pending Prescriptions Disp Refills montelukast (SINGULAIR) 10 MG Tablet [Pharmacy Med Name: MONTELUKAST SODIUM 10MG TABLET] 90 Tablet 2 Sig: TAKE 1 TABLET BY MOUTH EVERY EVENING. Leukotriene Inhibitors Protocol Passed - 07/10/2023 9:13 AM Passed - Visit with relevant provider in past 12 months or upcoming 90 days Recent Visits Date Type Provider Dept 06/05/23 Office Visit Enrique Smith MD [facility] 05/02/23 Office Visit Enrique Smith MD [facility] 04/04/23 Office Visit En[facility] 01/23/23 Office Visit [facility] 01/16/23 Office Visit Danyel Akhtar APRN, [facility] 01/02/23 Office Visit Enrique Smith MD [facility] 12/29/22 Office Visit Sulma Blevins APRN, LEAD CASHIER [facility] 12/05/22 Office Visit Danyel Akhtar APRN, [facility] 10/31/22 [facility] Office Visit Bárbara Bergeron APRN, [facility] Showing recent visits within past 365 days and meeting all other requirements Future Appointments No visits were found meeting these conditions. Showing future appointments within next 90 days and meeting all other requirements ER VACUUM documented in this encounter Plan of Treatment Upcoming Encounters Date Type Department Care Team (Latest Contact Info) Description 10/29/2024 9:00 AM CDT Clinical Support [facility] Cardiology [facility] [address] [place] [address] Nurse, [facility] [place] 10/29/2024 9:30 AM CDT Office Visit [facility] #2 [place] [address] Ruben Rodriguez MD [address] [address] 10/30/2024 1:00 PM CDT Appointment [facility] Cardiology Services 1 [place] [address] Ruben Rodriguez MD [address] [address] Discharge Disposition: Discharged to home or Selfcare documented as of this encounter Goals Goal Patient Goal Type Associated Problems Recent Progress Patient-Stated? Author I am tired of feeling guilty about my [grief.] Behavioral Health Improving(01/2024 2:42 PM MOLDER VACUUM) Yes Edda Vo, GRIP ASSEMBLER Note: Goal/Objective: Decrease guilty thoughts about her care for her mother who is now . Anticipated Time Frame for Goal Completion: 6 months Goal Reviewed with: patient Readiness to change: Ready to change Department associated with goal[facility] Steps to achieve [...] documented as of this encounter Care Teams Pre Fabricator Relationship Specialty Start Date End Date Enrique Smith MD #2 [facility] [address] [place] [address] PCP - General Family Medicine 03/28/22 11/24/23 Wagner Byrne MD [address] [place] [address] PCP - General Internal Medicine 11/25/23 Roshan Franco MD #2 [facility] [address] [place] [address] Consulting Physician Cardiovascular Disease - Cardiology 12/06/22 04/20/24 Caryn Briseno APRN, LEAD CASHIER #2 [facility], [address] [place] [address] Nurse Practitioner Cardiology 04/04/23 Nery Burrell MD PhD #[address] [place] [address] Cut Off Saw Operator Pipe Blanks Interventional Cardiology 04/04/23 Roc Whitehead MD #[address] [place] [address] Consulting Physician Pulmonary Disease 02/15/23 Rafael Li MD #[address] [address] [address] Consulting Physician Clinical Cardiac Electrophysiology 02/19/24 Ruben Rodriguez MD [address] [facility] [address] [address] Consulting Physician Cardiovascular Disease - Cardiology 08/06/24 documented as of this encounter
--- OUTSIDE RECORDS SUMMARY | 2024-10-27 09:08 | XMS_ITS | Encounter Summary ---
Author Organization [facility] Facility Care Team Providers Care Machine Puller Over Name Role Phone Rocky Harevy MD Primary Care Provider Whit Horn NP Primary Care Provider [phone] Isreal Gonzalez MD Unavailable [phone] Wagner Byrne MD Primary Care Provider [phone] Enrique Smith MD Primary Care Provider [phone] Wagner Byrne MD Primary Care Provider [phone] Carlyn Gray [facility] Unavailable [phone] Encounter Details Date Type Department Care Team (Latest Contact Info) Description 06/22/2016 Orders Only [facility] CLINCONV Provider, MD Navya [address] [place] [address] Social History Tobacco Use Types Packs/Day Years Used Date Smoking Tobacco: Former Comments Unknown Sex and Gender Information Value Date Recorded Sex Assigned at Not on file Legal Sex Female 7:04 AM VALVE GRINDER Gender Identity Not on file Sexual Orientation Not on file documented as of this encounter Plan of Treatment Not on file documented as of this encounter Procedures Procedure Name Priority Date/Time Associated Diagnosis Comments SCAN - LABS 06/26/2016 12:00 AM VALVE GRINDER SCAN - LABS 06/22/2016 12:00 AM VALVE GRINDER documented in this encounter Results * SCAN - LABS (06/26/2016 12:00 AM VALVE GRINDER) Narrative 06/26/2016 12:00 AM VALVE GRINDER Ordered by an unspecified provider. us Historical Provider MD Final Res ult * SCAN - LABS (06/22/2016 12:00 AM VALVE GRINDER) Narrative 06/22/2016 12:00 AM VALVE GRINDER Ordered by an unspecified provider. us Historical [...] documented as of this encounter Care Teams Machine Puller Over Relationship Specialty Start Date End Date Rocky Harvey MD PCP - General 04/24/18 01/23/19 Whit Macias NP PCP - General 01/24/19 09/22/20 Wagner Byrne MD [address] [place] [address] PCP - General Family Medicine 09/23/20 04/27/22 Enrique Smith MD [address] [address] PCP - General Family Medicine 04/28/22 10/16/23 Wagner Byrne MD [address] [place] [address] PCP - General Family Medicine 10/17/23 Isreal Gonzalez MD [address] [address] Referring Physician Internal Medicine 02/04/20 Carlyn Gray, [address] [place] [address] Wellness Program Manager 06/25/24 07/23/24 documented as of this encounter
--- OUTSIDE RECORDS SUMMARY | 2024-10-27 09:08 | XMS_ITS | Encounter Summary ---
Author Organization [facility] Address [address] [place] [address] Phone Care Team Providers Care International Flight Attendant Name Role Phone Enrique Smith MD Primary Care Provider Roshan Franco MD Unavailable Caryn Menezes BUSINESS OBJECTS ANALYST, FOOD SERVICE DIRECTOR Unavailable + [phone] Nery Burrell MD PhD Unavailable [phone] Roc Whitehead MD Unavailable Wagner Byrne MD Primary Care Provider [phone] Rafael Li MD Unavailable Ruben Rodriguez MD Unavailable Reason for Visit * Reason Comments Medication Refill Encounter Details Date Type Department Care Team (Late st Contact Info) Description 07/17/2022 Refill [facility] [address] [place] [id number] Enrique Smith MD [address] [address] Medication Refill Social History Tobacco Use Types [...] suspected to have Coronavirus/COVID-19? No / Unsure 07/06/2022 2:18 PM PR MANAGER documented as of this encounter Miscellaneous Notes * Telephone Encounter - Tanika Martin RN - 07/18/2022 7:17 AM CST Medication failed the protocol, provider to review and approve the medication order if appropriate. Requested Prescriptions Pending Prescriptions Disp Refills albuterol (PROVENTIL, VENTOLIN) (2.5 MG/3ML) 0.083% Nebulizer Soln [Pharmacy Med Name: ALBUTEROL SULFATE 0.083% NEBULIZED SOLN] 360 mL 14 Sig: TAKE 3 ML (2.5 MG TOTAL) BY NEBULIZATION EVERY 6 (SIX) HOURS NEEDED FOR WHEEZING Short Acting Inhaled Beta-Agonists Protocol Passed - 07/17/2022 11:29 AM Passed - Visit with relevant provider [...] 02/09/22 Office Visit Bárbara Bergeron APRN, [facility] Showing recent visits within past 365 days and meeting all other requirements Future Appointments Date Type Provider Dept 07/26/22 Appointment Enrique Smith MD [facility] Showing future appointments within next 90 days and meeting all other requirements nystatin (MYCOSTATIN) [id number] UNIT/GM Cream [Pharmacy Med Name: NYSTATIN [id number] CREAM] 30 g 9 Sig: APPLY 3 TIMES DAILY FOR 14 DAYS. APPLICATION SITE: APPLY THREE TIMES A DAY TO AFFECTED AREAS FOR 14 DAYS. (DESCRIPTION AND LOCATION) Topical Antifungal Agents Protocol Passed - 07/17/2022 11:29 AM Passed - Visit with relevant provider [...] 02/09/22 Office Visit Bárbara Bergeron APRN, [facility] Showing recent visits within past 365 days and meeting all other requirements Future Appointments Date Type Provider Dept 07/26/22 Appointment Enrique Smith MD [facility] Showing future appointments within next 90 days and meeting all other requirements Nyamyc [id number] UNIT/GM Powder [Pharmacy Med Name: NYAMYC [id number] POWDER] 60 g 9 Sig: APPLY 3 TIMES DAILY FOR 14 DAYS. APPLY TO AFFECTED AREA DIRECTED. Topical Antifungal Agents Protocol Passed - 07/17/2022 11:29 AM Passed - Visit with relevant provider in past 12 months or upcoming 90 days Recent Visits Date Type Provider Dept 06/28/22 Office Visit Enrique Smith MD [facility] 06/20/22 Office Visit Luis Carlos Bull MD [facility] 05/31/22 Office Visit Enrique Smith MD [facility] 05/11/22 Office Visit Enrique Smith MD [facility] 04/11/22 Office Visit StrohbBárbara nicholas APRN, CNP [facility] 03/28/22 Office Visit Enrique Smith MD [facility] 02/09/22 Office Visit Bárbara Bergeron APRN, [facility] Showing recent visits within past 365 days and meeting all other requirements Future Appointments Date Type Provider Dept 07/26/22 Appointment Enrique Smith MD [facility] Showing future appointments within next 90 days and meeting all other requirements predniSONE (DELTASONE) 5 MG Tablet [Pharmacy Med Name: PREDNISONE 5MG TABLET] 30 Tablet 0 Sig: Take 1 Tablet by mouth daily. Not Delegated - Corticosteroids Protocol Failed - 07/17/2022 11:29 AM Failed - This refill cannot be [...] 04/11/22 Office Visit Bárbara Bergeron APRN, CNP [facility] 03/28/22 Office Visit Enrique Smith MD [facility] 02/09/22 Office Visit Bárbara Bergeron APRN, [facility] Showing recent visits within past 365 days and meeting all other requirements Future Appointments Date Type Provider Dept 07/26/22 Appointment Enrique Smith MD [facility] Showing future appointments within next 90 days and meeting all other requirements Jardiance 10 MG Tablet [Pharmacy Med Name: JARDIANCE 10MG TABLET] 30 Tablet 0 Sig: TAKE 1 TABLET BY MOUTH DAILY. SGLT2 Inhibitors Protocol Passed - 07/17/2022 11:29 AM Passed - Visit with relevant provider [...] 02/09/22 Office Visit Bárbara Bergeron APRN, [facility] Showing recent visits within past 182 days and meeting all other requirements Future Appointments Date Type Provider Dept 07/26/22 Appointment Enrique Smith MD [facility] Showing future appointments within next 90 days and meeting all other requirements Passed - HgA1C on record in past 6 months HGB-A1C Date Value Ref Range Status 03/01/2022 6.6 (H) 4.0 - 6.0 % Final Passed - GFR greater than or equal to 30 in past 6 months GFR, EST. NONAFRICAN Date Value Ref Range Status 06/28/2022 >60 >=60 Final PARoxetine (PAXIL) 40 MG Tablet [Pharmacy Med Name: PAROXETINE HCL 40MG TABLET] 90 Tablet 9 Sig: TAKE 1 TABLET BY MOUTH DAILY. SSRI (6 Month Refill Only) Protocol Failed - 07/17/2022 11:29 AM Failed - Patient has established therapy with SSRI for at least 6 months Passed - [...] requirements Future Appointments Date Type Provider Dept 07/26/22 Appointment Enrique mSith MD [facility] Showing future appointments within next 90 days and meeting all other requirements Passed - Has an encounter in the past 6 months with a depression, anxiety, adjustment disorder, OCD, or PTSD visit diagnosis albuterol 108 (90 Base) MCG/ACT Aerosol Solution [Pharmacy Med Name: ALBUTEROL SULFATE HFA HFA AEROSOL SOLN] 18 g 9 Sig: INHALE 2 PUFFS INTO LUNGS EVERY 4 HOURS NEEDED FOR 30 DAYS. Short Acting Inhaled Beta-Agonists Protocol Passed - 07/17/2022 11:29 AM Passed - Visit with relevant provider in past 12 months or upcoming 90 days Recent Visits Date Type Provider Dept 06/28/22 Office Visit Enrique Smith MD [facility] 06/20/22 Office Visit Luis Carlos Bull MD [facility] 05/31/22 Office Visit Enrique Smith MD [facility] 05/11/22 Office Visit Enrique Smith MD [facility] 04/11/22 Office Visit Bárbara Bergeron APRN, [facility] 03/28/22 Office Visit Enrique Smith MD [facility] 02/09/22 Office Visit Bárbara Bergeron APRN, [facility] Showing recent visits within past 365 days and meeting all other requirements Future Appointments Date Type Provider Dept 07/26/22 Appointment Enrique Smith MD [facility] Show[facility] future appointments within next 90 days and meeting all other requirements rOPINIRole (REQUIP) 0.5 MG Tablet [Pharmacy Med Name: ROPINIROLE HCL 0.5MG TABLET] 30 Tablet 9 Sig: TAKE 1 TABLET BY MOUTH AT BEDTIME FOR 30 DAYS Antiparkinson Dopaminergics and COMT Protocol Passed - 07/17/2022 11:29 AM Passed - Visit with relevant provider [...] 04/11/22 Office Visit Bárbara Bergeron APRN, [facility] 03/28/22 Office Visit Enrique Smith MD [facility] 02/09/22 Office Visit Bárbara Bergeron APRN, [facility] Showing recent visits within past 270 days and meeting all other requirements Future Appointments Date Type Provider Dept 07/26/22 Appointment Enrique Smith MD [facility] Showing future appointments within next 90 days and meeting all other requirements Passed - Blood pressure on record in past 12 months Clinician-entered: BP Readings from Last 3 Encounters: 06/28/22 120/78 06/20/22 130/84 06/08/22 125/69 Patient-entered: No data recorded fluticasone (FLONASE) 50 MCG/ACT Suspension [Pharmacy Med Name: FLUTICASONE PROPIONATE 50MCG SUSPENSION] 16 mL 9 Sig: USE 2 SPRAYS IN EACH NOSTRIL ONCE DAILY Nasal Steroids Protocol Passed - 07/17/2022 11:29 AM Passed - Visit with relevant provider [...] 02/09/22 Office Visit Bárbara Bergeron APRN, [facility] Showing recent visits within past 365 days and meeting all other requirements Future Appointments Date Type Provider Dept 07/26/22 Appointment Enrique Smith MD [facility] Showing future appointments within next 90 days and meeting all other requirements MANAGER documented in this encounter Plan of Treatment Upcoming Encounters Date Type Department Care Team (Latest Contact Info) Description 10/29/2024 9:00 AM CDT Clinical Support [facility] - Cardiology - Brain #2 [place] [address] Nurse, Brain Cardiology [place] 10/29/2024 9:30 AM CDT Office Visit [facility] - [place] #2 [place] [address] Ruben Rodriguez MD 2 [facility] [address] [address] 10/30/2024 1:00 PM CDT [facility] 1 [place] [address] Ruben Rodriguez MD [address] [address] Discharge Disposition: Discharged to home or Selfcare documented as of this encounter Visit Diagnoses Not on filedocumented in this encounter Additional Health Concerns Infection Onset Date Last Indicated Resolved Time COVID - 19 01/23/2023 01/23/2023 02/02/2023 12:1 6 AM CDT COVID - 19 04/02/2023 04/02/2023 04/12/2023 12:1 6 AM PR MANAGER COVID - 19 04/21/2023 04/21/2023 05/01/2023 12:1 6 AM PR MANAGER Assessment Noted Time PHQ-9 Depression Total Score: 0 02/10/20 11:00 AM CDT documented as of this encounter Care Teams International Flight Attendant Relationship Specialty Start Date End Date Enrique Smith MD #[address] [address] PCP - General Family Medicine 03/28/22 11/24/23 Wagner Byrne MD [address] [place] [address] PCP - General Internal Medicine 11/25/23 Roshan Franco MD #[address] [address] Consulting Physician Cardiovascular Disease - Cardiology 12/06/22 04/20/24 Caryn Briseno APRN, FOOD SERVICE DIRECTOR #2 [place], [address] [address] Nurse Practitioner Cardiology 04/04/23 Nery Burrell MD PhD #[address] [place] [address] Electrical Technician Instructor Interventional Cardiology 04/04/23 Roc Whitehead MD #2 [place] [id number] Consulting Physician Pulmonary Disease 02/15/23 Rafael Li MD #2 [facility], [address] [address] Consulting Physician Clinical Cardiac Electrophysiology 02/19/24 Ruben Rodriguez MD 2 [address] [facility], [address] [address] Consulting Physician Cardiovascular Disease - Cardiology 08/06/24 documented as of this encounter
--- OUTSIDE RECORDS SUMMARY | 2024-10-27 09:08 | XMS_ITS | Encounter Summary ---
Author Organization [facility] Address [address] [place] [address] Phone Care Team Providers Care Court Operations Clerk Name Role Phone Enrique Smith MD Primary Care Provider [phone] Roshan Franco MD Unavailable Caryn Menezes FURNITURE RENTAL CONSULTANT, LEARNING DEVELOPMENT SPECIALIST Unavailable + [phone] Nery Burrell MD PhD Unavailable [phone] Roc Whitehead MD Unavailable Wagner Byrne MD Primary Care Provider [phone] Rafael Li MD Unavailable Ruben Rodriguez MD Unavailable Reason for Visit * Reason Comments Medication Refill Encounter Details Date Type Department Care Team (Late st Contact Info) Description 07/30/2023 Refill [facility] [address] [place] [id number] Enrique Smith MD #[address] [address] Medication Refill Social History Tobacco Use Types Packs/Day Years Used Date Smoking Tobacco: Former Cigarettes 0.5 40 Smokeless Tobacco: Never Alcohol Use Standard Drinks/Week Comments Not Currently 0 (1 standard drink = 0.6 oz pur e alcohol) [facility] Utilities Answer Date Recorded In [...] How often do you attend temple or quaker serv ices? Patient declined 08/03/2023 Do you [...] Recorded Total Score - Questions 1-9 01/12 [facility] of Occupat ional Health - Occupational Stress [...] Telephone Encounter - Tanika Martin RN - 07/30/2023 1:32 PM CDT Medication remains on current medication list. Looks like they tried to remove the duplicate. Per nursing clinical judgement, provider to review and approve the medication(s) order(s) if appropriate. Requested Prescriptions Pending Prescriptions Disp Refills fluticasone (FLONASE) 50 MCG/ACT Suspension [Pharmacy Med Name: FLUTICASONE PROPIONATE 50MCG SUSPENSION] 16 mL 9 Sig: USE 2 SPRAYS IN EACH NOSTRIL ONCE DAILY Nasal Steroids Protocol Passed - 07/30/2023 10:27 AM Passed - Visit with relevant provider in past 12 months or upcoming 90 days Recent Visits Date Type Provider Dept 06/05/23 Office Visit Enrique Smith MD [facility] 05/02/23 Office Visit Enrique Smith MD [facility] 04/04/23 Office Visit Enrique Smith MD [facility] 01/23/23 Office Visit [facility] 01/16/23 Office Visit Danyel Akhtar FURNITURE RENTAL CONSULTANT, LEARNING DEVELOPMENT SPECIALIST [facility] 01/02/23 Office Visit Enrique Smith MD [facility] 12/29/22 Office Visit Sulma Blevins APRN, LEARNING DEVELOPMENT SPECIALIST [facility] 12/05/22 Office Visit Danyel Akhtar APRN, LEARNING DEVELOPMENT SPECIALIST [facility] 10/31/22 [facility] 10[facility]22 Office Visit Bárbara Bergeron FURNITURE RENTAL CONSULTANT, [facility] Showing recent visits within past 365 days and meeting all other requirements Future Appointments No visits were found meeting these conditions. Showing future appointments within next 90 days and meeting all other requirements documented in this encounter Plan of Treatment Upcoming Encounters Date Type Department Care Team (Latest Contact Info) Description 10/29/2024 9:00 AM CDT Clinical Support [facility] - Cardiology - [place] #[address] [place] [address] Nurse, [facility] [place] 10/29/2024 9:30 AM CDT Office Visit [facility] [place] [address] Ruben Rodriguez MD [address] [address] 10/30/2024 1:00 PM CDT Appointment [facility] Cardiology Services 1 [place] [address] Ruben Rodriguez MD 2 [facility] [address] [address] Discharge Disposition: Discharged to home or Selfcare documented as of this encounter Goals Goal Patient Goal Type Associated Problems Recent Progress Patient-Stated? Author I am tired of feeling guilty about my [grief.] Behavioral Health Improving(01/2024 2:42 PM TRANSIT POLICE OFFICER) Yes Edda Vo, LANGUAGES AND LITERATURE INSTRUCTOR Note: Goal/Objective: Decrease guilty thoughts about her care for her mother who is now . Anticipated Time Frame for Goal Completion: 6 months Goal Reviewed with: patient Readiness to change: Ready to change Department associated with goal: [facility] Steps [...] documented as of this encounter Care Teams Court Operations Clerk Relationship Specialty Start Date End Date Enrique Smith MD #[address] [address] PCP - General Family Medicine 03/28/22 11/24/23 Wagner Byrne MD [address] [place] [address] PCP - General Internal Medicine 11/25/23 Roshan Franco MD #[address] [address] Consulting Physician Cardiovascular Disease - Cardiology 12/06/22 04/20/24 Caryn Briseno APRN, LEARNING DEVELOPMENT SPECIALIST #2 [facility] [address] [place] [address] Nurse Practitioner Cardiology 04/04/23 Nery Burrell MD PhD [address] [place] [address] Carbide Powder Processor Interventional Cardiology 04/04/23 Roc Whitehead MD #[address] [place] [address] Consulting Physician Pulmonary Disease 02/15/23 Rafael Li MD #2 [facility], [address] [address] Consulting Physician Clinical Cardiac Electrophysiology 02/19/24 uRben Rodriguez MD 2 [facility], [address] [address] Consulting Physician Cardiovascular Disease - Cardiology 08/06/24 documented as of this encounter
--- OUTSIDE RECORDS SUMMARY | 2024-10-27 09:08 | XMS_ITS | Encounter Summary ---
Author Organization [facility] Address [address] [place] [address] Phone Care Team Providers Care Landfill Gas Collection System Operator Name Role Phone Enrique Smith MD Primary Care Provider [phone] Roshan Franco MD Unavailable Caryn Menezes BEHAVIORAL HEALTH TECHNICIAN, TIE MILL OPERATOR Unavailable + [phone] Nery Burrell MD PhD Unavailable [phone] Roc Whitehead MD Unavailable Wagner Byrne MD Primary Care Provider [phone] Rafael Li MD Unavailable Ruben Rodriguez MD Unavailable Reason for Visit * Reason Comments Medication Refill Encounter Details Date Type Department Care Team (Late st Contact Info) Description 07/11/2022 Refill [facility] 1 [place] [address] Enrique Smith MD #[address] [address] Medication Refill Social History Tobacco Use Types [...] Coronavirus/COVID-19? No / Unsure 07/06/2022 2:18 PM TEXTILE COATING MACHINE OPERATOR documented as of this encounter Miscellaneous Notes * Telephone Encounter - Shantell Carrera RN - 07/12/2022 12:13 PM TEXTILE COATING MACHINE OPERATOR Medication failed the protocol, provider to review and approve the medication order if appropriate. Requested Prescriptions Pending Prescriptions Disp Refills Jardiance 10 MG Tablet [Pharmacy Med Name: JARDIANCE 10MG TABLET] 30 Tablet 0 Sig: TAKE 1 TABLET BY MOUTH DAILY. There is no refill protocol information for this order ILE COATING MACHINE OPERATOR documented in this encounter Plan of Treatment Upcoming Encounters Date Type Department Care Team (Latest Contact Info) Description 10/29/2024 9:00 AM CDT Clinical Support [facility] Cardiology [facility] #2 [place] [address] Nurse, [facility] [place] 10/29/2024 9:30 AM CDT Office Visit [facility] Cardiology [facility] #2 [place] [address] Ruben Rodriguez MD [address] [address] 10/30/2024 1:00 PM CDT [facility] 1 [facility] [place] [address] Ruben Rodriguez MD [address] [address] Discharge Disposition: Discharged to home or Selfcare documented as of this encounter Visit Diagnoses Not on filedocumented in this encounter Additional Health Concerns Infection Onset Date Last Indicated Resolved Time COVID - 19 01/23/2023 01/23/2023 02/02/2023 12:1 6 AM CDT COVID - 19 04/02/2023 04/02/2023 04/12/2023 12:1 6 AM TEXTILE COATING MACHINE OPERATOR COVID - 04/21/2023 04/21/2023 05/01/2023 12:1 6 AM TEXTILE COATING MACHINE OPERATOR Assessment Noted Time PHQ-9 Depression Total Score: 0 02/10/20 11:00 AM CDT documented as of this encounter Care Teams Landfill Gas Collection System Operator Relationship Specialty Start Date End Date Enrique Smith MD #[address] [facility] [address] [address] PCP - General Family Medicine 03/28/22 11/24/23 Wagner Byrne MD [address] [place] [address] PCP - General Internal Medicine 11/25/23 Roshan Franco MD #[address] [address] [address] Consulting Physician Cardiovascular Disease - Cardiology 12/06/22 04/20/24 Caryn Briseno APRN, TIE MILL OPERATOR #[address] [address] Nurse Practitioner Cardiology 04/04/23 Nery Burrell MD PhD #[address] [place] [address] Coverage Specialist Interventional Cardiology 04/04/23 Roc Whitehead MD #[address] [place] [address] Consulting Physician Pulmonary Disease 02/15/23 Rafael Li MD #[address] [address] Consulting Physician Clinical Cardiac Electrophysiology 02/19/24 Ruben Rodriguez MD [address] [facility] [address] [address] Consulting Physician Cardiovascular Disease - Cardiology 08/06/24 documented as of this encounter
--- OUTSIDE RECORDS SUMMARY | 2024-10-27 09:08 | XMS_ITS | Encounter Summary ---
Author Organization [facility] Facility Care Team Providers Care Instrument Assembly Supervisor Name Role Phone Rocky Harvey MD Primary Care Provider Whit Horn NP Primary Care Provider [phone] Isreal Gonzalez MD Unavailable [phone] Wagner Byrne MD Primary Care Provider [phone] Enrique Smith MD Primary Care Provider [phone] Wagner Byrne MD Primary Care Provider [phone] Carlyn Gray [facility] Unavailable [phone] Encounter Details Date Type Department Care Team (Latest Contact Info) Description 09/05/2017 Orders Only [facility]INCONV Provider, MD Navya [address] [place] [address] Social History Tobacco Use Types Packs/Day Years Used Date Smoking Tobacco: Former Comments Unknown Sex and Gender Information Value Date Recorded Sex Assigned at Not on file 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 Gender Identity Not on file Sexual Orientation Not on file documented as of this encounter Plan of Treatment Not on file documented as of this encounter Procedures Procedure Name Priority Date/Time Associated Diagnosis Comments SCAN - LABS 09/05/2017 12:00 AM CDT documented in this encounter Results * SCAN - LABS (09/05/2017 12:00 AM CDT) Narrative 09/05/2017 12:00 AM CDT Ordered by an unspecified [...] documented as of this encounter Care Teams Instrument Assembly Supervisor Relationship Specialty Start Date End Date Rocky Harvey MD PCP - General 04/24/18 01/23/19 Whit Macias NP PCP - General 01/24/19 09/22/20 Wagner Byrne MD [address] [place] [address] PCP - General Family Medicine 09/23/20 04/27/22 Enrique Smith MD 2 [facility] [address] [place] [address] PCP - General Family Medicine 04/28/22 10/16/23 Wagner Byrne MD [address] [place] [address] PCP - General Family Medicine 10/17/23 Isreal Gonzalez MD 3 [facility] [address] [place] [address] Referring Physician Internal Medicine 02/04/20 Carlyn Gray, [address] [place] [address] Loss Prevention Investigator 06/25/24 07/23/24 documented as of this encounter
--- OUTSIDE RECORDS SUMMARY | 2024-10-27 09:08 | XMS_ITS | Encounter Summary ---
Author Organization [facility] Address [address] [place] [address] Phone Care Team Providers Care Vest Presser Name Role Phone Enrique Smith MD Primary Care Provider [phone] Roshan Franco MD Unavailable Caryn Menezes DRY ROLLER, COMMUNITY HEALTH CONSULTANT Unavailable + [phone] Nery Burrell MD PhD Unavailable [phone] Roc Whitehead MD Unavailable Wagner Byrne MD Primary Care Provider [phone] Rafael Li MD Unavailable Ruben Rodriguez MD Unavailable Reason for Visit * Reason Comments Medication Refill Encounter Details Date Type Department Care Team (Late st Contact Info) Description 07/26/2022 Refill [facility] Family [facility] #[address] [place] [address] Enrique Smith MD [address] [address] Medication Refill Social History Tobacco Use Types [...] Coronavirus/COVID-19? No / Unsure 07/06/2022 2:18 PM TEXTURING MACHINE FIXER documented as of this encounter Miscellaneous Notes * Telephone Encounter - Shantell Carrera RN - 07/26/2022 12:30 PM CDT Medication failed the protocol, provider to review and approve the medication order if appropriate. Requested Prescriptions Pending Prescriptions Disp Refills ondansetron (ZOFRAN) 4 MG Tablet [Pharmacy Med Name: ONDANSETRON HYDROCHLORIDE 4MG TABLET] 20 Tablet 1 Sig: TAKE 1 TABLET (4 MG TOTAL) BY MOUTH EVERY 8 (EIGHT) HOURS NEEDED FOR NAUSEA OR VOMITING Not Delegated - 5-HT3 Antagonists Protocol Failed - 07/26/2022 11:38 AM Failed - This refill cannot be delegated Passed - Visit with relevant provider in past 12 months or upcoming 90 days Recent Visits Date Type Provider Dept 06/28/22 Office Visit Enrique Smith MD [facility] 06/20/22 Office Visit Lius Carlos Bull MD [facility] 05/31/22 Office Visit Enrique Smith MD [facility] 05/11/22 Office Visit Enrique Smith MD [facility] 04/11/22 Office Visit Bárbara Bergeron APRN, [facility] 03/28/22 Office Visit Enrique Smith MD [facility] 02/09/22 [facility] Showing recent visits within past 365 days and meeting all other requirements Future Appointments No visits were found meeting these conditions. Showing future appointments within next 90 days and meeting all other requirements documented in this encounter Plan of Treatment Upcoming Encounters Date Type Department Care Team (Latest Contact Info) Description 10/29/2024 9:00 AM CDT Clinical Support [facility] Cardiology - [place] #2 [place] [address] Nurse, [place] [facility] [place] 10/29/2024 9:30 AM CDT Office Visit [facility] #2 [place] [address] Ruben Rodriguez MD [address] [address] 10/30/2024 1:00 PM CDT Appointment [facility] Cardiology Services 1 [place] [address] Ruben Rodriguez MD [address] [address] Discharge Disposition: Discharged to home or Selfcare documented as of this encounter Visit Diagnoses Not on filedocumented in this encounter Additional Health Concerns Infection Onset Date Last Indicated Resolved Time COVID - 19 01/23/2023 01/23/2023 02/02/2023 12:1 6 AM CDT COVID - 19 04/02/2023 04/02/2023 04/12/2023 12:1 6 AM TEXTURING MACHINE FIXER COVID - 19 04/21/2023 04/21/2023 05/01/2023 12:1 6 AM TEXTURING MACHINE FIXER Assessment Noted Time PHQ-9 Depression Total Score: 0 02/10/20 11:00 AM CDT documented as of this encounter Care Teams Vest Presser Relationship Specialty Start Date End Date Enrique Smith MD #2 [facility] [address] [place] [address] PCP - General Family Medicine 03/28/22 11/24/23 Wagner Byrne MD [address] [place] [address] PCP - General Internal Medicine 11/25/23 Roshan Franco MD #[address] [address] Consulting Physician Cardiovascular Disease - Cardiology 12/06/22 04/20/24 Caryn Briseno, DRY ROLLER, COMMUNITY HEALTH CONSULTANT #2 [facility], [address] [address] Nurse Practitioner Cardiology 04/04/23 Nery Burrell MD PhD #[address] [place] [address] Relief Pharmacist Interventional Cardiology 04/04/23 Roc Whitehead MD #[address] [place] [address] Consulting Physician Pulmonary Disease 02/15/23 Rafael Li MD #[address] [facility], [address] [address] Consulting Physician Clinical Cardiac Electrophysiology 02/19/24 Ruben Rodriguez MD [address] [facility], [address] [address] Consulting Physician Cardiovascular Disease - Cardiology 08/06/24 documented as of this encounter
--- OUTSIDE RECORDS SUMMARY | 2024-10-27 09:08 | XMS_ITS | Encounter Summary ---
Author Organization [facility] Address [address] [place] [address] Phone Care Team Providers Care Arts Administrator Name Role Phone Enrique Smith MD Primary Care Provider [phone] Roshan Franco MD Unavailable Caryn Menezes INSTRUCTOR CREELER, PHOTOGRAPHIC EQUIPMENT MECHANIC Unavailable + [phone] Nery Burrell MD PhD Unavailable [phone] Roc Whitehead MD Unavailable Wagner Byrne MD Primary Care Provider [phone] Raafel Li MD Unavailable Ruben Rodriguez MD Unavailable Reason for Visit * Reason Comments Medication Refill Encounter Details Date Type Department Care Team (Late st Contact Info) Description 08/06/2023 Refill [facility] Family Medicine [facility] #[address] [place] [address] Enrique Smith MD #[address] [address] Medication Refill Social History Tobacco Use Types Packs/Day Years Used Date Smoking Tobacco: Every Day Cigarettes 0.5 40 Smokeless Tobacco: Never Alcohol Use Standard Drinks/Week Comments Not Currently 0 (1 standard drink = 0.6 oz pur e alcohol) [facility] Utilities Answer Date Recorded In the past [...] declined 08/03/2023 How often do you attend presybeterian or spiritism serv ices? Patient declined 08/03/2023 Do you belong to any clubs o r organizations such as presybeterian groups, unions, fraternal or athletic groups, or [...] Recorded Total Score - Questions 1-9 01/12 [facility] of Occupat ional Health - Occupational [...] place to sleep or slept in a fdc (including now)? Patient declined 08/03/2023 Education Answer [...] encounter Miscellaneous Notes * Telephone Encounter - Elvia Odell, RN - 08/06/2023 2:14 PM CDT Medication filled by Caryn Briseno APRN, PHOTOGRAPHIC EQUIPMENT MECHANIC documented in this encounter Plan of Treatment Upcoming Encounters Date Type Department Care Team (Latest Contact Info) Description 10/29/2024 9:00 AM CDT Clinical Support [facility] - Cardiology - [place] #2 [facility] [place] [address] Nurse, [facility] [place] 10/29/2024 9:30 AM CDT Office Visit [facility] - Cardiology - [place] #[address] [place] [address] Ruben Rodriguez MD 2 [facility] [address] [address] 10/30/2024 1:00 PM CDT Appointment [facility] Cardiology Services 1 [facility] [place] [address] Ruben Rodriguez MD 2 [facility], [address] [address] Discharge Disposition: Discharged to home or Selfcare documented as of this encounter Goals Goal Patient Goal Type Associated Problems Recent Progress Patient-Stated? Author I am tired of feeling guilty about my [grief.] Behavioral Health Improving(01/2024 2:42 PM SENIOR GRANT WRITER) Yes Edda Vo, SOFTWARE ENGINEER Note: Goal/Objective: Decrease guilty thoughts about her care for her mother who is now . Anticipated Time Frame for Goal Completion: 6 months Goal Reviewed with: patient Readiness to change: Ready to change Department associated with goal: [facility] BEHAVIOR[facility] HEALTH SERVICES Steps to [...] documented as of this encounter Care Teams Arts Administrator Relationship Specialty Start Date End Date Enrique Smith MD #[address] [facility] [address] [place] [address] PCP - General Family Medicine 03/28/22 11/24/23 Wagner Byrne MD [address] [place] [address] PCP - General Internal Medicine 11/25/23 Roshan Franco MD #[address] [facility] [address] [place] [address] Consulting Physician Cardiovascular Disease - Cardiology 12/06/22 04/20/24 Caryn Briseno APRN, PHOTOGRAPHIC EQUIPMENT MECHANIC #2 [facility], [address] [address] Nurse Practitioner Cardiology 04/04/23 Nery Burrell MD PhD #[address] [place] [address] Contractor Broomcorn Threshing Interventional Cardiology 04/04/23 Roc Whiteehad MD #[address] [place] [address] Consulting Physician Pulmonary Disease 02/15/23 Rafael Li MD #2 [facility], [address] [address] Consulting Physician Clinical Cardiac Electrophysiology 02/19/24 Ruben Rodriguez MD [address] [facility], [address] [address] Consulting Physician Cardiovascular Disease - Cardiology 08/06/24 documented as of this encounter
--- OUTSIDE RECORDS SUMMARY | 2024-10-27 09:08 | XMS_ITS | Encounter Summary ---
Author Organization [facility] Facility Care Team Providers Care Resource Protection Specialist Name Role Phone Rocky Harvey MD Primary Care Provider Whit Horn NP Primary Care Provider [phone] Isreal Gonzalez MD Unavailable [phone] Wagner Byrne MD Primary Care Provider [phone] Enrique Smith MD Primary Care Provider [phone] Wagner Byrne MD Primary Care Provider [phone] Carlyn Gray [facility] Unavailable [phone] Encounter Details Date Type Department Care Team (Latest Contact Info) Description 11/30/2016 Orders Only [facility] CLINCONV Provider, MD Navya [address] [place] [address] Social History Tobacco Use Types Packs/Day Years Used Date Smoking Tobacco: Former Comments Unknown Sex and Gender Information Value Date Recorded Sex Assigned at Not on file Legal Sex Female 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 Gender Identity Not on file Sexual Orientation Not on file documented as of this encounter Plan of Treatment Not on file documented as of this encounter Procedures Procedure Name Priority Date/Time Associated Diagnosis Comments SCAN - LABS 12/01/2016 12:00 AM CDT documented in this encounter Results * SCAN - LABS (12/01/2016 12:00 AM CDT) Narrative 12/01/2016 12:00 AM CDT Ordered by an unspecified [...] documented as of this encounter Care Teams Resource Protection Specialist Relationship Specialty Start Date End Date Rocky Harvey MD PCP - General 04/24/18 01/23/19 Whit Macias NP PCP - General 01/24/19 09/22/20 Wagner Byrne MD [address] [place] [address] PCP - General Family Medicine 09/23/20 04/27/22 Enrique Smith MD 2 [facility] [address] [place] [address] PCP - General Family Medicine 04/28/22 10/16/23 Wagner Byrne MD [address] [place] [address] PCP - General Family Medicine 10/17/23 Isreal Gonzalez MD 3 [facility] [address] [place] [address] Referring Physician Internal Medicine 02/04/20 Carlyn Gray, [address] [place] [address] Chorus Master 06/25/24 07/23/24 documented as of this encounter
--- OUTSIDE RECORDS SUMMARY | 2024-10-27 09:08 | XMS_ITS | Encounter Summary ---
Author Organization [facility] Facility Care Team Providers Care Heat And Vent Aircraft Mechanic Name Role Phone Rocky Harvey MD Primary Care Provider Whit Horn NP Primary Care Provider +- [phone] Isreal Gonzalez MD Unavailable [phone] Wagner Byrne MD Primary Care Provider + [phone] Enrique Smith MD Primary Care Provider [phone] Wagner Byrne MD Primary Care Provider [phone] Carlyn Gray [facility] Unavailable [phone] Encounter Details Date Type Department Care Team (Latest Contact Info) Description 12/04/2016 Orders Only [facility] CLINCONV Provider, MD Navya [address] [place] [address] Social History Tobacco Use Types Packs/Day Years Used Date Smoking Tobacco: Former Comments Unknown Sex and Gender Information Value Date Recorded Sex Assigned at Not on file Legal Sex Female 7:04 AM LICENSED STAFF MFT Gender Identity Not on file Sexual Orientation Not on file documented as of this encounter Plan of Treatment Not on file documented as of this encounter Procedures Procedure Name Priority Date/Time Associated Diagnosis Comments SCAN - LABS 12/05/2016 12:00 AM CDT documented in this encounter Results * SCAN - LABS (12/05/2016 12:00 AM CDT) Narrative 12/05/2016 12:00 AM CDT Ordered by an unspecified [...] documented as of this encounter Care Teams Heat And Vent Aircraft Mechanic Relationship Specialty Start Date End Date Rocky Harvey MD PCP - General 04/24/18 01/23/19 Whit Macias NP PCP - General 01/24/19 09/22/20 Wagner Byrne MD [address] [place] [address] PCP - General Family Medicine 09/23/20 04/27/22 Enrique Smith MD 2 [facility] [address] [place] [address] PCP - General Family Medicine 04/28/22 10/16/23 Wagner Byrne MD [address] [place] [address] PCP - General Family Medicine 10/17/23 Isreal Gonzalez MD 3 [facility] [address] [place] [address] Referring Physician Internal Medicine 02/04/20 Carlyn Gray, [address] [place] [address] Parliamentary Archivist 06/25/24 07/23/24 documented as of this encounter
--- OUTSIDE RECORDS SUMMARY | 2024-10-27 09:08 | XMS_ITS | Encounter Summary ---
Author Organization [facility] Facility Care Team Providers Care Ict Support Engineer Name Role Phone Rocky Harvey MD Primary Care Provider Whit Horn NP Primary Care Provider +- [phone] Isreal Gonzalez MD Unavailable [phone] Wagner Byrne MD Primary Care Provider [phone] Enrique Smith MD Primary Care Provider [phone] Wagner Byrne MD Primary Care Provider [phone] Carlyn Gray [facility] Unavailable [phone] Encounter Details Date Type Department Care Team (Latest Contact Info) Description 04/27/2016 Orders Only [facility] CLINCONV Provider, MD Navya [address] [place] [address] Social History Tobacco Use Types Packs/Day Years Used Date Smoking Tobacco: Former Comments Unknown Sex and Gender Information Value Date Recorded Sex Assigned at Not on file Legal Sex Female 7:04 AM SUPERVISOR DATA PROCESSING Gender Identity Not on file Sexual Orientation Not on file documented as of this encounter Plan of Treatment Not on file documented as of this encounter Procedures Procedure Name Priority Date/Time Associated Diagnosis Comments SCAN - LABS 04/28/2016 12:00 AM SUPERVISOR DATA PROCESSING documented in this encounter Results * SCAN - LABS (04/28/2016 12:00 AM SUPERVISOR DATA PROCESSING) Narrative 04/28/2016 12:00 AM SUPERVISOR DATA PROCESSING Ordered by an unspecified provider. us Historical [...] documented as of this encounter Care Teams Ict Support Engineer Relationship Specialty Start Date End Date Rocky Harvey MD PCP - General 04/24/18 01/23/19 Whit Macias NP PCP - General 01/24/19 09/22/20 Wagner Byrne MD [address] [place] [address] PCP - General Family Medicine 09/23/20 04/27/22 Enrique Smith MD 2 [facility] [address] [place] [address] PCP - General Family Medicine 04/28/22 10/16/23 Wagner Byrne MD [address] [place] [address] PCP - General Family Medicine 10/17/23 Isreal Gonzalez MD 3 [facility] [address] [place] [address] Referring Physician Internal Medicine 02/04/20 Carlyn Gray, [address] [place] [address] Elevator Tender 06/25/24 07/23/24 documented as of this encounter
--- OUTSIDE RECORDS SUMMARY | 2024-10-27 09:08 | XMS_ITS | Encounter Summary ---
Author Organization [facility] Facility Care Team Providers Care Visual C Developer Name Role Phone Rocky Harvey MD Primary Care Provider Whit Horn NP Primary Care Provider +- [phone] Isreal Gonzalez MD Unavailable [phone] Wagner Byrne MD Primary Care Provider [phone] Enrique Smith MD Primary Care Provider [phone] Wagner Byrne MD Primary Care Provider [phone] Carlyn Gray [facility] Unavailable [phone] Encounter Details Date Type Department Care Team (Latest Contact Info) Description 12/28/2016 Orders Only [facility] CLINCONV Provider, MD Navya [address] [place] [address] Social History Tobacco Use Types Packs/Day Years Used Date Smoking Tobacco: Former Comments Unknown Sex and Gender Information Value Date Recorded Sex Assigned at Not on file 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 Sex 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 Gender Identity Not on file Sexual Orientation Not on file documented as of this encounter Plan of Treatment Not on file documented as of this encounter Procedures Procedure Name Priority Date/Time Associated Diagnosis Comments SCAN - LABS 12/28/2016 12:00 AM CDT documented in this encounter Results * SCAN - LABS (12/28/2016 12:00 AM CDT) Narrative 12/28/2016 12:00 AM CDT Ordered by an unspecified [...] documented as of this encounter Care Teams Visual C Developer Relationship Specialty Start Date End Date Rocky Harvey MD PCP - General 04/24/18 01/23/19 Whit Macias NP PCP - General 01/24/19 09/22/20 Wagner Byrne MD [address] [place] [address] PCP - General Family Medicine 09/23/20 04/27/22 Enrique Smith MD 2 [facility] [address] [place] [address] PCP - General Family Medicine 04/28/22 10/16/23 Wagner Byrne MD [address] [place] [address] PCP - General Family Medicine 10/17/23 Isreal Gonzalez MD 3 [facility] [address] [place] [address] Referring Physician Internal Medicine 02/04/20 Carlyn Gray, [address] [place] [place] [address] Bundle Tier And Labeler 06/25/24 07/23/24 documented as of this encounter
--- OUTSIDE RECORDS SUMMARY | 2024-10-27 09:08 | XMS_ITS | Encounter Summary ---
Author Organization [facility] Facility Care Team Providers Care Clerk General Office Name Role Phone Rocky Harvey MD Primary Care Provider Whit Horn NP Primary Care Provider +- [phone] Isreal Gonzalez MD Unavailable [phone] Wagner Byrne MD Primary Care Provider [phone] Enrique Smith MD Primary Care Provider [phone] Wagner Byrne MD Primary Care Provider [phone] Carlyn Gray [facility] Unavailable [phone] Encounter Details Date Type Department Care Team (Latest Contact Info) Description 02/01/2017 Orders Only [facility] CLINCONV Provider, MD Navya [address] [place] [address] Social History Tobacco Use Types Packs/Day Years Used Date Smoking Tobacco: Former Comments Unknown Sex and Gender Information Value Date Recorded Sex Assigned at Not on file 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 Gender Identity Not on file Sexual Orientation Not on file documented as of this encounter Plan of Treatment Not on file documented as of this encounter Procedures Procedure Name Priority Date/Time Associated Diagnosis Comments SCAN - LABS 02/01/2017 12:00 AM CDT documented in this encounter Results * SCAN - LABS (02/01/2017 12:00 AM CDT) Narrative 02/01/2017 12:00 AM CDT Ordered by an unspecified [...] documented as of this encounter Care Teams Clerk General Office Relationship Specialty Start Date End Date Rocky Harvey MD PCP - General 04/24/18 01/23/19 Whit Macias NP PCP - General 01/24/19 09/22/20 Wagner Byrne MD [address] [place] [address] PCP - General Family Medicine 09/23/20 04/27/22 Enrique Smith MD 2 [facility] [address] [place] [address] PCP - General Family Medicine 04/28/22 10/16/23 Wagner Byrne MD [address] [place] [address] PCP - General Family Medicine 10/17/23 Isreal Gonzalez MD 3 [facility] [address] [place] [address] Referring Physician Internal Medicine 02/04/20 Carlyn Gray, [address] [place] [address] Air Traffic Instructor 06/25/24 07/23/24 documented as of this encounter
--- OUTSIDE RECORDS SUMMARY | 2024-10-27 09:08 | XMS_ITS | Encounter Summary ---
Author Organization [facility] Address [address] [place] [address] Phone Care Team Providers Care Motor Vehicle Clerk Name Role Phone Enrique Smith MD Primary Care Provider [phone] Roshan Franco MD Unavailable Caryn Menezes [employer]ING CAKE DESIGNER, TRACK DRESSER Unavailable + [phone] Nery Burrell MD PhD Unavailable [phone] Roc Whitehead MD Unavailable Wagner Byrne MD Primary Care Provider [phone] Rafael Li MD Unavailable Ruben Rodriguez MD Unavailable Reason for Visit * Reason Comments Medication Refill Encounter Details Date Type Department Care Team (Late st Contact Info) Description 07/23/2023 Refill [facility] Med Surg [address] [place] [address] Enrique Smith MD #[address] [address] Medication Refill Social History Tobacco Use Types Packs/Day Years Used Date Smoking Tobacco: Former Cigarettes 0.5 40 Smokeless Tobacco: Never Alcohol Use Standard Drinks/Week Comments Not Currently 0 (1 standard drink = 0.6 oz pur e alcohol) [facility] Utilities Answer Date Recorded In the [...] or relatives? Once a week 06/05/2023 Attends [facility] Not on file 06/05 Active Member [...] Recorded Total Score - Questions 1-9 01/12 [facility] - [...] place to sleep or slept in a nursing home (including now)? No 06/05/2023 Education Answer Date [...] Telephone Encounter - Tanika Martin RN - 07/24/2023 8:35 AM CDT Medication failed the protocol, provider to review and approve the medication order if appropriate. Requested Prescriptions Pending Prescriptions Disp Refills nicotine (NICODERM CQ) 21 MG/24HR PATCH 24 HR [Pharmacy Med Name: NICOTINE TRANSDERMAL SYSTEM 21MG/24H PATCH 24HR] 30 Patch 0 Si PATCH BY TRANSDERMAL ROUTE DAILY NEEDED FOR OTHER (NICOTINE DEPENDENCY). There is no refill protocol information for this order lidocaine (LIDODERM) 5 % Patch [Pharmacy Med Name: LIDOCAINE 5% PATCH] 60 Patch 0 Sig: APPLY 1 PATCH EXTERNALLY EVERY 12 HOURS, REMOVE FOR 12 HOURS. APPLY NEW PATCH IN 12 HOURS AND REPEAT. There is no refill protocol information for this order documented in this encounter Plan of Treatment Upcoming Encounters Date Type Department Care Team (Latest Contact Info) Description 10/29/2024 9:00 AM CDT Clinical Support [facility] - [place] [address] [place] [address] Nurse, Brain Cardiology [place] 10/29/2024 9:30 AM CDT Office Visit [facility] [place] [address] [place] [address] Ruben Rodriguez MD [address] [address] 10/30/2024 1:00 PM CDT Appointment [facility] Cardiology Services 1 [place] [address] Ruben Rodriguez MD [address] [address] Discharge Disposition: Discharged to home or Selfcare documented as of this encounter Goals Goal Patient Goal Type Associated Problems Recent Progress Patient-Stated? Author I am tired of feeling guilty about my [grief.] Behavioral Health Improving(01/2024 2:42 PM CORPORATE BUYER) Yes Edda Vo, PROM BURN OFF OPERATOR Note: Goal/Objective: Decrease guilty thoughts about her care for her mother who is now . Anticipated Time Frame for Goal Completion: 6 months Goal Reviewed with: patient Readiness to change: Ready to change Department associated with goal: [facility] Steps to [...] documented as of this encounter Care Teams Motor Vehicle Clerk Relationship Specialty Start Date End Date Enrique Smith MD #2 [facility] [address] [place] [address] PCP - General Family Medicine 03/28/22 11/24/23 Wagner Byrne MD [address] [place] [address] PCP - General Internal Medicine 11/25/23 Roshan Franco MD #[address] [address] Consulting Physician Cardiovascular Disease - Cardiology 12/06/22 04/20/24 Caryn Briseno APRN, TRACK DRESSER #2 [facility], [address] [address] Nurse Practitioner Cardiology 04/04/23 Nery Burrell MD PhD #1 [place] [address] Salesforce Administrator Interventional Cardiology 04/04/23 Roc Whitehead MD #2 [place] [address] Consulting Physician Pulmonary Disease 02/15/23 Rafael Li MD #2 [facility], [address] [address] Consulting Physician Clinical Cardiac Electrophysiology 02/19/24 Ruben Rodriguez MD 2 [facility], [address] [address] Consulting Physician Cardiovascular Disease - Cardiology 08/06/24 documented as of this encounter
--- OUTSIDE RECORDS SUMMARY | 2024-10-27 09:08 | XMS_ITS | Encounter Summary ---
Author Organization [facility] Facility Care Team Providers Care Snow Technician Name Role Phone Rocky Harvey MD Primary Care Provider Whit Horn NP Primary Care Provider +- [phone] Isreal Gonzalez MD Unavailable [phone] Wagner Byrne MD Primary Care Provider [phone] Enrique Smith MD Primary Care Provider [phone] Wanger Byrne MD Primary Care Provider [phone] Carlyn Gray [facility] Unavailable Encounter Details Date Type Department Care Team (Latest Contact Info) Description 12/07/2016 Orders Only [facility] CLINCONV Provider, MD Navya [address] [place] [address] Social History Tobacco Use Types Packs/Day Years Used Date Smoking Tobacco: Former Comments Unknown Sex and Gender Information Value Date Recorded Sex Assigned at Not on file 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 Sex Female 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 Gender Identity Not on file Sexual Orientation Not on file documented as of this encounter Plan of Treatment Not on file documented as of this encounter Procedures Procedure Name Priority Date/Time Associated Diagnosis Comments SCAN - LABS 12/07/2016 12:00 AM CDT documented in this encounter Results * SCAN - LABS (12/07/2016 12:00 AM CDT) Narrative 12/07/2016 12:00 AM CDT Ordered by an unspecified [...] documented as of this encounter Care Teams Snow Technician Relationship Specialty Start Date End Date Rocky Harvey MD PCP - General 04/24/18 01/23/19 Whit Macias NP PCP - General 01/24/19 09/22/20 Wagner Byrne MD [address] [place] [address] PCP - General Family Medicine 09/23/20 04/27/22 Enrique Smith MD 2 [facility] [address] [place] [address] PCP - General Family Medicine 04/28/22 10/16/23 Wagner Byrne MD [address] [place] [address] PCP - General Family Medicine 10/17/23 Isreal Gonzalez MD 3 [facility] [address] [place] [address] Referring Physician Internal Medicine 02/04/20 Carlyn Gray, [address] [place] [id number] Medical Accountant 06/25/24 07/23/24 documented as of this encounter
--- OUTSIDE RECORDS SUMMARY | 2024-10-27 09:08 | XMS_ITS | Encounter Summary ---
Author Organization [facility] Facility Care Team Providers Care Watermaster Name Role Phone Rocky Harvey MD Primary Care Provider Whit Horn NP Primary Care Provider +- [phone] Isreal Gonzalez MD Unavailable [phone] Wagner Byrne MD Primary Care Provider [phone] Enrique Smith MD Primary Care Provider [phone] Wagner Byrne MD Primary Care Provider [phone] Carlyn Gray [facility] Unavailable [phone] Encounter Details Date Type Department Care Team (Latest Contact Info) Description 09/18/2015 Orders Only [facility] CLINCONV Provider, MD Navya [address] [place] [address] Social History Tobacco Use Types Packs/Day Years Used Date Smoking Tobacco: Never Assessed Comments Unknown Sex and Gender Information Value Date Recorded Sex Assigned at Not on file Legal Sex Female 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 THOM Avina 01/26/2022 01/26/2022 02/07/2022 3:0 5 AM CDT COVID: Recovered Comment:Added based on recent COVID infection. 02/07/2022 03/03/2022 06/07/2022 3:[address] COVID: Suspected 07/30/2024 07/30/2024 07/30/2024 9:52 AM CDT documented as of this encounter Care Teams Watermaster Relationship Specialty Start Date End Date Rocky Harvey MD PCP - General 04/24/18 01/23/19 Whit Macias NP PCP - General 01/24/19 09/22/20 Wagner Byrne MD [address] [place] [address] PCP - General Family Medicine 09/23/20 04/27/22 Enrique Smith MD 2 [facility] [address] [place] [address] PCP - General Family Medicine 04/28/22 10/16/23 Wagner Byrne MD [address] [place] [address] PCP - General Family Medicine 10/17/23 Isreal Gonzalez MD 3 [facility] [address] [place] [address] Referring Physician Internal Medicine 02/04/20 Carlyn Gray, [address] [place] [address] Gun Repair Clerk 06/25/24 07/23/24 documented as of this encounter
--- OUTSIDE RECORDS SUMMARY | 2024-10-27 09:08 | XMS_ITS | Encounter Summary ---
Author Organization [facility] Address [address] [place] [address] Phone Care Team Providers Care Records Supervisor Name Role Phone Enrique Smith MD Primary Care Provider [phone] Roshan Franco MD Unavailable Caryn Menezes DIRECTOR OF MEDIA, CORNER BEAD OPERATOR Unavailable + [phone] Nery Burrell MD PhD Unavailable [phone] Roc Whitehead MD Unavailable Wagner Byrne MD Primary Care Provider [phone] Rafael Li MD Unavailable Ruben Rodriguez MD Unavailable Reason for Visit * Reason Comments Medication Refill Encounter Details Date Type Department Care Team (Late st Contact Info) Description 07/13/2023 Refill [facility] [address] [place] [id number] Enrique Smith MD [address] [address] Medication Refill Social History Tobacco Use Types Packs/Day Years Used Date Smoking Tobacco: Former Cigarettes 0.5 40 Smokeless Tobacco: Never Alcohol Use Standard Drinks/Week Comments Not Currently 0 (1 standard drink = 0.6 oz pur e alcohol) [facility] Utilities Answer Date Recorded In the past [...] or relatives? Once a week 06/05/2023 Attends [employer] Not on file 06/05 Active Member [...] Total Score - Questions 1-9 19 01/12 [facility] - [...] slept in a care home (including now)? No 06/05/2023 Education Answer [...] Telephone Encounter - Tanika Martin RN - 07/13/2023 4:21 PM CST Medication failed the protocol, provider to review and approve the medication order if appropriate. Requested Prescriptions Pending Prescriptions Disp Refills ranolazine (RANEXA) 500 MG TABLET SR 12 HR [Pharmacy Med Name: RANOLAZINE ER 500MG ER TABLET ER 12HR] 180 Tablet 1 Sig: TAKE 1 TABLET BY MOUTH TWICE DAILY Not Delegated - Off Protocol Failed - 07/13/2023 2:14 PM Failed - This refill cannot be delegated Passed - Visit with relevant provider in past 12 months or upcoming 90 days Recent Visits Date Type Provider Dept 06/05/23 Office Visit Enrique Smith MD [facility] 05/02/23 Office Visit Enrique Smith MD [facility] 04/04/23 Office Visit Enrique Smith MD [facility] 01/23/23 Office Visit Luis Carlos Bull MD [facility] 01/16/23 Office Visit Danyel Akhtar APRN, [facility] 01/02/23 Office Visit Enrique Smith MD [facility] 12/29/22 Office Visit Sulma Blevins APRN, [facility] 12/05/22 Office Visit Danyel Akhtar APRN, [facility] 10/31/22 Office Visit Enrique Smith, MD [facility] 10/19/22 Office Visit Bárbara Bergeron APRN, CORNER BEAD OPERATOR [facility] Show[facility] recent visits within past 365 days and meeting all other requirements Future Appointments No visits were found meeting these conditions. Showing future appointments within next 90 days and meeting all other requirements pantoprazole (PROTONIX) 40 MG Tablet Delayed Response [Pharmacy Med Name: PANTOPRAZOLE SODIUM 40MG TABLET DR] 90 Tablet 1 Sig: TAKE 1 TABLET BY MOUTH IN THE EVENING Proton Pump Inhibitors Protocol Passed - 07/13/2023 2:16 PM Passed - Visit with relevant provider [...] [place]az 01/02/23 Office Visit Enrique Smith MD [facility] 12/29/22 Office Visit Sulma Blevins APRN, [facility] 12/05/22 Office Visit Danyel Akhtar APRN, [facility] 10/31/22 Office Visit Enrique Smith MD [facility] 10/19/22 Office Visit Bárbara Bergeron APRN, [facility] Showing recent visits within past 365 days and meeting all other requirements Future Appointments No visits were found meeting these conditions. Showing future appointments within next 90 days and meeting all other requirements roflumilast (DALIRESP) 500 MCG Tablet [Pharmacy Med Name: ROFLUMILAST 500MCG TABLET] 90 Tablet 1 Sig: TAKE 1 TABLET BY MOUTH EVERY DAY There is no refill protocol information for this order atorvastatin (LIPITOR) 40 MG Tablet [Pharmacy Med Name: ATORVASTATIN CALCIUM 40MG TABLET] 90 Tablet1 Sig: TAKE ONE (1) TABLET BY MOUTH EVERY DAY Hmg CoA Reductase Inhibitors Protocol Passed - 07/13/2023 2:16 PM Passed - Visit with relevant provider in past 12 months or upcoming 90 days Recent Visits Date Type Provider Dept 06/05/23 Office Visit Enrique Smith MD [facility] 05/02/23 Office Visit Enrique Smith MD [facility] 04/04/23 Office Visit Enrique Smith MD [facility] 01/23/23 Office Visit Luis Carlos Bull MD [facility] 01/16/23 Office Visit Danyel Akhtar APRN, [facility] 01/02/23 Office Visit Enrique Smith MD [facility] 12/29/22 Office Visit Sulma Blevins APRN, [facility] [place] 12/05/22 Office Visit Danyel Akhtar APRN, [facility] 10/31/22 Office Visit Enrique Smith MD [facility] 10/19/22 Office Visit Bárbara Bergeron APRN, [facility] Showing recent visits within past 365 [...] months SODIUM Date Value Ref Range Status 04/22/2023 130 (L) 136 - 145 mmol/L Final POTASSIUM Date Value Ref Range Status 04/22/2023 3.8 3.5 - 5.1 mmol/L Final CHLORIDE Date Value Ref Range Status 04/22/2023 92 (L) 98 - 107 mmol/L Final CO2, VENOUS Date Value Ref Range Status 04/22/2023 24 22 - 30 mmol/L Final ANION GAP Date Value Ref Range Status 04/22/2023 17.8 <18.0 mmol/L Final GLUCOSE Date Value Ref Range Status 04/22/2023 191 (H) 70 - 99 mg/dL Final BUN Date Value Ref Range Status 04/22/2023 20 10 - 20 mg/dL Final CREATININE, BLOOD Date Value Ref Range Status 04/22/2023 1.42 (H) 0.60 - 1.00 mg/dL Final BUN/CREATININE RATIO Date Value Ref Range Status 04/22/2023 14 12 - 20 ratio Final TOTAL PROTEIN Date Value Ref Range Status 04/21/2023 7.0 6.3 - 8.2 g/dL Final ALBUMIN Date Value Ref Range Status 04/21/2023 3.9 3.5 - 5.0 g/dL Final A/G RATIO Date Value Ref Range Status 04/21/2023 1.3 1.0 - 2.2 Final CALCIUM Date Value Ref Range Status 04/22/2023 9.1 8.7 - 10.5 mg/dL Final T BILI Date Value Ref Range Status 04/21/2023 0.3 0.2 - 1.2 mg/dL Final SGOT (AST) Date Value Ref Range Status 04/21/2023 15 5 - 34 U/L Final SGPT (ALT) Date Value Ref Range Status 04/21/2023 12 0 - 55 U/L Final ALKALINE PHOSPHATASE Date Value Ref Range Status 04/21/2023 69 40 - 150 U/L Final GFR, EST. NONAFRICAN Date Value Ref Range Status 04/22/2023 38 (L) >=60 Final GFR, EST. Date Value Ref Range Status 04/22/2023 46 (L) >=60 Final GFR, ESTIMATED Date Value Ref Range Status 04/22/2023 43 (L) >=60 Final Comment: Creatinine Clearance is the [...] Value Ref Range Status 12/05/2022 No Final azelastine (ASTELIN) 0.1 % Solution [Pharmacy Med Name: AZELASTINE HYDROCHLORIDE 0.1% SOLUTION] 30 mL 1 Sig: ADMINISTER 1 SPRAY INTO EACH NOSTRIL 2 (TWO) TIMES A DAY DIRECTED Nasal Preparations - Other Protocol Passed - 07/13/2023 2:16 PM Passed - Visit with authorizing provider in past 12 months or upcoming 90 days Recent Visits Date Type Provider Dept 06/05/23 Office Visit Enrique Smith MD [facility] 05/02/23 Office Visit Enrique Smith MD [facility] 04/04/23 Office Visit Enrique Smith MD [facility] 01/23/23 Office Visit Luis Carlos Blul MD [facility] 01/16/23 Office Visit Danyel Akhtar APRN, [facility] 01/02/23 Office Visit Enrique Smith MD [facility] 12/29/22 Office Visit Sulma Blevins APRN, CORNER BEAD OPERATOR [facility] [place] 12/05/22 Office Visit Danyel Akhtar APRN, [facility] 10/31/22 Office Visit Enrique Smith MD [facility] 10/19/22 Office Visit Bárbara Bergeron APRN, [facility] Showing recent visits within past 365 days and meeting all other requirements Future Appointments No visits were found meeting these conditions. Showing future appointments within next 90 days and meeting all other requirements RIDE OPERATOR documented in this encounter Plan of Treatment Upcoming Encounters Date Type Department Care Team (Latest Contact Info) Description 10/29/2024 9:00 AM CDT Clinical Support [facility] [place] [address] [place] [address] Nurse, [place] [facility] [place] 10/29/2024 9:30 AM CDT Office Visit [facility] [place] #[address] [place] [address] Ruben Rodriguez MD 2 [facility] [address] [address] 10/30/2024 1:00 PM CDT Appointment [facility] Cardiology Services 1 [facility] [place] [facility] [place] [address] Ruben Rodriguez MD [address] [facility] [facility] [address] [address] Discharge Disposition: Discharged to home or Selfcare documented as of this encounter Goals Goal Patient Goal Type Associated Problems Recent Progress Patient-Stated? Author I am tired of feeling guilty about my [grief.] Behavioral Health Improving(01/2024 2:42 PM PONY RIDE OPERATOR) Yes Edda Vo, BREAKDOWN MILL OPERATOR Note: Goal/Objective: Decrease guilty thoughts about [...] documented as of this encounter Care Teams Records Supervisor Relationship Specialty Start Date End Date Enrique Smith MD #[address] [facility] [address] [place] [address] PCP - General Family Medicine 03/28/22 11/24/23 Wagner Byrne MD [address] [place] [address] PCP - General Internal Medicine 11/25/23 Roshan Franco MD #[address] [address] Consulting Physician Cardiovascular Disease - Cardiology 12/06/22 04/20/24 Caryn Briseno APRN, CORNER BEAD OPERATOR #[address] [place] [address], [address] [address] Nurse Practitioner Cardiology 04/04/23 Nery Burrell MD PhD #[address] [place] [address] Sandwich Wrapper Interventional Cardiology 04/04/23 Roc Whitehead MD #[address] [place] [address] Consulting Physician Pulmonary Disease 02/15/23 Rafael Li MD #[address], [address] [address] Consulting Physician Clinical Cardiac Electrophysiology 02/19/24 Ruben Rodriguez MD [address] [facility], [address] [address] Consulting Physician Cardiovascular Disease - Cardiology 08/06/24 documented as of this encounter
--- OUTSIDE RECORDS SUMMARY | 2024-10-27 09:08 | XMS_ITS | Encounter Summary ---
Author Organization [facility] Address [address] [place] [address] Phone Care Team Providers Care Careers Counsellor Name Role Phone Enrique Smith MD Primary Care Provider [phone] Roshan Franco MD Unavailable Caryn Menezes APRN, TEST LEAD Unavailable [phone] Nery Burrell MD PhD Unavailable [phone] Roc Whitehead MD Unavailable Wagner Byrne MD Primary Care Provider [phone] Rafael Li MD Unavailable Ruben Rodriguez MD Unavailable Reason for Visit * Reason Comments Medication Refill Encounter Details Date Type Department Care Team (Late st Contact Info) Description 05/16/2023 Refill [facility] - [facility] - [place] #2 [place] [phone] Danyel Akhtar APRN, TEST LEAD #[address] [address] Medication Refill Social History Tobacco Use Types [...] Telephone Encounter - Alexsandra Madsen RN - 05/16/2023 8:43 AM BENEFITS ADMINISTRATOR Medication warning activated: Duplicate Therapy: Atrovent HFA, Trelegy Ellipta Per nursing clinical judgement, provider to review and approve the medication(s) order(s) if appropriate. Requested Prescriptions Pending Prescriptions Disp Refills Trelegy Ellipta 100-62.5-25 MCG/ACT AEROSOL POWDER, BREATH ACTIVATED [Pharmacy Med Name: TRELEGY ELLIPTA 100MCG AERO POW BR ACT] 180 Each 1 Sig: TAKE 1 PUFF BY INHALATION DAILY. Inhaled Combinations Protocol Passed - 05/16/2023 8:42 AM Passed - Visit with relevant provider in past 12 months or upcoming 90 days Recent Visits Date Type Provider Dept 05/02/23 Office Visit Enrique Smith MD [facility] 04/04/23 Office Visit Enrique Smith MD [facility] 01/23/23 Office Visit Luis Carlos Bull MD [facility] 01/16/23 Office Visit Danyel Akhtar APRN, [facility] 01/02/23 Office Visit Enrique Smith MD [facility] 12/29/22 Office Visit Sulma Blevins APRN, [facility] 12/05/22 Office Visit Danyel Akhtar APRN, [facility] 10/31/22 Office Visit Enrique Smith MD [facility] 10/19/22 Office Visit Bárbara Bergeron APRN, TEST LEAD [facility] 06/28/22 Office Visit Enrique Smith MD [facility] Showing recent visits within past 365 days and meeting all other requirements Future Appointments Date Type Provider Dept 05/30/23 Appointment Enrique Smith MD [facility] Showing future appointments within next 90 days and meeting all other requirements Passed - Active short-acting beta agonist prescription FITS ADMINISTRATOR documented in this encounter Plan of Treatment Upcoming Encounters Date Type Department Care Team (Latest Contact Info) Description 10/29/2024 9:00 AM CDT Clinical Support [facility] Cardiology [facility] #2 [place] [address] Nurse, [facility] 10/29/2024 9:30 AM CDT Office Visit [facility] #2 [place] [address] Ruben Rodriguez MD [address] [address] 10/30/2024 1:00 PM CDT Appointment [facility] Cardiology Services 1 [place] [address] Ruben Rodriguez MD [address] [address] Discharge Disposition: Discharged to home or Selfcare documented as of this encounter Goals Goal Patient Goal Type Associated Problems Recent Progress Patient-Stated? Author I am tired of feeling guilty about my [grief.] Behavioral Health Improving(01/2024 2:42 PM BENEFITS ADMINISTRATOR) Yes Edda Vo, ADULT AND PEDIATRIC NEUROLOGIST Note: Goal/Objective: Decrease guilty thoughts about her [...] documented as of this encounter Care Teams Careers Counsellor Relationship Specialty Start Date End Date Enrique Smith MD #[address] [address] PCP - General Family Medicine 03/28/22 11/24/23 Wagner Byrne MD [address] [place] [address] PCP - General Internal Medicine 11/25/23 Roshan Franco MD #[address] [address] Consulting Physician Cardiovascular Disease - Cardiology 12/06/22 04/20/24 Caryn Briseno APRN, TEST LEAD #2 [facility] [address] [place] [address] Nurse Practitioner Cardiology 04/04/23 Nery Burrell MD PhD #1 [place] [address] Furniture Detailer Interventional Cardiology 04/04/23 Roc Whitehead MD #2 [place] [address] Consulting Physician Pulmonary Disease 02/15/23 Jen, Rafael Schaeffer MD #2 [address] [facility] [address] [place] [address] Consulting Physician Clinical Cardiac Electrophysiology 02/19/24 Ruben Rodriguez MD 2 [facility] [address] [facility], [facility] [address] [place] [address] Consulting Physician Cardiovascular Disease - Cardiology 08/06/24 documented as of this encounter
--- OUTSIDE RECORDS SUMMARY | 2024-10-27 09:08 | XMS_ITS | Encounter Summary ---
Author Organization [facility] Facility Care Team Providers Care Petal Shaper Hand Name Role Phone Rocky Harvey MD Primary Care Provider Whit Horn NP Primary Care Provider [phone] Isreal Gonzalez MD Unavailable [phone] Wagner Byrne MD Primary Care Provider [phone] Enrique Smith MD Primary Care Provider [phone] Wagner Byrne MD Primary Care Provider [phone] Carlyn Gray [facility] Unavailable [phone] Encounter Details Date Type Department Care Team (Latest Contact Info) Description 08/21/2017 Orders Only [facility] Provider, MD Navya [address] [place] [address] Social History Tobacco Use Types Packs/Day Years Used Date Smoking Tobacco: Former Comments Unknown Sex and Gender Information Value Date Recorded Sex Assigned at Not on file Legal Sex Female 7:04 AM DIRECTOR OF CONSERVATION Gender Identity Not on file Sexual Orientation Not on file documented as of this encounter Plan of Treatment Not on file documented as of this encounter Procedures Procedure Name Priority Date/Time Associated Diagnosis Comments SCAN - LABS 08/21/2017 12:00 AM CDT documented in this encounter Results * SCAN - LABS (08/21/2017 12:00 AM CDT) Narrative 08/21/2017 12:00 AM CDT Ordered by an unspecified [...] documented as of this encounter Care Teams Petal Shaper Hand Relationship Specialty Start Date End Date Rocky Harvey MD PCP - General 04/24/18 01/23/19 Whit Macias NP PCP - General 01/24/19 09/22/20 Wagner Byrne MD [address] [place] [address] PCP - General Family Medicine 09/23/20 04/27/22 Enrique Smith MD 2 [facility] [address] [place] [address] PCP - General Family Medicine 04/28/22 10/16/23 Wagner Byrne MD [address] [place] [address] PCP - General Family Medicine 10/17/23 Isreal Gonzalez MD 3 [facility] [address] [place] [address] Referring Physician Internal Medicine 02/04/20 Carlyn Gray, [address] [place] [address] Station Usher 06/25/24 07/23/24 documented as of this encounter
--- OUTSIDE RECORDS SUMMARY | 2024-10-27 09:08 | XMS_ITS | Encounter Summary ---
Author Organization [facility] Address [address] [place] [address] Phone Care Team Providers Care Senior Account Clerk Name Role Phone Enrique Smith MD Primary Care Provider [phone] Roshan Franco MD Unavailable Caryn Menezes LEATHER PRODUCTION MACHINE OPERATOR, FLIGHT INSPECTOR Unavailable + [phone] Nery Burrell MD PhD Unavailable [phone] Roc Whitehead MD Unavailable Wagner Byrne MD Primary Care Provider [phone] Rafael Li MD Unavailable Ruben Rodriguez MD Unavailable Reason for Visit * Reason Comments Medication Refill Encounter Details Date Type Department Care Team (Late st Contact Info) Description 05/18/2023 Refill [facility] - Family Medicine [facility] #[address] [place] [id number] Enrique Smith MD [address] [address] Medication Refill Social History Tobacco Use Types [...] Telephone Encounter - Tanika Martin RN - 05/18/2023 12:31 PM CST Medication failed the protocol, provider to review and approve the medication order if appropriate. Requested Prescriptions Pending Prescriptions Disp Refills methocarbamol (ROBAXIN) 500 MG Tablet [Pharmacy Med Name: METHOCARBAMOL 500 MG TABLET] 90 Tablet 0 Sig: TAKE 1 TABLET BY MOUTH THREE TIMES A DAY Not Delegated - Muscle Relaxants Protocol Failed - 05/18/2023 12:15 PM Failed - This refill cannot be delegated Passed - Visit with relevant provider in past 12 months or upcoming 90 days Recent Visits Date Type Provider Dept 05/02/23 Office Visit Enrique Smith MD [facility] 04/04/23 Office Visit Enrique Smith MD [facility] 01/23/23 Office Visit [facility] Bull [facility] 01/16/23 Office Visit Danyel Akhtar APRN, [facility] 01/02/23 Office Visit Enrique Smith MD [facility] 12/29/22 Office Visit Sulma Blevins APRN, FLIGHT INSPECTOR [facility] [place] 12/05/22 Office Visit Danyel Akhtar APRN, J[facility] 10/31/22 Office Visit Enrique Smith MD [facility] 10/19/22 Office Visit Bárbara Bergeron APRN, FLIGHT INSPECTOR [facility] [place] 06/28/22 Office Visit Enrique Smith MD [facility] Showing recent visits within past 365 days and meeting all other requirements Future Appointments Date Type Provider Dept 05/30/23 Appointment Enrique Smith MD [facility] Showing future appointments within next 90 days and meeting all other requirements CAL BRIGHTENER MAKER HELPER documented in this encounter Plan of Treatment Upcoming Encounters Date Type Department Care Team (Latest Contact Info) Description 10/29/2024 9:00 AM CDT Clinical Support [facility] Cardiology [facility] #2 [place] [address] Nurse, [place] [facility] [place] 10/29/2024 9:30 AM CDT Office Visit [facility] #2 [place] [address] Ruben Rodriguez MD [address] [address] 10/30/2024 1:00 PM CDT Appointment [facility] Cardiology Services 1 [place] [address] Ruben Rodriguez MD [address] [address] Discharge Disposition: Discharged to home or Selfcare documented as of this encounter Goals Goal Patient Goal Type Associated Problems Recent Progress Patient-Stated? Author I am tired of feeling guilty about my [grief.] Behavioral Health Improving(01/2024 2:42 PM OPTICAL BRIGHTENER MAKER HELPER) Yes Edda Vo, CARDIAC CATH TECHNOLOGIST Note: Goal/Objective: Decrease guilty thoughts about her care for her mother who is now . Anticipated Time Frame for Goal Completion: 6 months Goal Reviewed with: patient Readiness to change: Ready to change Department associated with goal: [facility] Steps to [...] documented as of this encounter Care Teams Senior Account Clerk Relationship Specialty Start Date End Date Enrique Smith MD #2 [facility] [address] [place] [address] PCP - General Family Medicine 03/28/22 11/24/23 Wagner Byrne MD [address] [place] [address] PCP - General Internal Medicine 11/25/23 Roshan Franco MD #[address] [address] Consulting Physician Cardiovascular Disease - Cardiology 12/06/22 04/20/24 Caryn Briseno, LEATHER PRODUCTION MACHINE OPERATOR, FLIGHT INSPECTOR #2 [facility], [address] [address] Nurse Practitioner Cardiology 04/04/23 Nery Burrell MD PhD #1 [place] [address] Dietary Service Aide Interventional Cardiology 04/04/23 Roc Whitehead MD #2 [place] [address] Consulting Physician Pulmonary Disease 02/15/23 Rafael Li MD #2 [facility] [address] [place] [address] Consulting Physician Clinical Cardiac Electrophysiology 02/19/24 Ruben Rodriguez MD 2 [facility], [address] [address] Consulting Physician Cardiovascular Disease - Cardiology 08/06/24 documented as of this encounter
--- OUTSIDE RECORDS SUMMARY | 2024-10-27 09:08 | XMS_ITS | Encounter Summary ---
Author Organization [facility] Address [address] [place] [address] Phone Care Team Providers Care Tube Building Machine Operator Name Role Phone Enrique Smith MD Primary Care Provider Roshan Franco MD Unavailable Caryn Menezes CLAM BED WORKER, FACILITIES CLERK Unavailable + [phone] Nery Burrell MD PhD Unavailable [phone] Roc Whitehead MD Unavailable Wagner Byrne MD Primary Care Provider [phone] Rafael Li MD Unavailable Ruben Rodriguez MD Unavailable Reason for Visit * Reason Comments Medication Refill Encounter Details Date Type Department Care Team (Late st Contact Info) Description 08/14/2022 Refill [facility] - Family Medicine [facility] [address] [place] [id number] Enrique Smith MD [address] [address] Medication Refill Social History Tobacco Use Types [...] Telephone Encounter - Tanika Martin RN - 08/14/2022 3:35 PM CDT Medication failed the protocol, provider to review and approve the medication order if appropriate. Requested Prescriptions Pending Prescriptions Disp Refills predniSONE (DELTASONE) 5 MG Tablet [Pharmacy Med Name: PREDNISONE 5MG TABLET] 30 Tablet 0 Sig: Take 1 Tablet by mouth daily. Not Delegated - Corticosteroids Protocol Failed - 08/14/2022 12:41 PM Failed - This refill cannot be [...] 02/09/22 Office Visit Bárbara Bergeron APRN[facility] Showing recent visits within past 365 days and meeting all other requirements Future Appointments No visits were found meeting these conditions. Showing future appointments within next 90 days and meeting all other requirements documented in this encounter Plan of Treatment Upcoming Encounters Date Type Department Care Team (Latest Contact Info) Description 10/29/2024 9:00 AM CDT Clinical Support [facility] - Cardiology - [place] #2 [place] [address] Nurse, [facility] [place] 10/29/2024 9:30 AM CDT [facility] [place] [facility] [place] [address] Ruben Rodriguez MD 2 [facility] [address] [place] [address] 10/30/2024 1:00 PM CDT Appointment [facility] Cardiology Services 1 [facility] [place] [address] Ruben Rodriguez MD [address] [facility] [address] [address] Discharge Disposition: Discharged to home or Selfcare documented as of this encounter Visit Diagnoses Not on filedocumented in this encounter Additional Health Concerns Infection Onset Date Last Indicated Resolved Time COVID - 19 01/23/2023 01/23/2023 02/02/2023 12:1 6 AM CDT COVID - 19 04/02/2023 04/02/2023 04/12/2023 12:1 6 AM INVENTORY CONTROL SUPERVISOR COVID - 19 04/21/2023 04/21/2023 05/01/2023 12:1 6 AM INVENTORY CONTROL SUPERVISOR Assessment Noted Time PHQ-9 Depression Total Score: 0 02/10/20 11:00 AM CDT documented as of this encounter Care Teams Tube Building Machine Operator Relationship Specialty Start Date End Date Enrique Smith MD #2 [facility] [address] [place] [address] PCP - General Family Medicine 03/28/22 11/24/23 Wagner Byrne MD [address] [place] [address] PCP - General Internal Medicine 11/25/23 Roshan Franco MD [address]2 [address] [facility] [address] [place] [address] Consulting Physician Cardiovascular Disease - Cardiology 12/06/22 04/20/24 Caryn Briseno, CLAM BED WORKER, FACILITIES CLERK #2 [facility] [address] [place] [address] Nurse Practitioner Cardiology 04/04/23 Nery Burrell MD PhD [address] [facility] [address] Bit And Shank Department Supervisor Interventional Cardiology 04/04/23 Roc Whitehead MD [address] [facility] [address] Consulting Physician Pulmonary Disease 02/15/23 Rafael Li MD #2 [facility] [address] [place] [address] Consulting Physician Clinical Cardiac Electrophysiology 02/19/24 Ruben Rodriguez MD [address] [facility], [facility] [address] [place] [address] Consulting Physician Cardiovascular Disease - Cardiology 08/06/24 documented as of this encounter
--- OUTSIDE RECORDS SUMMARY | 2024-10-27 09:08 | XMS_ITS | Encounter Summary ---
Author Organization [facility] Facility Care Team Providers Care Automatic Seamer Name Role Phone Rocky Harvey MD Primary Care Provider Whit Horn NP Primary Care Provider +- [phone] Isreal Gonzalez MD Unavailable [phone] Wagner Byrne MD Primary Care Provider + [phone] Enrique Smith MD Primary Care Provider [phone] Wagner Byrne MD Primary Care Provider [phone] Carlyn Gray [facility] Unavailable [phone] Encounter Details Date Type Department Care Team (Latest Contact Info) Description 08/30/2017 Orders Only [facility] Provider, MD Navya [address] [place] [address] Social History Tobacco Use Types Packs/Day Years Used Date Smoking Tobacco: Former Comments Unknown Sex and Gender Information Value Date Recorded Sex Assigned at Not on file Legal Sex Female 7:04 AM OUTSIDE SALES CONSULTANT Gender Identity Not on file Sexual Orientation Not on file documented as of this encounter Plan of Treatment Not on file documented as of this encounter Procedures Procedure Name Priority Date/Time Associated Diagnosis Comments SCAN - LABS 08/30/2017 12:00 AM CDT documented in this encounter Results * SCAN - LABS (08/30/2017 12:00 AM CDT) Narrative 08/30/2017 12:00 AM CDT Ordered by an unspecified [...] documented as of this encounter Care Teams Automatic Seamer Relationship Specialty Start Date End Date Rocky Harvey MD PCP - General 04/24/18 01/23/19 Whit Macias NP PCP - General 01/24/19 09/22/20 Wagner Byrne MD [address] [place] [address] PCP - General Family Medicine 09/23/20 04/27/22 Enrique Smith MD 2 [facility] [address] [place] [address] PCP - General Family Medicine 04/28/22 10/16/23 Wagner Byrne MD [address] [place] [address] PCP - General Family Medicine 10/17/23 Isreal Gonzalez MD 3 [facility] [address] [place] [address] Referring Physician Internal Medicine 02/04/20 Carlyn Gray, [address] [place] [address] Interface Developer 06/25/24 07/23/24 documented as of this encounter
--- OUTSIDE RECORDS SUMMARY | 2024-10-27 09:08 | XMS_ITS | Encounter Summary ---
Author Organization [facility] Facility Care Team Providers Care Blood Bank Manager Name Role Phone Rocky Harvey MD Primary Care Provider Whit Horn NP Primary Care Provider +- [phone] Isreal Gonzalez MD Unavailable [phone] Wagner Byrne MD Primary Care Provider + [phone] Enrique Smith MD Primary Care Provider [phone] Wagner Byrne MD Primary Care Provider [phone] Carlyn Gray [facility] Unavailable [phone] Encounter Details Date Type Department Care Team (Latest Contact Info) Description 09/12/2017 Orders Only [facility]INCON[facility] Provider, MD Navya [address] [place] [address] Social History Tobacco Use Types Packs/Day Years Used Date Smoking Tobacco: Former Comments Unknown Sex and Gender Information Value Date Recorded Sex Assigned at Not on file Legal Sex Female 7:04 AM LIFE ASSURANCE REPRESENTATIVE Gender Identity Not on file Sexual Orientation Not on file documented as of this encounter Plan of Treatment Not on file documented as of this encounter Procedures Procedure Name Priority Date/Time Associated Diagnosis Comments SCAN - LABS 09/12/2017 12:00 AM CDT documented in this encounter Results * SCAN - LABS (09/12/2017 12:00 AM CDT) Narrative 09/12/2017 12:00 AM CDT Ordered by an unspecified [...] documented as of this encounter Care Teams Blood Bank Manager Relationship Specialty Start Date End Date Rocky Harvey MD PCP - General 04/24/18 01/23/19 Whit Macias NP PCP - General 01/24/19 09/22/20 Wagner Byrne MD [address] [place] [address] PCP - General Family Medicine 09/23/20 04/27/22 Enrique Smith MD 2 [facility] 205 [place] [address] PCP - General Family Medicine 04/28/22 10/16/23 Wagner Byrne MD [address] [place] [address] PCP - General Family Medicine 10/17/23 Isreal Gonzalez MD 3 [facility] 1800 [place] [address] Referring Physician Internal Medicine 02/04/20 Carlyn Gray, [address] [place] [address] Smt Technician 06/25/24 07/23/24 documented as of this encounter
--- OUTSIDE RECORDS SUMMARY | 2024-10-27 09:08 | XMS_ITS | Encounter Summary ---
Author Organization [facility] Address [address] [place] [address] Phone Care Team Providers Care Cutting Pressman Name Role Phone Enrique Smith MD Primary Care Provider [phone] Roshan Franco MD Unavailable Caryn Menezes TRUCK BODY REPAIRER, TURKISH RUBBER Unavailable + [phone] Nery Burrell MD PhD Unavailable [phone] Roc Whitehead MD Unavailable Wagner Byrne MD Primary Care Provider [phone] Rafael Li MD Unavailable Ruben Rodriguez MD Unavailable Reason for Visit * Reason Comments Medication Refill Encounter Details Date Type Department Care Team (Late st Contact Info) Description 07/17/2023 Refill [facility] - Family Medicine [facility] [address] [place] [id number] Enrique Smith MD [address] [address] Medication Refill Social History Tobacco Use Types Packs/Day Years Used Date Smoking Tobacco: Former Cigarettes 0.5 40 Smokeless Tobacco: Never Alcohol Use Standard Drinks/Week Comments Not Currently 0 (1 standard drink = 0.6 oz pur e alcohol) [facility] Utilities Answer Date Recorded In the [...] or relatives? Once a week 06/05/2023 Attends [employer] Not on file 06/05 Active Member [...] Total Score - Questions 1-9 19 01/12 [facility] - Occupational [...] or slept in a fdc (including now)? No 06/05/2023 Education Answer Date [...] Telephone Encounter - Tanika Martin RN - 07/18/2023 8:58 AM CST Medication failed the protocol, provider to review and approve the medication order if appropriate. Requested Prescriptions Pending Prescriptions Disp Refills methocarbamol (ROBAXIN) 500 MG Tablet [Pharmacy Med Name: METHOCARBAMOL 500 MG TABLET] 90 Tablet 0 Sig: TAKE 1 TABLET BY MOUTH THREE TIMES A DAY Not Delegated - Muscle Relaxants Protocol Failed - 07/17/2023 10:08 AM Failed - This refill cannot be delegated Passed - Visit with relevant provider in past 12 months or upcoming 90 days Recent Visits Date Type Provider Dept 06/05/23 Office Visit Enrique Smith MD [facility] 05/02/23 Office Visit Enrique Smith MD [facility] 04/04/23 Office Visit Enrique Smith MD [facility] 01/23/23 Office Visit Luis Carlos Bull MD [facility] 01/16/23 Office Visit Danyel Akhtar APRN, JET [facility] 01/02/23 Office Visit Enrique Smith MD [facility] 12/29/22 Office Visit Sulma Blevins APRN, TURKISH RUBBER [facility] 12/05/22 Office Visit Danyel Akhtar APRN, JET [facility] 10/31/22 Office Visit Enrique Smith MD [facility] 10/19/22 Office Visit Bárbara Bergeron APRN, [facility] Showing recent visits within past 365 days and meeting all other requirements Future Appointments No visits were found meeting these conditions. Showing future appointments within next 90 days and meeting all other requirements SEL documented in this encounter Plan of Treatment Upcoming Encounters Date Type Department Care Team (Latest Contact Info) Description 10/29/2024 9:00 AM CDT Clinical Support [facility] Cardiology [facility] #2 [place] [address] Nurse, [facility] 10/29/2024 9:30 AM CDT Office Visit [facility] #2 [place] [address] Ruben Rodriguez MD [address] [address] 10/30/2024 1:00 PM CDT Appointment [facility] Cardiology Services 1 [place] [address] Ruben Rodriguez MD [address] [address] Discharge Disposition: Discharged to home or Selfcare documented as of this encounter Goals Goal Patient Goal Type Associated Problems Recent Progress Patient-Stated? Author I am tired of feeling guilty about my [grief.] Behavioral Health Improving(01/2024 2:42 PM COUNSEL) Yes Edda Vo, TREE TRIMMING LINE TECHNICIAN Note: Goal/Objective: Decrease guilty thoughts about her care for her mother who is now . Anticipated Time Frame for Goal Completion: 6 months Goal Reviewed with: patient Readiness to change: Ready to change Department associated with goal: [facility] Steps to achieve goal: [...] documented as of this encounter Care Teams Cutting Pressman Relationship Specialty Start Date End Date Enrique Smith MD #2 [facility] 205 [place] [address] PCP - General Family Medicine 03/28/22 11/24/23 Wagner Byrne MD [address] [place] [address] PCP - General Internal Medicine 11/25/23 Roshan Franco MD #2 [facility] [address] [place] [address] Consulting Physician Cardiovascular Disease - Cardiology 12/06/22 04/20/24 Caryn Briseno APRN, TURKISH RUBBER #2 [facility], [address] [place] [address] Nurse Practitioner Cardiology 04/04/23 Nery Burrell MD PhD #1 [place] [address] Software Development Manager Interventional Cardiology 04/04/23 Roc Whitehead MD #2 [place] [address] Consulting Physician Pulmonary Disease 02/15/23 Rafael Li MD [facility] [address] [address] Consulting Physician Clinical Cardiac Electrophysiology 02/19/24 Ruben Rodriguez MD 2 [facility] [address] [address] Consulting Physician Cardiovascular Disease - Cardiology 08/06/24 documented as of this encounter
--- OUTSIDE RECORDS SUMMARY | 2024-10-27 09:08 | XMS_ITS | Encounter Summary ---
Author Organization [facility] Address [address] [place] [address] Phone Care Team Providers Care Nurse Clinical Name Role Phone Enrique Smith MD Primary Care Provider [phone] Roshan Franco MD Unavailable Caryn Menezes COBBLER UPPER, INDUSTRIAL SAFETY AND HEALTH SPECIALIST Unavailable + [phone] Nery Burrell MD PhD Unavailable [phone] Roc Whitehead MD Unavailable Wagner Byrne MD Primary Care Provider [phone] Rafael Li MD Unavailable Ruben Rodriguez MD Unavailable Reason for Visit * Reason Comments Medication Refill Encounter Details Date Type Department Care Team (Late st Contact Info) Description 08/25/2022 Refill [facility] - Family Medicine [facility] #[address] [place] [id number] Enrique Smith MD [address] [address] Medication Refill Social History Tobacco Use Types [...] Telephone Encounter - Alexsandra Madsen RN - 08/25/2022 11:06 AM CDT Medication failed the protocol, provider to review and approve the medication order if appropriate. Requested Prescriptions Pending Prescriptions Disp Refills ondansetron (ZOFRAN) 4 MG Tablet [Pharmacy Med Name: ONDANSETRON HYDROCHLORIDE 4MG TABLET] 20 Tablet 1 Sig: TAKE 1 TABLET (4 MG TOTAL) BY MOUTH EVERY 8 (EIGHT) HOURS NEEDED FOR NAUSEA OR VOMITING Not Delegated - 5-HT3 Antagonists Protocol Failed - 08/25/2022 10:44 AM Failed - This refill cannot be [...] 02/09/22 Office Visit Bárbara Bergeron APRN, CNP [facility] Showing recent visits within past 365 days and meeting all other requirements Future Appointments No visits were found meeting these conditions. Showing future appointments within next 90 days and meeting all other requirements documented in this encounter Plan of Treatment Upcoming Encounters Date Type Department Care Team (Latest Contact Info) Description 10/29/2024 9:00 AM CDT Clinical Support [facility] - Cardiology - [place] #2 [place] [address] Nurse, [place] [facility] 10/29/2024 9:30 AM CDT Office Visit [facility] Cardiology - [place] #2 [place] [address] Ruben Rodriguez MD 2 [facility] [address] [place] [address] 10/30/2024 1:00 PM CDT Appointment [facility] Cardiology Services 1 [place] [address] Ruben Rodriguez MD [address] [address] Discharge Disposition: Discharged to home or Selfcare documented as of this encounter Visit Diagnoses Not on filedocumented in this encounter Additional Health Concerns Infection Onset Date Last Indicated Resolved Time COVID - 19 01/23/2023 01/23/2023 02/02/2023 12:1 6 AM CDT COVID - 19 04/02/2023 04/02/2023 04/12/2023 12:1 6 AM TWISTER DOFFER COVID - 19 04/21/2023 04/21/2023 05/01/2023 12:1 6 AM TWISTER DOFFER Assessment Noted Time PHQ-9 Depression Total Score: 0 02/10/20 11:00 AM CDT documented as of this encounter Care Teams Nurse Clinical Relationship Specialty Start Date End Date Enrique Smith MD #2 [facility] 205 [place] [address] PCP - General Family Medicine 03/28/22 11/24/23 Wagner Byrne MD [address] [place] [address] PCP - General Internal Medicine 11/25/23 Roshan Franco MD #2 [address] [facility] [facility] [address] [address] Consulting Physician Cardiovascular Disease - Cardiology 12/06/22 04/20/24 Caryn Briseno APRN, INDUSTRIAL SAFETY AND HEALTH SPECIALIST #2 [facility], [address] [address] Nurse Practitioner Cardiology 04/04/23 Nery Burrell MD PhD #[address] [place] [address] Input Output Clerk Interventional Cardiology 04/04/23 Roc Whitehead MD #2 [place] [address] Consulting Physician Pulmonary Disease 02/15/23 Rafael Li MD #2 [facility], [address] [address] Consulting Physician Clinical Cardiac Electrophysiology 02/19/24 Ruben Rodriguez MD 2 [facility], [address] [address] Consulting Physician Cardiovascular Disease - Cardiology 08/06/24 documented as of this encounter
--- OUTSIDE RECORDS SUMMARY | 2024-10-27 09:08 | XMS_ITS | Encounter Summary ---
Author Organization [facility] Facility Care Team Providers Care Livestock Farmworker Name Role Phone Rocky Harvey MD Primary Care Provider Whit Horn NP Primary Care Provider +[phone] Isreal Gonzalez MD Unavailable [phone] Wagner Byrne MD Primary Care Provider + [phone] Enrique Smith MD Primary Care Provider [phone] Wagner Byrne MD Primary Care Provider [phone] Carlyn Gray [facility] Unavailable [phone] Encounter Details Date Type Department Care Team (Latest Contact Info) Description 03/28/2017 Orders Only [facility] CLINCONV Provider, MD Navya [address] [place] [address] Social History Tobacco Use Types Packs/Day Years Used Date Smoking Tobacco: Former Comments Unknown Sex and Gender Information Value Date Recorded Sex Assigned at Not on file 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 us Historical [...] documented as of this encounter Care Teams Livestock Farmworker Relationship Specialty Start Date End Date Rocky Harvey MD PCP - General 04/24/18 01/23/19 Whit Macias NP PCP - General 01/24/19 09/22/20 Wagner Byrne MD [address] [place] [address] PCP - General Family Medicine 09/23/20 04/27/22 Enrique Smith MD 2 [facility] 205 [place] [address] PCP - General Family Medicine 04/28/22 10/16/23 Wagner Byrne MD [address] [place] [address] PCP - General Family Medicine 10/17/23 Isreal Gonzalez MD 3 [facility] [address] [place] [address] Referring Physician Internal Medicine 02/04/20 Carlyn Gray, [address] [place] [address] Home Builder 06/25/24 07/23/24 documented as of this encounter
--- OUTSIDE RECORDS SUMMARY | 2024-10-27 09:08 | XMS_ITS | Encounter Summary ---
Author Organization [facility] Care Team Providers Care Veterinary Bacteriologist Name Role Phone Rocky Harvey MD Primary Care Provider Whit Horn NP Primary Care Provider +- [phone] Isreal Gonzalez MD Unavailable [phone] Wagner Byrne MD Primary Care Provider + [phone] Enrique Smith MD Primary Care Provider [phone] Wagner Byrne MD Primary Care Provider [phone] Carlyn Gray [facility] Unavailable [phone] Encounter Details Date Type Department Care Team (Latest Contact Info) Description 12/08/2016 Orders Only [facility] CLINCONV Provider, MD Navya [address] [place] [address] Social History Tobacco Use Types Packs/Day Years Used Date Smoking Tobacco: Former Comments Unknown Sex and Gender Information Value Date Recorded Sex Assigned at Not on file Legal Sex Female 7:04 AM ER REGISTRAR Gender Identity Not on file Sexual Orientation Not on file documented as of this encounter Plan of Treatment Not on file documented as of this encounter Procedures Procedure Name Priority Date/Time Associated Diagnosis Comments SCAN - LABS 12/11/2016 12:00 AM CDT documented in this encounter Results * SCAN - LABS (12/11/2016 12:00 AM CDT) Narrative 12/11/2016 12:00 AM CDT Ordered by an unspecified [...] documented as of this encounter Care Teams Veterinary Bacteriologist Relationship Specialty Start Date End Date Rocky Harvey MD PCP - General 04/24/18 01/23/19 Whit Macias NP PCP - General 01/24/19 09/22/20 Wagner Byrne MD [address] [place] [address] PCP - General Family Medicine 09/23/20 04/27/22 Enrique Smith MD 2 [facility] 205 [place] [address] PCP - General Family Medicine 04/28/22 10/16/23 Wagner Byrne MD [address] [place] [address] PCP - General Family Medicine 10/17/23 Isreal Gonzalez MD 3 [facility] [address] [place] [address] Referring Physician Internal Medicine 02/04/20 Carlyn Gray, [address] [place] [address] Wire Sawyer 06/25/24 07/23/24 documented as of this encounter
--- OUTSIDE RECORDS SUMMARY | 2024-10-27 09:08 | XMS_ITS | Encounter Summary ---
Author Organization [facility] Facility Care Team Providers Care Machine Builder Name Role Phone Rocky Harvey MD Primary Care Provider Whit Horn NP Primary Care Provider +- [phone] Isreal Gonzalez MD Unavailable [phone] Wagner Byrne MD Primary Care Provider + [phone] Enrique Smith MD Primary Care Provider [phone] Wagner Byrne MD Primary Care Provider [phone] Carlyn Gray [facility] Unavailable [phone] Encounter Details Date Type Department Care Team (Latest Contact Info) Description 08/10/2016 Orders Only [facility]IN[facility] Provider, MD Navya [address] [place] [address] Social History Tobacco Use Types Packs/Day Years Used Date Smoking Tobacco: Former Comments Unknown Sex and Gender Information Value Date Recorded Sex Assigned at Not on file 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 Gender Identity Not on file Sexual Orientation Not on file documented as of this encounter Plan of Treatment Not on file documented as of this encounter Procedures Procedure Name Priority Date/Time Associated Diagnosis Comments SCAN - LABS 08/10/2016 12:00 AM CDT documented in this encounter Results * SCAN - LABS (08/10/2016 12:00 AM CDT) Narrative 08/10/2016 12:00 AM CDT Ordered by an unspecified [...] as of this encounter Care Teams Machine Builder Relationship Specialty Start Date End Date Rocky Harvey MD PCP - General 04/24/18 01/23/19 Whit Macias NP PCP - General 01/24/19 09/22/20 Wagner Byrne MD [address] [place] [address] PCP - General Family Medicine 09/23/20 04/27/22 Enrique Smith MD 2 [facility] [address] [place] [address] PCP - General Family Medicine 04/28/22 10/16/23 Wagner Byrne MD [address] [place] [address] PCP - General Family Medicine 10/17/23 Isreal Gonzalez MD 3 [facility] [address] [place] [address] Referring Physician Internal Medicine 02/04/20 Carlyn Gray, [address] [place] [address] Straightedge Machine Operator Helper 06/25/24 07/23/24 documented as of this encounter
--- OUTSIDE RECORDS SUMMARY | 2024-10-27 09:08 | XMS_ITS | Encounter Summary ---
Author Organization [facility] Facility Care Team Providers Care Cutter Operator Name Role Phone Rocky Harvey MD Primary Care Provider Whit Horn NP Primary Care Provider [phone]- [phone] Isreal Gonzalez MD Unavailable [phone] Wagner Byrne MD Primary Care Provider + [phone] Enrique Smith MD Primary Care Provider [phone] Wagner Byrne MD Primary Care Provider [phone] Carlyn Gray [facility] Unavailable [phone] Encounter Details Date Type Department Care Team (Latest Contact Info) Description 10/03/2016 Orders Only [facility] CLINCONV Provider, MD Navya [address] [place] [address] Social History Tobacco Use Types Packs/Day Years Used Date Smoking Tobacco: Former Comments Unknown Sex and Gender Information Value Date Recorded Sex Assigned at Not on file 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 Sex Female 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 Gender Identity Not on file Sexual Orientation Not on file documented as of this encounter Plan of Treatment Not on file documented as of this encounter Procedures Procedure Name Priority Date/Time Associated Diagnosis Comments SCAN - LABS 10/04/2016 12:00 AM CDT documented in this encounter Results * SCAN - LABS (10/04/2016 12:00 AM CDT) Narrative 10/04/2016 12:00 AM CDT Ordered by an unspecified [...] documented as of this encounter Care Teams Cutter Operator Relationship Specialty Start Date End Date Rocky Harvey MD PCP - General 04/24/18 01/23/19 Whit Macias NP PCP - General 01/24/19 09/22/20 Wagner Byrne MD [address] [place] [address] PCP - General Family Medicine 09/23/20 04/27/22 Enrique Smith MD 2 [facility] [address] [place] [address] PCP - General Family Medicine 04/28/22 10/16/23 Wagner Byrne MD [address] [place] [address] PCP - General Family Medicine 10/17/23 Isreal Gonzalez MD 3 [facility] [address] [place] [address] Referring Physician Internal Medicine 02/04/20 Carlyn Gray, [address] [place] [address] I O Psychologist 06/25/24 07/23/24 documented as of this encounter
--- NOTE | 2024-10-27 09:09 | ED.LOWEXIN ---
HPI - Extremity Injury (Lower) General Chief Complaint: Extremity Injury, Lower Stated Complaint: Right Foot Injury Time Seen by Provider: 10/27/24 09:09 Source: patient Mode of arrival: ambulatory Limitations: no limitations History of Present Illness HPI Narrative: 58 yo F presents with pain, swelling, redness to R foot for approx. 1 wk, progressively getting worse. Got foot stuck between wheelchairs 3 wks ago. Was seen in ER after injury and x-ray was neg for fx. Pt concerned for infection. Afebrile. All systems reviewed and negative except as noted above. Related Data Home Medications ?Medication ?Instructions ?Recorded ?Confirmed ?Last Taken ?Type albuterol sulfate 90 mcg/actuation inhalation 10/27/24 Unknown History aerosol inhaler amiodarone 200 mg tablet mg 10/27/24 Unknown History atorvastatin 40 mg tablet mg 10/27/24 Unknown History cyclobenzaprine 10 mg tablet mg 10/27/24 Unknown History diazepam 2 mg tablet mg 10/27/24 Unknown History divalproex 500 mg tablet,delayed mg PO 10/27/24 Unknown History release duloxetine 60 mg capsule,delayed mg PO 10/27/24 Unknown History release fluticasone fur. 100 mcg-umeclid inhalation 10/27/24 Unknown History 62.5 mcg-vilant 25 mcg inhalat.powder (Trelegy Ellipta) furosemide 40 mg tablet mg 10/27/24 Unknown History lurasidone 80 mg tablet mg 10/27/24 Unknown History metoprolol succinate 100 mg mg PO 10/27/24 Unknown History tablet,extended release 24 hr ondansetron HCl 4 mg tablet mg 10/27/24 Unknown History oxycodone 10 mg tablet mg 10/27/24 Unknown History pantoprazole 40 mg tablet,delayed mg PO 10/27/24 Unknown History release prazosin 2 mg capsule mg 10/27/24 Unknown History prednisone 10 mg tablet mg 10/27/24 Unknown History topiramate 50 mg tablet mg 10/27/24 Unknown History venlafaxine 150 mg mg PO 10/27/24 Unknown History capsule,extended release 24 hr zolpidem 5 mg tablet mg 10/27/24 Unknown History Allergies Allergy/AdvReac Type Severity Reaction Status Date / Time acetaminophen (From Tylenol) Allergy Unknown unknown Verified 10/27/24 09:12 aspirin Allergy Unknown Unknown Verified 10/27/24 09:12 potassium Allergy Unknown Unknown Verified 10/27/24 09:12 zinc Allergy Unknown Unknown Verified 10/27/24 09:12 Review of Systems Review of Systems: CONSTITUTIONAL: Denies fever, chills, or sweats. EYES: Denies visual changes, redness, or discharge. ENT: Denies rhinorrhea, congestion, sore throat, or otalgia. CARDIOVASCULAR: Denies chest pain, palpitations, or edema. RESPIRATORY: Denies cough or dyspnea. GASTROINTESTINAL: Denies abdominal pain, nausea, vomiting, or diarrhea. GENITOURINARY: Denies dysuria or hematuria. SKIN: Denies rash or itching. MUSCULOSKELETAL: Denies back pain, joint pain, or myalgia. reports redness, swelling to right foot NEUROLOGIC: Denies headache, numbness, or weakness. PSYCHIATRIC: Denies anxiety or depression. All other systems reviewed are negative, except as documented in HPI. PMFSH Comments At time of signature, agree with nursing past medical, surgical, social and family history. There is no relevant family history pertinent to the presenting complaint. Exam Narrative: GENERAL: This is a well-nourished, well-developed patient, in no apparent distress. GENERAL: This is a well-nourished, well-developed patient, in no apparent distress. HEAD: normocephalic, atraumatic. EYES: PERRL. Sclera clear/white. Vision is grossly intact. EARS: External ears normal NOSE: External nose normal NECK: Neck supple, non-tender without lymphadenopathy, masses or thyromegaly. CARDIOVASCULAR: Regular rate and rhythm without murmurs, gallops, or rubs. RESPIRATORY: Clear to auscultation. Breath sounds equal bilaterally. No wheezes, rales, or rhonchi. SKIN: warm, Dry, intact with no suspicious lesions or rash, good texture and turgor. There is a healing abrasion to dorsal, lateral aspect right foot approximately 6 x 3 cm. No drainage from abrasion. Erythema, swelling to right foot with mild warmth concerning for cellulitis NEURO: awake, alert, and oriented to person, place and time. There were no obvious focal neurologic abnormalities. EXTREMITIES: No joint tenderness, effusion. Right dorsalis pedis 2+ Course Course Level of Care: Express Care Visit Vital Signs Vital signs: Vital Signs Temperature 36.6 C 10/27/24 09:04 Pulse Rate 67 10/27/24 09:04 Respiratory Rate 20 10/27/24 09:04 Blood Pressure 91/50 L 10/27/24 09:04 Pulse Oximetry 100 10/27/24 09:04 Oxygen Delivery Room Air 10/27/24 09:04 Temperature 36.6 C 10/27/24 09:04 Pulse Rate 67 10/27/24 09:04 Respiratory Rate 20 10/27/24 09:04 Blood Pressure 91/50 L 10/27/24 09:04 Pulse Oximetry 100 10/27/24 09:04 Oxygen Delivery Room Air 10/27/24 09:04 reviewed MDM - Extremity Injury (Lower) MDM Narrative Medical decision making narrative: will treat cellulitis to right foot with cephalexin. CMS intact. Afebrile, well-appearing. Recommend follow-up with primary care physician in 1 week. For any worsening of symptoms recommend patient go to the ER. Patient agrees with plan of care. Discharge Plan Discharge Clinical Impression: Cellulitis of foot, right Patient Disposition: Home Condition: Stable Instructions: Antibiotic Form, Cellulitis (ED) Additional Instructions: Take antibiotic as prescribed until gone. Elevate when at rest. Follow-up with your primary care physician in 1 week. For any worsening of symptoms go to the ER. Patient Language: Hungarian Prescriptions: New cephalexin 500 mg capsule 500 mg PO QID 10 Days Qty: 40 0RF No Action cyclobenzaprine 10 mg tablet furosemide 40 mg tablet atorvastatin 40 mg tablet prednisone 10 mg tablet amiodarone 200 mg tablet ondansetron HCl 4 mg tablet metoprolol succinate 100 mg tablet extended release 24 hr PO venlafaxine 150 mg capsule,extended release 24hr PO divalproex 500 mg tablet,delayed release (DR/EC) PO diazepam 2 mg tablet pantoprazole 40 mg tablet,delayed release (DR/EC) PO zolpidem 5 mg tablet albuterol sulfate 90 mcg/actuation HFA aerosol inhaler INHALATION prazosin 2 mg capsule topiramate 50 mg tablet duloxetine 60 mg capsule,delayed release(DR/EC) PO oxycodone 10 mg tablet lurasidone 80 mg tablet Trelegy Ellipta 100-62.5-25 mcg blister with device INHALATION Follow-up/Referrals: Caty,MD Wagner [Primary Care Provider] - 1 Week Time of Disposition: 09:20
--- OUTSIDE RECORDS SUMMARY | 2024-10-27 09:09 | XMS_ITS | Encounter Summary ---
Author Organization [facility] Address [address] [place] [address] Phone Care Team Providers Care Can Cleaner Name Role Phone Enrique Smith MD Primary Care Provider [phone] Roshan Franco MD Unavailable Caryn Menezes CARDIOTHORACIC PHYSIOTHERAPIST, LUMBER TRIMMER Unavailable + [phone] Nery Burrell MD PhD Unavailable [phone] Roc Whitehead MD Unavailable Wagner Byrne MD Primary Care Provider [phone] Rafael Li MD Unavailable Ruben Rodriguez MD Unavailable Reason for Visit * Reason Comments Medication Refill Encounter Details Date Type Department Care Team (Late st Contact Info) Description 06/27/2023 Refill [facility] - Family Medicine [facility] [address] [place] [id number] Enrique Smith MD [address] [address] Medication Refill Social History Tobacco Use Types Packs/Day Years Used Date Smoking Tobacco: Former Cigarettes 0.5 40 Smokeless Tobacco: Never Alcohol Use Standard Drinks/Week Comments Not Currently 0 (1 standard drink = 0.6 oz pur e alcohol) [facility] Utilities Answer Date Recorded In [...] or relatives? Once a week 06/05/2023 Attends Confucianism Services Not on file 06/05 Active Member [...] Total Score - Questions 1-9 19 01/12 [facility] of Occupat ional [...] or slept in a assisted (including now)? No 06/05/2023 Education Answer Date [...] encounter Miscellaneous Notes * Telephone Encounter - Enrique Smith MD - 06/27/2023 12:53 PM CST Please call. Stop atrovent CTOR INSTRUCTIONAL MATERIAL documented in this encounter Plan of Treatment Upcoming Encounters Date Type Department Care Team (Latest Contact Info) Description 10/29/2024 9:00 AM CDT Clinical Support [facility] - Cardiology - [place] [address] [place] [address] Nurse, [place] [facility] [place] 10/29/2024 9:30 AM CDT Office Visit [facility] - Cardiology - [place] [address] [place] [address] Rub[address] Rodriguez [facility] [address] [place] [address] 10/30/2024 1:00 PM CDT Appointment [facility] Cardiology Services 1 [facility] [place] [address] Ruben Rodriguez MD 2 [facility] [address] [place] [address] Discharge Disposition: Discharged to home or Selfcare documented as of this encounter Goals Goal Patient Goal Type Associated Problems Recent Progress Patient-Stated? Author I am tired of feeling guilty about my [grief.] Behavioral Health Improving(01/2024 2:42 PM DIRECTOR INSTRUCTIONAL MATERIAL) Yes Edda Vo, GAS INSPECTOR Note: Goal/Objective: Decrease guilty thoughts about her care for her mother who is now . Anticipated Time Frame for Goal Completion: 6 months Goal Reviewed with: patient Readiness to change: Ready to change Department associated with goal: [facility] Steps to achieve [...] documented as of this encounter Care Teams Can Cleaner Relationship Specialty Start Date End Date Enrique Smith MD #2 [facility] [address] [place] [address] PCP - General Family Medicine 03/28/22 11/24/23 Wagner Byrne MD [address] [place] [address] PCP - General Internal Medicine 11/25/23 Roshan Franco MD #[address] [place] [address] [address] Consulting Physician Cardiovascular Disease - Cardiology 12/06/22 04/20/24 Caryn Briseno, CARDIOTHORACIC PHYSIOTHERAPIST, LUMBER TRIMMER [address] [facility] [place], [facility] [address] [place] [address] Nurse Practitioner Cardiology 04/04/23 Nery Burrell MD PhD #[address] [place] [address] Lead Section Supervisor Interventional Cardiology 04/04/23 Roc Whitehead MD [address] [place] [address] Consulting Physician Pulmonary Disease 02/15/23 Rafael Li MD #[address] [facility], [address] [address] Consulting Physician Clinical Cardiac Electrophysiology 02/19/24 Ruben Rodriguez MD [address] [facility] [facility], [address] [address] Consulting Physician Cardiovascular Disease - Cardiology 08/06/24 documented as of this encounter
--- OUTSIDE RECORDS SUMMARY | 2024-10-27 09:09 | XMS_ITS | Encounter Summary ---
Author Organization [facility] Address [address] [place] [address] Phone Care Team Providers Care Wellness Instructor Name Role Phone Enrique Smith MD Primary Care Provider [phone] Roshan Franco MD Unavailable Caryn Menezes BEAMSTER, GLASS BREAKER Unavailable + [phone] Nery Burrell MD PhD Unavailable [phone] Roc Whitehead MD Unavailable Wagner Byrne MD Primary Care Provider [phone] Rafael Li MD Unavailable Ruben Rodriguez MD Unavailable Reason for Visit * Reason Comments Medication Refill Encounter Details Date Type Department Care Team (Late st Contact Info) Description 06/27/2023 Refill [facility] - Family Medicine [facility] [address] [place] [id number] Enrique Smith MD [address] [address] Medication Refill Social History Tobacco Use Types Packs/Day Years Used Date Smoking Tobacco: Former Cigarettes 0.5 40 Smokeless Tobacco: Never Alcohol Use Standard Drinks/Week Comments Not Currently 0 (1 standard drink = 0.6 oz pur e alcohol) [facility] Utilities Answer Date Recorded In the [...] or relatives? Once a week 06/05/2023 Attends [employer] Services Not on file 06/05 Active Member [...] Total Score - Questions 1-9 19 01/12 [facility] of Occupat ional Health - Occupational Stress [...] place to sleep or slept in a intermediate (including now)? No 06/05/2023 Education Answer Date [...] Telephone Encounter - Alexsandra Madsen RN - 06/27/2023 3:48 PM SECURITIES BROKER Medication failed the protocol, provider to review and approve the medication order if appropriate. Requested Prescriptions Pending Prescriptions Disp Refills methocarbamol (ROBAXIN) 500 MG Tablet [Pharmacy Med Name: METHOCARBAMOL 500 MG TABLET] 90 Tablet 0 Sig: TAKE 1 TABLET BY MOUTH THREE TIMES A DAY Not Delegated - Muscle Relaxants Protocol Failed - 06/27/2023 3:39 PM Failed - This refill cannot be delegated Passed - Visit with relevant provider in past 12 months or upcoming 90 days Recent Visits Date Type Provider Dept 06/05/23 Office Visit Enrique Smith MD [facility] 05/02/23 Office Visit Enrique Smith MD [facility] 04/04/23 Office Visit Enrique [facility] 01/23/23 Office Visit Luis Carlos Bull [facility] 01/16/23 Office Visit [facility]el [facility]htar [facility] 01/[facility]/23 Office Visit Enrique Smith MD [facility] 12/29/22 Office Visit Sulma Blevins APRN, GLASS BREAKER [facility] 12/05/22 Office Visit Danyel Akhtar APRN, GLASS BREAKER [facility] 10/31/22 Office Visit Enrique Smith MD [facility] 10/19/22 Office Visit Bárbara Bergeron APRN, [facility] Showing recent visits within past 365 days and meeting all other requirements Future Appointments Date Type Provider Dept 07/03/23 Appointment Enrique Smith MD [facility] Showing future appointments within next 90 days and meeting all other requirements RITIES BROKER documented in this encounter Plan of Treatment Upcoming Encounters Date Type Department Care Team (Latest Contact Info) Description 10/29/2024 9:00 AM CDT Clinical Support [facility] Cardiology - [place] #[address] [place] [address] Nurse, [place] [facility] [place] 10/29/2024 9:30 AM CDT Office Visit [facility] Cardiology - [place] #[address] [place] [address] Ruben Rodriguez MD [address] [address] 10/30/2024 1:00 PM CDT Appointment [facility] Cardiology Services 1 [place] [address] Ruben Rodriguez MD [address] [address] Discharge Disposition: Discharged to home or Selfcare documented as of this encounter Goals Goal Patient Goal Type Associated Problems Recent Progress Patient-Stated? Author I am tired of feeling guilty about my [grief.] Behavioral Health Improving(01/2024 2:42 PM SECURITIES BROKER) Yes Edda Vo, MERCHANT TAILOR Note: Goal/Objective: Decrease guilty thoughts about her care for her mother who is now . Anticipated Time Frame for Goal Completion: 6 months Goal Reviewed with: patient Readiness to change: Ready to change Department associated with goal: [facility] Steps to achieve [...] documented as of this encounter Care Teams Wellness Instructor Relationship Specialty Start Date End Date Enrique Smith MD #2 [facility] [address] [place] [address] PCP - General Family Medicine 03/28/22 11/24/23 Wagner Byrne MD [address] [place] [address] PCP - General Internal Medicine 11/25/23 Roshan Franco MD #2 [facility] [address] [place] [address] Consulting Physician Cardiovascular Disease - Cardiology 12/06/22 04/20/24 Caryn Briseno APRN, GLASS BREAKER #2 [facility] [address] [place] [address] Nurse Practitioner Cardiology 04/04/23 Nery Burrell MD PhD #[address] [place] [address] Machine Operator Replanter Interventional Cardiology 04/04/23 Roc Whitehead MD #[address] [place] [address] Consulting Physician Pulmonary Disease 02/15/23 Rafael Li MD #[address] [address] Consulting Physician Clinical Cardiac Electrophysiology 02/19/24 Ruben Rodriguez MD [address] [address] Consulting Physician Cardiovascular Disease - Cardiology 08/06/24 documented as of this encounter
--- OUTSIDE RECORDS SUMMARY | 2024-10-27 09:09 | XMS_ITS | Encounter Summary ---
Author Organization [facility] Address [address] [place] [address] Phone Care Team Providers Care Teacher Of The Visually Impaired Name Role Phone Enrique Smith MD Primary Care Provider [phone] Roshan Franco MD Unavailable Caryn Menezes PUBLICATIONS SALES REPRESENTATIVE, EMPLOYEE COMMUNICATIONS MANAGER Unavailable + [phone] Nery Burrell MD PhD Unavailable [phone] Roc Whitehead MD Unavailable Wagner Byrne MD Primary Care Provider [phone] Rafael Li MD Unavailable Ruben Rodriguez MD Unavailable Reason for Visit * Reason Comments Medication Refill Encounter Details Date Type Department Care Team (Late st Contact Info) Description 06/07/2023 Refill [facility] - Family Medicine [facility] #[address] [place] [phone] Enrique Smith MD [address] [address] Medication Refill Social History Tobacco Use Types [...] or slept in a residential (including now)? No 06/05/2023 Education Answer Date [...] Telephone Encounter - Eloisa Meza RN - 06/07/2023 4:13 PM WASH TUB MACHINE OPERATOR PDMP 05/16/23 6 day supply Medication failed the protocol, provider to review and approve the medication order if appropriate. Requested Prescriptions Pending Prescriptions Disp Refills ondansetron (ZOFRAN) 4 MG Tablet [Pharmacy Med Name: ONDANSETRON HYDROCHLORIDE 4MG TABLET] 20 Tablet Sig: TAKE 1 TABLET (4 MG TOTAL) BY MOUTH EVERY 8 (EIGHT) HOURS NEEDED FOR NAUSEA OR VOMITING Not Delegated - 5-HT3 Antagonists Protocol Failed - 06/07/2023 2:19 PM Failed - This refill cannot be delegated Passed - Visit with relevant provider in past 12 months or upcoming 90 days Recent Visits Date Type Provider Dept 06/05/23 Office Visit Enrique Smith MD [facility] 05/02/23 Office Visit Enrique Smith MD [facility] 04/04/23 [facility]23 Office Visit Luis Carlos Bull MD [facility] 01/16/23 Office Visit Danyel Akhtar, PUBLICATIONS SALES REPRESENTATIVE, EMPLOYEE COMMUNICATIONS MANAGER [facility] 01/02/23 [facility] [place] 12/29/22 Office Visit Sulma Blevins PUBLICATIONS SALES REPRESENTATIVE, EMPLOYEE COMMUNICATIONS MANAGER [facility] 12/05/22 Office Visit Danyel Akhtar PUBLICATIONS SALES REPRESENTATIVE, EMPLOYEE COMMUNICATIONS MANAGER [facility] 10/31/22 Office Visit Enrique Smith MD [facility] 10/19/22 Office Visit Bárbara Bergeron, PUBLICATIONS SALES REPRESENTATIVE, [facility] Showing recent visits within past 365 days and meeting all other requirements Future Appointments Date Type Provider Dept 07/03/23 Appointment Enrique Smith MD [facility] Showing future appointments within next 90 days and meeting all other requirements TUB MACHINE OPERATOR documented in this encounter Plan of Treatment Upcoming Encounters Date Type Department Care Team (Latest Contact Info) Description 10/29/2024 9:00 AM CDT Clinical Support [facility] Cardiology [facility] #2 [place] [address] Nurse, [place] [facility] [place] 10/29/2024 9:30 AM CDT Office Visit [facility] Cardiology [facility] #2 [place] [address] Ruben Rodriguez MD [address] [address] 10/30/2024 1:00 PM CDT Appointment [facility] Cardiology Services 1 [place] [address] Ruben Rodriguez MD [address] [address] Discharge Disposition: Discharged to home or Selfcare documented as of this encounter Goals Goal Patient Goal Type Associated Problems Recent Progress Patient-Stated? Author I am tired of feeling guilty about my [grief.] Behavioral Health Improving(01/2024 2:42 PM WASH TUB MACHINE OPERATOR) Yes Edda Vo, GM MOBILE Note: Goal/Objective: Decrease guilty thoughts about her care for her mother who is now . Anticipated Time Frame for Goal Completion: 6 months Goal Reviewed with: patient Readiness to change: Ready to change Department associated with goal: [facility] Steps to [...] documented as of this encounter Care Teams Teacher Of The Visually Impaired Relationship Specialty Start Date End Date Enrique Smith MD #[address] [address] PCP - General Family Medicine 03/28/22 11/24/23 Wagner Byrne MD [address] [place] [address] PCP - General Internal Medicine 11/25/23 Roshan Franco MD #2 [facility] [place] [address] Consulting Physician Cardiovascular Disease - Cardiology 12/06/22 04/20/24 Caryn Briseno, PUBLICATIONS SALES REPRESENTATIVE, EMPLOYEE COMMUNICATIONS MANAGER #2 [facility], [address] [address] Nurse Practitioner Cardiology 04/04/23 Nery Burrell MD PhD [address] [place] [address] Territory Outside Sales Manager Interventional Cardiology 04/04/23 Roc Whitehead MD #2 [place] [address] Consulting Physician Pulmonary Disease 02/15/23 Jen, Rafael Schaeffer MD #2 [facility], [address] [address] Consulting Physician Clinical Cardiac Electrophysiology 02/19/24 Ruben Rodriguez MD [address] [facility], [address] [address] Consulting Physician Cardiovascular Disease - Cardiology 08/06/24 documented as of this encounter
--- OUTSIDE RECORDS SUMMARY | 2024-10-27 09:09 | XMS_ITS | Encounter Summary ---
Author Organization [facility] Address [address] [place] [address] Phone Care Team Providers Care Silo Operator Name Role Phone Enrique Smith MD Primary Care Provider [phone] Roshan Franco MD Unavailable Caryn Menezes TUYERE FITTER, CLOTHING WORKER Unavailable + [phone] Nery Burrell MD PhD Unavailable [phone] Roc Whitehead MD Unavailable Wagner Byrne MD Primary Care Provider [phone] Rafael Li MD Unavailable Ruben Rodriguez MD Unavailable Reason for Visit * Reason Comments Medication Refill Encounter Details Date Type Department Care Team (Late st Contact Info) Description 07/06/2023 Refill [facility] - Family Medicine [facility] [address] [place] [id number] Enrique Smith MD [address] [address] Medication Refill Social History Tobacco Use Types [...] or relatives? Once a week 06/05/2023 Attends Judaism Services Not on file 06/05 Active Member [...] Total Score - Questions 1-9 19 01/12 [facility] of Occupat ional [...] or slept in a fci (including now)? No 06/05/2023 Education Answer Date [...] Telephone Encounter - Tanika Martin RN - 07/06/2023 2:15 PM CST Medication failed the protocol, provider to review and approve the medication order if appropriate. Requested Prescriptions Pending Prescriptions Disp Refills gabapentin (NEURONTIN) 100 MG Capsule [Pharmacy Med Name: GABAPENTIN 100MG CAPSULE] 270 Capsule 1 Sig: TAKE 1 CAPSULE BY MOUTH THREE (3) TIMES DAILY Not Delegated - Anticonvulsants Excluding Benzodiazepines Protocol Failed - 07/06/2023 12:13 PM Failed - This refill cannot be delegated Passed - Visit with relevant provider in past 12 months or upcoming 90 days Recent Visits Date Type Provider Dept 06/05/23 Office Visit Enrique Smith MD [facility] 05/02/23 Office Visit Enrique Smith MD [facility] 04/04/23 Office Visit Enrique Smith MD [facility] 01/23/23 Office Visit Luis Carlos Bull MD [facility] 01/16/23 Office Visit Danyel Akhtar APRN, JET [facility] 01/02/23 Office Visit Enrique Smith MD [facility] 12/29/22 Office Visit Sulma Blevins APRN, CLOTHING WORKER [facility] 12/05/22 Office Visit Danyel Akhtar APRN, CLOTHING WORKER [facility] 10/31/22 Office Visit Enrique Smith MD [facility] 10/19/22 Office Visit Bárbara Bergeron APRN, [facility] Showing recent visits within past 365 days and meeting all other requirements Future Appointments No visits were found meeting these conditions. Showing future appointments within next 90 days and meeting all other requirements ICAL SUPPORT ASSOCIATE documented in this encounter Plan of Treatment Upcoming Encounters Date Type Department Care Team (Latest Contact Info) Description 10/29/2024 9:00 AM CDT Clinical Support [facility] Cardiology [facility] [address] [place] [address] Nurse, [facility] 10/29/2024 9:30 AM CDT Office Visit [facility] [address] [place] [address] Ruben Rodriguez MD [address] [address] 10/30/2024 1:00 PM CDT Appointment [facility] Cardiology Services [address] [place] [address] Ruben Rodriguez MD [address] [address] Discharge Disposition: Discharged to home or Selfcare documented as of this encounter Goals Goal Patient Goal Type Associated Problems Recent Progress Patient-Stated? Author I am tired of feeling guilty about my [grief.] Behavioral Health Improving(01/2024 2:42 PM CLINICAL SUPPORT ASSOCIATE) Yes Edda Vo, SCRAP METAL PROCESSING WORKER Note: Goal/Objective: Decrease guilty thoughts about [...] documented in this encounter Additional Health Concerns Assessment Noted Time PHQ-9 Depression Total Score: 19 023 2:00 PM CDT documented as of this encounter Care Teams Silo Operator Relationship Specialty Start Date End Date Enrique Smith MD #[address] [address] PCP - General Family Medicine 03/28/22 11/24/23 Wagner Byrne MD [address] [place] [address] PCP - General Internal Medicine 11/25/23 Roshan Franco MD #2 [facility] [address] [place] [address] Consulting Physician Cardiovascular Disease - Cardiology 12/06/22 04/20/24 Caryn Briseno APRN, CLOTHING WORKER #2 [facility] [address] [place] [address] Nurse Practitioner Cardiology 04/04/23 Nery Burrell MD PhD [address] [place] [address] Supervisor Pole Yard Interventional Cardiology 04/04/23 Roc Whitehead MD [address] [place] [id number] Consulting Physician Pulmonary Disease 02/15/23 Rafael Li MD #[address] [address] Consulting Physician Clinical Cardiac Electrophysiology 02/19/24 Ruben Rodriguez MD [address] [address] Consulting Physician Cardiovascular Disease - Cardiology 08/06/24 documented as of this encounter
--- OUTSIDE RECORDS SUMMARY | 2024-10-27 09:09 | XMS_ITS | Encounter Summary ---
Author Organization [facility] Address [address] [place] [address] Phone Care Team Providers Care Specimen Preparation Assistant Name Role Phone Enrique Smith MD Primary Care Provider [phone] Roshan Franco MD Unavailable Caryn Menezes COUTURE ALTERATIONS DRESSMAKER, DESIGN CELL ENGINEER Unavailable + [phone] Nery Burrell MD PhD Unavailable [phone] Roc Whitehead MD Unavailable Wagner Byrne MD Primary Care Provider [phone] Rafael Li MD Unavailable Ruben Rodriguez MD Unavailable Reason for Visit * Reason Comments Medication Refill Encounter Details Date Type Department Care Team (Late st Contact Info) Description 07/03/2023 Refill [facility] - Family Medicine [facility] [address] [place] [id number] Enrique Smith MD [address] [address] Medication Refill Social History Tobacco Use Types Packs/Day Years Used Date Smoking Tobacco: Former Cigarettes 0.5 40 Smokeless Tobacco: Never Alcohol Use Standard Drinks/Week Comments Not Currently 0 (1 standard drink = 0.6 oz pur e alcohol) [facility] Utilities Answer Date Recorded In the [...] or relatives? Once a week 06/05/2023 Attends Yazidism Services Not on file 06/05 Active Member [...] Total Score - Questions 1-9 19 01/12 [facility] of Occupat ional Health - Occupational Stress [...] or slept in a custodial (including now)? No 06/05/2023 Education Answer Date [...] Telephone Encounter - Tanika Martin RN - 07/03/2023 4:57 PM CST Medication failed the protocol, provider to review and approve the medication order if appropriate. Requested Prescriptions Pending Prescriptions Disp Refills traZODone (DESYREL) 100 MG Tablet [Pharmacy Med Name: TRAZODONE HYDROCHLORIDE 100MG TABLET] 90 Tablet 2 Sig: TAKE 1 TABLET BY MOUTH NIGHTLY. Serotonin Modulators (6 Month Refill Only) Protocol Failed - 07/03/2023 10:53 AM Failed - Has an encounter in the past 6 months with a depression or anxiety visit diagnosis Failed - Patient has established therapy with Serotonin Modulators for at least 6 months Passed - Visit with relevant provider in past 6 months or upcoming 90 days Recent Visits Date Type Provider Dept 06/05/23 Office Visit Enrique Smith MD [facility] Brain 05/02/23 Office Visit Enrique Smith MD [facility] Brain 04/04/23 Office Visit Enrique Smith MD [facility] 01/23/23 Office Visit Luis Carlos Bull MD [facility] 01/16/23 Office Visit Danyel Akhtar APRN, CNP [facility] 01/02/23 Office Visit Enrique Smith MD [facility] Showing recent visits within past 182 days and meeting all other requirements Future Appointments No visits were found meeting these conditions. Showing future appointments within next 90 days and meeting all other requirements Passed - No PRN Use for Trazodone IAL DEPUTY SHERIFF documented in this encounter Plan of Treatment Upcoming Encounters Date Type Department Care Team (Latest Contact Info) Description 10/29/2024 9:00 AM CDT Clinical Support [facility] Cardiology [facility] [address] [place] [address] Nurse, [facility] [place] 10/29/2024 9:30 AM CDT Office Visit [facility] #2 [place] [address] Ruben Rodriguez MD [address] [address] 10/30/2024 1:00 PM CDT Appointment [facility] Cardiology Services 1 [place] [address] Ruben Rodriguez MD [address] [address] Discharge Disposition: Discharged to home or Selfcare documented as of this encounter Goals Goal Patient Goal Type Associated Problems Recent Progress Patient-Stated? Author I am tired of feeling guilty about my [grief.] Behavioral Health Improving(01/2024 2:42 PM SPECIAL DEPUTY SHERIFF) Yes Edda Vo, HEAD OF MARKETING ADOMETRY Note: Goal/Objective: Decrease guilty thoughts about her [...] as of this encounter Visit Diagnoses Diagnosis Primary insomnia Persistent disorder of initiating or maintaining sleep documented in this encounter Additional Health Concerns Assessment Noted Time PHQ-9 Depression Total Score: 023 2:00 PM CDT documented as of this encounter Care Teams Specimen Preparation Assistant Relationship Specialty Start Date End Date Enrique Smith MD #2 [facility] [address] [place] [address] PCP - General Family Medicine 03/28/22 11/24/23 Wagner Byrne MD [address] [place] [address] PCP - General Internal Medicine 11/25/23 Roshan Franco MD #2 [facility] [address] [place] [address] Consulting Physician Cardiovascular Disease - Cardiology 12/06/22 04/20/24 Caryn Briseno, COUTURE ALTERATIONS DRESSMAKER, DESIGN CELL ENGINEER #2 [facility] [address] [place] [address] Nurse Practitioner Cardiology 04/04/23 Nery Burrell MD PhD #1 [place] [address] Steam Clothes Press Operator Interventional Cardiology 04/04/23 Roc Whitehead MD #2 [place] [address] Consulting Physician Pulmonary Disease 02/15/23 Rafael Li MD #[address] [address] Consulting Physician Clinical Cardiac Electrophysiology 02/19/24 Ruben Rodriguez MD [address] [address] Consulting Physician Cardiovascular Disease - Cardiology 08/06/24 documented as of this encounter
--- OUTSIDE RECORDS SUMMARY | 2024-10-27 09:26 | XMS_ITS | CONTINUITY OF CARE DOCUMENT ---
Author Name indira jacobson Address Unknown Organization [facility] Address [address] [place] [address] Phone [phone] Care Team Providers Care Senior Regulatory Affairs Specialist Name Role Phone Vale ACEVEDO, Olvin Unavailable [phone] Olvin Collazo MD Unavailable CHRISTOS CORTEZ MD Unavailable [phone] PROBLEMS Condition Status Date Provider Notes Cardiology examination completed 2 - Olvin Collazo MD Hypertension benign essential active Carlyn Ventimiglia TRANSPORT DRIVER Atrial fib paroxysmal active Olvin Collazo MD Hyperlipidemia completed - Olvin Collazo MD S/P Gen change BIV/AICD Hurd 01/09/22 ( NOT MRI SAFE/old Hurd & [employer] Leads) active Olvin Collazo MD for cardiac arrexst per pt VENTRICULAR FIBRILLATION; active Olvin hoff MD FAMILY HISTORY OF HEART DISEASE active Olvin Collazo MD both parensx an d soin Screening active Olvin Collazo MD Bipolar disorder active Olvin Collazo MD Thrombocytosis active Olvin Collazo MD neg iron b12 and foalte covid 19;2020 active Olvin Collazo MD PERICARDIAL EFFUSION; active Olvin Collazo MD Cerebral atherosclerosis active Olvin conner MD no cva Insomnia active Olvin Collazo MD Tobacco dependence, continuous active Olvin Collazo MD COPD active Olvin morales md Cardiomyopathy active Olvin Collazo MD [address] [facility] 25 n onichemi per cath in 14 n eg iron ENCOUNTERS Date Type Provider Location Encounter Diag nosis - In-person encounter Office Visit Olvin Collazo MD [facility] Cardiology examinationCardiomyopathyCOPDAtrial fib paroxysmalHyperlipidemiaTobacco dependence, continuousS/P Gen change BIV/AICD Hurd 01/09/22 ( NOT MRI SAFE/old Hurd & [employer]tr[employer] Leads)VENTRICULAR FIBRILLATION;FAMILY HISTORY OF HEART DISEASEScreeningBipolar disorderThrombocytosiscovid ;ERICARDIAL EFFUSION;Cerebral atherosclerosisInsomnia - In-person encounter Office Visit Olvin Collazo MD [facility] CardiomyopathyHypertension benign essentialCOPDAtrial fib paroxysmalTobacco dependence, continuous VITAL SIGNS Date Observation Value Provider blood pressure, diastolic 75 mm[Hg] Li nkLog blood pressure, systolic 134 mm[Hg] Ashanti [facility] blood pressure, diastolic 75 mm[Hg] Ky jason Merkel blood pressure, systolic 134 mm[Hg] Kyl ia Merkel pulse rate 79 /min Gaudenciolia Merkel oxygen saturation, oximetry 91 % [facility] respiratory rate E&M 12 /min Rosario lopez blood pressure, cuff size regular Ky jason Merkel height E&M 66 [in_i] Kylia Isma blood [...] mcg blister with device active Carlyn Ventimiglia TRANSPORT DRIVER Xtampza ER 9 mg cap,sprinkl,ER12h r(DONT CRUSH) completed - Olvin Collazo MD Jardiance 10 mg tablet active Carlyn Ventimiglia TRANSPORT DRIVER Daliresp 500 mcg tablet active Carlyn Ventimiglia TRANSPORT DRIVER Eliquis 5 mg tablet active Carlyn Ventimiglia TRANSPORT DRIVER roflumilast 500 mcg tablet completed - Olvin Collazo MD ranolazine 500 mg tablet extended release 12 hr completed - Olvin Collazo MD pantoprazole 40 mg tablet,delayed release (DR/EC) active Carlyn Ventimiglia TRANSPORT DRIVER spironolactone 25 mg tablet active /2 Olvin Collazo MD metoprolol succinate 100 mg tablet extended release 24 hr active Carlyn Ventimiglia TRANSPORT DRIVER amiodarone 200 mg tablet active Carlyn Ventimiglia TRANSPORT DRIVER albuterol sulfate 2.5 mg/3 mL (0.083 %) solution for nebulization active Carlyn Ventimiglia TRANSPORT DRIVER furosemide 40 mg tablet active Carlyn Ventimiglia TRANSPORT DRIVER fluticasone propionate 50 mcg/actuation spray,suspension active Carlyn Ventimiglia TRANSPORT DRIVER lisinopril 40 mg tablet completed - Olvin Collazo MD paroxetine HCl 40 mg tablet completed - Olvin Collazo MD azelastine 137 mcg (0.1 %) aerosol,spray active Carlyn Ventimiglia TRANSPORT DRIVER albuterol sulfate 90 mcg/actuation HFA aerosol inhaler active Carlyn Ventimiglia TRANSPORT DRIVER gabapentin 100 mg capsule completed - Olvin Collazo MD digoxin 125 mcg (0.125 mg) tablet completed - Olvin Collazo MD montelukast 10 mg tablet active Carlyn Ventimiglia TRANSPORT DRIVER ropinirole 0.5 mg tablet completed - Olvin Collazo MD atorvastatin 40 mg tablet active Carlyn Ventimiglia TRANSPORT DRIVER divalproex 500 mg tablet,delayed release (DR/EC) completed - Olvin Platt unspecified unspecified completed Take 1 tablet by mouth twice a day - Carlyn Ventimiglia TRANSPORT DRIVER SOCIAL HISTORY Date Observation Value Provider smoking/tobacco [...] d rug of choice marijuana Carlyn Ventimiglia TRANSPORT DRIVER drug use yes Carlyn Ventimig jason TRANSPORT DRIVER alcohol use no Carlyn gomez [facility] number of years as a smoker 50 a Trish Harkins smoking history, tot al pack/day 1/2 ppd Trish Harkins cigarette use yes Trish palm smoking status Current every day smoker K erri Shahana INSURANCE PROVIDERS Payer name Policy type / Coverage type [employer] red alliance party ID [employer] GOLD PLUS O HMO [id number] ADVANCE DIRECTIVES Name Date DISCUSSED - NO DECISION MADE TREATMENT PLAN Date Name Performer [id number],C,cessation enc ouraged Carlyndharmesh Matthew [facility] [id number],C, H er updated medication list for this problem includes: Trelegy Ellipta 100-62.5-25 Mcg Blister With Device (Ttnaumapogv-[id number]) Daliresp 500 Mcg Tablet (Roflumilast) Roflumilast 500 Mcg Tablet (Roflumilast) Albuterol Sulfate 2.5 Mg/3 Ml (0.083 %) Solution For Nebulization (Albuterol sulfate) Albuterol Sulfate 90 Mcg/actuation Hfa Aerosol Inhaler (Albuterol sulfate) Montelukast 10 Mg Tablet (Montelukast) [place] Vipul [facility] [id number],C,B P 150/90 today not at goal. Will [...] Lisinopril 40 Mg Tablet (Lisinopril) Carlyn Matthew [facility] [id number],C,F rom available outside chart review appears to be NICMP. EF of 25% per last noted echo last 01/2022. 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 Meds pulled from outside pharmacy have asked [...] Olvin Collazo MD Cardiology:cessation encouraged Carlyn Matthew [facility] Cardiology: H er updated medication list for this problem includes: Trelegy Ellipta 100-62.5-25 Mcg Blister With Device (Oebuwuidene-[id number]) Daliresp 500 Mcg Tablet (Roflumilast) Roflumilast 500 Mcg Tablet (Roflumilast) Albuterol Sulfate 2.5 Mg/3 Ml (0.083 %) Solution For Nebulization (Albuterol sulfate) Albuterol Sulfate 90 Mcg/actuation Hfa Aerosol Inhaler (Albuterol sulfate) Montelukast 10 Mg Tablet (Montelukast) Carlyn Matthew [facility] Cardiology:BP 150/90 today not at goal. Will [...] Lisinopril 40 Mg Tablet (Lisinopril) Carlyn Matthew [facility] Cardiology:From [facility] outside chart review appears to be NICMP. EF of 25% per last noted echo last 01/2022. 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 Meds pulled from outside pharmacy have asked [...] Mcg (0.125 Mg) Tablet (Digoxin) Carlyn Matthew [facility] Date Name Complete Echo RPM (remote patient [...]
== END 2024-10-27 09:30 | disposition home or self-care (01) ==
PROVIDERS: Emergency Provider Nurse Practitioner Family; PCP Hospitalist
DX: L03.115 Cellulitis of right lower limb (principal); I48.91 Unspecified atrial fibrillation; J44.9 Chronic obstructive pulmonary disease, unspecified; Z95.810 Presence of automatic (implantable) cardiac defibrillator
CPT/HCPCS: 99203; G0463